=== PATIENT | female | born 1935 | race Two or more races ===

== ENCOUNTER 2020-05-11 07:51 | Inpatient (IN) | payer MEDICARE ==
[2020-05-11 08:15] LABS: Appearance,Urine Clear (Clear); Bilirubin,Urine Negative (Negative); Blood,Urine Negative (Negative); Color,Urine Light Yellow; Glucose,Urine (UA) Negative (Negative); Ketones,Urine Negative (Negative); Leukocyte Esterase,Urine Negative (Negative); Nitrite,Urine Negative (Negative); Protein,Urine Negative (Negative); Specific Gravity,Urine 1.007 (1.001-1.035); Urobilinogen,Urine <2.0 mg/dL (<2.0)
--- NOTE | 2020-05-11 08:29 | ED ---
General Adult HPI - General Chief complaint: Weakness Stated complaint: anxiety Time Seen by Provider: 05/11/20 07:54 Source: patient Mode of arrival: EMS Limitations: no limitations - History of Present Illness Initial comments: Dictation was produced using [employer] dictation software. please excuse any grammatical, word or spelling errors. This patient was cared for during a federal and state declared state of emergency secondary to Covid 19 Chief Complaint: 85-year-old female presents with slurred speech and generalized weakness. History of Present Illness: Is an 85-year-old feel she presents today with slurred speech and generalized weakness. Patient states that she called EMS today because she had difficulty getting out of bed. Patient states she had a similar episode yesterday morning. Patient also complains of mild slurred speech that has been ongoing for the past week. States that it significantly got worse. She feels as though her speech is garbled. EMS reports that patient lives alone. Patient also admits to living alone. She does have family member that helps take care of her at home. Patient denies any fever. Denies any chills or night sweats. Denies any dysuria. Denies any numbness feeling to the arms or legs. She has no pain complaints. The ROS documented in this emergency department record has been reviewed and confirmed by me. Those systems with pertinent positive or negative responses have been documented in the HPI. All other systems are other negative and/or noncontributory. PHYSICAL EXAM: General Impression: Alert and oriented x3, not in acute distress HEENT: Normocephalic atraumatic, extra-ocular movements intact, pupils equal and reactive to light bilaterally, mucous membranes moist, poor dentition Cardiovascular: Heart regular rate and rhythm Chest: Able to complete full sentences, no retractions, no tachypnea Abdomen: abdomen soft, non-tender, non-distended, no organomegaly Musculoskeletal: Pulses present and equal in all extremities, no peripheral edema Motor: no focal deficits noted Neurological: CN II-XII grossly intact, no focal motor or sensory deficits noted, mildly dysarthric, non-ataxic, mildly aphasic Skin: Intact with no visualized rashes Psych: Normal affect and mood ED course: 85-year-old female presents with generalized weakness and slurred speech. Vital signs upon arrival are within acceptable limits. Patient slurred speech is very mild however slightly appreciated. Patient has no clear definition of when her symptoms started. She does not have any facial drooping. There is concern of CVA. Nurse who assisted patient to the restroom reports that there is abnormal smell to urine concerning for UTI.More history was obtained from daughter. Daughter reports that patient had a fall episode yesterday. Laboratory evaluation obtained. CBC unremarkable. Metabolic panel shows mild anion gap acidosis. Lactic acidosis 2.8, glucose 61, calcium 5.7 and magnesium 1.2. Urinalysis is not showing any signs of infection. Patient's magnesium was replaced, patient is given fluids and dextrose. Daughter at bedside reports that patient takes an oral anti-hypoglycemics, glipizide 4 times a day. Daughter is concerned that because patient does not eat as much as she used to she does not eat to take as much glipizide.Computed tomography scan of the brain obtained showing no acute processes. Patient reevaluated after administration of fluids and magnesium. She states she still feels like her speech is garbled and that she has no control over her body. She is however resting comfortably. Discussed patient case with patient's primary care physician Dr. Gee who is currently the hospitalist on-call. At this point is unclear what is causing patient's lack acidosis. Patient also has features to suggest stroke with slurred speech. Patient be admitted for CVA workup. She is given aspirin. Dr. Gee requested echocardiogram and carotid ultrasound be ordered for stroke workup. Neurology is consulted. Patient reevaluated at bedside she does appear to be in stable medical condition. She does not show any signs of respiratory distress. Patient is to be afebrile. She is not showing any localizing sym ptoms to suggest any sort of bodily infection. EKG interpretation: Ventricular rate 86, normal sinus rhythm,. 140, QRS 74, QTC 406. No AR prolongation, no QTC prolongation, no ST or T-wave changes noted. Overall, this EKG is unremarkable - Related Data Home Medications Medication Instructions Recorded Confirmed Ferrous Sulfate [Feosol] 325 mg PO DAILY 05/11/20 05/11/20 Levothyroxine Sodium [Synthroid] 50 mcg PO DAILY 05/11/20 05/11/20 Omeprazole 20 mg PO DAILY 05/11/20 05/11/20 glipiZIDE/METFORMIN HCL 2 tab PO BID 05/11/20 05/11/20 [glipiZIDE/METFORMIN HCL 5-500 mg] Allergies Allergy/AdvReac Type Severity Reaction Status Date / Time No Known Allergies Allergy Verified 05/11/20 10:32 Review of Systems ROS Statement: Those systems with pertinent positive or pertinent negative responses have been documented in the HPI. ROS Other: All systems not noted in ROS Statement are negative. Past Medical History Past Medical History: Diabetes Mellitus, Thyroid Disorder History of Any Multi-Drug Resistant Organisms: None Reported Past Surgical History: Section Past Psychological History: No Psychological Hx Reported Smoking Status: Never smoker Past Alcohol Use History: None Reported Past Drug Use History: None Reported General Exam Limitations: no limitations Course Vital Signs 05/11/20 05/11/20 05/11/20 07:56 09:44 10:41 Temperature 98.1 F Pulse Rate 85 76 79 Respiratory 18 16 16 Rate Blood Pressure 173/88 160/90 141/87 O2 Sat by Pulse 100 99 95 Oximetry Medical Decision Making - Lab Data Result diagrams: 05/11/20 08:31 05/11/20 08:31 Lab Results 05/11/20 05/11/20 05/11/20 Range/Units 08:08 08:31 08:31 WBC 5.5 (3.8-10.6) k/uL RBC 4.04 (3.80-5.40) m/uL Hgb 11.5 (11.4-16.0) gm/dL Hct 36.5 (34.0-46.0) % MCV 90.4 (80.0-100.0) fL MCH 28.4 (25.0-35.0) pg MCHC 31.4 (31.0-37.0) g/dL RDW 13.2 (11.5-15.5) % Plt Count 270 (150-450) k/uL Neutrophils % 68 % Lymphocytes % 21 % Monocytes % 7 % Eosinophils % 2 % Basophils % 0 % Neutrophils # 3.8 (1.3-7.7) k/uL Lymphocytes # 1.2 (1.0-4.8) k/uL Monocytes # 0.4 (0-1.0) k/uL Eosinophils # 0.1 (0-0.7) k/uL Basophils # 0.0 (0-0.2) k/uL Sodium 143 (137-145) mmol/L Potassium 4.9 (3.5-5.1) mmol/L Chloride 110 H (98-107) mmol/L Carbon Dioxide 20 L (22-30) mmol/L Anion Gap 13 mmol/L BUN 13 (7-17) mg/dL Creatinine 0.68 (0.52-1.04) mg/dL Est GFR (CKD-EPI)AfAm >90 (>60 ml/min/1.73 sqM) Est GFR (CKD-EPI)NonAf 81 (>60 ml/min/1.73 sqM) Glucose 61 L (74-99) mg/dL POC Glucose (mg/dL) (75-99) mg/dL POC Glu Anthropologist ID Lactic Ac Sepsis Rflx Plasma Lactic Acid Tye (0.7-2.0) mmol/L Calcium 10.1 (8.4-10.2) mg/dL Ionized Calcium Pernell 5.7 H (4.5-5.3) mg/dL Magnesium 1.2 L (1.6-2.3) mg/dL Total Bilirubin 0.6 (0.2-1.3) mg/dL AST 30 (14-36) U/L ALT 13 (4-34) U/L Alkaline Phosphatase 81 (38-126) U/L Total Protein 7.4 (6.3-8.2) g/dL Albumin 4.3 (3.5-5.0) g/dL Urine Color Light Yellow Urine Appearance Clear (Clear) Urine pH 5.0 (5.0-8.0) Ur Specific [place] 1.007 (1.001-1.035) Urine Protein Negative (Negative) Urine Glucose (UA) Negative (Negative) Urine Ketones Negative (Negative) Urine Blood Negative (Negative) Urine Nitrite Negative (Negative) Urine Bilirubin Negative (Negative) Urine Urobilinogen <2.0 (<2.0) mg/dL Ur Leukocyte Esterase Negative (Negative) 05/11/20 05/11/20 05/11/20 Range/Units 08:31 09:02 11:35 WBC (3.8-10.6) k/uL RBC (3.80-5.40) m/uL Hgb (11.4-16.0) gm/dL Hct (34.0-46.0) % MCV (80.0-100.0) fL MCH (25.0-35.0) pg MCHC (31.0-37.0) g/dL RDW (11.5-15.5) % Plt Count (150-450) k/uL Neutrophils % % Lymphocytes % % Monocytes % % Eosinophils % % Basophils % % Neutrophils # (1.3-7.7) k/uL Lymphocytes # (1.0-4.8) k/uL Monocytes # (0-1.0) k/uL Eosinophils # (0-0.7) k/uL Basophils # (0-0.2) k/uL Sodium (137-145) mmol/L Potassium (3.5-5.1) mmol/L Chloride (98-107) mmol/L Carbon Dioxide (22-30) mmol/L Anion Gap mmol/L BUN (7-17) mg/dL Creatinine (0.52-1.04) mg/dL Est GFR (CKD-EPI)AfAm (>60 ml/min/1.73 sqM) Est GFR (CKD-EPI)NonAf (>60 ml/min/1.73 sqM) Glucose (74-99) mg/dL POC Glucose (mg/dL) (75-99) mg/dL POC Glu Anthropologist ID Lactic Ac Sepsis Rflx Y Plasma Lactic Acid Tye 2.8 H* 3.6 H* (0.7-2.0) mmol/L Calcium (8.4-10.2) mg/dL Ionized Calcium Pernell (4.5-5.3) mg/dL Magnesium (1.6-2.3) mg/dL Total Bilirubin (0.2-1.3) mg/dL AST (14-36) U/L ALT (4-34) U/L Alkaline Phosphatase (38-126) U/L Total Protein (6.3-8.2) g/dL Albumin (3.5-5.0) g/dL Urine Color Urine Appearance (Clear) Urine pH (5.0-8.0) Ur Specific [place] (1.001-1.035) Urine Protein (Negative) Urine Glucose (UA) (Negative) Urine Ketones (Negative) Urine Blood (Negative) Urine Nitrite (Negative) Urine Bilirubin (Negative) Urine Urobilinogen (<2.0) mg/dL Ur Leukocyte Esterase (Negative) 05/11/20 05/11/20 Range/Units 11:35 12:36 WBC (3.8-10.6) k/uL RBC (3.80-5.40) m/uL Hgb (11.4-16.0) gm/dL Hct (34.0-46.0) % MCV (80.0-100.0) fL MCH (25.0-35.0) pg MCHC (31.0-37.0) g/dL RDW (11.5-15.5) % Plt Count (150-450) k/uL Neutrophils % % Lymphocytes % % Monocytes % % Eosinophils % % Basophils % % Neutrophils # (1.3-7.7) k/uL Lymphocytes # (1.0-4.8) k/uL Monocytes # (0-1.0) k/uL Eosinophils # (0-0.7) k/uL Basophils # (0-0.2) k/uL Sodium (137-145) mmol/L Potassium (3.5-5.1) mmol/L Chloride (98-107) mmol/L Carbon Dioxide (22-30) mmol/L Anion Gap mmol/L BUN (7-17) mg/dL Creatinine (0.52-1.04) mg/dL Est GFR (CKD-EPI)AfAm (>60 ml/min/1.73 sqM) Est GFR (CKD-EPI)NonAf (>60 ml/min/1.73 sqM) Glucose (74-99) mg/dL POC Glucose (mg/dL) 238 H (75-99) mg/dL POC Glu Anthropologist ID Shweta Noland Lactic Ac Sepsis Rflx Plasma Lactic Acid Tye (0.7-2.0) mmol/L Calcium (8.4-10.2) mg/dL Ionized Calcium Pernell (4.5-5.3) mg/dL Magnesium 2.6 H (1.6-2.3) mg/dL Total Bilirubin (0.2-1.3) mg/dL AST (14-36) U/L ALT (4-34) U/L Alkaline Phosphatase (38-126) U/L Total Protein (6.3-8.2) g/dL Albumin (3.5-5.0) g/dL Urine Color Urine Appearance (Clear) Urine pH (5.0-8.0) Ur Specific [place] (1.001-1.035) Urine Protein (Negative) Urine Glucose (UA) (Negative) Urine Ketones (Negative) Urine Blood (Negative) Urine Nitrite (Negative) Urine Bilirubin (Negative) Urine Urobilinogen (<2.0) mg/dL Ur Leukocyte Esterase (Negative) Disposition Clinical Impression: Slurred speech, Lactic acidosis Disposition: ADMITTED IP TO THIS [facility] Condition: Fair Referrals: Richmond Mendiola MD [Primary Care Provider] - 1-2 days Decision Time: 13:00
--- NOTE | 2020-05-11 08:53 | CT ---
EXAMINATION TYPE: CT brain wo con DATE OF EXAM: 05/11/2020 COMPARISON: None HISTORY: 85-year-old female Slurred speech TECHNIQUE: Examination was done in axial plane without intravenous contrast. Coronal and sagittal r econstructions performed. CT DLP: 1035.4 mGycm Automated exposure control for dose reduction was used. FINDINGS: There is no evidence of acute intracranial hemorrhage, acute ischemic changes, mass, mass-effect, or extra-axial fluid collection. There is no effacement of cerebral sulci or basal subarachnoid cister ns. There is no midline shift. Joshi-white matter distinction is preserved. Moderate generalized supratentorial volume loss. Secondary mild ventricular prominence. Moderate patchy white matter hypodensities in both cerebral hemispheres. Atherosclerotic calcificatio ns particularly in the right carotid siphon. Suspect small old infarcts posterior cerebellar hemisphe res. Paranasal sinuses and mastoid air cells are well pneumatized. Orbits and globes are intact. IMPRESSION: Moderate generalized atrophy and changes of chronic small vessel ischemic disease. 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 No acute intracranial abnormality seen. If symptoms persist, consider follow-up CT or MRI.
[2020-05-11 08:54] LABS: Basophils % (A) 0 %; Eosinophils # (A) 0.1 k/uL (0-0.7); Eosinophils % (A) 2 %; HCT 36.5 % (34.0-46.0); HGB 11.5 gm/dL (11.4-16.0); Lymphocytes # (A) 1.2 k/uL (1.0-4.8); Lymphocytes % (A) 21 %; MCH 28.4 pg (25.0-35.0); MCHC 31.4 g/dL (31.0-37.0); MCV 90.4 fL (80.0-100.0); Mean Platelet Volume 6.9; Monocytes # (A) 0.4 k/uL (0-1.0); Monocytes % (A) 7 %; Neutrophils # (A) 3.8 k/uL (1.3-7.7); Neutrophils % (A) 68 %; Platelet Count 270 k/uL (150-450); RBC 4.04 m/uL (3.80-5.40); RDW 13.2 % (11.5-15.5); WBC 5.5 k/uL (3.8-10.6)
[2020-05-11 08:55] LABS: Ionized Calcium 5.7 mg/dL (4.5-5.3)
--- NOTE | 2020-05-11 09:01 | XR ---
EXAMINATION TYPE: XR chest 1V portable DATE OF EXAM: 05/11/2020 COMPARISON: NONE HISTORY: Weakness TECHNIQUE: Single frontal view of the chest is obtained. FINDINGS: There is no focal air space opacity, pleural effusion, or pneumothorax seen. The cardiac silhouette size is within normal limits. There are overlying cardiac leads. Aorta is dense. The osse ous structures are intact, suspect old healed rib fractures along the right chest, correlate for hist ory of trauma. IMPRESSION: No acute process. Additional findings above.
[2020-05-11 09:19] LABS: ALT 13 U/L (4-34); AST 30 U/L (14-36); African American GFR (CKD) >90 (>60 ml/min/1.73 sqM); Albumin 4.3 g/dL (3.5-5.0); Alkaline Phosphatase 81 U/L (38-126); Anion Gap 13 mmol/L; Blood Urea Nitrogen 13 mg/dL (7-17); Calcium 10.1 mg/dL (8.4-10.2); Carbon Dioxide 20 mmol/L (22-30); Chloride 110 mmol/L (98-107); Glucose 61 mg/dL (74-99); Magnesium 1.2 mg/dL (1.6-2.3); Non-African American GFR(CKD) 81 (>60 ml/min/1.73 sqM); Potassium 4.9 mmol/L (3.5-5.1); Sodium 143 mmol/L (137-145); Total Bilirubin 0.6 mg/dL (0.2-1.3); Total Protein 7.4 g/dL (6.3-8.2)
[2020-05-11] MEDS ORDERED: DEXTROSE 50% SYRINGE 50 ML IVP STA (09:46)
[2020-05-11] MEDS: MAGNESIUM SULFATE-D5W PMX 1 GM in DEXTROSE/WATER 1 100ML.BAG IVPB SCH ×2 (09:57→10:51)
[2020-05-11] MEDS ORDERED: SODIUM CHLORIDE 0.9% 500 ML 500 ML IV STA (10:42)
[2020-05-11] MEDS ORDERED: ASPIRIN 81 MG PO STA (12:33)
[2020-05-11 12:37] LABS: Glucose,Whole Blood 238 mg/dL (75-99)
[2020-05-11] MEDS ORDERED: ONDANSETRON 4 MG/2 ML VIAL IVP PRN (12:56)
[2020-05-11] MEDS ORDERED: NALOXONE 0.4 MG/ML 1 ML VIAL IV PRN (12:56)
--- NOTE | 2020-05-11 14:01 | US ---
EXAMINATION TYPE: US carotid duplex BILAT DATE OF EXAM: 05/11/2020 COMPARISON: NONE CLINICAL HISTORY: slurred speech. EXAM MEASUREMENTS: RIGHT: Peak Systolic Velocity (PSV) cm/sec ----- Right CCA: 40.6 ----- Right ICA: 73.5 ----- Right ECA: 39.5 ICA/CCA ratio: 1.8 RIGHT: End Diastole cm/sec ----- Right CCA: 14.2 ----- Right ICA: 28.5 ----- Right ECA: 5.4 LEFT: Peak Systolic Velocity (PSV) cm/sec ----- Left CCA: 44.8 ----- Left ICA: 58.1 ----- Left ECA: 53.7 ICA/CCA ratio: 1.3 LEFT: End Diastole cm/sec ----- Left CCA: 10.4 ----- Left ICA: 23.0 ----- Left ECA: 8.7 VERTEBRALS (direction of flow): Right Vertebral: Antegrade Left Vertebral: Antegrade Rhythm: Normal Moderate amount of plaque visualized. No elevated velocities visualized IMPRESSION: 1. Moderate atherosclerotic plaque with no significant hemodynamic stenosis bilaterally. Criteria for Assigning % of Stenosis / Diameter reduction (Estimation based on the indirect measurements of the internal carotid artery velocities (ICA PSV). 1. Normal (no stenosis)=ICA PSV < 125 cm/s: ratio < 2.0: ICA EDV<40 cm/s. 2. Less than 50% stenosis=ICA PSV < 125 cm/s: ratio < 2.0: ICA EDV<40 cm/s. 3. 50 to 69% stenosis=ICA PSV of 125 to 230 cm/s: ration 2.0 ? 4.0: ICA EDV 40-100 cm/s. 4. Greater than 70% stenosis to near occlusion= ICA PSV > 230 cm/s: ratio > 4.0: ICA EDV > 100 cm/s. 5. Near occlusion= ICA PSV velocities may be low or undetectable: variable ratio and ICA EDV. 6. Total occlusion=unable to detect flow.
[2020-05-11] MEDS: SODIUM CHLORIDE 0.9% 1,000 ML IV SCH (14:09)
[2020-05-11] MEDS ORDERED: SODIUM CHLORIDE 0.9% 500 ML 500 ML IV ONE (16:12)
[2020-05-11 17:48] LABS: Glucose,Whole Blood 183 mg/dL (75-99)
[2020-05-11 20:21] LABS: Glucose,Whole Blood 207 mg/dL (75-99)
--- NOTE | 2020-05-11 20:55 | P.CNNES ---
History of Present Illness Consult date: 05/11/20 Requesting physician: Yoav Smith Reason for Consult: Slurred speech History of Present Illness: Patient is a 85-year-old female, who came to the hospital today at 8 AM by ambulance due to slurred speech and generalized weakness. Patient was having difficulty getting out of bed. Patient states that yesterday she had no control of herself. When she tried to get off the bed, she was shaky. Finally she got her feet on the floor and crawled to the bathroom. She felt dizzy, vision felt blurred fuzzy, like a drunk. She was staggering. She was like this all day yesterday and today. Therefore she came to the hospital. She had a similar episode yesterday morning. Patient also complains of mild slurred speech that has been ongoing since just before the soto virus pandemic started. Patient states that her speech impediment has got worse yesterday and today. Patient lives alone. No fever or chills or night sweats. Patient states she does have 3 daughters. Patient's vitals on arrival was blood pressure 173/88, pulse rate 85, temperature 98.1. CT head showed moderate generalized atrophy and changes of chronic small vessel ischemic disease. 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 No acute intracranial abnormality seen. If symptoms persist, consider follow-up CT or MRI. Chest x-ray negative. EKG shows normal sinus rhythm. Carotid Doppler showed moderate atherosclerotic plaque with no significant hemodynamic stenosis. Antegrade flow in both vertebral arteries. Patient has history of type 2 diabetes for over 20 years. She is on pills. Patient has hypertension. Never smoked. Denies any alcohol use. She used to be on aspirin, but has stopped taking aspirin and for number of years. Review of Systems patient denies headache, hoarseness, sore throat dysphagia. patient does have blurred vision yesterday. Today it is better. Denies any chest pain shortness of breath wheezing or cough. Denies abdominal pain nausea vomiting diarrhea. Denies any neck or back pain. She does feel tremulous. All other review of systems negative. Past Medical History Past Medical History: Diabetes Mellitus, Thyroid Disorder History of Any Multi-Drug Resistant Organisms: None Reported Past Surgical History: Section Past Psychological History: No Psychological Hx Reported Smoking Status: Never smoker Past Alcohol Use History: None Reported Past Drug Use History: None Reported Medications and Allergies Home Medications Medication Instructions Recorded Confirmed Type Ferrous Sulfate [Feosol] 325 mg PO DAILY 05/11/20 05/11/20 History Levothyroxine Sodium [Synthroid] 50 mcg PO DAILY 05/11/20 05/11/20 History Omeprazole 20 mg PO DAILY 05/11/20 05/11/20 History glipiZIDE/METFORMIN HCL 2 tab PO BID 05/11/20 05/11/20 History [glipiZIDE/METFORMIN HCL 5-500 mg] Allergies Allergy/AdvReac Type Severity Reaction Status Date / Time No Known Allergies Allergy Verified 05/11/20 10:32 Physical Examination - Vital Signs Vital Signs: Vital Signs Temp Pulse Resp BP Pulse Ox 05/11/20 14:14 91 16 133/80 99 05/11/20 13:24 98.1 F 98 16 129/82 100 05/11/20 10:41 79 16 141/87 95 05/11/20 09:44 76 16 160/90 99 05/11/20 07:56 98.1 F 85 18 173/88 100 Intake and Output 05/11/20 05/11/20 05/11/20 06:59 14:59 22:59 Other: Weight 58.513 kg on examination patient is an elderly female, very pleasant in no acute distress. Patient is alert and awake fully oriented. Patient states that it is last part of April and the year is 2019. She knows she is in [facility] [employer] [facility] in [facility] and name of the current president. Speech has mild dysarthria but no aphasia. On cranial examination pupils are round and reactive to light, visual grewal are full on confrontation. Extraocular muscles are intact with no nystagmus. Face is symmetric, tongue protrudes the midline. Palatal elevation and sensation normal. Hearing and shoulder shrug normal. On muscle strength testing there is no pronator drift and the strength is normal in arms and legs distally and proximally except deltoids, which is weaker in the left as compared to right from probable arthritic issues. Reflexes are symmetric, absent in the upper limbs, trace at the knees, 1 at ankles and plantars downgoing. Sensory touch is equal. No ataxia for [id number] or [id number] testing. Tone and bulk of muscles normal. Gait deferred. There is no bruit, S1-S2 audible. Chest is clear. Abdomen soft nontender. Peripheral pulses present. No edema. Results - Laboratory Findings CBC and BMP: 05/11/20 08:31 05/11/20 08:31 Abnormal Lab Findings: Abnormal Labs 05/11/20 05/11/20 05/11/20 08:31 08:31 11:35 Chloride 110 H Carbon Dioxide 20 L Glucose 61 L POC Glucose (mg/dL) Plasma Lactic Acid Tye 2.8 H* 3.6 H* Ionized Calcium Pernell 5.7 H Magnesium 1.2 L 05/11/20 05/11/20 05/11/20 11:35 12:36 15:40 Chloride Carbon Dioxide Glucose POC Glucose (mg/dL) 238 H Plasma Lactic Acid Tye 2.2 H* Ionized Calcium Pernell Magnesium 2.6 H 05/11/20 17:45 Chloride Carbon Dioxide Glucose POC Glucose (mg/dL) 183 H Plasma Lactic Acid Tye Ionized Calcium Pernell Magnesium Assessment and Plan Assessment: * 85-year-old female with history of hypertension, diabetes admitted with 1-2 day history of some gait disturbance and questionable slurred speech. Her examination at this time is nonfocal. Rule out stroke/TIA. * Diabetes * Hypertension Plan: * Patient was given aspirin 324 mg in the ER. We will continue aspirin 81 mg daily for stroke prevention. Patient was not taking aspirin regimen at home. * Await 2-D echo. * We will check hemoglobin A1c, fasting a.m. lipid panel. We will also check B12, folate. * Carotid Doppler showed moderate atherosclerotic plaque with no significant stenosis. * PT OT evaluate gait.
[2020-05-11] MEDS ORDERED: glipiZIDE 5 MG TAB PO SCH (21:15)
--- NOTE | 2020-05-11 22:20 | P.HPIM ---
History of Present Illness H&P Date: 05/11/20 Chief Complaint: CVA/TIA, severe lactic acidosis, mild altered mental status, slurred speech 85-year-old female one of my office patient with known for long time with past medical history of type 2 diabetes, history of hypothyroidism, history of mild depression and anxiety attacks who was also have history of leukopenia and chronic history of anemia who was seen in the office last in November for follow- up and has not been seen since the Covid 19 panic started. 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 Surprisingly her lactic acid came back quite but elevated with no explanation no pneumonia or sign of infection no cough cellulitis UTI or any other abnormality consistent with infection basis. Patient was started on hydration consult neurology and if needed MRI of the brain will be done we'll start patient on PTOT awaiting for symptom to improve. Reviewing all patient finding she keep having mild symptom of hypoglycemia despite having her A1c mildly elevated she still on glipizide and metformin not been able to afford any of the new agent or insulin in the past. Her lactic acidosis can be sign and symptom of metformin cause lactic acidosis which could explain some of her symptom and persistent of lactic acid not improve fast enough. Review of Systems CONSTITUTIONAL: Well-developed no acute respiratory distress. Moderately malnourished. EYES: No icterus sclerae, no conjunctivitis. EARS, NOSE, MOUTH, THROAT, and FACE: No sore throat, lymphadenopathy, carotid bruits or deformity. RESPIRATORY: Mild shortness of breath no cough wheezes. CARDIOVASCULAR: No CP, Palpitation, PND, Orthopnea, or angina. GASTROINTESTINAL: Abdominal discomfort with nausea no vomiting no diarrhea no GI bleed or distention. GENITOURINARY: Mild frequency and urgency with no infection no sign of stone. INTEGUMENT/BREAST: Negative for any muscular injury with mild osteoarthritis.. HEMATOLOGIC/LYMPHATIC: Chronic history of anemia and leukopenia with no sign of leukemia. MUSCULOSKELTAL: Generalized muscle and joint pain all over body. NEURLOGICAL: Slurred speech, generalized weakness, severe abnormal balance and gait, severe generalized fatigue and mild altered mental status. BEHAVIORAL/PSYCH: Negative. ENDOCRINE: Negative. Past Medical History Past Medical History: Diabetes Mellitus, Thyroid Disorder History of Any Multi-Drug Resistant Organisms: None Reported Past Surgical History: Section Past Psychological History: No Psychological Hx Reported Smoking Status: Never smoker Past Alcohol Use History: None Reported Past Drug Use History: None Reported Medications and Allergies Home Medications Medication Instructions Recorded Confirmed Type Ferrous Sulfate [Feosol] 325 mg PO DAILY 05/11/20 05/11/20 History Levothyroxine Sodium [Synthroid] 50 mcg PO DAILY 05/11/20 05/11/20 History Omeprazole 20 mg PO DAILY 05/11/20 05/11/20 History glipiZIDE/METFORMIN HCL 2 tab PO BID 05/11/20 05/11/20 History [glipiZIDE/METFORMIN HCL 5-500 mg] Allergies Allergy/AdvReac Type Severity Reaction Status Date / Time No Known Allergies Allergy Verified 05/11/20 10:32 Physical Exam Vitals: Vital Signs Temp Pulse Pulse Resp BP BP Pulse Ox 05/11/20 19:26 98.1 F 84 17 157/88 100 05/11/20 14:14 91 16 133/80 99 05/11/20 13:24 98.1 F 98 16 129/82 100 05/11/20 10:41 79 16 141/87 95 05/11/20 09:44 76 16 160/90 99 05/11/20 07:56 98.1 F 85 18 173/88 100 Intake and Output 05/11/20 05/11/20 05/11/20 06:59 14:59 22:59 Other: Weight 58.513 kg General Appearance: Alert, cooperative, no distress, appears stated age. Neck HEENT: Supple, no lymphadenopathy, no thyroid enlargement, no carotid bruits. Lungs: Clear to auscultation without crackles or wheezes no rhonchi, no deform ity. Chest Wall: Chest wall normal expansion with deep inspiration no tenderness and no deformity was found on exam, no costochondral pain or discomfort. Heart: Regular rate and rhythm, S1, S2 normal, no murmur, rub or gallop. Back: Symmetric, no curvature, ROM normal, no CVA tenderness. Abdomen: Soft, non-tender, bowel sounds active all four quadrants, no masses, no organomegaly. Extremities: Extremities normal, atraumatic, no cyanosis or edema. Pulses: 2+ and symmetric. Skin: Skin color, texture, tugor normal, no rashes or lesions. Neurologic: Alert oriented with generalized weakness creatinine nerve II-12 are intact, patient has more weakness of the lower extremity than upper extremity wi th quite bit neuropathy from the knee down both side. Generalized weakness one attempt to ambulate and walk with severe abnormal balance and gait was spastic. Results CBC & Chem 7: 05/11/20 08:31 05/11/20 08:31 Labs: Abnormal Lab Results - Last 24 Hours (Table) 05/11/20 05/11/20 05/11/20 Range/Units 08:31 08:31 11:35 Chloride 110 H (98-107) mmol/L Carbon Dioxide 20 L (22-30) mmol/L Glucose 61 L (74-99) mg/dL POC Glucose (mg/dL) (75-99) mg/dL Plasma Lactic Acid Tye 2.8 H* 3.6 H* (0.7-2.0) mmol/L Ionized Calcium Pernell 5.7 H (4.5-5.3) mg/dL Magnesium 1.2 L (1.6-2.3) mg/dL 05/11/20 05/11/20 05/11/20 Range/Units 11:35 12:36 15:40 Chloride (98-107) mmol/L Carbon Dioxide (22-30) mmol/L Glucose (74-99) mg/dL POC Glucose (mg/dL) 238 H (75-99) mg/dL Plasma Lactic Acid Tye 2.2 H* (0.7-2.0) mmol/L Ionized Calcium Pernell (4.5-5.3) mg/dL Magnesium 2.6 H (1.6-2.3) mg/dL 05/11/20 05/11/20 05/11/20 Range/Units 17:45 19:21 20:19 Chloride (98-107) mmol/L Carbon Dioxide (22-30) mmol/L Glucose (74-99) mg/dL POC Glucose (mg/dL) 183 H 207 H (75-99) mg/dL Plasma Lactic Acid Tye 2.6 H* (0.7-2.0) mmol/L Ionized Calcium Pernell (4.5-5.3) mg/dL Magnesium (1.6-2.3) mg/dL Thrombosis Risk Factor Assmnt - DVT/VTE Prophylaxis DVT/VTE Prophylaxis: Mechanical Prophylaxis ordered Assessment and Plan Assessment: 1 TIA/CVA: With significant finding with her exam at the time was seen urology continue workup for CVA and TIA if need to repeat CT of the brain or MRI of the brain can be order the next 24 hours, in the meanwhile Holter monitor, echo and carotid ultrasound be done continue to watch patient symptoms and hemodynamic status at this point. 2 severe generalized weakness: Combination of possible lactic acidosis and CVA or TIA continue hydration and supportive care was start PTOT and advanced gradually. 3 severe lactic acidosis: Persistent despite no finding of DKA or severe nonketotic hyperglycemia, no sign and symptom of any infection or sepsis no sign of shock at this point. This is could be one of the very rare occasion for met formin causes lactic acidosis which can be persistent for a few days and can cause generalized toxic symptoms. Repeat lactic acid in the next 48 hours continue hydration and supportive care with hold metformin at this point. 4 type 2 diabetes: Patient was on the glipizide and metformin, previously could not afford DPP 4 product or SGLT2 and patient was afraid of insulin product not been able to manage it. We'll continue patient on product like Januvia at this point and add Prandin and if the blood sugar remain above 120 cannot smaller dose of Lantus for better control on the long run with try to teach the patient how to do it gradually. 5 severe leukopenia and chronic anemia: Has been on iron supplement has been seen hematology regular basis her white blood cell is above 1 run normally at 5.5 which to some degree this is still can be sign of infection and sepsis and patient notes why culture both urine and blood was order continue to watch symptoms closely. 6 hypothyroidism: Continue patient on levothyroxine 50 g daily. 7 history of peptic ulcer disease: Continue patient on pantoprazole 40 mg IV twice a day for now. 8 daily try to imbalance with mild abnormality consistent with elevated calcium and magnesium, recheck in 48 hours. 9 GI prophylaxis: Patient will be on pantoprazole. 10 DVT prophylaxis: Knee-high GLADYS hose no subcu heparin at this point specially with patient history of thrombocytopenia and leukopenia. CODE STATUS: Full code. Admit patient to inpatient status for more than 2 nights.
[2020-05-11 23:41] LABS: T4, Free (Free Thyroxine) 1.57 ng/dL (0.78-2.19)
[2020-05-12 03:53] LABS: Appearance,Urine Clear (Clear); Bilirubin,Urine Negative (Negative); Blood,Urine Negative (Negative); Color,Urine Light Yellow; Glucose,Urine (UA) Trace (Negative); Ketones,Urine Negative (Negative); Leukocyte Esterase,Urine Negative (Negative); Nitrite,Urine Negative (Negative); Protein,Urine Negative (Negative); Specific Gravity,Urine 1.013 (1.001-1.035); Urobilinogen,Urine <2.0 mg/dL (<2.0)
[2020-05-12 04:17] LABS: Hemoglobin A1C 5.6 % (4.0-6.0)
[2020-05-12] MEDS: LEVOTHYROXINE 50 MCG TAB PO SCH (05:14)
[2020-05-12] MEDS ORDERED: LEVOTHYROXINE 50 MCG TAB PO SCH (06:30)
[2020-05-12] MEDS ORDERED: metFORMIN 500 MG TAB PO SCH (07:30)
[2020-05-12] MEDS: LINAGLIPTIN 5 MG TABLET PO SCH (07:51)
[2020-05-12] MEDS: SODIUM CHLORIDE 0.9% 1,000 ML IV SCH (07:51)
[2020-05-12] MEDS: PANTOPRAZOLE 40 MG TABLET PO SCH (07:51)
[2020-05-12] MEDS: FERROUS SULFATE 325 MG TAB PO SCH (07:51)
[2020-05-12] MEDS: ASPIRIN 81 MG PO SCH (07:51)
[2020-05-12 08:22] LABS: Glucose,Whole Blood 89 mg/dL (75-99)
[2020-05-12] MEDS ORDERED: NON FORMULARY DRUG (Omeprazole [Omeprazole] 20 MG) PO SCH (09:00)
[2020-05-12] MEDS ORDERED: FERROUS SULFATE 325 MG TAB PO SCH (09:00)
--- NOTE | 2020-05-12 09:00 | ECHOF ---
Referral Reason:slurred speech MEASUREMENTS -------- HEIGHT: 152.4 cm WEIGHT: 58.5 kg BP: 141/87 RVIDd: 2.5 cm (< 3.3) IVSd: 1.3 cm (0.6 - 1.1) LVIDd: 2.7 cm (3.9 - 5.3) LVPWd: 1.4 cm (0.6 - 1.1) IVSs: 1.6 cm LVIDs: 2.0 cm LVPWs: 1.5 cm LAESV Index (A-L): 25.36 ml/m Ao Diam: 3.1 cm (2.0 - 3.7) AV Cusp: 1.6 cm (1.5 - 2.6) MV EXCURSION: 14.883 mm (> 18.000) MV EF SLOPE: 184 mm/s (70 - 150) EPSS: 0.3 cm FINDINGS -------- This was a technically adequate study. The left ventricular size is normal. There is mild concentric left ventricular hypertrophy. Overa ll left ventricular systolic function is normal with, an EF between 55 - 60 %. The diastolic fillin g pattern is normal for the age of the patient {E/E'}. The right ventricle is normal in size. Normal LA size by volume 22+/-6 ml/m2. The right atrium was not well visualized. Interatrial and interventricular septum intact. The aortic valve is trileaflet and appears structurally normal. Trace amount of aortic regurgitatio n. There is no evidence of aortic stenosis. There is trace to mild mitral regurgitation. Mild tricuspid regurgitation present. There is no evidence of pulmonary hypertension. The right v entricular systolic pressure, as measured by Doppler, is {RVSP}. There is no pulmonic regurgitation present. The aortic root size is normal. Normal inferior vena cava with normal inspiratory collapse consistent with estimated right atrial pre ssure of 5 mmHg. There is no pericardial effusion. CONCLUSIONS -------- 1. This was a technically adequate study. 2. The left ventricular size is normal. 3. There is mild concentric left ventricular hypertrophy. 4. Overall left ventricular systolic function is normal with, an EF between 55 - 60 %. 5. The diastolic filling pattern is normal for the age of the patient {E/E'} 6. The right ventricle is normal in size. 7. Normal LA size by volume 22+/-6 ml/m2. 8. The right atrium was not well visualized. 9. Interatrial and interventricular septum intact. 10. The aortic valve is trileaflet and appears structurally normal. 11. Trace amount of aortic regurgitation. 12. There is no evidence of aortic stenosis. 13. There is trace to mild mitral regurgitation. 14. Mild tricuspid regurgitation present. 15. There is no evidence of pulmonary hypertension. 16. The right ventricular systolic pressure, as measured by Doppler, is {RVSP}. 17. There is no pulmonic regurgitation present. 18. The aortic root size is normal. 19. Normal inferior vena cava with normal inspiratory collapse consistent with estimated right atrial pressure of 5 mmHg. 20. There is no pericardial effusion. DETECTIVE [employer]: Briana Faith RDCS
[2020-05-12 10:36] LABS: Cholesterol 106 mg/dL (<200); HDL Cholesterol 63 mg/dL (40-60); LDL Cholesterol,Calculated 32 mg/dL (0-99); Triglycerides 57 mg/dL (<150)
[2020-05-12 11:49] LABS: Glucose,Whole Blood 131 mg/dL (75-99)
[2020-05-12] MEDS ORDERED: CYANOCOBALAMIN 1,000 MCG/ML 1 ML VIAL IM ONE (13:04)
--- NOTE | 2020-05-12 13:09 | P.PN ---
Subjective 85-year-old female one of my office patient with known for long time with past medical history of type 2 diabetes, history of hypothyroidism, history of mild depression and anxiety attacks who was also have history of leukopenia and chronic history of anemia who was seen in the office last in November for follow- up and has not been seen since the Covid 19 panic started. 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 Surprisingly her lactic acid came back quite but elevated with no explanation no pneumonia or sign of infection no cough cellulitis UTI or any other abnormality consistent with infection basis. Patient was started on hydration c onsult neurology and if needed MRI of the brain will be done we'll start patient on PTOT awaiting for symptom to improve. Reviewing all patient finding she keep having mild symptom of hypoglycemia garland pite having her A1c mildly elevated she still on glipizide and metformin not been able to afford any of the new agent or insulin in the past. Her lactic acidosis can be sign and symptom of metformin cause lactic acidosis which could explain some of her symptom and persistent of lactic acid not improve fast enough. 05/12: Patient was evaluated today, noted to be sitting in bedside chair. Patient still noted to have slurred speech with generalized weakness and issues with her balance. Concern for cerebellar stroke, will obtain a MRI of the brain. Carotid doppler showed moderate atherosclerotic plaque with no significant hydrodynamic stnosis bilaterally. PT/OT orders placed along with order for social work for possible subacute rehab upon discharge. Repeat lactic acid 2.3. Lactic acidosis likely due to metformin, currently still on hold, will continue Tradjenta 5 mg daily, may need Prandin along with possible insulin upon discharge. Vital signs are stable blood pressure 112/69, heart rate 63, afebrile at 97.7, 100% on room air. Objective - Vital Signs Vital signs: Vital Signs Temp 97.9 F 05/12/20 07:00 Pulse 63 05/12/20 07:00 Resp 20 05/12/20 07:00 BP 112/69 05/12/20 07:00 Pulse Ox 100 05/12/20 07:00 Intake & Output 05/11/20 05/12/20 05/12/20 18:59 06:59 18:59 Intake Total 240 Balance 240 Weight 58.513 kg Intake: Oral 240 Other: # Voids 2 - Constitutional General appearance: Present: average body habitus, cooperative, no acute distress - EENT Eyes: Present: EOMI, PERRLA, normal appearance ENT: Present: hearing grossly normal, normal oropharynx. Absent: thrush - Neck Neck: Present: normal ROM. Absent: lymphadenopathy, thyromegaly - Respiratory Respiratory: bilateral: CTA, negative: diminished, dullness, rales, rhonchi, wheezing - Cardiovascular Rhythm: regular Heart sounds: normal: S1, S2 - Gastrointestinal General gastrointestinal: Present: normal bowel sounds, soft. Absent: distended, organomegaly, tenderness - Neurologic Neurologic Comment(s): generalized weakness, more weakness noted to the lower extremities when compared to the upper, abnormal balance and spastic gait Neurologic: Present: CNII-XII intact - Musculoskeletal Musculoskeletal: Present: generalized weakness - Psychiatric Psychiatric: Present: A&O x's 3 - Labs CBC & Chem 7: 05/14/20 11:15 05/14/20 11:15 Labs: Abnormal Lab Results - Last 24 Hours (Table) 05/11/20 05/11/20 05/11/20 Range/Units 15:40 17:45 19:21 POC Glucose (mg/dL) 183 H (75-99) mg/dL Plasma Lactic Acid Tye 2.2 H* 2.6 H* (0.7-2.0) mmol/L HDL Cholesterol (40-60) mg/dL TSH (0.465-4.680) mIU/L Urine Glucose (UA) (Negative) 05/11/20 05/11/20 05/11/20 Range/Units 20:19 21:34 21:34 POC Glucose (mg/dL) 207 H (75-99) mg/dL Plasma Lactic Acid Tye 2.5 H* (0.7-2.0) mmol/L HDL Cholesterol (40-60) mg/dL TSH <0.015 L (0.465-4.680) mIU/L Urine Glucose (UA) (Negative) 05/12/20 05/12/20 05/12/20 Range/Units 02:08 09:59 09:59 POC Glucose (mg/dL) (75-99) mg/dL Plasma Lactic Acid Tye 2.6 H* (0.7-2.0) mmol/L HDL Cholesterol 63 H (40-60) mg/dL TSH (0.465-4.680) mIU/L Urine Glucose (UA) Trace H (Negative) 05/12/20 05/12/20 Range/Units 11:15 11:48 POC Glucose (mg/dL) 131 H (75-99) mg/dL Plasma Lactic Acid Tye 2.3 H* (0.7-2.0) mmol/L HDL Cholesterol (40-60) mg/dL TSH (0.465-4.680) mIU/L Urine Glucose (UA) (Negative) Assessment and Plan Plan: 1 TIA/CVA: With significant finding with her exam at the time was seen by neurology, continue workup for CVA and TIA, will obtain MRI of the brain, in the meanwhile holter monitor, echo and carotid doppler completed, continue to watch patient symptoms and hemodynamic status at this point. 2 severe generalized weakness: Combination of possible lactic acidosis and CVA or TIA continue hydration and supportive care was start PTOT and advanced gradually. 3 severe lactic acidosis: Persistent despite no finding of DKA or severe nonketotic hyperglycemia, no sign and symptom of any infection or sepsis no sign of shock at this point. This is could be one of the very rare occasion for metformin causes lactic acidosis which can be persistent for a few days and can cause generalized toxic symptoms. Repeat lactic acid in the next 48 hours continue hydration and supportive care with hold metformin at this point. 4 type 2 diabetes: Patient was on the glipizide and metformin, previously could not afford DPP 4 product or SGLT2 and patient was afraid of insulin product not been able to manage it. We'll continue patient on product like Januvia at this point and add Prandin and if the blood sugar remain above 120 cannot smaller dose of Lantus for better control on the long run with try to teach the patient how to do it gradually. 5 severe leukopenia and chronic anemia: Has been on iron supplement has been seen by hematology on a regular basis, her white blood cell is above 1 run normally at 5.5 which to some degree this is still can be sign of infection and sepsis and patient notes why culture both urine and blood was order continue to watch symptoms closely. 6 hypothyroidism: Continue patient on levothyroxine 50 g daily. 7 history of peptic ulcer disease: Continue patient on pantoprazole 40 mg IV twice a day for now. 8 electrolyte imbalance with mild abnormality consistent with elevated calcium and magnesium, recheck in 48 hours. 9 GI prophylaxis: Patient will be on pantoprazole. 10 DVT prophylaxis: Knee-high GLADYS hose no subcu heparin at this point specially with patient history of thrombocytopenia and leukopenia. CODE STATUS: Full code. Admit patient to inpatient status for more than 2 nights. The above impression and plan of care have been discussed and directed by signing physician. Shayy Vazquez nurse practitioner acting as scribe for signing physician.
--- NOTE | 2020-05-12 13:54 | P.PN ---
Subjective Progress Note Date: 05/12/20 Patient states her speech has not improved. She is stuttering. She is speaking not as plainly as she used to do before. Patient is also concerned about her balance. Apparently started within the last few days to a week or so. Patient not a very good historian. Objective - Vital Signs Vital signs: Vital Signs Temp 97.9 F 05/12/20 07:00 Pulse 63 05/12/20 07:00 Resp 20 05/12/20 07:00 BP 112/69 05/12/20 07:00 Pulse Ox 100 05/12/20 07:00 Intake & Output 05/11/20 05/12/20 05/12/20 18:59 06:59 18:59 Intake Total 240 Balance 240 Weight 58.513 kg Intake: Oral 240 Other: # Voids 2 - Exam Patient is alert and awake in no distress. Patient has some stuttering. Some cerebellar dysarthria. Patient has vertical nystagmus on end gaze bilaterally. No nystagmus in the primary gaze. Visual grewal are full. Face is symmetric. Muscle strength is normal. Patient has minimal dystaxia for [id number] on the left. Patient has moderate ataxia for [id number] testing bilaterally left more than right. - Labs CBC & Chem 7: 05/11/20 08:31 05/11/20 08:31 Labs: Abnormal Lab Results - Last 24 Hours (Table) 05/11/20 05/11/20 05/11/20 Range/Units 15:40 17:45 19:21 POC Glucose (mg/dL) 183 H (75-99) mg/dL Plasma Lactic Acid Tye 2.2 H* 2.6 H* (0.7-2.0) mmol/L HDL Cholesterol (40-60) mg/dL TSH (0.465-4.680) mIU/L Urine Glucose (UA) (Negative) 05/11/20 05/11/20 05/11/20 Range/Units 20:19 21:34 21:34 POC Glucose (mg/dL) 207 H (75-99) mg/dL Plasma Lactic Acid Tye 2.5 H* (0.7-2.0) mmol/L HDL Cholesterol (40-60) mg/dL TSH <0.015 L (0.465-4.680) mIU/L Urine Glucose (UA) (Negative) 05/12/20 05/12/20 05/12/20 Range/Units 02:08 09:59 09:59 POC Glucose (mg/dL) (75-99) mg/dL Plasma Lactic Acid Tye 2.6 H* (0.7-2.0) mmol/L HDL Cholesterol 63 H (40-60) mg/dL TSH (0.465-4.680) mIU/L Urine Glucose (UA) Trace H (Negative) 05/12/20 05/12/20 Range/Units 11:15 11:48 POC Glucose (mg/dL) 131 H (75-99) mg/dL Plasma Lactic Acid Tye 2.3 H* (0.7-2.0) mmol/L HDL Cholesterol (40-60) mg/dL TSH (0.465-4.680) mIU/L Urine Glucose (UA) (Negative) Assessment and Plan Assessment: * New onset dysarthria, ataxia, 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 Exam revealed vertical nystagmus on end gaze, and ataxia on left > right. * Diabetes * Hypertension Plan: * Continue aspirin 81 mg daily for stroke prevention. Patient was not taking aspirin regimen at home. * Agree with checking MRI of the brain to evaluate for possible subacute cerebellar stroke. * 2-D echo showed mild concentric LVH, EF is 55-60%. Normal left atrial size. * Hemoglobin A1c 5.6, fasting a.m. lipid panel with cholesterol 106, LDL 32, HDL 63 and triglycerides 57. * B12 is mildly low 263. We will start replacement. Folic acid 10.0. TSH <0.015. Free T4 normal. May need further evaluation of thyroid dysfunction. * Carotid Doppler showed moderate atherosclerotic plaque with no significant stenosis. * PT OT evaluate gait.
--- NOTE | 2020-05-12 15:41 | MR ---
EXAMINATION TYPE: MR brain wo/w con DATE OF EXAM: 05/12/2020 3:18 PM COMPARISON: NONE HISTORY: Slurred speech CONTRAST: Patient received 6 mL intravenous Gadavist gadolinium contrast. Multiplanar and multispin-echo imaging of the brain was performed . Pre and post contrast enhanced i mages are obtained. The ventricles, basal cisterns and sulci overlying the cerebral convexities are moderately enlarged. Remote cerebellar insults. There is evidence of mild to moderate periventricular white matter ischemic demyelination. Remote deep white matter insults are also noted. No acute edema is seen on diffusion weighted imaging. There is no evidence for midline shift or mass effect. Acute intracranial hemorrhage or extra-axial collection is not evident. No enhancing lesions are seen. The paranasal sinuses and mastoid air cells are well-aerated. IMPRESSION: Age-related atrophic and chronic small vessel ischemic change. No acute intracranial process at this time. No enhancing lesions are seen.
[2020-05-12 16:01] VITALS: BMI 25.2
[2020-05-12 17:08] LABS: Glucose,Whole Blood 215 mg/dL (75-99)
[2020-05-12 20:18] LABS: Glucose,Whole Blood 180 mg/dL (75-99)
[2020-05-13] MEDS: LEVOTHYROXINE 50 MCG TAB PO SCH (06:04)
[2020-05-13 07:12] LABS: Glucose,Whole Blood 102 mg/dL (75-99)
[2020-05-13] MEDS: INSULIN ASPART (NovoLOG) 100 UNIT/ML VIAL SQ SCH ×4 (07:17→21:24)
[2020-05-13 07:50] LABS: Basophils % (A) 0 %; Eosinophils # (A) 0.2 k/uL (0-0.7); Eosinophils % (A) 4 %; HCT 32.1 % (34.0-46.0); HGB 10.6 gm/dL (11.4-16.0); Lymphocytes # (A) 1.6 k/uL (1.0-4.8); Lymphocytes % (A) 28 %; MCHC 32.9 g/dL (31.0-37.0); MCV 91.1 fL (80.0-100.0); Mean Platelet Volume 7.3; Monocytes # (A) 0.4 k/uL (0-1.0); Monocytes % (A) 7 %; Neutrophils # (A) 3.5 k/uL (1.3-7.7); Neutrophils % (A) 59 %; Platelet Count 239 k/uL (150-450); RBC 3.52 m/uL (3.80-5.40); RDW 13.3 % (11.5-15.5); WBC 5.9 k/uL (3.8-10.6)
[2020-05-13 08:07] LABS: Albumin 3.2 g/dL (3.5-5.0); Calcium 9.3 mg/dL (8.4-10.2); Potassium 4.4 mmol/L (3.5-5.1); Total Bilirubin 0.3 mg/dL (0.2-1.3); Total Protein 5.9 g/dL (6.3-8.2)
[2020-05-13] MEDS: ASPIRIN 81 MG PO SCH (08:12)
[2020-05-13] MEDS: LINAGLIPTIN 5 MG TABLET PO SCH (08:12)
[2020-05-13] MEDS: PANTOPRAZOLE 40 MG TABLET PO SCH (08:12)
[2020-05-13] MEDS: FERROUS SULFATE 325 MG TAB PO SCH (08:12)
[2020-05-13 11:30] LABS: Glucose,Whole Blood 245 mg/dL (75-99)
[2020-05-13] MEDS ORDERED: CYANOCOBALAMIN 1,000 MCG/ML 1 ML VIAL IM ONE (11:45)
--- NOTE | 2020-05-13 12:09 | P.PN ---
Subjective 85-year-old female one of my office patient with known for long time with past medical history of type 2 diabetes, history of hypothyroidism, history of mild depression and anxiety attacks who was also have history of leukopenia and chronic history of anemia who was seen in the office last in November for follow- up and has not been seen since the Covid 19 panic started. [facility] when she call the ambulance early childhood assistant for slurred speech and generalized weakness had diffi culty getting out of bed for the second day and the road patient was having trouble moving ambulating putting pressure on her feet she has been crawling out of her bathroom because of the generalized weakness with significant slurred speech. 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 Surprisingly her lactic acid came back quite but elevated with no explanation no pneumonia or sign of infection no cough cellulitis UTI or any other abnormality consistent with infection basis. Patient was started on hydration c onsult neurology and if needed MRI of the brain will be done we'll start patient on PTOT awaiting for symptom to improve. Reviewing all patient finding she keep having mild symptom of hypoglycemia garland pite having her A1c mildly elevated she still on glipizide and metformin not been able to afford any of the new agent or insulin in the past. Her lactic acidosis can be sign and symptom of metformin cause lactic acidosis which could explain some of her symptom and persistent of lactic acid not improve fast enough. 05/12: Patient was evaluated today, noted to be sitting in bedside chair. Patient still noted to have slurred speech with generalized weakness and issues with her balance. Concern for cerebellar stroke, will obtain a MRI of the brain. Carotid doppler showed moderate atherosclerotic plaque with no significant hydrodynamic stnosis bilaterally. PT/OT orders placed along with order for social work for possible subacute rehab upon discharge. Repeat lactic acid 2.3. Lactic acidosis likely due to metformin, currently still on hold, will continue Tradjenta 5 mg daily, may need Prandin along with possible insulin upon discharge. Vital signs are stable blood pressure 112/69, heart rate 63, afebrile at 97.7, 100% on room air. 05/13: Patient evaluated this morning. Still has complaints of slurred speech and states it has not improved. She is still also having issues with balance and requires assistance with ambulation. Physical therapy to assess, will likely need subacute rehab at discharge. Lactic acid has improved now 1.0, will remain off metformin. Glucose has been running between 80s and 240s. Will likely need adjustment on her medications at discharge possibly insulin, was unable to afford the Tradjenta in the past. MRI of the brain showed age-related atrophic and chronic vessel ischemic changes, no acute intracranial process or enhancing lesions. Vital signs are stable she is afebrile 98.7, heart rate 73, blood pressure 143/88, 98% on room air. Objective - Vital Signs Vital signs: Vital Signs Temp 98.7 F 05/13/20 06:49 Pulse 73 05/13/20 06:49 Resp 16 05/13/20 06:49 BP 143/88 05/13/20 06:49 Pulse Ox 98 05/13/20 06:49 Intake & Output 05/12/20 05/13/20 05/13/20 18:59 06:59 18:59 Intake Total 400 Balance 400 Weight 58.513 kg Intake: IV 160 Sodium Chloride 0.9% 1, 160 000 ml @ 20 mls/hr IV . Q24H ROMÁN Rx#:[id number] Oral 240 Other: # Voids 1 - Exam - Constitutional General appearance: Present: average body habitus, cooperative, no acute distr ess - EENT Eyes: Present: EOMI, PERRLA, normal appearance ENT: Present: hearing grossly normal, normal oropharynx. Absent: thrush - Neck Neck: Present: normal ROM. Absent: lymphadenopathy, thyromegaly - Respiratory Respiratory: bilateral: CTA, negative: diminished, dullness, rales, rhonchi, wheezing - Cardiovascular Rhythm: regular Heart sounds: normal: S1, S2 - Gastrointestinal General gastrointestinal: Present: normal bowel sounds, soft. Absent: distended, organomegaly, tenderness - Neurologic Neurologic Comment(s): generalized weakness, more weakness noted to the lower extremities when compared to the upper, abnormal balance and spastic gait, slurred speech Neurologic: Present: CNII-XII intact - Musculoskeletal Musculoskeletal: Present: generalized weakness - Psychiatric Psychiatric: Present: A&O x's 3 - Labs CBC & Chem 7: 05/14/20 11:15 05/14/20 11:15 Labs: Abnormal Lab Results - Last 24 Hours (Table) 05/12/20 05/12/20 05/12/20 Range/Units 11:15 15:24 17:07 RBC (3.80-5.40) m/uL Hgb (11.4-16.0) gm/dL Hct (34.0-46.0) % Chloride (98-107) mmol/L Carbon Dioxide (22-30) mmol/L Glucose (74-99) mg/dL POC Glucose (mg/dL) 215 H (75-99) mg/dL Plasma Lactic Acid Tye 2.3 H* 2.5 H* (0.7-2.0) mmol/L Total Protein (6.3-8.2) g/dL Albumin (3.5-5.0) g/dL 05/12/20 05/13/20 05/13/20 Range/Units 20:17 06:52 07:34 RBC 3.52 L (3.80-5.40) m/uL Hgb 10.6 L (11.4-16.0) gm/dL Hct 32.1 L (34.0-46.0) % Chloride (98-107) mmol/L Carbon Dioxide (22-30) mmol/L Glucose (74-99) mg/dL POC Glucose (mg/dL) 180 H 102 H (75-99) mg/dL Plasma Lactic Acid Tye (0.7-2.0) mmol/L Total Protein (6.3-8.2) g/dL Albumin (3.5-5.0) g/dL 05/13/20 05/13/20 Range/Units 07:34 11:22 RBC (3.80-5.40) m/uL Hgb (11.4-16.0) gm/dL Hct (34.0-46.0) % Chloride 114 H (98-107) mmol/L Carbon Dioxide 20 L (22-30) mmol/L Glucose 111 H (74-99) mg/dL POC Glucose (mg/dL) 245 H (75-99) mg/dL Plasma Lactic Acid Tye (0.7-2.0) mmol/L Total Protein 5.9 L (6.3-8.2) g/dL Albumin 3.2 L (3.5-5.0) g/dL Microbiology - Last 24 Hours (Table) 05/11/20 21:34 Blood Culture - Preliminary Blood No Growth after 24 hours Assessment and Plan Plan: 1 TIA/CVA: With significant finding with her exam at the time was seen by neurology, continue workup for CVA and TIA, MRI of the brain completed, echo and carotid doppler completed, continue to watch patient symptoms and hemodynamic status at this point. 2 severe generalized weakness: Combination of possible lactic acidosis and CVA or TIA continue hydration and supportive care was start PT/OT and advanced gradually. 3 severe lactic acidosis secondary to metformin: Persistent despite no finding of DKA or severe nonketotic hyperglycemia, no sign and symptom of any infection or sepsis no sign of shock at this point. This is could be one of the very rare occasion for metformin causes lactic acidosis which can be persistent for a few days and can cause generalized toxic symptoms. Lactic acid is down, will continue to monitor 4 type 2 diabetes: Patient was on the glipizide and metformin, previously could not afford DPP 4 product or SGLT2 and patient was afraid of insulin product not been able to manage it. We'll continue patient on product like Januvia at this point and add Prandin and if the blood sugar remain above 120 cannot smaller dose of Lantus for better control on the long run with try to teach the patient how to do it gradually. 5 severe leukopenia and chronic anemia: Has been on iron supplement has been seen by hematology on a regular basis, her white blood cell is above 1 run normally at 5.5 which to some degree this is still can be sign of infection and sepsis and patient notes why culture both urine and blood was order continue to watch symptoms closely. 6 hypothyroidism: Continue patient on levothyroxine 50 g daily. 7 history of peptic ulcer disease: Continue patient on pantoprazole 40 mg IV twice a day for now. 8 electrolyte imbalance with mild abnormality consistent with elevated calcium and magnesium, recheck in 48 hours. 9 GI prophylaxis: Patient will be on pantoprazole. 10 DVT prophylaxis: Knee-high GLADYS hose no subcu heparin at this point specially with patient history of thrombocytopenia and leukopenia. CODE STATUS: Full code. Admit patient to inpatient status for more than 2 nights.
--- NOTE | 2020-05-13 12:20 | P.PN ---
Subjective Progress Note Date: 05/13/20 Patient states her speech has not improved. She is still stuttering. Patient is also concerned about her balance. Objective - Vital Signs Vital signs: Vital Signs Temp 98.7 F 05/13/20 06:49 Pulse 73 05/13/20 06:49 Resp 16 05/13/20 06:49 BP 143/88 05/13/20 06:49 Pulse Ox 98 05/13/20 06:49 Intake & Output 05/12/20 05/13/20 05/13/20 18:59 06:59 18:59 Intake Total 400 Balance 400 Weight 58.513 kg Intake: IV 160 Sodium Chloride 0.9% 1, 160 000 ml @ 20 mls/hr IV . Q24H ROMÁN Rx#:[id number] Oral 240 Other: # Voids 1 - Exam Patient is alert and awake in no distress. Patient has some stuttering. Some cerebellar dysarthria. Detail examination deferred. - Labs CBC & Chem 7: 05/13/20 07:34 05/13/20 07:34 Labs: Abnormal Lab Results - Last 24 Hours (Table) 05/12/20 05/12/20 05/12/20 Range/Units 15:24 17:07 20:17 RBC (3.80-5.40) m/uL Hgb (11.4-16.0) gm/dL Hct (34.0-46.0) % Chloride (98-107) mmol/L Carbon Dioxide (22-30) mmol/L Glucose (74-99) mg/dL POC Glucose (mg/dL) 215 H 180 H (75-99) mg/dL Plasma Lactic Acid Tye 2.5 H* (0.7-2.0) mmol/L Total Protein (6.3-8.2) g/dL Albumin (3.5-5.0) g/dL 05/13/20 05/13/20 05/13/20 Range/Units 06:52 07:34 07:34 RBC 3.52 L (3.80-5.40) m/uL Hgb 10.6 L (11.4-16.0) gm/dL Hct 32.1 L (34.0-46.0) % Chloride 114 H (98-107) mmol/L Carbon Dioxide 20 L (22-30) mmol/L Glucose 111 H (74-99) mg/dL POC Glucose (mg/dL) 102 H (75-99) mg/dL Plasma Lactic Acid Tye (0.7-2.0) mmol/L Total Protein 5.9 L (6.3-8.2) g/dL Albumin 3.2 L (3.5-5.0) g/dL 05/13/20 Range/Units 11:22 RBC (3.80-5.40) m/uL Hgb (11.4-16.0) gm/dL Hct (34.0-46.0) % Chloride (98-107) mmol/L Carbon Dioxide (22-30) mmol/L Glucose (74-99) mg/dL POC Glucose (mg/dL) 245 H (75-99) mg/dL Plasma Lactic Acid Tye (0.7-2.0) mmol/L Total Protein (6.3-8.2) g/dL Albumin (3.5-5.0) g/dL Microbiology - Last 24 Hours (Table) 05/11/20 21:34 Blood Culture - Preliminary Blood No Growth after 24 hours Assessment and Plan Assessment: * New onset dysarthria, ataxia, 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 No evidence of acute ischemic infarcts on MRI. * Mild vitamin B12 deficiency. * Diabetes * Hypertension Plan: * Continue aspirin 81 mg daily for stroke prevention. Patient was not taking aspirin regimen at home. * MRI of the brain revealed chronic bilateral cerebellar infarcts with no acute ischemic process. * 2-D echo showed mild concentric LVH, EF is 55-60%. Normal left atrial size. * Hemoglobin A1c 5.6, fasting a.m. lipid panel with cholesterol 106, LDL 32, HDL 63 and triglycerides 57. * B12 is mildly low 263. Continue replacement. Folic acid 10.0. TSH <0.015. Free T4 normal. May need further evaluation of thyroid dysfunction. * Carotid Doppler showed moderate atherosclerotic plaque with no significant stenosis. * PT OT evaluate gait. * Neurologically clear. Patient probably will need rehabilitation.
[2020-05-13 17:07] LABS: Glucose,Whole Blood 200 mg/dL (75-99)
[2020-05-13] MEDS: SODIUM CHLORIDE 0.9% 1,000 ML IV SCH (17:52)
[2020-05-13 20:56] LABS: Glucose,Whole Blood 210 mg/dL (75-99)
[2020-05-14] MEDS: LEVOTHYROXINE 50 MCG TAB PO SCH (05:33)
[2020-05-14 06:53] LABS: Glucose,Whole Blood 100 mg/dL (75-99)
[2020-05-14] MEDS: INSULIN ASPART (NovoLOG) 100 UNIT/ML VIAL SQ SCH ×3 (07:01→16:54)
[2020-05-14] MEDS: LINAGLIPTIN 5 MG TABLET PO SCH (08:29)
[2020-05-14] MEDS: ASPIRIN 81 MG PO SCH (08:29)
[2020-05-14] MEDS: FERROUS SULFATE 325 MG TAB PO SCH (08:29)
[2020-05-14] MEDS: PANTOPRAZOLE 40 MG TABLET PO SCH (08:29)
[2020-05-14] MEDS ORDERED: LIDOCAINE 1% INJ 10MG/ML (20 ML MDV) SQ ONE (09:15)
[2020-05-14] MEDS ORDERED: methylPREDNISolone ACETATE 40 MG/ML 1 ML VIAL INTRAARTIC ONE (09:21)
--- NOTE | 2020-05-14 09:43 | P.CNOR ---
History of Present Illness - [facility] Consult date: 05/14/20 Consult reason: joint pain (right knee pain) History of present illness: This is an 85-year-old female who presented to the emergency department via EMS after a syncopal episode. She states that she thinks her blood sugar dropped and she collapsed. She had some slurred speech on arrival and was worked up for CVA. During her stay she began noting some right knee pain and swelling. She states that the pain is new. She has no known history of gout or arthritis in the knee. X-rays have not yet been taken. We are consulted for orthopedic evaluation. Past Medical History Past Medical History: Diabetes Mellitus, Thyroid Disorder History of Any Multi-Drug Resistant Organisms: None Reported Past Surgical History: Section Past Psychological History: No Psychological Hx Reported Smoking Status: Never smoker Past Alcohol Use History: None Reported Past Drug Use History: None Reported Medications and Allergies Home Medications Medication Instructions Recorded Confirmed Type Ferrous Sulfate [Feosol] 325 mg PO DAILY 05/11/20 05/11/20 History Levothyroxine Sodium [Synthroid] 50 mcg PO DAILY 05/11/20 05/11/20 History Omeprazole 20 mg PO DAILY 05/11/20 05/11/20 History glipiZIDE/METFORMIN HCL 1 tab PO BID 05/11/20 05/12/20 History [glipiZIDE/METFORMIN HCL 5-500 mg] Allergies Allergy/AdvReac Type Severity Reaction Status Date / Time No Known Allergies Allergy Verified 05/11/20 10:32 Physical Examination This is a pleasant 85-year-old female in no acute distress. She is alert and oriented at this time. Exam of the right knee reveals limited motion secondary to pain and swelling. There is a 2+ effusion noted. No erythema or increased warmth to the knee. There is no evidence of trauma. She has full foot and ankle motion without difficulty or pain. Neurovascular status to the lower extremity is intact. The remainder of her musculoskeletal exam is unremarkable. Results - Labs Labs: Abnormal Lab Results - Last 24 Hours (Table) 05/13/20 05/13/20 05/13/20 Range/Units 11:22 17:03 20:53 POC Glucose (mg/dL) 245 H 200 H 210 H (75-99) mg/dL 05/14/20 Range/Units 06:51 POC Glucose (mg/dL) 100 H (75-99) mg/dL Microbiology - Last 24 Hours (Table) 05/11/20 21:34 Blood Culture - Preliminary Blood No Growth after 48 hours H & H 05/11/20 05/13/20 Range/Units 08:31 07:34 Hgb 11.5 10.6 L (11.4-16.0) gm/dL Hct 36.5 32.1 L (34.0-46.0) % Result Diagrams: 05/13/20 07:34 05/13/20 07:34 Assessment and Plan (1) Right knee pain Current Visit: Yes Status: Acute Code(s): M25.561 - PAIN IN RIGHT KNEE SNOMED Code(s): 25191017 (2) Knee effusion, right Current Visit: Yes Status: Acute Code(s): M25.461 - EFFUSION, RIGHT KNEE SNOMED Code(s): 175279727551593 (3) Status post fall Current Visit: Yes Status: Acute Code(s): Z91.81 - HISTORY OF FALLING SNOMED Code(s): 926228290 Plan: the clinical findings are discussed with the patient. I have ordered x-ray of the right knee for further evaluation. It is recommended that the knee be aspirated. Procedure: Using sterile technique, the right knee is aspirated, obtaining approximately 25 mL of slightly cloudy yellow fluid. The fluid is sent to lab for cell count and crystal identification and culture. It is discussed with the patient that if the fluid looks okay she may have a cortisone injection if cleared with Dr. Mendiola. She is to follow-up in 2-[address] Pimentel.
--- NOTE | 2020-05-14 10:20 | XR ---
Right knee HISTORY: Trauma and pain 3 views of the right knee Bone mineralization is reduced. 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 Alignment is mainta ined. Joint space is mildly reduced in the medial and patellofemoral compartments, there is marginal spurring. There is soft tissue swelling. Vascular calcifications are noted incidentally. There may be a small suprapatellar joint effusion. IMPRESSION: No fracture or dislocation is evident. Low bone mineralization could limit sensitivity. C onsider crystal deposition arthropathy.
--- NOTE | 2020-05-14 10:58 | P.DS ---
Providers Date of admission: 05/11/20 12:56 Expected date of discharge: 05/14/20 Attending physician: Richmond Mendiola Consults: 05/11/20 12:57 Consult Physician Routine Consulting Provider: Liliya Tang Consult Reason/Comments: slurred speech Do you want consulting provider notified?: Yes 05/14/20 08:03 Consult Physician Routine Consulting Provider: Gómez Eldridge Consult Reason/Comments: right knee effusion/drainage Do you want consulting provider notified?: Yes Primary care physician: Richmond Mendiola [facility] Course: 85-year-old female one of my office patient with known for long time with past medical history of type 2 diabetes, history of hypothyroidism, history of mild depression and anxiety attacks who was also have history of leukopenia and chronic history of anemia who was seen in the office last in November for follow- up and has not been seen since the Covid 19 panic started. Patient presented to the emergency department [facility] today via EMS when she call the ambulance nematologist for slurred speech and generalized weakness had difficulty getting out of bed for the second day and the road patient was having trouble moving ambulating putting pressure on her feet she has been crawling out of her bathroom because of the generalized weakness with significant slurred speech. She had similar episode yesterday at the time was seen in [facility] CAT scan of the brain showed small vessel disease with an old infarct in the posterior cerebellar hemisphere with no acute bleed or major abnormality. Surprisingly her lactic acid came back quite but elevated with no explanation no pneumonia or sign of infection no cough cellulitis UTI or any other abnormality consistent with infection basis. Patient was started on hydration consult neur ology and if needed MRI of the brain will be done we'll start patient on PTOT awaiting for symptom to improve. Reviewing all patient finding she keep having mild symptom of hypoglycemia despite having her A1c mildly elevated she still on glipizide and metformin not been able to afford any of the new agent or insulin in the past. Her lactic acidosis can be sign and symptom of metformin cause lactic acidosis which could explain some of her symptom and persistent of lactic acid not improve fast enough. 05/12: Patient was evaluated today, noted to be sitting in bedside chair. Patient still noted to have slurred speech with generalized weakness and issues with her balance. Concern for cerebellar stroke, will obtain a MRI of the brain. Carotid doppler showed moderate atherosclerotic plaque with no significant hydrodynamic stnosis bilaterally. PT/OT orders placed along with order for social work for possible subacute rehab upon discharge. Repeat lactic acid 2.3. Lactic acidosis likely due to metformin, currently still on hold, will continue Tradjenta 5 mg daily, may need Prandin along with possible insulin upon discharge. Vital signs are stable blood pressure 112/69, heart rate 63, afebrile at 97.7, 100% on room air. 05/13: Patient evaluated this morning. Still has complaints of slurred speech and states it has not improved. She is still also having issues with balance and requires assistance with ambulation. Physical therapy to assess, will likely need subacute rehab at discharge. Lactic acid has improved now 1.0, will remain off metformin. Glucose has been running between 80s and 240s. Will likely need adjustment on her medications at discharge possibly insulin, was unable to afford the Tradjenta in the past. MRI of the brain showed age-related atrophic and chronic vessel ischemic changes, no acute intracranial process or enhancing lesions. Vital signs are stable she is afebrile 98.7, heart rate 73, blood pressure 143/88, 98% on room air. 05/14: Patient had complaints of right knee pain, large effusion noted. Orthopedics consulted, the x-ray showed crystal arthritis, knee was aspirated approximately 25 ml's of slightly cloudy yellow fluid obtained and sent to lab for culture. If cultures are negative she can follow-up with Dr. Pimentel to have a cortisone injection. Patient continues have dysarthria and ataxia, doesn't want to go to subacute rehab. Family wishes to take patient home and complete therapies at home. She'll be discharged with her daughter with homecare. Will discontinue metformin/glipizide and continue on Tradjenta and monitor glucose at home closely. Discharge diagnoses 1 TIA/CVA 2 severe generalized weakness 3 severe lactic acidosis secondary to metformin 4 type 2 diabetes 5 severe leukopenia and chronic anemia 6 hypothyroidism 7 history of peptic ulcer disease 8 electrolyte imbalance with mild abnormality consistent with elevated calcium and magnesium 9 right knee pain with effusion, crystal arthritis The above impression and plan of care have been discussed and directed by signing physician. Shayy Vazquez nurse practitioner acting as scribe for signing physician. Patient Condition at Discharge: Fair Plan - Discharge Summary Discharge Rx Participant: Yes New Discharge Prescriptions: New Aspirin 81 mg PO DAILY chew Linagliptin [Tradjenta] 5 mg PO DAILY #30 tablet Continue Omeprazole 20 mg PO DAILY Levothyroxine Sodium [Synthroid] 50 mcg PO DAILY Ferrous Sulfate [Iron (65 MG Elemental)] 325 mg PO DAILY Discontinued glipiZIDE/METFORMIN HCL [glipiZIDE/METFORMIN HCL 5-500 mg] 1 tab PO BID Discharge Medication List Ferrous Sulfate [Iron (65 MG Elemental)] 325 mg PO DAILY 05/11/20 [History] Levothyroxine Sodium [Synthroid] 50 mcg PO DAILY 05/11/20 [History] Omeprazole 20 mg PO DAILY 05/11/20 [History] Aspirin 81 mg PO DAILY chew 05/14/20 [Rx] Linagliptin [Tradjenta] 5 mg PO DAILY #30 tablet 05/14/20 [Rx] Follow up Appointment(s)/Referral(s): Richmond Mendiola MD [Primary Care Provider] - 1-2 days [facility], [NON-STAFF] - As Needed Silvestre Pimentel MD [STAFF PHYSICIAN] - 1 Week Patient Instructions/Handouts: Fall Prevention (DC) Discharge Disposition: HOME WITH HOME HEALTH SERVICES
[2020-05-14 11:11] LABS: Glucose,Whole Blood 162 mg/dL (75-99)
[2020-05-14 11:37] LABS: Basophils % (A) 0 %; Eosinophils # (A) 0.1 k/uL (0-0.7); Eosinophils % (A) 2 %; HCT 34.2 % (34.0-46.0); HGB 10.7 gm/dL (11.4-16.0); Lymphocytes # (A) 1.8 k/uL (1.0-4.8); Lymphocytes % (A) 24 %; MCHC 31.3 g/dL (31.0-37.0); MCV 92.6 fL (80.0-100.0); Monocytes # (A) 0.6 k/uL (0-1.0); Monocytes % (A) 8 %; Neutrophils # (A) 4.8 k/uL (1.3-7.7); Neutrophils % (A) 64 %; Platelet Count 233 k/uL (150-450); RDW 13.3 % (11.5-15.5); WBC 7.4 k/uL (3.8-10.6)
[2020-05-14 11:40] LABS: Appearance,BF Cloudy; Color,BF Yellow; Nucleated Cells, Body Fluid 10400 /uL; RBC, Body Fluid 3200 /uL
[2020-05-14 11:44] LABS: Mononuclear WBC,Body Fluid 18 %; Polynuclear WBC,Body Fluid 82 %; Total Cells Counted,Body Fluid 100
[2020-05-14 11:47] LABS: Albumin 3.7 g/dL (3.5-5.0); Calcium 9.7 mg/dL (8.4-10.2); Potassium 4.8 mmol/L (3.5-5.1); Total Bilirubin 0.4 mg/dL (0.2-1.3); Total Protein 6.6 g/dL (6.3-8.2)
[2020-05-14 15:14] VITALS: BP 142/72; PULSE 85; RESP 17; TEMP 98.4
[2020-05-14] MEDS: SODIUM CHLORIDE 0.9% 1,000 ML IV SCH (15:31)
--- NOTE | 2020-05-14 15:41 | P.PN ---
Progress Note - Text Progress Note Date: 05/14/20 Procedure Note: Bedside right knee joint injection The patient agreed to the joint injection and confirmed right knee. The patient's skin was cleansed with alcohol wipes X2. 1mL of depomedrol and 2mL of 1% lidocaine was injected into the right knee joint without difficulty. The patient tolerated well. A bandaid was applied to injection site. Ice may be applied to the knee if she experiences pain later this evening or tomorrow.
[2020-05-14 16:34] LABS: Glucose,Whole Blood 219 mg/dL (75-99)
--- NOTE | 2020-05-14 19:00 | P.PN ---
Subjective Progress Note Date: 05/14/20 Patient states her speech has not improved. She is still stuttering. Patient is complaining of right knee pain. She had a x-ray done, which revealed no bone mineralization. Consider crystals be positioned arthropathy. Patient was seen by orthopedic, underwent joint aspiration and injection of steroids. She feels slightly better. It revealed intracellular calcium pyrophosphate crystals. Objective - Vital Signs Vital signs: Vital Signs Temp 98.4 F 05/14/20 14:57 Pulse 85 05/14/20 14:57 Resp 17 05/14/20 14:57 BP 142/72 05/14/20 14:57 Pulse Ox 100 05/14/20 14:57 Intake & Output 05/13/20 05/14/20 05/14/20 18:59 06:59 18:59 Intake Total 540 540 Balance 540 540 Intake: Oral 540 540 Other: Voiding Method Toilet # Voids 4 1 2 - Exam Patient is alert and awake in no distress. Patient has some stuttering. Some cerebellar dysarthria. Detail examination deferred. - Labs CBC & Chem 7: 05/14/20 11:15 05/14/20 11:15 Labs: Abnormal Lab Results - Last 24 Hours (Table) 05/13/20 05/14/20 05/14/20 Range/Units 20:53 06:51 09:33 RBC (3.80-5.40) m/uL Hgb (11.4-16.0) gm/dL Glucose (74-99) mg/dL POC Glucose (mg/dL) 210 H 100 H (75-99) mg/dL Synovial Crystals Seen H (None Seen) 05/14/20 05/14/20 05/14/20 Range/Units 11:10 11:15 11:15 RBC 3.70 L (3.80-5.40) m/uL Hgb 10.7 L (11.4-16.0) gm/dL Glucose 161 H (74-99) mg/dL POC Glucose (mg/dL) 162 H (75-99) mg/dL Synovial Crystals (None Seen) 05/14/20 Range/Units 16:33 RBC (3.80-5.40) m/uL Hgb (11.4-16.0) gm/dL Glucose (74-99) mg/dL POC Glucose (mg/dL) 219 H (75-99) mg/dL Synovial Crystals (None Seen) Microbiology - Last 24 Hours (Table) 05/14/20 09:33 Body Fluid Culture - Preliminary Knee - Right 05/11/20 21:34 Blood Culture - Preliminary Blood No Growth after 48 hours Assessment and Plan Assessment: * New onset dysarthria, ataxia, 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 No evidence of acute ischemic infarcts on MRI. * Mild vitamin B12 deficiency. * Diabetes * Hypertension Plan: * Continue aspirin 81 mg daily for stroke prevention. Patient was not taking aspirin regimen at home. * MRI of the brain revealed chronic bilateral cerebellar infarcts with no acute ischemic process. * 2-D echo showed mild concentric LVH, EF is 55-60%. Normal left atrial size. * Hemoglobin A1c 5.6, fasting a.m. lipid panel with cholesterol 106, LDL 32, HDL 63 and triglycerides 57. * B12 is mildly low 263. Continue replacement. Folic acid 10.0. TSH <0.015. Free T4 normal. May need further evaluation of thyroid dysfunction. * Carotid Doppler showed moderate atherosclerotic plaque with no significant stenosis. * PT OT evaluate gait. * Neurologically clear. Patient probably will need rehabilitation. * Neurology will sign off.
--- NOTE | 2020-05-26 12:21 | CDI ---
Documentation Clarification Form Date: 05/26/2020 11:04:28 AM From: Vanda Soto RN CCDS Admit Date: 05/11/2020 12:56:00 PM Patient Name: Carrie Rodarte Visit Number: [id number] Discharge Date: 05/14/2020 07:44:00 PM ATTENTION: The Clinical Documentation Specialists (CDI) and [facility] Coding Staff appreciate your assistance in clarifying documentation. Please respond to the clarification below the line at the bottom and electronically sign. The CDI & [facility] Coding staff will review the response and follow-up if needed. Please note: Queries are made part of the Legal Health Record. If you have any questions, please contact the author of this message via ITS. Dr. Richmond Mendiola The patients principal diagnosis has not been clearly identified and requires clarification. 85-year-old female presents with slurred speech and generalized weakness. The patient had similar episode the day before. History/Risk factors: Severe abnormal balance and gait, severe generalized fatigue and mild altered mental status. Medical history Diabetes Mellitus, Thyroid Disorder, severe leukopenia and chronic anemia. Clinical Indicators: Radiology findings: 05/11 2-D Echo- mild concentric LVH, EF is 55-60%. Normal left atrial size. 05/12 MRI Brain chronic bilateral cerebellar infarcts with no acute ischemic process. LABS - 05/11: A1c 5.6, fasting a.m. lipid panel with Cholesterol 106, LDL 32, HDL 63, Triglycerides 57; B12 263; Folic acid 10.0; TSH <0.015; T4 1.57; Lactic Acid 3.6, 2.2, 2.6, 2.5; 05/11 Vital Signs: B/P:173/88; HR: 85; T: 98.1; RR: 18; SpO2: 100% ra Other Clinical Indicators: 05/12 Internal Medicine Progress Note - Reviewing all patient finding she keep having mild symptom of hypoglycemia despite having her A1c mildly elevated she still on glipizide and Metformin not been able to afford any of the new agent or insulin in the past. Her lactic acidosis can be sign and symptom of metformin cause lactic acidosis which could explain some of her symptom and persistent of lactic acid not improve fast enough. 05/13 Internal Medicine Progress Note Still has complaints of slurred speech and states it has not improved. 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 Treatment: 05/11 - Aspirin x1, 05/11 Glipizide d/cd; 0.9ns 1L bolus followed by 20cc/hr 05/12 Metformin Hcl d/cd; Aspirin daily; Vitamin B-12 IM x1; Tradjenta po daily; 05/13 Vitamin B12 IM x1; In your professional opinion, can you please clarify which diagnosis, after study, accounted for the patients presenting symptoms and was the reason chiefly responsible for the admission? Severe generalized weakness secondary to Lactic acidosis from Metformin XX TIA ruled in CVA ruled in Other Diagnosis (please Specify) (Last Revision: February 2018) MTDD
== END 2020-05-14 19:44 | disposition home health service (06) | DRG 69 ==
LOC: EC 07:51 → 5NMEDONC 12:56 → 4SSUR 18:17
PROVIDERS: ADMIT Internal Medicine Geriatric Medicine; ATTEND Internal Medicine Geriatric Medicine
PROC: 3E0333Z Introduction of Anti-inflammatory into Peripheral Vein, Percutaneous Approach (ICD-10-PCS; principal; 2020-05-14)
PROC: 0S9C3ZX Drainage of Right Knee Joint, Percutaneous Approach, Diagnostic (ICD-10-PCS; 2020-05-14)
DX: G45.9 Transient cerebral ischemic attack, unspecified (principal); E87.2 Acidosis; R47.01 Aphasia; E11.51 Type 2 diabetes mellitus with diabetic peripheral angiopathy without gangrene; E03.9 Hypothyroidism, unspecified; F41.1 Generalized anxiety disorder; D64.9 Anemia, unspecified; I10 Essential (primary) hypertension; F98.5 Adult onset fluency disorder; E53.8 Deficiency of other specified B group vitamins; M11.9 Crystal arthropathy, unspecified; T38.3X5A Adverse effect of insulin and oral hypoglycemic [antidiabetic] drugs, initial encounter; Z11.59 Encounter for screening for other viral diseases; Z79.890 Hormone replacement therapy; Z98.891 History of uterine scar from previous surgery; Z87.11 Personal history of peptic ulcer disease; Z91.81 History of falling; Z79.84 Long term (current) use of oral hypoglycemic drugs
CPT/HCPCS: 36415; 70450; 70553; 71045; 80053; 80061; 80320; 81003; 82330; 82607; 82746; 83036; 83605; 83735; 84439; 84443; 85025; 87040; 87070; 87205; 89050; 89060; 93005; 93306; 93880; 96365; 96366; 96375; 99285

== ENCOUNTER 2021-05-18 18:57 | Inpatient (IN) | payer MEDICARE ==
[2021-05-18] MEDS ORDERED: SODIUM CHLORIDE 0.9% 1,000 ML IV STA (20:23)
[2021-05-18] MEDS ORDERED: SODIUM CHLORIDE 0.9% 500 ML 500 ML IV STA (20:23)
[2021-05-18] MEDS ORDERED: ACETAMINOPHEN TAB 500 MG TAB PO STA (20:23)
--- NOTE | 2021-05-18 21:01 | XR ---
EXAMINATION TYPE: XR chest 2V DATE OF EXAM: 05/18/2021 COMPARISON: 05/11/2020 HISTORY: Fever TECHNIQUE: FINDINGS: There is no heart failure nor confluent pneumonic infiltrate. Costophrenic angles are clear . Thoracic aorta is atheromatous. There are no hilar masses. 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 IMPRESSION: No active cardiopulmonary disease. Aortic arch. Slightly increased compared to last exam.
[2021-05-18 21:02] LABS: Basophils % (A) 0 %; Eosinophils % (A) 0 %; HCT 34.6 % (34.0-46.0); HGB 11.8 gm/dL (11.4-16.0); Lymphocytes % (A) 10 %; MCH 29.5 pg (25.0-35.0); MCHC 33.9 g/dL (31.0-37.0); MCV 87.1 fL (80.0-100.0); Mean Platelet Volume 7.2; Monocytes # (A) 0.7 k/uL (0-1.0); Monocytes % (A) 7 %; Neutrophils # (A) 8.4 k/uL (1.3-7.7); Neutrophils % (A) 82 %; Platelet Count 224 k/uL (150-450); RBC 3.98 m/uL (3.80-5.40); RDW 12.7 % (11.5-15.5); WBC 10.3 k/uL (3.8-10.6)
[2021-05-18 21:18] LABS: Partial Thromboplastin Time 28.9 sec (22.0-30.0)
[2021-05-18 21:29] LABS: Albumin 4.3 g/dL (3.5-5.0); Calcium 9.9 mg/dL (8.4-10.2); Magnesium 1.8 mg/dL (1.6-2.3); Potassium 4.3 mmol/L (3.5-5.1); Total Bilirubin 0.5 mg/dL (0.2-1.3); Total Protein 7.4 g/dL (6.3-8.2)
--- NOTE | 2021-05-18 21:29 | ED ---
General Adult HPI - General Chief complaint: Fever Stated complaint: back spasms Time Seen by Provider: 05/18/21 20:17 Source: patient, RN notes reviewed, old records reviewed Mode of arrival: ambulatory Limitations: no limitations - History of Present Illness Initial comments: 86-year-old female presenting with chief complaint of bilateral low back pain and spasm. Patient denies injury. She states this began over the past 12 hours. She was in her usual state of health yesterday with no complaints. No vomiting. No URI symptoms. No cough. No chest pain. No abdominal pain. No dysuria or hematuria. Patient is noted to be febrile upon arrival to the emergency department. - Related Data Home Medications Medication Instructions Recorded Confirmed Ferrous Sulfate [Iron (65 MG 325 mg PO DAILY 05/11/20 05/11/20 Elemental)] Levothyroxine Sodium [Synthroid] 50 mcg PO DAILY 05/11/20 05/11/20 Omeprazole 20 mg PO DAILY 05/11/20 05/11/20 Previous Rx's Medication Instructions Recorded Aspirin 81 mg PO DAILY chew 05/14/20 Linagliptin [Tradjenta] 5 mg PO DAILY #30 tablet 05/14/20 Allergies Allergy/AdvReac Type Severity Reaction Status Date / Time No Known Allergies Allergy Verified 05/18/21 19:06 Review of Systems ROS Statement: Those systems with pertinent positive or pertinent negative responses have been documented in the HPI. ROS Other: All systems not noted in ROS Statement are negative. Past Medical History Past Medical History: Diabetes Mellitus, Thyroid Disorder History of Any Multi-Drug Resistant Organisms: None Reported Past Surgical History: Section Past Psychological History: No Psychological Hx Reported Smoking Status: Never smoker Past Alcohol Use History: None Reported Past Drug Use History: None Reported General Exam Limitations: no limitations General appearance: alert, in no apparent distress Head exam: Present: atraumatic, normocephalic Eye exam: Present: normal appearance ENT exam: Present: mucous membranes dry Neck exam: Present: normal inspection, full ROM. Absent: tenderness, meningismus Cardiovascular Exam: Present: regular rate, normal rhythm GI/Abdominal exam: Present: soft. Absent: distended, tenderness, guarding, rebound Extremities exam: Present: pedal edema Back exam: Present: normal inspection. Absent: tenderness, CVA tenderness (R), CVA tenderness (L) Neurological exam: Present: alert, oriented X3, CN II-XII intact. Absent: motor sensory deficit Psychiatric exam: Present: normal affect, normal mood Skin exam: Present: warm, dry, intact. Absent: cyanosis, diaphoretic Course Vital Signs 05/18/21 05/18/21 05/18/21 19:03 21:19 21:58 Temperature 102.7 F H 101.1 F H 100.8 F H Pulse Rate 98 89 89 Respiratory 18 18 18 Rate Blood Pressure 147/75 158/74 147/68 O2 Sat by Pulse 99 100 99 Oximetry EKG Findings - EKG Comments: EKG Findings:: EKG: Sinus rhythm with first-degree AV block low voltage rate of 91, GA interval 248, QRS duration 70, QTC [address] segment elevation, artifact in V3. Medical Decision Making - Medical Decision Making 86-year-old female with fever and low back pain. Patient's is having bilateral lower back pain. There is no tenderness on exam. No CVA tenderness. Range of motion of bilateral hips is within normal limits. There is no rash. There is no anterior abdominal tenderness. Workup reveals a normal CBC with no leukocytosis. Normal CMP with the exception of elevated blood glucose. She has a minimally elevated lactic acid at 2.2. Urinalysis negative for infection, coronavirus testing is negative. Chest x-ray negative for focal pneumonia. Cultures pending. Did reevaluate the patient was still having low back pain. His been no trauma. CT of both the lumbar spine and CT abdomen pelvis has been ordered, these results are pending. Dr. Belle follow-up on CT results. Given the patient's pain and difficulty ambulating as well as fever of uncertain origin at this time she will be admitted. Case discussed with Dr. Mckinley. I did give a dose of empiric antibiotics. - Lab Data Result diagrams: 05/18/21 20:46 05/18/21 20:46 Lab Results 05/18/21 05/18/21 05/18/21 Range/Units 20:46 20:46 20:46 WBC 10.3 (3.8-10.6) k/uL RBC 3.98 (3.80-5.40) m/uL Hgb 11.8 (11.4-16.0) gm/dL Hct 34.6 (34.0-46.0) % MCV 87.1 (80.0-100.0) fL MCH 29.5 (25.0-35.0) pg MCHC 33.9 (31.0-37.0) g/dL RDW 12.7 (11.5-15.5) % Plt Count 224 (150-450) k/uL MPV 7.2 Neutrophils % 82 % Lymphocytes % 10 % Monocytes % 7 % Eosinophils % 0 % Basophils % 0 % Neutrophils # 8.4 H (1.3-7.7) k/uL Lymphocytes # 1.0 (1.0-4.8) k/uL Monocytes # 0.7 (0-1.0) k/uL Eosinophils # 0.0 (0-0.7) k/uL Basophils # 0.0 (0-0.2) k/uL PT (9.0-12.0) sec INR (<1.2) APTT (22.0-30.0) sec Sodium 140 (137-145) mmol/L Potassium 4.3 (3.5-5.1) mmol/L Chloride 106 (98-107) mmol/L Carbon Dioxide 22 (22-30) mmol/L Anion Gap 12 mmol/L BUN 17 (7-17) mg/dL Creatinine 0.89 (0.52-1.04) mg/dL Est GFR (CKD-EPI)AfAm 68 (>60 ml/min/1.73 sqM) Est GFR (CKD-EPI)NonAf 59 (>60 ml/min/1.73 sqM) Glucose 274 H (74-99) mg/dL Plasma Lactic Acid Tye (0.7-2.0) mmol/L Calcium 9.9 (8.4-10.2) mg/dL Magnesium 1.8 (1.6-2.3) mg/dL Total Bilirubin 0.5 (0.2-1.3) mg/dL AST 25 (14-36) U/L ALT 14 (4-34) U/L Alkaline Phosphatase 114 (38-126) U/L Troponin I (0.000-0.034) ng/mL Total Protein 7.4 (6.3-8.2) g/dL Albumin 4.3 (3.5-5.0) g/dL Urine Color Yellow Urine Appearance Clear (Clear) Urine pH 5.5 (5.0-8.0) Ur Specific [place] 1.029 (1.001-1.035) Urine Protein Trace H (Negative) Urine Glucose (UA) 4+ H (Negative) Urine Ketones Trace H (Negative) Urine Blood Negative (Negative) Urine Nitrite Negative (Negative) Urine Bilirubin Negative (Negative) Urine Urobilinogen <2.0 (<2.0) mg/dL Ur Leukocyte Esterase Negative (Negative) Coronavirus (PCR) (Not Detectd) 05/18/21 05/18/21 05/18/21 Range/Units 20:46 20:46 20:46 WBC (3.8-10.6) k/uL RBC (3.80-5.40) m/uL Hgb (11.4-16.0) gm/dL Hct (34.0-46.0) % MCV (80.0-100.0) fL MCH (25.0-35.0) pg MCHC (31.0-37.0) g/dL RDW (11.5-15.5) % Plt Count (150-450) k/uL MPV Neutrophils % % Lymphocytes % % Monocytes % % Eosinophils % % Basophils % % Neutrophils # (1.3-7.7) k/uL Lymphocytes # (1.0-4.8) k/uL Monocytes # (0-1.0) k/uL Eosinophils # (0-0.7) k/uL Basophils # (0-0.2) k/uL PT 11.0 (9.0-12.0) sec INR 1.0 (<1.2) APTT 28.9 (22.0-30.0) sec Sodium (137-145) mmol/L Potassium (3.5-5.1) mmol/L Chloride (98-107) mmol/L Carbon Dioxide (22-30) mmol/L Anion Gap mmol/L BUN (7-17) mg/dL Creatinine (0.52-1.04) mg/dL Est GFR (CKD-EPI)AfAm (>60 ml/min/1.73 sqM) Est GFR (CKD-EPI)NonAf (>60 ml/min/1.73 sqM) Glucose (74-99) mg/dL Plasma Lactic Acid Tye 2.2 H* (0.7-2.0) mmol/L Calcium (8.4-10.2) mg/dL Magnesium (1.6-2.3) mg/dL Total Bilirubin (0.2-1.3) mg/dL AST (14-36) U/L ALT (4-34) U/L Alkaline Phosphatase (38-126) U/L Troponin I (0.000-0.034) ng/mL Total Protein (6.3-8.2) g/dL Albumin (3.5-5.0) g/dL Urine Color Urine Appearance (Clear) Urine pH (5.0-8.0) Ur Specific [place] (1.001-1.035) Urine Protein (Negative) Urine Glucose (UA) (Negative) Urine Ketones (Negative) Urine Blood (Negative) Urine Nitrite (Negative) Urine Bilirubin (Negative) Urine Urobilinogen (<2.0) mg/dL Ur Leukocyte Esterase (Negative) Coronavirus (PCR) Not Detected (Not Detectd) 05/18/21 Range/Units 20:46 WBC (3.8-10.6) k/uL RBC (3.80-5.40) m/uL Hgb (11.4-16.0) gm/dL Hct (34.0-46.0) % MCV (80.0-100.0) fL MCH (25.0-35.0) pg MCHC (31.0-37.0) g/dL RDW (11.5-15.5) % Plt Count (150-450) k/uL MPV Neutrophils % % Lymphocytes % % Monocytes % % Eosinophils % % Basophils % % Neutrophils # (1.3-7.7) k/uL Lymphocytes # (1.0-4.8) k/uL Monocytes # (0-1.0) k/uL Eosinophils # (0-0.7) k/uL Basophils # (0-0.2) k/uL PT (9.0-12.0) sec INR (<1.2) APTT (22.0-30.0) sec Sodium (137-145) mmol/L Potassium (3.5-5.1) mmol/L Chloride (98-107) mmol/L Carbon Dioxide (22-30) mmol/L Anion Gap mmol/L BUN (7-17) mg/dL Creatinine (0.52-1.04) mg/dL Est GFR (CKD-EPI)AfAm (>60 ml/min/1.73 sqM) Est GFR (CKD-EPI)NonAf (>60 ml/min/1.73 sqM) Glucose (74-99) mg/dL Plasma Lactic Acid Tye (0.7-2.0) mmol/L Calcium (8.4-10.2) mg/dL Magnesium (1.6-2.3) mg/dL Total Bilirubin (0.2-1.3) mg/dL AST (14-36) U/L ALT (4-34) U/L Alkaline Phosphatase (38-126) U/L Troponin I <0.012 (0.000-0.034) ng/mL Total Protein (6.3-8.2) g/dL Albumin (3.5-5.0) g/dL Urine Color Urine Appearance (Clear) Urine pH (5.0-8.0) Ur Specific [place] (1.001-1.035) Urine Protein (Negative) Urine Glucose (UA) (Negative) Urine Ketones (Negative) Urine Blood (Negative) Urine Nitrite (Negative) Urine Bilirubin (Negative) Urine Urobilinogen (<2.0) mg/dL Ur Leukocyte Esterase (Negative) Coronavirus (PCR) (Not Detectd) Disposition Clinical Impression: Fever, Low back pain Disposition: ADMITTED IP TO THIS [facility] Condition: Stable Is patient prescribed a controlled substance at d/c from ED?: No Referrals: Richmond Mendiola MD [Primary Care Provider] - 1-2 days Decision to Admit Reason: Admit from EC Decision Date: 05/18/21 Decision Time: 22:37
[2021-05-18 21:56] LABS: Appearance,Urine Clear (Clear); Bilirubin,Urine Negative (Negative); Blood,Urine Negative (Negative); Color,Urine Yellow; Glucose,Urine (UA) 4+ (Negative); Ketones,Urine Trace (Negative); Leukocyte Esterase,Urine Negative (Negative); Nitrite,Urine Negative (Negative); PH, Urine 5.5 (5.0-8.0); Protein,Urine Trace (Negative); Specific Gravity,Urine 1.029 (1.001-1.035); Urobilinogen,Urine <2.0 mg/dL (<2.0)
[2021-05-18] MEDS ORDERED: NALOXONE 0.4 MG/ML 1 ML VIAL IV PRN (22:25)
[2021-05-18] MEDS ORDERED: IBUPROFEN 400 MG TAB PO PRN (22:25)
[2021-05-18] MEDS ORDERED: cefTRIAXone IN SWFI 1,000 MG/10 ML SYRINGE IVP ONE (22:30)
--- NOTE | 2021-05-18 23:26 | CT ---
EXAMINATION TYPE: CT abdomen pelvis w con DATE OF EXAM: 05/18/2021 COMPARISON: None HISTORY: back pain CT DLP: 1218.3 mGycm Automated exposure control for dose reduction was used. CONTRAST: Performed with IV Contrast, patient injected with 80 mL of Isovue 300. There is mild subsegmental atelectasis at the lung bases. Heart appears enlarged. There is no pericar dial effusion. There is no pleural effusion. Gallbladder is intact. There is large common bile duct t hat measures 12 mm. There is no significant dilation of the intrahepatic bile ducts. Spleen is intact . There is no pancreatic mass. Stomach is intact. There is no adrenal mass. Kidneys show satisfactory contrast opacification. There is no hydronephrosi s. There is 1.5 cm cortical cyst lateral left kidney. There is no retroperitoneal adenopathy. Delayed images show normal renal excretion. Ureters are not dilated. The bladder distends smoothly. There is no inguinal hernia. There is no free fluid in the pelvis. Uterus is anteverted. There is large calci fied mass in the pelvis measuring 4.3 x 7 cm and consistent with uterine fundal fibroid. Uterus is an teverted. Bladder is intact. There are surgical clips in the bowel involving the ascending colon. The re are multiple sigmoid diverticula. I see no sign of diverticulitis. There is no mesenteric edema. T here is no ascites or free air. There is no bowel obstruction. There is T12 compression fracture with 30% anterior wedging. There is spurring in the lower thoracic spine. The proximal femurs and hip roxanna nts are intact. There is no hip dysplasia. The bony pelvis is intact. There is a small puddle of low-density fluid in the right paracolic gutter of uncertain significance. IMPRESSION: There is T12 anterior wedging that is of uncertain age. I have no old exam to compare. The anterior m argins are slightly rounded and this is probably not an acute fracture. There is a minimal degenerative first-degree L4-5 spondylolisthesis without spondylolysis. Large calcified uterine fibroid. Appendix not seen. There is previous bowel surgery and cecum not ricki ntified. There is a small fluid collection in the right paracolic gutter with low attenuation and measuring 1. 5 x 2.5 cm of uncertain significance. No adjacent evidence of any inflammatory process. There is sigm oid diverticulosis without diverticulitis.
--- NOTE | 2021-05-18 23:37 | CT ---
EXAMINATION TYPE: CT lumbar spine w con DATE OF EXAM: 05/18/2021 COMPARISON: HISTORY: back pain CT DLP: 1218.3 mGycm Automated exposure control for dose reduction was used. CONTRAST: Performed with IV Contrast, patient injected with 80 mL of Isovue 300. Images obtained from the level of T10-S3 vertebra with IV contrast. Normal alignment overall. There is a very minimal anterior subluxation of L4 in relation L5 of 3 mm. The posterior elements are intact. There is 30% anterior wedging of T12 vertebral body. The edges are slightly rounded and this is probably not acute fracture. There is no lumbar paraspinal mass. I see no focal bone destruction. The sacroiliac joints are intact. Sacrum is intact. IMPRESSION: T12 compression fracture is probably old. There is a minor degenerative first-degree L4-5 spondylolisthesis without spondylolysis. No definite acute fracture seen. There is a mild relative spinal stenosis at L4-5 and L3-4 due to facet arthropathy.
[2021-05-19 05:49] LABS: Glucose,Whole Blood 102 mg/dL (75-99)
[2021-05-19 06:26] LABS: Basophils % (A) 0 %; Eosinophils # (A) 0.2 k/uL (0-0.7); Eosinophils % (A) 2 %; HCT 32.6 % (34.0-46.0); HGB 11.2 gm/dL (11.4-16.0); Lymphocytes # (A) 1.7 k/uL (1.0-4.8); Lymphocytes % (A) 20 %; MCH 30.3 pg (25.0-35.0); MCHC 34.5 g/dL (31.0-37.0); MCV 87.8 fL (80.0-100.0); Mean Platelet Volume 7.3; Monocytes # (A) 0.9 k/uL (0-1.0); Monocytes % (A) 10 %; Neutrophils # (A) 5.8 k/uL (1.3-7.7); Neutrophils % (A) 66 %; Platelet Count 203 k/uL (150-450); RBC 3.71 m/uL (3.80-5.40); RDW 12.6 % (11.5-15.5); WBC 8.7 k/uL (3.8-10.6)
[2021-05-19 06:36] LABS: Albumin 3.4 g/dL (3.5-5.0); Calcium 9.1 mg/dL (8.4-10.2); Potassium 3.7 mmol/L (3.5-5.1); Total Bilirubin 0.6 mg/dL (0.2-1.3); Total Protein 6.2 g/dL (6.3-8.2)
[2021-05-19] MEDS: SODIUM CHLORIDE 0.9% 1,000 ML IV SCH ×2 (07:52→23:50)
--- NOTE | 2021-05-19 13:39 | P.HPIM ---
History of Present Illness H&P Date: 05/19/21 HISTORY OF PRESENT ILLNESS This is an 86-year-old female patient of Dr. Mendiola with past medical history of type 2 diabetes, history of hypothyroidism, history of mild depression and anxiety attacks who was also have history of leukopenia and chronic history of anemia. She presented to [facility] emergency center due to low back pain without injury, a little chest pain, decreased appetite and cough. Patient was found to have a fever of 102.7, heart rate 98, blood pressure 147/75, pulse ox 99% on room air. EKG was a first-degree AV block. WBC 10.3, h emoglobin 11.8, platelet count 224. Electrolytes and renal function were within normal level. Blood sugar 274. Magnesium 1.8. Liver function tests normal. Albumin 4.3. Urinalysis was negative for infection. INR 1.0. Lactic acid 2.2. Coronavirus PCR not detected. Troponin negative. CAT scan of the lumbar spine revealed T12 compression fractures probably old. Minor degenerative first-deg ree L4-5 spondylolisthesis without spondylolysis. No acute fracture. Mild relative spinal stenosis at L4-5 and L3-4 due to facet arthropathy. CAT scan of the abdomen and pelvis revealed T12 anterior wedging probably not an acute fracture. Large calcified uterine fibroid. Appendix not seen. There is previous bowel surgery and cecum not identified. There is a small fluid collection in the right paracolic gutter with low attenuation and measuring 1.5 x 2.5 cm of uncertain significance. No adjacent evidence of inflammatory process. There is sigmoid diverticulosis without diverticulitis. REVIEW OF SYSTEMS Constitutional: No fever, no chills, no night sweats. No weight change. Reports weakness, fatigue no lethargy. No daytime sleepiness. EENT: No headache. No blurred vision or double vision, no loss of vision. No loss of Hearing, no ringing in the ears, no dizziness. No nasal drainage or congestion. No epistaxis. No sore throat. Lungs: No shortness of breath, cough, no sputum production. No wheezing. Cardiovascular: No chest pain, no lower extremity edema. No palpitations. No paroxysmal nocturnal dyspnea. No orthopnea. No lightheadedness or dizziness. No syncopal episodes. Abdominal: No abdominal pain. No nausea, vomiting. No diarrhea. No constipation. No bloody or tarry stools.. No loss of appetite. Genitourinary: No dysuria, increased frequency, urgency. No urinary retention. Musculoskeletal: No myalgias. Reports muscle weakness, reports gait dysfunction, no frequent falls. Reports lumbar back pain. No neck pain. Integumentary: No wounds, no lesions. No rash or pruritus. No unusual bruising. No change in hair or nails. Neurologic: No aphasia. No facial droop. No change in mentation. No head injury. No headache. No paralysis. No paresthesia. Psychiatric: No depression. No anxiety. No mood swings. Endocrine: No abnormal blood sugars. No weight change. No excessive sweating or thirst. No cold intolerance. SOCIAL HISTORY She is a lifelong nonsmoker, no illicit drug use, marijuana use or alcohol use. She states she lives alone. She uses a cane when she hemorrhoids outside of the home. Within the home Alvina on 2 items to walk. She denies any recent falls. FAMILY HISTORY Mother at 98 from old age with no major medical problems. Father in his 80s. Patient has a total of 11 siblings and all lived into their 80s and 90s. She does not know their medical history. Patient has one daughter with diabetes, one daughter that at age 20 from a motor vehicle accident. PHYSICAL EXAMINATION Gen: This is an 86-year-old black female, resting on the ER stretcher and appears to be comfortable and in no acute distress. HEENT: Head is atraumatic, normocephalic. Pupils equal, round. Sclerae is anicteric. NECK: Supple. No JVD. No lymphadenopathy. No thyromegaly. LUNGS: Clear to auscultation. No wheezes or rhonchi. No intercostal retractions. HEART: Regular rate and rhythm. No murmur. ABDOMEN: Soft. Bowel sounds are present. No masses. Suprapubic tenderness. EXTREMITIES: No pedal edema. No calf tenderness. NEUROLOGICAL: Patient is awake, alert and oriented x3. Cranial nerves 2 through 12 are grossly intact. ASSESSMENT AND PLAN 1. Fever with fluid collection in the right paracolic gutter. Consult with Dr. Huang, start patient on Zosyn. Blood culture is in progress. Sed rate, pro- calcitonin and CRP ordered 2. Hypothyroidism. Continue levothyroxine 50 g daily. 3. Diabetes mellitus type 2. Continue glimepiride 1 mg twice daily, NovoLog scale before meals and at bedtime. 4. Gastroesophageal reflux disease. Continue omeprazole 20 mg daily. 5. DVT prophylaxis. Heparin subcu. Patient will be admitted to the hospital for a minimum of 2 night stay. DISCHARGE PLAN Home. Impression and plan of care have been directed as dictated by the signing physician. Martha Bal nurse practitioner acting as scribe for signing physician. Past Medical History Past Medical History: Diabetes Mellitus, Thyroid Disorder History of Any Multi-Drug Resistant Organisms: None Reported Past Surgical History: Section Past Psychological History: No Psychological Hx Reported Smoking Status: Never smoker Past Alcohol Use History: None Reported Past Drug Use History: None Reported Medications and Allergies Home Medications Medication Instructions Recorded Confirmed Type Ferrous Sulfate [Iron (65 MG 325 mg PO DAILY 05/11/20 05/18/21 History Elemental)] Levothyroxine Sodium [Synthroid] 50 mcg PO DAILY 05/11/20 05/18/21 History Omeprazole 20 mg PO DAILY 05/11/20 05/18/21 History Aspirin 81 mg PO DAILY chew 05/14/20 05/18/21 Rx Dorzolamide-Timol 2.23%/0.68% 1 drop BOTH EYES BID 05/18/21 05/18/21 History [Cosopt] Glimepiride [Amaryl] 1 mg PO BID 05/18/21 05/18/21 History Allergies Allergy/AdvReac Type Severity Reaction Status Date / Time No Known Allergies Allergy Verified 05/18/21 23:00 Physical Exam Vitals: Vital Signs Temp Pulse Resp BP Pulse Ox 05/19/21 07:50 97.9 F 595 H 16 165/75 98 05/19/21 06:00 59 L 17 127/60 98 05/19/21 03:36 81 18 129/61 99 05/19/21 01:26 53 L 18 142/84 97 05/18/21 23:00 98.7 F 62 16 133/50 98 05/18/21 21:58 100.8 F H 89 18 147/68 99 05/18/21 21:19 101.1 F H 89 18 158/74 100 05/18/21 19:03 102.7 F H 98 18 147/75 99 Intake and Output 05/18/21 05/19/21 05/19/21 22:59 06:59 14:59 Other: Voiding Method Bedpan Weight 49.895 kg Results CBC & Chem 7: 05/19/21 06:08 05/19/21 06:08 Labs: Abnormal Lab Results - Last 24 Hours (Table) 05/18/21 05/18/21 05/18/21 Range/Units 20:46 20:46 20:46 RBC (3.80-5.40) m/uL Hgb (11.4-16.0) gm/dL Hct (34.0-46.0) % Neutrophils # 8.4 H (1.3-7.7) k/uL Chloride (98-107) mmol/L Glucose 274 H (74-99) mg/dL POC Glucose (mg/dL) (75-99) mg/dL Plasma Lactic Acid Tye (0.7-2.0) mmol/L Total Protein (6.3-8.2) g/dL Albumin (3.5-5.0) g/dL Urine Protein Trace H (Negative) Urine Glucose (UA) 4+ H (Negative) Urine Ketones Trace H (Negative) 05/18/21 05/19/21 05/19/21 Range/Units 20:46 05:45 06:08 RBC 3.71 L (3.80-5.40) m/uL Hgb 11.2 L (11.4-16.0) gm/dL Hct 32.6 L (34.0-46.0) % Neutrophils # (1.3-7.7) k/uL Chloride (98-107) mmol/L Glucose (74-99) mg/dL POC Glucose (mg/dL) 102 H (75-99) mg/dL Plasma Lactic Acid Tye 2.2 H* (0.7-2.0) mmol/L Total Protein (6.3-8.2) g/dL Albumin (3.5-5.0) g/dL Urine Protein (Negative) Urine Glucose (UA) (Negative) Urine Ketones (Negative) 05/19/21 Range/Units 06:08 RBC (3.80-5.40) m/uL Hgb (11.4-16.0) gm/dL Hct (34.0-46.0) % Neutrophils # (1.3-7.7) k/uL Chloride 111 H (98-107) mmol/L Glucose 129 H (74-99) mg/dL POC Glucose (mg/dL) (75-99) mg/dL Plasma Lactic Acid Tye (0.7-2.0) mmol/L Total Protein 6.2 L (6.3-8.2) g/dL Albumin 3.4 L (3.5-5.0) g/dL Urine Protein (Negative) Urine Glucose (UA) (Negative) Urine Ketones (Negative)
[2021-05-19] MEDS: PIPERACILLIN-TAZOBACTAM 3.375 GM in SODIUM CHLORIDE 0.9% 100 ML IVPB SCH ×2 (15:07→21:33)
[2021-05-19 17:33] LABS: Glucose,Whole Blood 213 mg/dL (75-99)
[2021-05-19 20:25] LABS: Glucose,Whole Blood 180 mg/dL (75-99)
[2021-05-19] MEDS ORDERED: GLIMEPIRIDE 1 MG TAB PO SCH (21:00)
[2021-05-19] MEDS: INSULIN ASPART (NovoLOG) 100 UNIT/ML VIAL SQ SCH ×2 (21:33→21:35)
[2021-05-20] MEDS: DORZOLAMIDE-TIMOLOL 2.23%/0.68 10ML BTL BOTH EYES SCH ×3 (00:25→21:41)
[2021-05-20] MEDS: ACETAMINOPHEN TAB 325 MG TAB PO PRN (03:23)
[2021-05-20] MEDS: LEVOTHYROXINE 50 MCG TAB PO SCH (05:23)
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
[2021-05-20 07:30] LABS: Glucose,Whole Blood 126 mg/dL (75-99)
[2021-05-20] MEDS ORDERED: GLIMEPIRIDE 1 MG TAB PO SCH (07:30)
[2021-05-20] MEDS: PANTOPRAZOLE 40 MG TABLET PO SCH (09:02)
[2021-05-20] MEDS: FERROUS SULFATE 325 MG TAB PO SCH (09:02)
[2021-05-20] MEDS: ASPIRIN 81 MG PO SCH (09:02)
[2021-05-20] MEDS: INSULIN ASPART (NovoLOG) 100 UNIT/ML VIAL SQ SCH ×4 (09:03→21:41)
[2021-05-20] MEDS: PIPERACILLIN-TAZOBACTAM 3.375 GM in SODIUM CHLORIDE 0.9% 100 ML IVPB SCH ×2 (09:03→15:51)
[2021-05-20 11:47] LABS: Glucose,Whole Blood 171 mg/dL (75-99)
--- NOTE | 2021-05-20 11:48 | CT ---
EXAMINATION TYPE: CT sinus wo con DATE OF EXAM: 05/20/2021 COMPARISON: None HISTORY: 86-year-old female with pain, sinus infection CT DLP: 383.7 mGycm Automated exposure control for dose reduction was used. TECHNIQUE: Noncontrast axial views of the paranasal sinuses were obtained. Coronal reconstructions pe rformed. FINDINGS: PARANASAL SINUSES: Only trace mucosal thickening within the ethmoid air cells. Frontal, maxillary, and sphenoid sinuses are well pneumatized. There is no air-fluid level. Reactive danielle- osteogenesis is not seen. There is no destruction of the osseous logan of the paranasal sinuses. THE NASAL CAVITY: The osteomeatal complexes are patent. No significant nasal septal deviation. There is moderate generalized supratentorial volume loss. Orbits are normal in appearance. Mastoid air cells and middle ear cavities are well pneumatized. Patient is partially edentulous. Scattered dental caries. Large periapical lucency involving a left m andibular molar. Reformatted images confirm above findings. IMPRESSION: 1. Only trace mucosal thickening in the ethmoid air cells. Otherwise, no significant paranasal sinus disease seen. 2. The patient is partially edentulous. There are scattered dental caries and a large periapical luce ncy/abscess involving a left mandibular molar.
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
[2021-05-20] MEDS: SODIUM CHLORIDE 0.9% 1,000 ML IV SCH (14:30)
[2021-05-20 15:05] LABS: Hemoglobin A1C 6.4 % (4.0-6.0)
[2021-05-20 16:57] LABS: Glucose,Whole Blood 112 mg/dL (75-99)
[2021-05-20] MEDS: GLIMEPIRIDE 1 MG TAB PO SCH (17:38)
[2021-05-20 21:38] LABS: Glucose,Whole Blood 244 mg/dL (75-99)
[2021-05-21] MEDS: PIPERACILLIN-TAZOBACTAM 3.375 GM in SODIUM CHLORIDE 0.9% 100 ML IVPB SCH ×3 (03:59→16:48)
[2021-05-21] MEDS: ACETAMINOPHEN TAB 325 MG TAB PO PRN (04:00)
[2021-05-21] MEDS: LEVOTHYROXINE 50 MCG TAB PO SCH (05:27)
--- NOTE | 2021-05-21 05:43 | PN ---
PROGRESS NOTE DATE OF SERVICE: 05/20/2021 REASON FOR FOLLOWUP: Fever, abnormal fluid on the CT. INTERVAL HISTORY: The patient did have a low-grade fever this morning of 100.8 degrees Fahrenheit. The patient is afebrile since then. The patient is breathing comfortably. Still complaining of pain to the lower back area with some weakness to the legs. No chest pain, shortness of breath or cough. No abdominal pain. No diarrhea. PHYSICAL EXAMINATION: Blood pressure 169/64, pulse of 55, temperature 97.6. She is 97% on room air. General description is an elderly female lying in no distress. Respiratory system: Unlabored breathing, clear to auscultation anteriorly. Heart S1, S2. Regular rate and rhythm. Abdomen is soft, no tenderness. LABS: Hemoglobin 6.4. No other labs were done today. Cultures remains to be negative so far. DIAGNOSTIC IMPRESSION AND PLAN: Patient admitted to the hospital with fever in this patient who did have a predominant low back pain. CT did not show any abnormality except some degenerative changes and was not elevated at only 26. CT of the sinuses did show some periapical abscess. May benefit from an oral surgery evaluation and possible infected tooth. On Zosyn to continue and monitor clinical course closely. MMODL / IJN: [id number] /
[2021-05-21 07:10] LABS: Glucose,Whole Blood 78 mg/dL (75-99)
[2021-05-21] MEDS: INSULIN ASPART (NovoLOG) 100 UNIT/ML VIAL SQ SCH ×4 (07:19→21:53)
[2021-05-21] MEDS: GLIMEPIRIDE 1 MG TAB PO SCH ×2 (08:10→17:25)
[2021-05-21] MEDS: FERROUS SULFATE 325 MG TAB PO SCH (08:11)
[2021-05-21] MEDS: DORZOLAMIDE-TIMOLOL 2.23%/0.68 10ML BTL BOTH EYES SCH ×2 (08:11→21:53)
[2021-05-21] MEDS: PANTOPRAZOLE 40 MG TABLET PO SCH (08:11)
[2021-05-21] MEDS: ASPIRIN 81 MG PO SCH (08:11)
[2021-05-21 09:28] LABS: HCT 29.7 % (34.0-46.0); HGB 10.1 gm/dL (11.4-16.0); MCH 29.7 pg (25.0-35.0); MCHC 34.1 g/dL (31.0-37.0); MCV 87.3 fL (80.0-100.0); Mean Platelet Volume 7.4; Platelet Count 211 k/uL (150-450); RBC 3.41 m/uL (3.80-5.40); RDW 12.8 % (11.5-15.5); WBC 6.7 k/uL (3.8-10.6)
[2021-05-21 10:33] LABS: African American GFR (CKD) 73 (>60 ml/min/1.73 sqM); Anion Gap 7 mmol/L; Blood Urea Nitrogen 14 mg/dL (7-17); Calcium 9.2 mg/dL (8.4-10.2); Carbon Dioxide 22 mmol/L (22-30); Chloride 112 mmol/L (98-107); Glucose 78 mg/dL (74-99); Non-African American GFR(CKD) 64 (>60 ml/min/1.73 sqM); Potassium 4.1 mmol/L (3.5-5.1); Sodium 141 mmol/L (137-145)
[2021-05-21 11:58] LABS: Glucose,Whole Blood 149 mg/dL (75-99)
[2021-05-21] MEDS: SODIUM CHLORIDE 0.9% 1,000 ML IV SCH (12:09)
--- NOTE | 2021-05-21 15:13 | P.PN ---
Subjective Progress Note Date: 05/21/21 HISTORY OF PRESENT ILLNESS This is an 86-year-old female patient of Dr. Mendiola with past medical history of type 2 diabetes, history of hypothyroidism, history of mild depression and anxiety attacks who was also have history of leukopenia and chronic history of anemia. She presented to [facility] emergency center due to low back pain without injury, a little chest pain, decreased appetite and cough. Patient was found to have a fever of 102.7, heart rate 98, blood pressure 147/75, pulse ox 99% on room air. EKG was a first-degree AV block. WBC 10.3, hemoglobin 11.8, platelet count 224. Electrolytes and renal function were within normal level. Blood sugar 274. Magnesium 1.8. Liver function tests normal. Albumin 4.3. Urinalysis was negative for infection. INR 1.0. Lactic acid 2.2. Coronavirus PCR not detected. Troponin negative. CAT scan of the lumbar spine revealed T12 compression fractures probably old. Minor degenerative first-degree L4-5 spondylolisthesis without spondylolysis. No acute fracture. Mild relative spinal stenosis at L4-5 and L3-4 due to facet arthropathy. CAT scan of the abdomen and pelvis revealed T12 anterior wedging probably not an acute fracture. Large calcified uterine fibroid. Appendix not seen. There is previous bowel surgery and cecum not identified. There is a small fluid collection in the right paracolic gutter with low attenuation and measuring 1.5 x 2.5 cm of uncertain significance. No adjacent evidence of inflammatory process. There is sigmoid diverticulosis without diverticulitis. 05/19: Patient continues to have poor appetite. Sed rate came back at 26, C- reactive protein 7.5 and pro-calcitonin 0.2. Patient has been seen by Dr. Huang with recommendations for interventional radiology to drain abdominal fluid collection and continue Zosyn. Sinus CAT scan revealed trace mucosal thickening in the ethmoid air cells. Otherwise no significant paranasal sinus disease. Patient is partially edentulous. There is scattered dental caries and a large periapical lucency/abscess involving the left mandibular molar. Temperature max 100.8, heart rate 55, blood pressure 128/62, pulse ox 99% on room air. 05/20: Consult with Dr. Saenz has been ordered. Patient states that she is eating okay. She denies having any diarrhea. Temperature max 100.6 at 2 AM. Heart rate 54, blood pressure 150/73, pulse ox 100% on room air. WBC 6.7, hemoglobin 10.1, platelet count 211. Sodium 141, potassium 4.1, chloride 112, CO2 22, BUN 14 and creatinine 0.84. Blood sugars running between 78 and 244. Blood culture is no growth after 48 hours. REVIEW OF SYSTEMS Constitutional: No fever, no chills, no night sweats. No weight change. Reports weakness, fatigue no lethargy. No daytime sleepiness. EENT: No headache. No blurred vision or double vision, no loss of vision. Reports dentation. No nasal drainage or congestion. No epistaxis. No sore throat. Lungs: No shortness of breath, cough, no sputum production. No wheezing. Cardiovascular: No chest pain, no lower extremity edema. No palpitations. No paroxysmal nocturnal dyspnea. No orthopnea. No lightheadedness or dizziness. No syncopal episodes. Abdominal: Reports abdominal pain. No nausea, vomiting. No diarrhea. No constipation. No bloody or tarry stools reports loss of appetite. Genitourinary: No dysuria, increased frequency, urgency. No urinary retention. Musculoskeletal: No myalgias. Reports muscle weakness, reports gait dysfunction, no frequent falls. Reports lumbar back pain. No neck pain. Integumentary: No wounds, no lesions. No rash or pruritus. No unusual bruising. No change in hair or nails. Neurologic: No aphasia. No facial droop. No change in mentation. No head injury. No headache. No paralysis. No paresthesia. Psychiatric: No depression. No anxiety. No mood swings. Endocrine: No abnormal blood sugars. No weight change. No excessive sweating or thirst. No cold intolerance. PHYSICAL EXAMINATION Gen: This is an 86-year-old black female, resting on the ER stretcher and appears to be comfortable and in no acute distress. HEENT: Head is atraumatic, normocephalic. Pupils equal, round. Sclerae is anicteric. NECK: Supple. No JVD. No lymphadenopathy. No thyromegaly. LUNGS: Clear to auscultation. No wheezes or rhonchi. No intercostal retractions. HEART: Regular rate and rhythm. No murmur. ABDOMEN: Soft. Bowel sounds are present. No masses. Suprapubic tenderness. EXTREMITIES: No pedal edema. No calf tenderness. NEUROLOGICAL: Patient is awake, alert and oriented x3. Cranial nerves 2 through 12 are grossly intact. ASSESSMENT AND PLAN 1. Fever with fluid collection in the right paracolic gutter. Consult with Dr. Huang, start patient on Zosyn. Blood culture is in progress. 2. Periapical abscess. Consult added for Dr. Saenz. Continue Zosyn. 3. Hypothyroidism. Continue levothyroxine 50 g daily. 4. Diabetes mellitus type 2. Continue glimepiride 1 mg twice daily, NovoLog scale before meals and at bedtime. 5. Gastroesophageal reflux disease. Continue omeprazole 20 mg daily. 6. DVT prophylaxis. Heparin subcu. DISCHARGE PLAN Home. Impression and plan of care have been directed as dictated by the signing physician. Martha Bal nurse practitioner acting as scribe for signing physician. Objective - Vital Signs Vital signs: Vital Signs Temp 98.9 F 05/21/21 07:48 Pulse 62 05/21/21 07:48 Resp 16 05/21/21 07:48 BP 120/72 05/21/21 07:48 Pulse Ox 100 05/21/21 07:48 Intake & Output 05/20/21 05/21/21 05/21/21 18:59 06:59 18:59 Intake Total 236 Balance 236 Intake: Oral 236 Other: Voiding Method Toilet Bedside Commode # Voids 4 1 # Bowel Movements 2 1 - Labs CBC & Chem 7: 05/21/21 07:18 05/21/21 07:18 Labs: Abnormal Lab Results - Last 24 Hours (Table) 05/20/21 05/20/21 05/20/21 Range/Units 07:51 11:45 16:56 RBC (3.80-5.40) m/uL Hgb (11.4-16.0) gm/dL Hct (34.0-46.0) % Chloride (98-107) mmol/L POC Glucose (mg/dL) 171 H 112 H (75-99) mg/dL Hemoglobin A1c 6.4 H (4.0-6.0) % 05/20/21 05/21/21 05/21/21 Range/Units 21:36 07:18 07:18 RBC 3.41 L (3.80-5.40) m/uL Hgb 10.1 L (11.4-16.0) gm/dL Hct 29.7 L (34.0-46.0) % Chloride 112 H (98-107) mmol/L POC Glucose (mg/dL) 244 H (75-99) mg/dL Hemoglobin A1c (4.0-6.0) % Microbiology - Last 24 Hours (Table) 05/18/21 20:46 Blood Culture - Preliminary Blood No Growth after 48 hours 05/18/21 20:46 Blood Culture - Preliminary Blood No Growth after 48 hours
[2021-05-21 17:00] LABS: Glucose,Whole Blood 195 mg/dL (75-99)
[2021-05-21 20:03] LABS: Glucose,Whole Blood 205 mg/dL (75-99)
--- NOTE | 2021-05-21 21:55 | MR ---
EXAMINATION TYPE: MR lumbar spine wo/w con DATE OF EXAM: 05/21/2021 COMPARISON: None HISTORY: Fever, back pain r/o discitis/ abscess. CONTRAST: Standard multiplanar, multisequence MRI departmental protocol utilizing 5 mL intravenous Gadavist nick olinium contrast. The lumbar vertebra show some mild L3-4 L4-5 subluxation deformity. This measures 4 mm at L4-5 and 3 mm at L3-4. There is posterior mild disc herniation at L3-4 L4-5. There is also a small posterior dis c herniation at T12-L1. There is developmentally adequate spinal canal and no significant spinal sten osis. There is anterior wedging of T12 vertebra with 40% loss of height anteriorly. Fracture appears old. The lumbar neural foramina are fairly well-maintained. I see no pathologic enhancement. The sacroilia c joints appear intact. There is no increased fluid in the disks to suggest discitis. IMPRESSION: Old T12 compression fracture appears stable compared to CT scan of 05/18/2021. No evidence of discitis. There is degenerative first-degree L3-4 and L4-5 spondylolisthesis without c hange. There are small posterior disc herniations at L3-4 and L4-5. No spinal stenosis.
[2021-05-22] MEDS: PIPERACILLIN-TAZOBACTAM 3.375 GM in SODIUM CHLORIDE 0.9% 100 ML IVPB SCH ×2 (00:11→07:35)
[2021-05-22] MEDS: LEVOTHYROXINE 50 MCG TAB PO SCH (06:17)
[2021-05-22] MEDS: SODIUM CHLORIDE 0.9% 1,000 ML IV SCH ×2 (06:18→21:01)
[2021-05-22 07:17] LABS: Glucose,Whole Blood 88 mg/dL (75-99)
[2021-05-22] MEDS: INSULIN ASPART (NovoLOG) 100 UNIT/ML VIAL SQ SCH ×4 (07:31→20:58)
[2021-05-22] MEDS: PANTOPRAZOLE 40 MG TABLET PO SCH (07:35)
[2021-05-22] MEDS: FERROUS SULFATE 325 MG TAB PO SCH (07:35)
[2021-05-22] MEDS: DORZOLAMIDE-TIMOLOL 2.23%/0.68 10ML BTL BOTH EYES SCH ×2 (07:35→20:59)
[2021-05-22] MEDS: GLIMEPIRIDE 1 MG TAB PO SCH ×2 (07:35→16:58)
[2021-05-22] MEDS: ASPIRIN 81 MG PO SCH (07:35)
[2021-05-22 11:32] LABS: Glucose,Whole Blood 235 mg/dL (75-99)
--- NOTE | 2021-05-22 11:47 | PN ---
PROGRESS NOTE DATE OF SERVICE: 05/21/2021 REASON FOR FOLLOWUP: Fever, back pain and abnormal CT. INTERVAL HISTORY: The patient did have, this morning, temperature 100.7, the patient is afebrile since then. The patient is feeling better though, breathing comfortably. Denies having any jaw or oral pain. No chest pain, shortness of breath, abdominal pain, though lower back with radiation to the right leg. Also, some weakness in the right leg as well. PHYSICAL EXAMINATION: Blood pressure 150/79 with a pulse of 54, temperature 98, she is 100% on room air. GENERAL DESCRIPTION: The patient is an elderly female lying in bed, in no distress. RESPIRATORY SYSTEM: Unlabored breathing, clear to auscultation anteriorly. HEART: S1, S2. Regular. ABDOMEN: Soft, no tenderness. EXTREMITIES: No edema of the feet. LABS: Hemoglobin is 10.1, white count 6.7, BUN of 14, creatinine 0.84. CT was reviewed with radiologist, Dr. Forde and the fluid is considered to be possible ( ) and not behaving as an abscess. DIAGNOSTIC IMPRESSION AND PLAN: Patient to hospital with a fever, did have a low back pain ( ) right leg. CT of the lumbosacral spine did not show any abnormality. However, the patient did not have any other obvious focus of infection. We will go ahead and obtain an MRI of the lumbosacral spine with contrast and continue supportive care. Continue Zosyn for now. MMODL / IJN: [id number] /
--- NOTE | 2021-05-22 12:50 | P.PN ---
Subjective Progress Note Date: 05/22/21 HISTORY OF PRESENT ILLNESS This is an 86-year-old female patient of Dr. Mendiola with past medical history of type 2 diabetes, history of hypothyroidism, history of mild depression and anxiety attacks who was also have history of leukopenia and chronic history of anemia. She presented to [facility] emergency center due to low back pain without injury, a little chest pain, decreased appetite and cough. Patient was found to have a fever of 102.7, heart rate 98, blood pressure 147/75, pulse ox 99% on room air. EKG was a first-degree AV block. WBC 10.3, hemoglobin 11.8, platelet count 224. Electrolytes and renal function were within normal level. Blood sugar 274. Magnesium 1.8. Liver function tests normal. Albumin 4.3. Urinalysis was negative for infection. INR 1.0. Lactic acid 2.2. Coronavirus PCR not detected. Troponin negative. CAT scan of the lumbar spine revealed T12 compression fractures probably old. Minor degenerative first-degree L4-5 spondylolisthesis without spondylolysis. No acute fracture. Mild relative spinal stenosis at L4-5 and L3-4 due to facet arthropathy. CAT scan of the abdomen and pelvis revealed T12 anterior wedging probably not an acute fracture. Large calcified uterine fibroid. Appendix not seen. There is previous bowel surgery and cecum not identified. There is a small fluid collection in the right paracolic gutter with low attenuation and measuring 1.5 x 2.5 cm of uncertain significance. No adjacent evidence of inflammatory process. There is sigmoid diverticulosis without diverticulitis. 05/19: Patient continues to have poor appetite. Sed rate came back at 26, C- reactive protein 7.5 and pro-calcitonin 0.2. Patient has been seen by Dr. Huang with recommendations for interventional radiology to drain abdominal fluid collection and continue Zosyn. Sinus CAT scan revealed trace mucosal thickening in the ethmoid air cells. Otherwise no significant paranasal sinus disease. Patient is partially edentulous. There is scattered dental caries and a large periapical lucency/abscess involving the left mandibular molar. Temperature max 100.8, heart rate 55, blood pressure 128/62, pulse ox 99% on room air. 05/20: Consult with Dr. Saenz has been ordered. Patient states that she is eating okay. She denies having any diarrhea. Temperature max 100.6 at 2 AM. Heart r ate 54, blood pressure 150/73, pulse ox 100% on room air. WBC 6.7, hemoglobin 10.1, platelet count 211. Sodium 141, potassium 4.1, chloride 112, CO2 22, BUN 14 and creatinine 0.84. Blood sugars running between 78 and 244. Blood culture is no growth after 48 hours. 05/22: Oral surgeon will see the patient in outpatient basis to manage oral abscess. Patient was found sitting up in bed. She has expressive aphasia this is not baseline for the patient. Speech is worsen from baseline. We will order MRI of the brain, patient also noticed to have increased weakness and is not participating in PT and OT which she is encouraged to do. Spoke with the daughter over the phone related to plan of care and questions were answered. Patient remains afebrile, heart rate 52, respirations 18, blood pressure 161/68, pulse ox 96% on room air. REVIEW OF SYSTEMS Constitutional: No fever, no chills, no night sweats. No weight change. Reports weakness, fatigue no lethargy. No daytime sleepiness. EENT: No headache. No blurred vision or double vision, no loss of vision. R eports dentation. No nasal drainage or congestion. No epistaxis. No sore throat. Lungs: No shortness of breath, cough, no sputum production. No wheezing. Cardiovascular: No chest pain, no lower extremity edema. No palpitations. No paroxysmal nocturnal dyspnea. No orthopnea. No lightheadedness or dizziness. No syncopal episodes. Abdominal: Reports abdominal pain. No nausea, vomiting. No diarrhea. No constipation. No bloody or tarry stools reports loss of appetite. Genitourinary: No dysuria, increased frequency, urgency. No urinary retention. Musculoskeletal: No myalgias. Reports muscle weakness, reports gait dysfunction, no frequent falls. Reports lumbar back pain. No neck pain. Integumentary: No wounds, no lesions. No rash or pruritus. No unusual bruising. No change in hair or nails. Neurologic: No aphasia. No facial droop. No change in mentation. No head injury. No headache. No paralysis. No paresthesia. Psychiatric: No depression. No anxiety. No mood swings. Endocrine: No abnormal blood sugars. No weight change. No excessive sweating or thirst. No cold intolerance. PHYSICAL EXAMINATION Gen: This is an 86-year-old black female, resting in bed and appears to be comfortable and in no acute distress. Expressive aphasia noted HEENT: Head is atraumatic, normocephalic. Pupils equal, round. Sclerae is anicteric. NECK: Supple. No JVD. No lymphadenopathy. No thyromegaly. LUNGS: Clear to auscultation. No wheezes or rhonchi. No intercostal retractions. HEART: Regular rate and rhythm. No murmur. ABDOMEN: Soft. Bowel sounds are present. No masses. Suprapubic tenderness. EXTREMITIES: No pedal edema. No calf tenderness. NEUROLOGICAL: Patient is awake, alert and oriented x3. Cranial nerves 2 through 12 are grossly intact. ASSESSMENT AND PLAN 1. Fever with fluid collection in the right paracolic gutter. Consult with Dr. Huang, start patient on Zosyn. Blood culture is in progress. 2. Periapical abscess. Consult added for Dr. Wilkerson. Oral surgeon will see patient in outpatient setting. Continue Zosyn. 3. Hypothyroidism. Continue levothyroxine 50 g daily. 4. Diabetes mellitus type 2. Continue glimepiride 1 mg twice daily, NovoLog scale before meals and at bedtime. 5. Gastroesophageal reflux disease. Continue omeprazole 20 mg daily. 6. Expressive aphasia. Brain MRI with and without contrast. 7. DVT prophylaxis. Heparin subcu. 8. GI prophylaxis. Protonix 40 mg DISCHARGE PLAN Possible subacute rehab or Home. Impression and plan of care have been directed as dictated by the signing physician. Rocío Soliz nurse practitioner acting as scribe for signing physician. Objective - Vital Signs Vital signs: Vital Signs Temp 98.9 F 05/22/21 07:58 Pulse 52 L 05/22/21 07:58 Resp 18 05/22/21 07:58 BP 161/68 05/22/21 07:58 Pulse Ox 96 05/22/21 07:58 Intake & Output 05/21/21 05/22/21 05/22/21 18:59 06:59 18:59 Intake Total 708 Balance 708 Intake: Oral 708 Other: # Voids 1 2 # Bowel Movements 1 1 - Labs CBC & Chem 7: 05/21/21 07:18 05/21/21 07:18 Labs: Abnormal Lab Results - Last 24 Hours (Table) 05/21/21 05/21/21 05/22/21 Range/Units 16:58 20:01 11:30 POC Glucose (mg/dL) 195 H 205 H 235 H (75-99) mg/dL Microbiology - Last 24 Hours (Table) 05/18/21 20:46 Blood Culture - Preliminary Blood No Growth after 72 hours 05/18/21 20:46 Blood Culture - Preliminary Blood No Growth after 72 hours
--- NOTE | 2021-05-22 13:45 | CT ---
EXAMINATION TYPE: CT brain wo con DATE OF EXAM: 05/22/2021 COMPARISON: 05/11/2020 HISTORY: altered mental status TECHNIQUE: CT scan of the head performed without contrast CT DLP: 1074.4 mGycm Automated exposure control for dose reduction was used. FINDINGS: No evidence of acute intracranial hemorrhage midline shift or mass effect. The sanchez-white matter differentiation is preserved. Posterior fossa is unremarkable. Brain volume atrophy and chronic microangiopathic changes are demonstrated. CSF spaces and ventricles are prominent in keeping with brain volume loss. 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 No acute intraorbital, osseous or soft tissue abnormality. Mild mucosal thickening in the paranasal sinuses. Paranasal sinuses and mastoid air cells are well ev aluated. Atherosclerotic calcification seen in the intracranial internal carotid arteries bilaterally. IMPRESSION: 1 NO ACUTE INTRACRANIAL HEMORRHAGE MIDLINE SHIFT OR MASS EFFECT. 2. STABLE CHRONIC CHANGES DESCRIBED IN BODY OF REPORT.
[2021-05-22 16:36] LABS: Glucose,Whole Blood 150 mg/dL (75-99)
--- NOTE | 2021-05-22 16:36 | PN ---
PROGRESS NOTE DATE OF SERVICE: 05/22/2021 REASON FOR FOLLOWUP: Fever and back pain. INTERVAL HISTORY: The patient is afebrile. The patient is breathing comfortably. The patient's back pain has decreased in intensity. Denies any chest pain, shortness of breath or cough. No abdominal pain or diarrhea. PHYSICAL EXAMINATION: Blood pressure 151/60 with a pulse of 52, temperature 98.9. General description the patient is an elderly female, lying in bed, in no distress. Respiratory system: Unlabored breathing, clear to auscultation anteriorly. Heart S1, S2. Regular rate and rhythm. Abdomen: Soft, no tenderness. LABS: No new labs have been obtained today. Blood culture has been negative. MRI of the lumbar spine did not show evidence of diskitis. DIAGNOSTIC IMPRESSION AND PLAN: Patient admitted to hospital with fever, did have significant lower back pain is. The patient did have abnormal CT with a question of fluid right lower quadrant, which was reviewed with radiologist and mention no evidence of inflammation and recommended against any CT-guided drainage. The patient MRI of the lumbosacral spine is negative as well. Previous ( ) to Unasyn and the patient continued to finish therapy with oral Augmentin and continue supportive care. MMODL / IJN: [id number] /
[2021-05-22] MEDS: AMPICILLIN-SULBACTAM 3 GM in SODIUM CHLORIDE 0.9% 100 ML IVPB SCH (16:59)
[2021-05-22 20:31] LABS: Glucose,Whole Blood 208 mg/dL (75-99)
[2021-05-23] MEDS: AMPICILLIN-SULBACTAM 3 GM in SODIUM CHLORIDE 0.9% 100 ML IVPB SCH ×5 (00:04→23:39)
[2021-05-23] MEDS: LEVOTHYROXINE 50 MCG TAB PO SCH (06:05)
[2021-05-23 07:01] LABS: Glucose,Whole Blood 73 mg/dL (75-99)
[2021-05-23] MEDS: GLIMEPIRIDE 1 MG TAB PO SCH ×2 (07:54→17:20)
[2021-05-23] MEDS: INSULIN ASPART (NovoLOG) 100 UNIT/ML VIAL SQ SCH ×4 (07:54→20:42)
[2021-05-23] MEDS: PANTOPRAZOLE 40 MG TABLET PO SCH (08:04)
[2021-05-23] MEDS: ASPIRIN 81 MG PO SCH (08:04)
[2021-05-23] MEDS: FERROUS SULFATE 325 MG TAB PO SCH (08:04)
[2021-05-23] MEDS: DORZOLAMIDE-TIMOLOL 2.23%/0.68 10ML BTL BOTH EYES SCH ×2 (08:04→20:43)
[2021-05-23 11:36] LABS: Glucose,Whole Blood 144 mg/dL (75-99)
--- NOTE | 2021-05-23 12:20 | P.PN ---
Subjective Progress Note Date: 05/23/21 HISTORY OF PRESENT ILLNESS This is an 86-year-old female patient of Dr. Mendiola with past medical history of type 2 diabetes, history of hypothyroidism, history of mild depression and anxiety attacks who was also have history of leukopenia and chronic history of anemia. She presented to [facility] emergency center due to low back pain without injury, a little chest pain, decreased appetite and cough. Patient was found to have a fever of 102.7, heart rate 98, blood pressure 147/75, pulse ox 99% on room air. EKG was a first-degree AV block. WBC 10.3, hemoglobin 11.8, platelet count 224. Electrolytes and renal function were within normal level. Blood sugar 274. Magnesium 1.8. Liver function tests normal. Albumin 4.3. Urinalysis was negative for infection. INR 1.0. Lactic acid 2.2. Coronavirus PCR not detected. Troponin negative. CAT scan of the lumbar spine revealed T12 compression fractures probably old. Minor degenerative first-degree L4-5 spondylolisthesis without spondylolysis. No acute fracture. Mild relative spinal stenosis at L4-5 and L3-4 due to facet arthropathy. CAT scan of the abdomen and pelvis revealed T12 anterior wedging probably not an acute fracture. Large calcified uterine fibroid. Appendix not seen. There is previous bowel surgery and cecum not identified. There is a small fluid collection in the right paracolic gutter with low attenuation and measuring 1.5 x 2.5 cm of uncertain significance. No adjacent evidence of inflammatory process. There is sigmoid diverticulosis without diverticulitis. 05/19: Patient continues to have poor appetite. Sed rate came back at 26, C- reactive protein 7.5 and pro-calcitonin 0.2. Patient has been seen by Dr. Huang with recommendations for interventional radiology to drain abdominal fluid collection and continue Zosyn. Sinus CAT scan revealed trace mucosal thickening in the ethmoid air cells. Otherwise no significant paranasal sinus disease. Patient is partially edentulous. There is scattered dental caries and a large periapical lucency/abscess involving the left mandibular molar. Temperature max 100.8, heart rate 55, blood pressure 128/62, pulse ox 99% on room air. 05/20: Consult with Dr. Saenz has been ordered. Patient states that she is eating okay. She denies having any diarrhea. Temperature max 100.6 at 2 AM. Heart r ate 54, blood pressure 150/73, pulse ox 100% on room air. WBC 6.7, hemoglobin 10.1, platelet count 211. Sodium 141, potassium 4.1, chloride 112, CO2 22, BUN 14 and creatinine 0.84. Blood sugars running between 78 and 244. Blood culture is no growth after 48 hours. 05/22: Oral surgeon will see the patient in outpatient basis to manage oral abscess. Patient was found sitting up in bed. She has expressive aphasia this is not baseline for the patient. Speech is worsen from baseline. We will order MRI of the brain, patient also noticed to have increased weakness and is not participating in PT and OT which she is encouraged to do. Spoke with the daughter over the phone related to plan of care and questions were answered. Patient remains afebrile, heart rate 52, respirations 18, blood pressure 161/68, pulse ox 96% on room air. 05/23: He was unable to have MRI yesterday due to the amount of dye that was done for the lumbar MRI. Patient will be scheduled for an MRI on Monday. She did have a head CT which showed no acute cranial hemorrhage or midline shift or mass effect, stable chronic changes. Patient will be seen by speech for expressive aphasia. She states that she is feeling better today compared to yesterday. She is much more talkative and able to answer questions appropriately. Patient denies any pain or discomfort at this time. He remains afebrile, heart rate 70, respirations 16, blood pressure 146/80, pulse ox a 97% on room air. REVIEW OF SYSTEMS Constitutional: No fever, no chills, no night sweats. No weight change. Reports weakness, fatigue no lethargy. No daytime sleepiness. EENT: No headache. No blurred vision or double vision, no loss of vision. Reports dentation. No nasal drainage or congestion. No epistaxis. No sore throat. Lungs: No shortness of breath, cough, no sputum production. No wheezing. Cardiovascular: No chest pain, no lower extremity edema. No palpitations. No paroxysmal nocturnal dyspnea. No orthopnea. No lightheadedness or dizziness. No syncopal episodes. Abdominal: Reports abdominal pain. No nausea, vomiting. No diarrhea. No constipation. No bloody or tarry stools reports loss of appetite. Genitourinary: No dysuria, increased frequency, urgency. No urinary retention. Musculoskeletal: No myalgias. Reports muscle weakness, reports gait dysfunction, no frequent falls. Reports lumbar back pain. No neck pain. Integumentary: No wounds, no lesions. No rash or pruritus. No unusual bruising. No change in hair or nails. Neurologic: No aphasia. No facial droop. No change in mentation. No head injury. No headache. No paralysis. No paresthesia. Psychiatric: No depression. No anxiety. No mood swings. Endocrine: No abnormal blood sugars. No weight change. No excessive sweating or thirst. No cold intolerance. PHYSICAL EXAMINATION Gen: This is an 86-year-old black female, resting in bed and appears to be comfortable and in no acute distress. Expressive aphasia noted HEENT: Head is atraumatic, normocephalic. Pupils equal, round. Sclerae is an icteric. NECK: Supple. No JVD. No lymphadenopathy. No thyromegaly. LUNGS: Clear to auscultation. No wheezes or rhonchi. No intercostal retractions. HEART: Regular rate and rhythm. No murmur. ABDOMEN: Soft. Bowel sounds are present. No masses. Suprapubic tenderness. EXTREMITIES: No pedal edema. No calf tenderness. NEUROLOGICAL: Patient is awake, alert and oriented x3. Cranial nerves 2 through 12 are grossly intact. ASSESSMENT AND PLAN 1. Fever with fluid collection in the right paracolic gutter. Consult with Dr. Huang, start patient on Zosyn. Blood culture is in progress. 2. Periapical abscess. Consult added for Dr. Wilkerson. Oral surgeon will see patient in outpatient setting. Continue Zosyn. 3. Hypothyroidism. Continue levothyroxine 50 g daily. 4. Diabetes mellitus type 2. Continue glimepiride 1 mg twice daily, NovoLog scale before meals and at bedtime. 5. Gastroesophageal reflux disease. Continue omeprazole 20 mg daily. 6. Expressive aphasia. Brain MRI with and without contrast performed on Monday, CT of the brain impression noted above. 7. DVT prophylaxis. Heparin subcu. 8. GI prophylaxis. Protonix 40 mg DISCHARGE PLAN Possible subacute rehab or Home. Impression and plan of care have been directed as dictated by the signing physician. Rocío Soliz nurse practitioner acting as scribe for signing physician. Objective - Vital Signs Vital signs: Vital Signs Temp 98.7 F 05/23/21 07:41 Pulse 70 05/23/21 07:41 Resp 16 05/23/21 07:41 BP 146/80 05/23/21 07:41 Pulse Ox 97 05/23/21 07:41 Intake & Output 05/22/21 05/23/21 05/23/21 18:59 06:59 18:59 Other: # Voids 1 # Bowel Movements 1 - Labs CBC & Chem 7: 05/21/21 07:18 05/21/21 07:18 Labs: Abnormal Lab Results - Last 24 Hours (Table) 05/22/21 05/22/21 05/23/21 Range/Units 16:34 20:29 06:59 POC Glucose (mg/dL) 150 H 208 H 73 L (75-99) mg/dL 05/23/21 Range/Units 11:27 POC Glucose (mg/dL) 144 H (75-99) mg/dL Microbiology - Last 24 Hours (Table) 05/18/21 20:46 Blood Culture - Preliminary Blood No Growth after 96 hours 05/18/21 20:46 Blood Culture - Preliminary Blood No Growth after 96 hours
[2021-05-23 17:01] LABS: Glucose,Whole Blood 391 mg/dL (75-99)
[2021-05-23 20:24] LABS: Glucose,Whole Blood 135 mg/dL (75-99)
[2021-05-23] MEDS: SODIUM CHLORIDE 0.9% 1,000 ML IV SCH (23:43)
[2021-05-24] MEDS: LEVOTHYROXINE 50 MCG TAB PO SCH (05:41)
[2021-05-24] MEDS: AMPICILLIN-SULBACTAM 3 GM in SODIUM CHLORIDE 0.9% 100 ML IVPB SCH ×4 (05:42→22:46)
--- NOTE | 2021-05-24 06:57 | PN ---
PROGRESS NOTE DATE OF SERVICE: 05/23/2021 REASON FOR FOLLOWUP: Fever, question dental abscess versus abdominal source. INTERVAL HISTORY: The patient is afebrile. The patient is feeling better. The patient is breathing comfortably. The patient denies having any chest pain, shortness of breath or cough. No nausea, no vomiting. No abdominal pain. No diarrhea. Low back pain has slightly decreased intensity. PHYSICAL EXAMINATION: Blood pressure 177/66, pulse of 64, temperature 98.3. She is 96% on room air. General description is an elderly female lying in bed in no distress. Respiratory system: Unlabored breathing clear to auscultation anteriorly. Heart S1, S2. Regular rate and rhythm. Abdomen soft, no tenderness. LABS: No new labs have been obtained. Blood culture has been negative. DIAGNOSTIC IMPRESSION AND PLAN: Patient admitted to the hospital with fever, significant low back pain with concern for diskitis. MRI with contrast has been negative. The patient currently only focus of infection will be the abscess. CT abdomen and pelvis did show abnormality which was reviewed with radiologist considered to be physiological with no inflammatory changes. Patient seemed to show overall improvement. Unasyn to finish therapy with a short course of oral Augmentin. Continue supportive care. MMODL / IJN: [id number] /
[2021-05-24 07:01] LABS: Glucose,Whole Blood 110 mg/dL (75-99)
[2021-05-24] MEDS: INSULIN ASPART (NovoLOG) 100 UNIT/ML VIAL SQ SCH ×4 (07:05→22:45)
[2021-05-24] MEDS: ASPIRIN 81 MG PO SCH (07:26)
[2021-05-24] MEDS: GLIMEPIRIDE 1 MG TAB PO SCH ×2 (07:26→17:10)
[2021-05-24] MEDS: PANTOPRAZOLE 40 MG TABLET PO SCH (07:26)
[2021-05-24] MEDS: FERROUS SULFATE 325 MG TAB PO SCH (07:26)
[2021-05-24] MEDS: DORZOLAMIDE-TIMOLOL 2.23%/0.68 10ML BTL BOTH EYES SCH ×2 (07:27→20:47)
[2021-05-24 07:45] LABS: Basophils % (A) 0 %; Eosinophils # (A) 0.4 k/uL (0-0.7); Eosinophils % (A) 8 %; HCT 26.7 % (34.0-46.0); HGB 9.3 gm/dL (11.4-16.0); Lymphocytes # (A) 1.5 k/uL (1.0-4.8); Lymphocytes % (A) 28 %; MCH 30.3 pg (25.0-35.0); MCHC 34.8 g/dL (31.0-37.0); MCV 87.2 fL (80.0-100.0); Mean Platelet Volume 7.3; Monocytes # (A) 0.4 k/uL (0-1.0); Monocytes % (A) 8 %; Neutrophils # (A) 2.7 k/uL (1.3-7.7); Neutrophils % (A) 53 %; Platelet Count 225 k/uL (150-450); RBC 3.06 m/uL (3.80-5.40); RDW 12.4 % (11.5-15.5); WBC 5.1 k/uL (3.8-10.6)
[2021-05-24 08:11] LABS: African American GFR (CKD) 70 (>60 ml/min/1.73 sqM); Anion Gap 5 mmol/L; Blood Urea Nitrogen 15 mg/dL (7-17); Calcium 9.2 mg/dL (8.4-10.2); Carbon Dioxide 25 mmol/L (22-30); Chloride 113 mmol/L (98-107); Glucose 107 mg/dL (74-99); Non-African American GFR(CKD) 61 (>60 ml/min/1.73 sqM); Sodium 143 mmol/L (137-145)
[2021-05-24 11:44] LABS: Glucose,Whole Blood 220 mg/dL (75-99)
--- NOTE | 2021-05-24 12:11 | MR ---
EXAMINATION TYPE: MR brain wo/w con DATE OF EXAM: 05/24/2021 COMPARISON: MR brain dated 05/12/2020, head CT 05/22/2021 HISTORY: CVA, expressive aphasia TECHNIQUE: Multiplanar, multisequence images of the brain and brainstem is performed without and with IV contras t, utilizing 5 mL intravenous Gadavist . FINDINGS: Diffusion weighted images demonstrate no evidence of a recent infarct or other diffusion ab normality. There is no extra-axial fluid collection or significant interval change in white matter s ignal abnormality. The ventricular system and cisternal spaces are normal in size and appearance. T he brain volume is age appropriate, there is cortical atrophy as noted on prior exam, bilateral encep halomalacia the inferior aspect of the cerebellar hemispheres again seen. Midline structures demonstrate normal morphology. The craniocervical junction appears within normal limits. Post contrast images demonstrate no abnormal enhancement. The dural venous sinuses appear pa tent. The visualized sinuses are clear and the globes are intact. IMPRESSION: Stable age-related changes of atrophy and chronic small vessel ischemia, no evident subac parvin ischemia
[2021-05-24 16:46] LABS: Glucose,Whole Blood 176 mg/dL (75-99)
[2021-05-24] MEDS: SODIUM CHLORIDE 0.9% 1,000 ML IV SCH (18:10)
[2021-05-24 21:01] LABS: Glucose,Whole Blood 223 mg/dL (75-99)
--- NOTE | 2021-05-24 23:24 | PN ---
PROGRESS NOTE DATE OF SERVICE: 05/24/2021 REASON FOR FOLLOWUP: Fever, possible dental pain and abscess. INTERVAL HISTORY: The patient is currently afebrile. Patient is breathing comfortably on room air. Denies having any chest pain, shortness of breath or cough. No abdominal pain. Back pain has improved. No diarrhea. PHYSICAL EXAMINATION: Blood pressure 152/70 with a pulse of 73, temperature 99. She is 99% on room air. General description is an elderly female lying in no distress. Respiratory system: Unlabored breathing, clear to auscultation anteriorly. Heart S1, S2. Regular rate and rhythm. Abdomen is soft, no tenderness. LABS: Hemoglobin 9.1, white count of 5.1, BUN of 15, creatinine 0.88. DIAGNOSTIC IMPRESSION AND PLAN: Patient admitted to the hospital with fever. This patient who did have predominantly low back pain, did have extensive workup and there was no evidence of any diskitis or abscess on the MRI. The patient is currently responding to the Unasyn. To continue and finish therapy. Short course of oral Augmentin on discharge. Continue supportive care. MMODL / IJN: [id number] /
[2021-05-25] MEDS: AMPICILLIN-SULBACTAM 3 GM in SODIUM CHLORIDE 0.9% 100 ML IVPB SCH ×2 (05:22→11:26)
[2021-05-25] MEDS: LEVOTHYROXINE 50 MCG TAB PO SCH (05:44)
[2021-05-25 07:14] LABS: Glucose,Whole Blood 104 mg/dL (75-99)
[2021-05-25] MEDS: INSULIN ASPART (NovoLOG) 100 UNIT/ML VIAL SQ SCH (07:17)
[2021-05-25 07:36] VITALS: BP 137/47; PULSE 51; RESP 16; TEMP 99.1
[2021-05-25] MEDS: GLIMEPIRIDE 1 MG TAB PO SCH (07:43)
[2021-05-25] MEDS: FERROUS SULFATE 325 MG TAB PO SCH (07:43)
[2021-05-25] MEDS: PANTOPRAZOLE 40 MG TABLET PO SCH (07:43)
[2021-05-25] MEDS: DORZOLAMIDE-TIMOLOL 2.23%/0.68 10ML BTL BOTH EYES SCH (07:43)
[2021-05-25] MEDS: ASPIRIN 81 MG PO SCH (07:43)
[2021-05-25 11:35] LABS: Glucose,Whole Blood 248 mg/dL (75-99)
--- NOTE | 2021-05-25 12:08 | P.PN ---
Subjective Progress Note Date: 05/24/21 HISTORY OF PRESENT ILLNESS This is an 86-year-old female patient of Dr. Mendiola with past medical history of type 2 diabetes, history of hypothyroidism, history of mild depression and anxiety attacks who was also have history of leukopenia and chronic history of anemia. She presented to [facility] emergency center due to low back pain without injury, a little chest pain, decreased appetite and cough. Patient was found to have a fever of 102.7, heart rate 98, blood pressure 147/75, pulse ox 99% on room air. EKG was a first-degree AV block. WBC 10.3, hemoglobin 11.8, platelet count 224. Electrolytes and renal function were within normal level. Blood sugar 274. Magnesium 1.8. Liver function tests normal. Albumin 4.3. Urinalysis was negative for infection. INR 1.0. Lactic acid 2.2. Coronavirus PCR not detected. Troponin negative. CAT scan of the lumbar spine revealed T12 compression fractures probably old. Minor degenerative first-degree L4-5 spondylolisthesis without spondylolysis. No acute fracture. Mild relative spinal stenosis at L4-5 and L3-4 due to facet arthropathy. CAT scan of the abdomen and pelvis revealed T12 anterior wedging probably not an acute fracture. Large calcified uterine fibroid. Appendix not seen. There is previous bowel surgery and cecum not identified. There is a small fluid collection in the right paracolic gutter with low attenuation and measuring 1.5 x 2.5 cm of uncertain significance. No adjacent evidence of inflammatory process. There is sigmoid diverticulosis without diverticulitis. 05/19: Patient continues to have poor appetite. Sed rate came back at 26, C- reactive protein 7.5 and pro-calcitonin 0.2. Patient has been seen by Dr. Huang with recommendations for interventional radiology to drain abdominal fluid collection and continue Zosyn. Sinus CAT scan revealed trace mucosal thickening in the ethmoid air cells. Otherwise no significant paranasal sinus disease. Patient is partially edentulous. There is scattered dental caries and a large periapical lucency/abscess involving the left mandibular molar. Temperature max 100.8, heart rate 55, blood pressure 128/62, pulse ox 99% on room air. 05/20: Consult with Dr. Saenz has been ordered. Patient states that she is eating okay. She denies having any diarrhea. Temperature max 100.6 at 2 AM. Heart rate 54, blood pressure 150/73, pulse ox 100% on room air. WBC 6.7, hemoglobin 10.1, platelet count 211. Sodium 141, potassium 4.1, chloride 112, CO2 22, BUN 14 and creatinine 0.84. Blood sugars running between 78 and 244. Blood culture is no growth after 48 hours. 05/22: Oral surgeon will see the patient in outpatient basis to manage oral abscess. Patient was found sitting up in bed. She has expressive aphasia this is not baseline for the patient. Speech is worsen from baseline. We will order MRI of the brain, patient also noticed to have increased weakness and is not participating in PT and OT which she is encouraged to do. Spoke with the daughter over the phone related to plan of care and questions were answered. Patient remains afebrile, heart rate 52, respirations 18, blood pressure 161/68, pulse ox 96% on room air. 05/23: He was unable to have MRI yesterday due to the amount of dye that was done for the lumbar MRI. Patient will be scheduled for an MRI on Monday. She did have a head CT which showed no acute cranial hemorrhage or midline shift or mass effect, stable chronic changes. Patient will be seen by speech for expressive aphasia. She states that she is feeling better today compared to yesterday. She is much more talkative and able to answer questions appropriately. Patient denies any pain or discomfort at this time. He remains afebrile, heart rate 70, respirations 16, blood pressure 146/80, pulse ox a 97% on room air. 05/24: Patient underwent MRI of the brain today which revealed stable age-related changes of atrophy and chronic small vessel ischemia. No evident subacute ischemia. Dr. Huang has recommended Unasyn and to complete a short course of oral Augmentin on discharge. Patient has been afebrile, heart rate 70, blood pressure 146/80, pulse ox 97% on room air. Repeat blood work reveals WBC 5.1, hemoglobin 9.3, platelet count 225. Sodium 143, potassium 4.0, chloride 113, CO2 25, BUN 15 and creatinine 0.88. Blood sugars running between 110 and 391. Patient has been seen by therapies and recommend the patient is safe to go home. Patient had a daughter here at the bedside and she was planning to go home and discuss discharge planning with the daughter the patient lives with. Plan for discharge home most likely tomorrow. REVIEW OF SYSTEMS Constitutional: No fever, no chills, no night sweats. No weight change. Reports weakness, fatigue no lethargy. No daytime sleepiness. EENT: No headache. No blurred vision or double vision, no loss of vision. Reports dentation. No nasal drainage or congestion. No epistaxis. No sore throat. Lungs: No shortness of breath, cough, no sputum production. No wheezing. Cardiovascular: No chest pain, no lower extremity edema. No palpitations. No paroxysmal nocturnal dyspnea. No orthopnea. No lightheadedness or dizziness. No syncopal episodes. Abdominal: Denies abdominal pain. No nausea, vomiting. No diarrhea. No constipation. No bloody or tarry stools reports loss of appetite. Genitourinary: No dysuria, increased frequency, urgency. No urinary retention. Musculoskeletal: No myalgias. Reports muscle weakness, reports gait dysfunction, no frequent falls. Reports lumbar back pain. No neck pain. Integumentary: No wounds, no lesions. No rash or pruritus. No unusual bruising. No change in hair or nails. Neurologic: No aphasia. No facial droop. No change in mentation. No head injury. No headache. No paralysis. No paresthesia. Psychiatric: No depression. No anxiety. No mood swings. Endocrine: No abnormal blood sugars. No weight change. No excessive sweating or thirst. No cold intolerance. PHYSICAL EXAMINATION Gen: This is an 86-year-old black female, resting in bed and appears to be comfortable and in no acute distress. HEENT: Head is atraumatic, normocephalic. Pupils equal, round. Sclerae is anicteric. NECK: Supple. No JVD. No lymphadenopathy. No thyromegaly. LUNGS: Clear to auscultation. No wheezes or rhonchi. No intercostal retractions. HEART: Regular rate and rhythm. No murmur. ABDOMEN: Soft. Bowel sounds are present. No masses. No tenderness. EXTREMITIES: No pedal edema. No calf tenderness. NEUROLOGICAL: Patient is awake, alert and oriented x3. Cranial nerves 2 through 12 are grossly intact. ASSESSMENT AND PLAN 1. Fever with fluid collection in the right paracolic gutter. Consult with Dr. Sal, start patient on Zosyn. Blood culture is in progress. 2. Periapical abscess. Consult added for Dr. Wilkerson. Oral surgeon will see patient in outpatient setting. Continue Zosyn with plan for Augmentin at discharge. 3. Hypothyroidism. Continue levothyroxine 50 g daily. 4. Diabetes mellitus type 2. Continue glimepiride 1 mg twice daily, NovoLog scale before meals and at bedtime. 5. Gastroesophageal reflux disease. Continue omeprazole 20 mg daily. 6. Expressive aphasia. Brain MRI with and without contrast performed on Monday, CT of the brain impression noted above. 7. DVT prophylaxis. Heparin subcu. 8. GI prophylaxis. Protonix 40 mg DISCHARGE PLAN Possible subacute rehab or Home. Impression and plan of care have been directed as dictated by the signing physician. Martha Bal nurse practitioner acting as scribe for signing physician. Objective - Vital Signs Vital signs: Vital Signs Temp 97.9 F 05/24/21 07:44 Pulse 53 L 05/24/21 07:44 Resp 16 05/24/21 07:44 BP 164/71 05/24/21 07:44 Pulse Ox 95 05/24/21 07:44 Intake & Output 05/23/21 05/24/21 05/24/21 18:59 06:59 18:59 Intake Total 480 236 Balance 480 236 Intake: Oral 480 236 Other: # Voids 2 2 # Bowel Movements 1 - Labs CBC & Chem 7: 05/24/21 07:12 05/24/21 07:12 Labs: Abnormal Lab Results - Last 24 Hours (Table) 05/23/21 05/23/21 05/23/21 Range/Units 11:27 16:39 20:23 RBC (3.80-5.40) m/uL Hgb (11.4-16.0) gm/dL Hct (34.0-46.0) % Chloride (98-107) mmol/L Glucose (74-99) mg/dL POC Glucose (mg/dL) 144 H 391 H 135 H (75-99) mg/dL 05/24/21 05/24/21 05/24/21 Range/Units 07:00 07:12 07:12 RBC 3.06 L (3.80-5.40) m/uL Hgb 9.3 L (11.4-16.0) gm/dL Hct 26.7 L (34.0-46.0) % Chloride 113 H (98-107) mmol/L Glucose 107 H (74-99) mg/dL POC Glucose (mg/dL) 110 H (75-99) mg/dL Microbiology - Last 24 Hours (Table) 05/18/21 20:46 Blood Culture - Preliminary Blood No Growth after 120 hours 05/18/21 20:46 Blood Culture - Preliminary Blood No Growth after 120 hours
[2021-05-25] MEDS: SODIUM CHLORIDE 0.9% 1,000 ML IV SCH (12:09)
--- NOTE | 2021-05-25 12:17 | P.DS ---
Providers Date of admission: 05/18/21 22:26 Expected date of discharge: 05/25/21 Attending physician: Caro Mckinley Consults: 05/19/21 13:34 Consult Physician Routine Consulting Provider: Soledad Huang Consult Reason/Comments: fever, fluid collection right parcolic gutter Do you want consulting provider notified?: Yes 05/21/21 07:30 Consult Physician Routine Consulting Provider: Jose Ramon Wilkerson Consult Reason/Comments: abscess Do you want consulting provider notified?: Yes Primary care physician: [facility] Course: HISTORY OF PRESENT ILLNESS This is an 86-year-old female patient of Dr. Mendiola with past medical history of type 2 diabetes, history of hypothyroidism, history of mild depression and anxiety attacks who was also have history of leukopenia and chronic history of anemia. She presented to [facility] emergency center due to low back pain without injury, a little chest pain, decreased appetite and cough. Patient was found to have a fever of 102.7, heart rate 98, blood pressure 147/75, pulse ox 99% on room air. EKG was a first-degree AV block. WBC 10.3, hemoglobin 11.8, platelet count 224. Electrolytes and renal function were within normal level. Blood sugar 274. Magnesium 1.8. Liver function tests normal. Albumin 4.3. Urinalysis was negative for infection. INR 1.0. Lactic acid 2.2. Coronavirus PCR not detected. Troponin negative. CAT scan of the lumbar spine revealed T12 compression fractures probably old. Minor degenerative first-degree L4-5 spondylolisthesis without spondylolysis. No acute fracture. Mild relative spinal stenosis at L4-5 and L3-4 due to facet arthropathy. CAT scan of the abdomen and pelvis revealed T12 anterior wedging probably not an acute fracture. Large calcified uterine fibroid. Appendix not seen. There is previous bowel surgery and cecum not identified. There is a small fluid collection in the right paracolic gutter with low attenuation and measuring 1.5 x 2.5 cm of uncertain significance. No adjacent evidence of inflammatory process. There is sigmoid diverticulosis without diverticulitis. 05/19: Patient continues to have poor appetite. Sed rate came back at 26, C- reactive protein 7.5 and pro-calcitonin 0.2. Patient has been seen by Dr. Huang with recommendations for interventional radiology to drain abdominal fluid collection and continue Zosyn. Sinus CAT scan revealed trace mucosal thickening in the ethmoid air cells. Otherwise no significant paranasal sinus disease. Patient is partially edentulous. There is scattered dental caries and a large periapical lucency/abscess involving the left mandibular molar. Temperature max 100.8, heart rate 55, blood pressure 128/62, pulse ox 99% on room air. 05/20: Consult with Dr. Saenz has been ordered. Patient states that she is eating okay. She denies having any diarrhea. Temperature max 100.6 at 2 AM. Heart rate 54, blood pressure 150/73, pulse ox 100% on room air. WBC 6.7, hemoglobin 10.1, platelet count 211. Sodium 141, potassium 4.1, chloride 112, CO2 22, BUN 14 and creatinine 0.84. Blood sugars running between 78 and 244. Blood culture is no growth after 48 hours. 05/22: Oral surgeon will see the patient in outpatient basis to manage oral abscess. Patient was found sitting up in bed. She has expressive aphasia this is not baseline for the patient. Speech is worsen from baseline. We will order MRI of the brain, patient also noticed to have increased weakness and is not participating in PT and OT which she is encouraged to do. Spoke with the daughter over the phone related to plan of care and questions were answered. Patient remains afebrile, heart rate 52, respirations 18, blood pressure 161/68, pulse ox 96% on room air. 05/23: He was unable to have MRI yesterday due to the amount of dye that was done for the lumbar MRI. Patient will be scheduled for an MRI on Monday. She did have a head CT which showed no acute cranial hemorrhage or midline shift or mass effect, stable chronic changes. Patient will be seen by speech for expressive aphasia. She states that she is feeling better today compared to yesterday. She is much more talkative and able to answer questions appropriately. Patient denies any pain or discomfort at this time. He remains afebrile, heart rate 70, respirations 16, blood pressure 146/80, pulse ox a 97% on room air. 05/24: Patient underwent MRI of the brain today which revealed stable age-related changes of atrophy and chronic small vessel ischemia. No evident subacute ischemia. Dr. Huang has recommended Unasyn and to complete a short course of oral Augmentin on discharge. Patient has been afebrile, heart rate 70, blood pressure 146/80, pulse ox 97% on room air. Repeat blood work reveals WBC 5.1, hemoglobin 9.3, platelet count 225. Sodium 143, potassium 4.0, chloride 113, CO2 25, BUN 15 and creatinine 0.88. Blood sugars running between 110 and 391. Patient has been seen by therapies and recommend the patient is safe to go home. Patient had a daughter here at the bedside and she was planning to go home and discuss discharge planning with the daughter the patient lives with. Plan for discharge home most likely tomorrow. 05/25: Patient has no new complaints today. Temperature max 100.1. Heart rate 52, blood pressure 132/65, pulse ox 99% on room air. Blood culture has been finalized with no growth. PT and OT have recommended home with home care. Patient will be discharged home home today in stable condition. Family does not want to have home care. DISCHARGE DIAGNOSES 1. Fever of unknown origin with low back pain, responded to antibiotics. Fluid collection in the right paracolic gutter was ruled out. 2. Periapical abscess may have caused fever. 3. Hypothyroidism. 4. Diabetes mellitus type 2. 5. Gastroesophageal reflux disease. 6. Expressive aphasia. DISCHARGE PLAN Home Impression and plan of care have been directed as dictated by the signing physician. Martha Bal nurse practitioner acting as scribe for signing physician. Patient Condition at Discharge: Good Plan - Discharge Summary Discharge Rx Participant: Yes New Discharge Prescriptions: New Amoxic-Pot Clav 500-125 mg [Augmentin 500-125 mg] 1 tab PO Q12HR #14 tab Continue Omeprazole 20 mg PO DAILY Levothyroxine Sodium [Synthroid] 50 mcg PO DAILY Ferrous Sulfate [Iron (65 MG Elemental)] 325 mg PO DAILY Aspirin 81 mg PO DAILY chew Glimepiride [Amaryl] 1 mg PO BID Dorzolamide-Timol 2.23%/0.68% [Cosopt] 1 drop BOTH EYES BID Discharge Medication List Ferrous Sulfate [Iron (65 MG Elemental)] 325 mg PO DAILY 05/11/20 [History] Levothyroxine Sodium [Synthroid] 50 mcg PO DAILY 05/11/20 [History] Omeprazole 20 mg PO DAILY 05/11/20 [History] Aspirin 81 mg PO DAILY chew 05/14/20 [Rx] Dorzolamide-Timol 2.23%/0.68% [Cosopt] 1 drop BOTH EYES BID 05/18/21 [History] Glimepiride [Amaryl] 1 mg PO BID 05/18/21 [History] Amoxic-Pot Clav 500-125 mg [Augmentin 500-125 mg] 1 tab PO Q12HR #14 tab 05/25/21 [Rx] Follow up Appointment(s)/Referral(s): Richmond Mendiola MD [Primary Care Provider] - 05/26/21 3:15 pm Adonay Acosta DDS [STAFF PHYSICIAN] - 06/01/21 2:15 pm Discharge Disposition: HOME SELF-CARE
--- NOTE | 2021-05-25 13:42 | PN ---
PROGRESS NOTE DATE OF SERVICE: 05/25/2021 REASON FOR FOLLOW UP: Fever, possible atypical dental abscess. INTERVAL HISTORY: The patient had temperature this morning of 100.1. The patient is afebrile since then. The patient overall feeling better though. Denies having any chest pain, shortness of breath or cough. Back pain has improved. No abdominal pain or diarrhea. PHYSICAL EXAMINATION: Blood pressure 137/73, pulse of 81, temperature 99.1. She is 100% on room air. General description is an elderly female up in the chair in no distress. Respiratory system: Unlabored breathing, decreased breath sounds in the base, with no wheeze. Heart S1, S2. Regular rate and rhythm. LABS: No new labs have been obtained today. Culture has been negative. DIAGNOSTIC IMPRESSION AND PLAN: Patient in the hospital with fever, possible source she been referred to the dentist in the outpatient setting. She will be given a week of oral Augmentin and close outpatient followup. MMODL / IJN: [id number] /
== END 2021-05-25 12:53 | disposition home or self-care (01) | DRG 158 ==
LOC: EC 18:57 → 4SSUR 22:26
PROVIDERS: ADMIT Family Medicine; ATTEND Family Medicine
DX: K04.7 Periapical abscess without sinus (principal); R47.01 Aphasia; R18.8 Other ascites; D63.8 Anemia in other chronic diseases classified elsewhere; E11.65 Type 2 diabetes mellitus with hyperglycemia; Z20.822 Contact with and (suspected) exposure to COVID-19; K02.9 Dental caries, unspecified; E03.9 Hypothyroidism, unspecified; F32.9 Major depressive disorder, single episode, unspecified; F41.9 Anxiety disorder, unspecified; M48.061 Spinal stenosis, lumbar region without neurogenic claudication; M43.16 Spondylolisthesis, lumbar region; M62.830 Muscle spasm of back; R26.2 Difficulty in walking, not elsewhere classified; G89.29 Other chronic pain; K21.9 Gastro-esophageal reflux disease without esophagitis; K57.30 Diverticulosis of large intestine without perforation or abscess without bleeding; I44.0 Atrioventricular block, first degree; D25.9 Leiomyoma of uterus, unspecified; Z79.82 Long term (current) use of aspirin; Z79.84 Long term (current) use of oral hypoglycemic drugs; Z79.890 Hormone replacement therapy; Z79.899 Other long term (current) drug therapy; Z87.311 Personal history of (healed) other pathological fracture; Z98.891 History of uterine scar from previous surgery; Z83.3 Family history of diabetes mellitus
CPT/HCPCS: 36415; 70450; 70486; 70553; 71046; 72132; 72158; 74177; 80048; 80053; 81003; 83036; 83605; 83735; 84145; 84484; 85025; 85027; 85610; 85652; 85730; 86140; 87040; 87635; 93005; 96360; 96361; 99285

== ENCOUNTER 2022-11-04 11:23 | Emergency (ER) | payer MEDICARE ==
[2022-11-04 11:30] VITALS: RESP 18; TEMP 98.6
[2022-11-04] MEDS ORDERED: PANTOPRAZOLE 40 MG/10 ML VIAL IVP STA (11:38)
--- NOTE | 2022-11-04 11:40 | ED ---
General Adult HPI - General Chief complaint: Abdominal Pain Stated complaint: rectal bleed Time Seen by Provider: 11/04/22 11:31 Source: patient, EMS, RN notes reviewed Mode of arrival: EMS Limitations: no limitations - History of Present Illness Initial comments: Patient is a pleasant 87-year-old female presenting to the emergency department with concern for possible rectal bleeding or abdominal pain. Patient states she feels fine and has no complaints. Patient denies abdominal pain. Patient denies any bleeding. When further questioned on this, patient states there may have been somewhat night. Unclear any history of similar symptoms previously. Patient is a poor historian. - Related Data Home Medications Medication Instructions Recorded Confirmed Ferrous Sulfate [Iron (65 MG 325 mg PO DAILY 05/11/20 05/18/21 Elemental)] Levothyroxine Sodium [Synthroid] 50 mcg PO DAILY 05/11/20 05/18/21 Omeprazole 20 mg PO DAILY 05/11/20 05/18/21 Dorzolamide-Timol 2.23%/0.68% 1 drop BOTH EYES BID 05/18/21 05/18/21 [Cosopt] Glimepiride [Amaryl] 1 mg PO BID 05/18/21 05/18/21 Previous Rx's Medication Instructions Recorded Aspirin 81 mg PO DAILY chew 05/14/20 Amoxic-Pot Clav 500-125 mg 1 tab PO Q12HR #14 tab 05/25/21 [Augmentin 500-125 mg] Allergies Allergy/AdvReac Type Severity Reaction Status Date / Time No Known Allergies Allergy Verified 11/04/22 11:30 Review of Systems ROS Statement: Those systems with pertinent positive or pertinent negative responses have been documented in the HPI. ROS Other: All systems not noted in ROS Statement are negative. Constitutional: Denies: fever Eyes: Denies: eye pain ENT: Denies: ear pain Respiratory: Denies: cough Cardiovascular: Denies: chest pain Endocrine: Denies: as per HPI Gastrointestinal: Reports: as per HPI Genitourinary: Denies: dysuria Musculoskeletal: Denies: back pain Skin: Denies: rash Neurological: Denies: weakness Past Medical History Past Medical History: Diabetes Mellitus, Thyroid Disorder History of Any Multi-Drug Resistant Organisms: None Reported Past Surgical History: Section Past Anesthesia/Blood Transfusion Reactions: No Reported Reaction Additional Past Anesthesia/Blood Transfusion Reaction / Comment(s): not sure if she has had a blood transfusion Past Psychological History: No Psychological Hx Reported Smoking Status: Never smoker Past Alcohol Use History: Rare Past Drug Use History: None Reported - Past Family History Mother Family Medical History: No Reported History Father Family Medical History: No Reported History General Exam Limitations: no limitations General appearance: alert, in no apparent distress Head exam: Present: normocephalic Eye exam: Present: normal appearance Neck exam: Present: normal inspection Respiratory exam: Present: normal lung sounds bilaterally Cardiovascular Exam: Present: regular rate, normal rhythm GI/Abdominal exam: Present: soft, tenderness (Mild tenderness lower abdomen). Absent: distended, guarding, rebound, rigid Rectal exam: Present: normal inspection, normal rectal tone. Absent: black stool, bloody stool Extremities exam: Present: normal inspection Neurological exam: Present: alert Psychiatric exam: Present: normal affect, normal mood Skin exam: Present: normal color Course Vital Signs 11/04/22 11:24 Temperature 98.6 F Pulse Rate 89 Respiratory 18 Rate Blood Pressure 172/78 O2 Sat by Pulse 99 Oximetry EKG Findings - EKG Results: EKG: interpreted by ERMD, sinus rhythm, normal axis, normal QRS, normal ST/T Medical Decision Making - Medical Decision Making Patient reevaluated and resting comfortably in bed. Patient updated on results and need for follow-up - Lab Data Result diagrams: 11/04/22 11:43 11/04/22 11:43 Lab Results 11/04/22 11/04/22 11/04/22 Range/Units 11:43 11:43 11:43 WBC 4.4 (3.8-10.6) k/uL RBC 3.71 L (3.80-5.40) m/uL Hgb 11.3 L (11.4-16.0) gm/dL Hct 32.9 L (34.0-46.0) % MCV 88.8 (80.0-100.0) fL MCH 30.4 (25.0-35.0) pg MCHC 34.2 (31.0-37.0) g/dL RDW 12.8 (11.5-15.5) % Plt Count 201 (150-450) k/uL MPV 8.3 Neutrophils % 62 % Lymphocytes % 23 % Monocytes % 9 % Eosinophils % 3 % Basophils % 1 % Neutrophils # 2.7 (1.3-7.7) k/uL Lymphocytes # 1.0 (1.0-4.8) k/uL Monocytes # 0.4 (0-1.0) k/uL Eosinophils # 0.1 (0-0.7) k/uL Basophils # 0.0 (0-0.2) k/uL PT 10.4 (9.0-12.0) sec INR 1.0 (<1.2) APTT 22.6 (22.0-30.0) sec Sodium (137-145) mmol/L Potassium (3.5-5.1) mmol/L Chloride (98-107) mmol/L Carbon Dioxide (22-30) mmol/L Anion Gap mmol/L BUN (7-17) mg/dL Creatinine (0.52-1.04) mg/dL Est GFR (CKD-EPI)AfAm (>60 ml/min/1.73 sqM) Est GFR (CKD-EPI)NonAf (>60 ml/min/1.73 sqM) Glucose (74-99) mg/dL Calcium (8.4-10.2) mg/dL Total Bilirubin (0.2-1.3) mg/dL AST (14-36) U/L ALT (4-34) U/L Alkaline Phosphatase (38-126) U/L Total Protein (6.3-8.2) g/dL Albumin (3.5-5.0) g/dL Amylase (30-110) U/L Lipase (23-300) U/L Urine Color Yellow Urine Appearance Clear (Clear) Urine pH 6.0 (5.0-8.0) Ur Specific [place] 1.009 (1.001-1.035) Urine Protein Negative (Negative) Urine Glucose (UA) 4+ H (Negative) Urine Ketones Negative (Negative) Urine Blood Negative (Negative) Urine Nitrite Negative (Negative) Urine Bilirubin Negative (Negative) Urine Urobilinogen <2.0 (<2.0) mg/dL Ur Leukocyte Esterase Negative (Negative) Stool Occult Blood (Negative) 11/04/22 11/04/22 Range/Units 11:43 11:43 WBC (3.8-10.6) k/uL RBC (3.80-5.40) m/uL Hgb (11.4-16.0) gm/dL Hct (34.0-46.0) % MCV (80.0-100.0) fL MCH (25.0-35.0) pg MCHC (31.0-37.0) g/dL RDW (11.5-15.5) % Plt Count (150-450) k/uL MPV Neutrophils % % Lymphocytes % % Monocytes % % Eosinophils % % Basophils % % Neutrophils # (1.3-7.7) k/uL Lymphocytes # (1.0-4.8) k/uL Monocytes # (0-1.0) k/uL Eosinophils # (0-0.7) k/uL Basophils # (0-0.2) k/uL PT (9.0-12.0) sec INR (<1.2) APTT (22.0-30.0) sec Sodium 137 (137-145) mmol/L Potassium 4.0 (3.5-5.1) mmol/L Chloride 107 (98-107) mmol/L Carbon Dioxide 21 L (22-30) mmol/L Anion Gap 9 mmol/L BUN 11 (7-17) mg/dL Creatinine 0.81 (0.52-1.04) mg/dL Est GFR (CKD-EPI)AfAm 77 (>60 ml/min/1.73 sqM) Est GFR (CKD-EPI)NonAf 66 (>60 ml/min/1.73 sqM) Glucose 280 H (74-99) mg/dL Calcium 8.6 (8.4-10.2) mg/dL Total Bilirubin 0.6 (0.2-1.3) mg/dL AST 25 (14-36) U/L ALT 18 (4-34) U/L Alkaline Phosphatase 113 (38-126) U/L Total Protein 6.3 (6.3-8.2) g/dL Albumin 3.4 L (3.5-5.0) g/dL Amylase 49 (30-110) U/L Lipase 43 (23-300) U/L Urine Color Urine Appearance (Clear) Urine pH (5.0-8.0) Ur Specific [place] (1.001-1.035) Urine Protein (Negative) Urine Glucose (UA) (Negative) Urine Ketones (Negative) Urine Blood (Negative) Urine Nitrite (Negative) Urine Bilirubin (Negative) Urine Urobilinogen (<2.0) mg/dL Ur Leukocyte Esterase (Negative) Stool Occult Blood Negative (Negative) - Radiology Data Radiology results: report reviewed (Computed tomography scan abdomen and pelvis does not reveal acute process) Disposition Clinical Impression: Abdominal pain Disposition: HOME SELF-CARE Condition: Stable Instructions (If sedation given, give patient instructions): Abdominal Pain (ED) Additional Instructions: Please do follow-up with primary care physician in the next day or 2 for recheck. Return for increased pain, vomiting, bleeding, worsening or change in symptoms or other concerns. Is patient prescribed a controlled substance at d/c from ED?: No Referrals: Richmond Mendiola MD [Primary Care Provider] - 1-2 days Time of Disposition: 13:24
[2022-11-04 11:55] LABS: Appearance,Urine Clear (Clear); Bilirubin,Urine Negative (Negative); Blood,Urine Negative (Negative); Color,Urine Yellow; Glucose,Urine (UA) 4+ (Negative); Ketones,Urine Negative (Negative); Leukocyte Esterase,Urine Negative (Negative); Nitrite,Urine Negative (Negative); Protein,Urine Negative (Negative); Specific Gravity,Urine 1.009 (1.001-1.035); Urobilinogen,Urine <2.0 mg/dL (<2.0)
[2022-11-04 12:03] LABS: Basophils % (A) 1 %; Eosinophils # (A) 0.1 k/uL (0-0.7); Eosinophils % (A) 3 %; HCT 32.9 % (34.0-46.0); HGB 11.3 gm/dL (11.4-16.0); Lymphocytes % (A) 23 %; MCH 30.4 pg (25.0-35.0); MCHC 34.2 g/dL (31.0-37.0); MCV 88.8 fL (80.0-100.0); Mean Platelet Volume 8.3; Monocytes # (A) 0.4 k/uL (0-1.0); Monocytes % (A) 9 %; Neutrophils # (A) 2.7 k/uL (1.3-7.7); Neutrophils % (A) 62 %; Platelet Count 201 k/uL (150-450); RBC 3.71 m/uL (3.80-5.40); RDW 12.8 % (11.5-15.5); WBC 4.4 k/uL (3.8-10.6)
[2022-11-04 12:12] LABS: Albumin 3.4 g/dL (3.5-5.0); Calcium 8.6 mg/dL (8.4-10.2); Total Bilirubin 0.6 mg/dL (0.2-1.3); Total Protein 6.3 g/dL (6.3-8.2)
[2022-11-04 12:22] LABS: Partial Thromboplastin Time 22.6 sec (22.0-30.0); Prothrombin Time 10.4 sec (9.0-12.0)
--- NOTE | 2022-11-04 12:51 | CT ---
EXAMINATION TYPE: CT abdomen pelvis w con DATE OF EXAM: 11/04/2022 HISTORY: Abdominal pain CT DLP: 541.2mGycm Automated Exposure Control for Dose Reduction was Utilized. CONTRAST: CT scan of the abdomen and pelvis is performed without oral but with IV Contrast, patient injected wi th 100 mL of Isovue 300. COMPARISON: CT abdomen and pelvis May 18, 2021 FINDINGS: LUNG BASES: Cardiomegaly is redemonstrated. LIVER/GB: [id number] extrahepatic and mild central intrahepatic biliary dilatation is redemonst rated up to 14 mm current study coronal image 61, this is perhaps slightly less prominent from prior study. There is some tapering towards the ampulla redemonstrated. PANCREAS: Pancreatic duct is seen in the head similar to prior without definitive abnormal dilatation . SPLEEN: Subcentimeter hypodense focus in the spleen axial image 19 is stable and presumed benign. ADRENALS: No significant abnormality is seen. KIDNEYS: Partially exophytic 1.3 cm thin-walled cyst in the left kidney mid to lower pole level delay ed axial image 31 is redemonstrated. BOWEL: Slightly suboptimal evaluation without enteric contrast. Mild/moderate prominence of stomach w ith air-fluid level. No suspicious small or large bowel dilatation. Some sigmoid colonic diverticula. No CT evidence for acute diverticulitis. UTERUS/ADNEXA: Heterogeneous enlarged lobulated uterus with multiple calcified and a few noncalcified fibroids is redemonstrated. Some scattered small pelvic phlebolith again seen. LYMPH NODES: No greater than 1cm abdominal or pelvic lymph nodes are appreciated. OSSEOUS STRUCTURES: Osseous structures are demineralized. Mild to moderate chronic compression fractu re at the 12 level again seen. There is mild to minimal height loss involving the superior L3 endplat e without lucency to suggest acute fracture. Multilevel facet arthropathy lower lumbar spine redemons trated. Moderate axial joint space loss both hips is present. OTHER: No significant additional abnormality is seen. IMPRESSION: No bowel obstruction. No significant new or acute findings present to account for patient 's symptoms of pain.
[2022-11-04] MEDS ORDERED: MORPHINE SULFATE 4 MG/ML SYRINGE IM STA (13:42)
[2022-11-04 14:08] VITALS: BP 139/74; PULSE 78
== END 2022-11-04 14:08 | disposition home or self-care (01) ==
LOC: EC 11:23
DX: R10.30 Lower abdominal pain, unspecified (principal); E11.9 Type 2 diabetes mellitus without complications; E07.9 Disorder of thyroid, unspecified; Z79.84 Long term (current) use of oral hypoglycemic drugs; Z79.890 Hormone replacement therapy
CPT/HCPCS: 99285; 96374; 36415; 93005; 80053; 82150; 83690; 85025; 85610; 85730; 82272; 81003; 74177; C9113; Q9967

== ENCOUNTER 2023-01-13 14:44 | Observation (INO) | payer MEDICARE ==
[2023-01-13] MEDS ORDERED: MORPHINE SULFATE 2 MG/ML SYRINGE IVP STA (15:18)
[2023-01-13] MEDS ORDERED: SODIUM CHLORIDE 0.9% 1,000 ML IV STA (15:18)
[2023-01-13 16:02] LABS: Basophils % (A) 1 %; Eosinophils # (A) 0.1 k/uL (0-0.7); Eosinophils % (A) 2 %; HCT 36.7 % (34.0-46.0); HGB 12.4 gm/dL (11.4-16.0); Lymphocytes # (A) 1.3 k/uL (1.0-4.8); Lymphocytes % (A) 34 %; MCH 29.8 pg (25.0-35.0); MCHC 33.8 g/dL (31.0-37.0); MCV 88.3 fL (80.0-100.0); Mean Platelet Volume 7.5; Monocytes # (A) 0.3 k/uL (0-1.0); Monocytes % (A) 9 %; Neutrophils % (A) 52 %; Platelet Count 242 k/uL (150-450); RBC 4.16 m/uL (3.80-5.40); RDW 12.4 % (11.5-15.5); WBC 3.8 k/uL (3.8-10.6)
[2023-01-13 16:11] LABS: Partial Thromboplastin Time 26.9 sec (22.0-30.0); Prothrombin Time 10.5 sec (9.0-12.0)
[2023-01-13 16:18] LABS: Calcium 9.4 mg/dL (8.4-10.2); Total Bilirubin 0.7 mg/dL (0.2-1.3)
--- NOTE | 2023-01-13 16:27 | CT ---
EXAMINATION TYPE: CT brain andrew wo con DATE OF EXAM: 01/13/2023 COMPARISON: 05/22/2021 HISTORY: 87-year-old female with pain after Fall. CT DLP: 1382.8 mGycm Automated exposure control for dose reduction was used. Technique: Examination of the head was done in axial plane without intravenous contrast. Coronal and sagittal reconstructions performed. CT of the cervical spine was obtained in axial plane without intravenous injection of contrast mater ial. Coronal and sagittal reformatted images were obtained from the axial views for evaluation of f ractures, spinal alignment and canal. FINDINGS: Head: There is no evidence of acute intracranial hemorrhage, acute ischemic changes, mass, mass-effect, or extra-axial fluid collection. There is no effacement of cerebral sulci or basal subarachnoid cister ns. There is no midline shift. Joshi-white matter distinction is preserved. There is moderate generalized supratentorial volume loss. Secondary mild ventricular prominence. Moderate white matter hypodensities. In the area of cortical encephalomalacia posterior right parieta l lobe, axial image 38 has developed since 05/22/2021. Bilateral wedge-shaped peripheral infarcts in t he cerebellar hemispheres. Atherosclerotic calcifications right carotid siphon. Paranasal sinuses and mastoid air cells well pneumatized. Orbits and globes are intact. Cervical spine: No craniocervical junction abnormality, predental space widening, or prevertebral soft tissue swellin g. Nodular enlargement of the thyroid gland. Possible underlying 2.8 cm nodule in the right lobe and 2.0 cm nodule in the left lobe. Mild to moderate degenerative disease is present throughout with scattered posterior disc bulges. There is osteopenia. No acute fracture seen of the cervical spine. Scattered facet and uncovertebral joint degenerative change. Trace grade 1 anterolisthesis C4-C5. Remaining alignment is maintained. Moderate to advanced degenera tive disc disease within some levels of the upper thoracic spine. Moderate right-sided neural foraminal stenosis C5-C6. Sagittal and coronal reformatted images confirm above findings. COMBINED IMPRESSION: 1. Moderate generalized atrophy and changes of chronic small vessel ischemic disease. 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 A small area of chronic cortical infarct has developed in the posterior right parietal lobe, new since 05/22/2021. No acute intracranial abnormality seen. 2. Mild to moderate multilevel spondylotic change of the cervical spine. Degenerative trace grade 1 a nterolisthesis C4-C5. No acute fracture of the cervical spine. 3. Nodular enlargement of the thyroid gland. Possible underlying nodules measuring up to 2.8 and 2.0 cm. Dedicated thyroid ultrasound recommended to determine the need for FNA.
[2023-01-13 16:33] LABS: Albumin 3.9 g/dL (3.5-5.0); Potassium 5.2 mmol/L (3.5-5.1); Total Protein 7.2 g/dL (6.3-8.2)
[2023-01-13 16:34] LABS: Magnesium 1.9 mg/dL (1.6-2.3)
--- NOTE | 2023-01-13 16:56 | XR ---
EXAMINATION TYPE: XR chest 2V DATE OF EXAM: 01/13/2023 COMPARISON: 05/18/2021 HISTORY: Weakness TECHNIQUE: 2 views FINDINGS: Heart is normal. Lungs are clear. Diaphragm is normal. Bony thorax appears normal. There ar e chest leads. No pleural effusion. There are no hilar masses. Thoracic aorta is atheromatous. IMPRESSION: No active cardiopulmonary disease. Normal heart. No change.
--- NOTE | 2023-01-13 16:57 | XR ---
EXAMINATION TYPE: XR elbow complete RT DATE OF EXAM: 01/13/2023 COMPARISON: NONE HISTORY: Pain TECHNIQUE: 3 views FINDINGS: There is plate with screws fixing the proximal ulna. No acute fracture nor dislocation. Rad ial head is intact. No sign of elbow joint effusion. IMPRESSION: Previous surgery. No acute fracture seen. 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
--- NOTE | 2023-01-13 17:07 | ED ---
General Adult HPI - General Chief complaint: Fall Stated complaint: Fall/bruised chin/dizzy Time Seen by Provider: 01/13/23 15:06 Source: patient, RN notes reviewed, old records reviewed Mode of arrival: ambulatory Limitations: no limitations - History of Present Illness Initial comments: Patient is an 87-year-old female with past medical history remarkable for diabetes, thyroid disorder presents with complaint of multiple falls over the last few days. Also feels lightheaded. Has some bruising on her chin. Has some midline neck pain. C-collar was given at triage. Last fall yesterday. Unknown if she lost consciousness. Is concerned for possible injury at this time. Patient states she no longer lives by herself and lives with her daughter but feels like she is not receiving good care. Patient is also looking for admission for placement it sounds like tissue does not believe she can take care of herself anymore. No other acute complaints at this time other than right elbow pain. Normal range of motion. No deformities. She does not believe she is on blood thinners.Patient does endorse having some dizziness which she describes as a head heavy feeling occasionally as well. Believes this may be contributing to some of her falls when it occurs. - Related Data Home Medications Medication Instructions Recorded Confirmed Ferrous Sulfate [Iron (65 MG 325 mg PO DAILY 05/11/20 01/13/23 Elemental)] Levothyroxine Sodium [Synthroid] 50 mcg PO DAILY 05/11/20 01/13/23 Omeprazole 20 mg PO DAILY 05/11/20 01/13/23 Latanoprost/Pf [Latanoprost 0.005% 1 drop BOTH EYES HS 01/13/23 01/13/23 Eye Drop] Mirtazapine [Remeron] 15 mg PO HS 01/13/23 01/13/23 lisinopriL [Zestril] 10 mg PO DAILY 01/13/23 01/13/23 sitaGLIPtin [Januvia] 50 mg PO DAILY 01/13/23 01/13/23 Allergies Allergy/AdvReac Type Severity Reaction Status Date / Time No Known Allergies Allergy Verified 01/13/23 17:28 Review of Systems ROS Statement: Those systems with pertinent positive or pertinent negative responses have been documented in the HPI. Review of Systems: CONST: Denies fever EYES: Denies blurry vision ENT: Denies nasal congestion C/V: Denies Chest pain RESP: Denies shortness of breath GI: Denies abdominal pain : Denies dysuria SKIN: Denies rash. MSK: Endorses right arm pain NEURO: Denies headache ROS Other: All systems not noted in ROS Statement are negative. Past Medical History Past Medical History: Diabetes Mellitus, Thyroid Disorder History of Any Multi-Drug Resistant Organisms: None Reported Past Surgical History: Section Past Anesthesia/Blood Transfusion Reactions: No Reported Reaction Additional Past Anesthesia/Blood Transfusion Reaction / Comment(s): not sure if she has had a blood transfusion Past Psychological History: No Psychological Hx Reported Smoking Status: Never smoker Past Alcohol Use History: Rare Past Drug Use History: None Reported - Past Family History Mother Family Medical History: No Reported History Father Family Medical History: No Reported History General Exam - General Exam Comments Initial Comments: General: Appears in no acute distress. HEAD: Normal with no signs of head trauma. Negative Barrios sign, negative raccoon eyes. EYES: PERRLA, EOMI, conjunctiva normal, no discharge. ENT: Hearing grossly intact, normal oropharynx. Cervical collar in place. Bruise located over the inferior chin. RESPIRATORY: Clear breath sounds bilaterally. No wheezes, rales, or rhonchi. C/V: Regular rate and rhythm. S1 and S2 auscultated, no edema, peripheral pulses 2+ and intact throughout ABD: Abd is soft, nontender, nondistended EXT: Normal range of motion, no obvious deformity SKIN: No rashes or lesions observed on exposed skin. NEURO: Alert and oriented x 4. Cranial nerves II-XII intact. No focal sensory or strength deficits. GCS of 15. NIH of 0. Cerebellar function intact as evident by normal finger nose testing. Limitations: no limitations Course Vital Signs 01/13/23 01/13/23 01/13/23 14:48 17:00 18:02 Temperature 98.1 F Pulse Rate 88 73 80 Respiratory 20 16 18 Rate Blood Pressure 140/78 166/86 164/77 O2 Sat by Pulse 100 98 98 Oximetry Medical Decision Making - Medical Decision Making Was pt. sent in by a medical professional or institution (, PA, ACCOUNTING MANAGER CONTROLLER, urgent care, hospital, or [facility]...) When possible be specific @ -No Did you speak to anyone other than the patient for history (EMS, parent, family, police, friend...)? What history was obtained from this source @ -No Did you review nursing and triage notes (agree or disagree)? Why? @ -I reviewed and agree with nursing and triage notes Were old charts reviewed (outside hosp., previous admission, EMS record, old EK G, old radiological studies, urgent care reports/EKG's, [facility] records)? Report findings @ -yes, old charts reviewed from October 2022 including EKG. Differential Diagnosis (chest pain, altered mental status, abdominal pain women, abdominal pain men, vaginal bleeding, weakness, fever, dyspnea, syncope, headache, dizziness, GI bleed, back pain, seizure, CVA, palpatations, mental health, musculoskeletal)? @ -Falls, weakness, debility, right elbow injury, intracranial injury, dehydration, chronic debility. This list is not all-inclusive. EKG interpreted by me (3pts min.). @ -As above X-rays interpreted by me (1pt min.). @ -Pelvic x-ray, elbow x-ray, chest x-ray shows no acute traumatic injury. CT interpreted by me (1pt min.). @ - CT head and cervical spine shows no obvious acute intracranial injury or cervical spine injury. There are chronic findings including chronic evidence of strokes. These are acute per radiology. Degenerative changes in the spine. U/S interpreted by me (1pt. min.). @ -None done What testing was considered but not performed or refused? (CT, X-rays, U/S, labs)? Why? @ -None What meds were considered but not given or refused? Why? @ -None Did you discuss the management of the patient with other professionals (professionals i.e. , PA, ACCOUNTING MANAGER CONTROLLER, lab, RT, psych nurse, social work administrator, patent lawyer, teacher, budget officer, returned case inspector)? Give summary @ -No Was smoking cessation discussed for >3mins.? @ -No Was critical care preformed (if so, how long)? @ -No Were there social determinants of health that impacted care today? How? (Homelessness, low income, unemployed, alcoholism, drug addiction, transportation, low edu. Level, literacy, decrease access to med. care, [place] [facility], rehab)? @ -No Was there de-escalation of care discussed even if they declined (Discuss DNR or withdrawal of care, Hospice)? DNR status @ -No What co-morbidities impacted this encounter? (DM, HTN, Smoking, COPD, CAD, Cancer, CVA, ARF, Chemo, Hep., AIDS, mental health diagnosis, sleep apnea, morbid obesity)? @ -None Was patient admitted / discharged? Hospital course, mention meds given and route, prescriptions, significant lab abnormalities, going to OR and other pertinent info. @ -Based on the patient's presentation and physical exam, I'm concerned for history weakness and multiple falls. The patient. We will obtain CT brain, C- spine as well as chest, pelvis, right elbow x-ray and basic labs. I did discuss with the patient and she is having multiple falls, feels unsafe living at home with family at this time, the option for admission for placement and evaluation by PT and OT. She would like this. She was safest for her health. She was given a small dose of IV morphine for analgesia, IV fluid bolus. Vital signs otherwise within acceptable limits. EKG shows no signs of ischemia. Imaging was negative for any acute injury. Laboratory studies were within acceptable limits. She does have a hemolyzed potassium but no EKG changes. Still waiting on a urine at this time. I discussed results with the patient as well as her granddaughter was at bedside. We'll admit the patient for evaluation by physical therapy and occupational therapy as well as possible placement at this time. They were in agreement this plan. I spoke with Dr. Fournier who accepted the admission. Undiagnosed new problem with uncertain prognosis? @ -No Drug Therapy requiring intensive monitoring for toxicity (Heparin, Nitro, Insulin, Cardizem)? @ -No Were any procedures done? @ -No Diagnosis/symptom? @ -Weakness Acute, or Chronic, or Acute on Chronic? @ -Acute on chronic Uncomplicated (without systemic symptoms) or Complicated (systemic symptoms)? @ -Uncomplicated Side effects of treatment? @ -No Exacerbation, Progression, or Severe Exacerbation? @ -No Poses a threat to life or bodily function? How? (Chest pain, USA, MT, pneumonia, PE, COPD, DKA, ARF, appy, cholecystitis, CVA, Diverticulitis, Homicidal, Suicidal, threat to staff... and all critical care pts) @ -No Diagnosis/symptom? @ -Fall Acute, or Chronic, or Acute on Chronic? @ - acute Uncomplicated (without systemic symptoms) or Complicated (systemic symptoms)? @ uncomplicated Side effects of treatment? @ -none Exacerbation, Progression, or Severe Exacerbation] @ -no Poses a threat to life or bodily function? @ -no Diagnosis/symptom? @ -Debility Acute, or Chronic, or Acute on Chronic? @ -Acute on chronic Uncomplicated (without systemic symptoms) or Complicated (systemic symptoms)? @ -Uncomplicated Side effects of treatment? @ -none Exacerbation, Progression, or Severe Exacerbation] @ -no Poses a threat to life or bodily function? @ -no - Lab Data Result diagrams: 01/13/23 15:27 01/13/23 15:27 Lab Results 01/13/23 01/13/23 01/13/23 Range/Units 15:27 15: 15: WBC 3.8 (3.8-10.6) k/uL RBC 4.16 (3.80-5.40) m/uL Hgb 12.4 (11.4-16.0) gm/dL Hct 36.7 (34.0-46.0) % MCV 88.3 (80.0-100.0) fL MCH 29.8 (25.0-35.0) pg MCHC 33.8 (31.0-37.0) g/dL RDW 12.4 (11.5-15.5) % Plt Count 242 (150-450) k/uL MPV 7.5 Neutrophils % 52 % Lymphocytes % 34 % Monocytes % 9 % Eosinophils % 2 % Basophils % 1 % Neutrophils # 2.0 (1.3-7.7) k/uL Lymphocytes # 1.3 (1.0-4.8) k/uL Monocytes # 0.3 (0-1.0) k/uL Eosinophils # 0.1 (0-0.7) k/uL Basophils # 0.0 (0-0.2) k/uL PT 10.5 (9.0-12.0) sec INR 1.0 (<1.2) APTT 26.9 (22.0-30.0) sec Sodium 139 (137-145) mmol/L Potassium 5.2 H (3.5-5.1) mmol/L Chloride 108 H (98-107) mmol/L Carbon Dioxide 24 (22-30) mmol/L Anion Gap 7 mmol/L BUN 20 H (7-17) mg/dL Creatinine 0.76 (0.52-1.04) mg/dL Est GFR (CKD-EPI)AfAm 83 (>60 ml/min/1.73 sqM) Est GFR (CKD-EPI)NonAf 72 (>60 ml/min/1.73 sqM) Glucose 185 H (74-99) mg/dL Plasma Lactic Acid Tye (0.7-2.0) mmol/L Calcium 9.4 (8.4-10.2) mg/dL Magnesium 1.9 (1.6-2.3) mg/dL Total Bilirubin 0.7 (0.2-1.3) mg/dL AST 34 (14-36) U/L ALT 21 (4-34) U/L Alkaline Phosphatase 134 H (38-126) U/L Total Protein 7.2 (6.3-8.2) g/dL Albumin 3.9 (3.5-5.0) g/dL 01/13/23 Range/Units 15:27 WBC (3.8-10.6) k/uL RBC (3.80-5.40) m/uL Hgb (11.4-16.0) gm/dL Hct (34.0-46.0) % MCV (80.0-100.0) fL MCH (25.0-35.0) pg MCHC (31.0-37.0) g/dL RDW (11.5-15.5) % Plt Count (150-450) k/uL MPV Neutrophils % % Lymphocytes % % Monocytes % % Eosinophils % % Basophils % % Neutrophils # (1.3-7.7) k/uL Lymphocytes # (1.0-4.8) k/uL Monocytes # (0-1.0) k/uL Eosinophils # (0-0.7) k/uL Basophils # (0-0.2) k/uL PT (9.0-12.0) sec INR (<1.2) APTT (22.0-30.0) sec Sodium (137-145) mmol/L Potassium (3.5-5.1) mmol/L Chloride (98-107) mmol/L Carbon Dioxide (22-30) mmol/L Anion Gap mmol/L BUN (7-17) mg/dL Creatinine (0.52-1.04) mg/dL Est GFR (CKD-EPI)AfAm (>60 ml/min/1.73 sqM) Est GFR (CKD-EPI)NonAf (>60 ml/min/1.73 sqM) Glucose (74-99) mg/dL Plasma Lactic Acid Tye 1.6 (0.7-2.0) mmol/L Calcium (8.4-10.2) mg/dL Magnesium (1.6-2.3) mg/dL Total Bilirubin (0.2-1.3) mg/dL AST (14-36) U/L ALT (4-34) U/L Alkaline Phosphatase (38-126) U/L Total Protein (6.3-8.2) g/dL Albumin (3.5-5.0) g/dL - EKG Data -: EKG Interpreted by Me EKG Comments: 12-lead Electrocardiogram Interpretation Note EKG was reviewed and interpreted by myself. 12-lead ECG performed at 1530 is interpreted by me as revealing normal sinus rhythm at a rate of 90 beats per minute. [place] is normal. MT interval is 168 ms, QRS duration is 84 ms, QTc is 387 ms.. There were no ST or T wave abnormalities to suggest myocardial ischemia or injury. R wave progression across the precordium was satisfactory. By my interpretation this EKG is non-diagnostic for acute ischemia. Disposition Clinical Impression: Fall, Weakness, Debility Disposition: ADMITTED IP TO THIS [facility] Condition: Stable Time of Disposition: 17:20
--- NOTE | 2023-01-13 17:19 | XR ---
EXAMINATION TYPE: XR pelvis AP view DATE OF EXAM: 01/13/2023 COMPARISON: NONE HISTORY: Pain TECHNIQUE: Single view FINDINGS: Pelvic ring is intact. There is acetabular spurring. There is calcified mass in the pelvis consistent with a 6 cm uterine fibroid. Sacroiliac joints are intact. No pelvic fracture. IMPRESSION: No acute abnormality of the pelvis.
[2023-01-13] MEDS ORDERED: NALOXONE 0.4 MG/ML 1 ML VIAL IV PRN (17:26)
[2023-01-13] MEDS ORDERED: MECLIZINE 12.5 MG TAB PO STA (17:40)
[2023-01-13 20:35] LABS: Glucose,Whole Blood 137 mg/dL (70-110)
[2023-01-13] MEDS: HEPARIN SODIUM,PORCINE/PF 5,000 UNIT/0.5 ML SYRINGE SQ SCH (21:14)
[2023-01-13] MEDS: MIRTAZAPINE 15 MG TAB PO SCH (21:14)
[2023-01-13] MEDS: LATANOPROST 0.005% OPHTH DROPS 2.5 ML BTL BOTH EYES SCH (23:15)
[2023-01-14 05:49] LABS: Glucose,Whole Blood 131 mg/dL (70-110)
[2023-01-14] MEDS: PANTOPRAZOLE 40 MG TABLET PO SCH (05:58)
[2023-01-14] MEDS: LEVOTHYROXINE 50 MCG TAB PO SCH (05:58)
[2023-01-14] MEDS: FERROUS SULFATE 325 MG TAB PO SCH (07:41)
[2023-01-14] MEDS: lisinopriL 10 MG TAB PO SCH (07:41)
[2023-01-14] MEDS: LINAGLIPTIN 5 MG TABLET PO SCH (07:41)
[2023-01-14] MEDS: HEPARIN SODIUM,PORCINE/PF 5,000 UNIT/0.5 ML SYRINGE SQ SCH ×2 (07:41→20:28)
[2023-01-14 09:16] LABS: Basophils # (A) 0.01 X 10*3/uL (0.00-0.10); Basophils % (A) 0.2 %; Eosinophils # (A) 0.02 X 10*3/uL (0.04-0.35); Eosinophils % (A) 0.4 %; HCT 32.7 % (37.2-46.3); HGB 10.9 g/dL (12.0-15.0); Immature Grans, Automated 0.2 %; Lymphocytes # (A) 0.95 X 10*3/uL (0.90-5.00); Lymphocytes % (A) 19.9 %; MCHC 33.3 g/dL (32.0-37.0); Mean Platelet Volume 9.5 fL (9.5-12.2); Monocytes # (A) 0.47 X 10*3/uL (0.20-1.00); Monocytes % (A) 9.8 %; NRBC Per 100 WBC 0 /100 WBCS (0.0-0.0); Neutrophils # (A) 3.32 X 10*3/uL (1.80-7.70); Neutrophils % (A) 69.5 %; Platelet Count 233 X 10*3/uL (140-440); RBC 3.76 X 10*6/uL (4.10-5.20); RDW 12.1 % (11.5-14.5); WBC 4.78 X 10*3/uL (4.50-10.00)
[2023-01-14 09:26] LABS: African American GFR (CKD) 90.9 (60.0-200.0); Anion Gap 12.5 mmol/L (10.00-18.00); BUN/Creat Ratio 18.57 Ratio (12.00-20.00); Calcium 9.4 mg/dL (8.7-10.3); Carbon Dioxide 19.5 mmol/L (20.0-27.5); Non-African American GFR(CKD) 78.5 (60.0-200.0); Potassium 4.6 mmol/L (3.5-5.5)
[2023-01-14 19:08] LABS: HCT 32.9 % (34.0-46.0); HGB 11.1 gm/dL (11.4-16.0); MCH 29.5 pg (25.0-35.0); MCHC 33.8 g/dL (31.0-37.0); MCV 87.3 fL (80.0-100.0); Mean Platelet Volume 7.8; Platelet Count 216 k/uL (150-450); RBC 3.77 m/uL (3.80-5.40); WBC 6.1 k/uL (3.8-10.6)
[2023-01-14] MEDS: MIRTAZAPINE 15 MG TAB PO SCH (20:28)
--- NOTE | 2023-01-14 20:29 | P.HPIM ---
History of Present Illness H&P Date: 01/13/23 Chief Complaint: Fall/dizziness 87-year-old female with past medical history remarkable for diabetes, thyroid disorder presents with complaint of multiple falls over the last few days. Also feels lightheaded. Has some bruising on her chin. Has some midline neck pain. C-collar was given at triage. Last fall yesterday. Unknown if she lost consciousness. Is concerned for possible injury at this time. Patient states she no longer lives by herself and lives with her daughter but feels like she is not receiving good care. Patient is also looking for admission for placement it sounds like tissue does not believe she can take care of herself anymore. No other acute complaints at this time other than right elbow pain. Normal range of motion. No deformities. She does not believe she is on blood thinners. Patient does endorse having some dizziness which she describes as a head heavy feeling occasionally as well. Believes this may be contributing to some of her falls when it occurs. Workup completed in ED included CT of the brain, C-spine, chest x-ray, right elbow x-ray which are UNREMARKABLE Blood work completed reveal sodium 139, potassium 5.2, BUN/creatinine of 20/0.76 and blood glucose of 185 EKG was reviewed and interpreted by myself. 12-lead ECG performed at 1530 is interpreted by me as revealing normal sinus rhythm at a rate of 90 beats per minute. [place] is normal. [place] interval is 168 ms, QRS duration is 84 ms, QTc is 387 ms.. There were no ST or T wave abnormalities to suggest myocardial ischemia or injury. Review of Systems REVIEW OF SYSTEMS: CONSTITUTIONAL: No fever, no malaise, no fatigue. HEENT: No recent visual problems or hearing problems. Denied any sore throat. CARDIOVASCULAR: No chest pain, orthopnea, PND, no palpitations, no syncope. PULMONARY: No shortness of breath, no cough, no hemoptysis. GASTROINTESTINAL: No diarrhea, no nausea, no vomiting, no abdominal pain. NEUROLOGICAL: No headaches, no weakness, no numbness. HEMATOLOGICAL: Denies any bleeding or petechiae. GENITOURINARY: Denies any burning micturition, frequency, or urgency. MUSCULOSKELETAL/RHEUMATOLOGICAL: Denies any joint pain, swelling, or any muscle pain. ENDOCRINE: Denies any polyuria or polydipsia. The rest of the 14-point review of systems is negative. Past Medical History Past Medical History: Diabetes Mellitus, Thyroid Disorder History of Any Multi-Drug Resistant Organisms: None Reported Past Surgical History: Section Past Anesthesia/Blood Transfusion Reactions: No Reported Reaction Additional Past Anesthesia/Blood Transfusion Reaction / Comment(s): not sure if she has had a blood transfusion Past Psychological History: No Psychological Hx Reported Smoking Status: Never smoker Past Alcohol Use History: Rare Past Drug Use History: None Reported - Past Family History Mother Family Medical History: No Reported History Father Family Medical History: No Reported History Medications and Allergies Home Medications Medication Instructions Recorded Confirmed Type Ferrous Sulfate [Iron (65 MG 325 mg PO DAILY 05/11/20 01/13/23 History Elemental)] Levothyroxine Sodium [Synthroid] 50 mcg PO DAILY 05/11/20 01/13/23 History Omeprazole 20 mg PO DAILY 05/11/20 01/13/23 History Latanoprost/Pf [Latanoprost 0.005% 1 drop BOTH EYES HS 01/13/23 01/13/23 History Eye Drop] Mirtazapine [Remeron] 15 mg PO HS 01/13/23 01/13/23 History lisinopriL [Zestril] 10 mg PO DAILY 01/13/23 01/13/23 History sitaGLIPtin [Januvia] 50 mg PO DAILY 01/13/23 01/13/23 History Allergies Allergy/AdvReac Type Severity Reaction Status Date / Time No Known Allergies Allergy Verified 01/13/23 17:28 Physical Exam Vitals: Vital Signs Temp Pulse Resp BP Pulse Ox 01/13/23 18:02 80 18 164/77 98 01/13/23 17:00 73 16 166/86 98 01/13/23 14:48 98.1 F 88 20 140/78 100 Intake and Output 01/13/23 01/13/23 01/13/23 06:59 14:59 22:59 Other: Weight 47.627 kg - Constitutional General appearance: Present: average body habitus, cooperative, no acute distress - EENT Eyes: Present: anicteric sclerae, EOMI, PERRLA, normal appearance ENT: Present: hearing grossly normal, normal oropharynx Ears: bilateral: normal - Neck Neck: Present: normal ROM. Absent: lymphadenopathy, rigidity, thyromegaly Carotids: negative: bruit present Thyroid: bilateral: normal size, negative: enlarged, nodule - Respiratory Respiratory: bilateral: CTA, negative: rales, rhonchi, wheezing - Cardiovascular Rhythm: regular Heart sounds: normal: S1, S2 Abnormal Heart Sounds: Absent: systolic murmur, diastolic murmur - Gastrointestinal General gastrointestinal: Present: normal bowel sounds, soft. Absent: distended, organomegaly, tenderness - Genitourinary Genitourinary Comment(s): deferred - Integumentary Integumentary: Present: normal turgor. Absent: jaundiced, rash, ulcer - Neurologic Neurologic: Present: CNII-XII intact. Absent: focal deficits - Musculoskeletal Musculoskeletal: Present: gait normal, strength equal bilaterally - Psychiatric Psychiatric: Present: A&O x's 3, appropriate affect, intact judgment & insight Results CBC & Chem 7: 01/14/23 18:36 01/14/23 06:30 Labs: Abnormal Lab Results - Last 24 Hours (Table) 01/13/23 Range/Units 15:27 Potassium 5.2 H (3.5-5.1) mmol/L Chloride 108 H (98-107) mmol/L BUN 20 H (7-17) mg/dL Glucose 185 H (74-99) mg/dL Alkaline Phosphatase 134 H (38-126) U/L Assessment and Plan Assessment: 1. Fall/weakness/debility - Patient is going to be admitted for close monitoring; neurochecks per protocol; patient will be placed on fall precautions - Consult PT/OT for further recommendations 2. Mild renal injury; he is slightly elevated at 20 with normal creatinine; likely related to poor oral intake - Patient remains on IV fluid hydration; we'll monitor renal function and electrolytes closely 3. Hyperkalemia; likely related to renal injury; we will monitor lactic lites closely and make recommendations accordingly 5. Hyperglycemia; diabetes mellitus type 2; continue with Tradgent[place] of 5 mg daily; monitor Accu-Cheks before meals and at bedtime with insulin sliding scale 6. Hypothyroidism; levothyroxine 50 MCG daily 7. Hypertension; Zestril 10 mg daily 8. Poor oral intake/malnutrition; patient is placed on dysphagia 3 diet; continue with home dose of mirtazapine 15 mg by mouth daily at bedtime DVT prophylaxis; SCDs CODE STATUS; full code
[2023-01-14] MEDS: LATANOPROST 0.005% OPHTH DROPS 2.5 ML BTL BOTH EYES SCH (21:45)
[2023-01-14 22:23] LABS: % Iron Saturation 13.77 (12.00-45.00)
[2023-01-15] MEDS: PANTOPRAZOLE 40 MG TABLET PO SCH (05:30)
[2023-01-15] MEDS: LEVOTHYROXINE 50 MCG TAB PO SCH (05:30)
--- NOTE | 2023-01-15 08:29 | P.PN ---
Subjective Progress Note Date: 01/14/23 87-year-old female with past medical history remarkable for diabetes, thyroid disorder presents with complaint of multiple falls over the last few days. Also feels lightheaded. Has some bruising on her chin. Has some midline neck pain. C-collar was given at triage. Last fall yesterday. Unknown if she lost consciousness. Is concerned for possible injury at this time. Patient states she no longer lives by herself and lives with her daughter but feels like she is not receiving good care. Patient is also looking for admission for placement it sounds like tissue does not believe she can take care of herself anymore. No other acute complaints at this time other than right elbow pain. Normal range of motion. No deformities. She does not believe she is on blood thinners. Patient does endorse having some dizziness which she describes as a head heavy feeling occasionally as well. Believes this may be contributing to some of her falls when it occurs. Workup completed in ED included CT of the brain, C-spine, chest x-ray, right elbow x-ray which are UNREMARKABLE Blood work completed reveal sodium 139, potassium 5.2, BUN/creatinine of 20/0.76 and blood glucose of 185 EKG was reviewed and interpreted by myself. 12-lead ECG performed at 1530 is interpreted by me as revealing normal sinus rhythm at a rate of 90 beats per minute. Robbins is normal. VA interval is 168 ms, QRS duration is 84 ms, QTc is 387 ms.. There were no ST or T wave abnormalities to suggest myocardial ischemia or injury. 01/14/2023 Patient is seen and evaluated sitting up in bed; bruising chin area is more prominent; denies any chest pain or shortness of breath Vital signs are reviewed and remained stable Lab review shows WBC 4.7, hemoglobin of 10.9 which is a drop of 2 g from 12.4 upon admission sodium 143, potassium 4.6 improved from 5.2 yesterday Patient has had a drop of most 2 g of hemoglobin in 24 hours; no signs of bleeding; denies any dark stools or bloody stools; no hematuria Part of drop in hemoglobin could be related to hemodilution with IV fluids; patient was clinically dehydrated upon admission; we will monitor H&H closely and order iron studies; monitor stool occult blood Objective - Vital Signs Vital signs: Vital Signs Temp 98.7 F 01/15/23 07:09 Pulse 63 01/15/23 07:09 Resp 17 01/15/23 07:09 BP 158/77 01/15/23 07:09 Pulse Ox 99 01/15/23 07:09 FiO2 Intake & Output 01/14/23 01/15/23 01/15/23 18:59 06:59 18:59 Intake Total 320 Balance 320 Intake: Oral 320 Other: # Voids 1 2 # Bowel Movements 1 - Exam GENERAL: The patient is alert and oriented x3, not in any acute distress. Well developed, well nourished. HEENT: Pupils are round and equally reacting to light. EOMI. No scleral icterus. No conjunctival pallor. Normocephalic, atraumatic. No pharyngeal erythema. No thyromegaly. CARDIOVASCULAR: S1 and S2 present. No murmurs, rubs, or gallops. PULMONARY: Chest is clear to auscultation, no wheezing or crackles. ABDOMEN: Soft, nontender, nondistended, normoactive bowel sounds. No palpable organomegaly. MUSCULOSKELETAL: No joint swelling or deformity. EXTREMITIES: No cyanosis, clubbing, or pedal edema. NEUROLOGICAL: Gross neurological examination did not reveal any focal deficits. SKIN: No rashes. - Labs CBC & Chem 7: 01/14/23 18:36 01/14/23 06:30 Labs: Abnormal Lab Results - Last 24 Hours (Table) 01/14/23 01/14/23 01/14/23 Range/Units 06:30 06:30 18:36 RBC 3.76 L 3.77 L (4.10-5.20) X 10*6/uL Hgb 10.9 L 11.1 L (12.0-15.0) g/dL Hct 32.7 L 32.9 L (37.2-46.3) % Eosinophils # 0.02 L (0.04-0.35) X 10*3/uL Chloride 111 H (96-109) mmol/L Carbon Dioxide 19.5 L (20.0-27.5) mmol/L Glucose 122 H (70-110) mg/dL Iron (50-170) ug/dL Transferrin (204.0-354.0) mg/dL 01/14/23 Range/Units 18:36 RBC (4.10-5.20) X 10*6/uL Hgb (12.0-15.0) g/dL Hct (37.2-46.3) % Eosinophils # (0.04-0.35) X 10*3/uL Chloride (96-109) mmol/L Carbon Dioxide (20.0-27.5) mmol/L Glucose (70-110) mg/dL Iron 32 L (50-170) ug/dL Transferrin 166.0 L (204.0-354.0) mg/dL Assessment and Plan Assessment: 1. Fall/weakness/debility - Patient is going to be admitted for close monitoring; neurochecks per protocol; patient will be placed on fall precautions - Consult PT/OT for further recommendations 2. Mild renal injury; he is slightly elevated at 20 with normal creatinine; likely related to poor oral intake - Patient remains on IV fluid hydration; we'll monitor renal function and electrolytes closely 3. Hyperkalemia; likely related to renal injury; we will monitor lactic lites closely and make recommendations accordingly 5. Hyperglycemia; diabetes mellitus type 2; continue with Tradgenta of 5 mg daily; monitor Accu-Cheks before meals and at bedtime with insulin sliding scale 6. Hypothyroidism; levothyroxine 50 MCG daily 7. Hypertension; Zestril 10 mg daily 8. Poor oral intake/malnutrition; patient is placed on dysphagia 3 diet; continue with home dose of mirtazapine 15 mg by mouth daily at bedtime DVT prophylaxis; SCDs CODE STATUS; full code
[2023-01-15 08:54] LABS: Glucose,Whole Blood 94 mg/dL (70-110)
[2023-01-15] MEDS: HEPARIN SODIUM,PORCINE/PF 5,000 UNIT/0.5 ML SYRINGE SQ SCH ×2 (08:55→20:27)
[2023-01-15] MEDS: lisinopriL 10 MG TAB PO SCH (08:55)
[2023-01-15] MEDS: ACETAMINOPHEN TAB 325 MG TAB PO PRN (08:55)
[2023-01-15] MEDS: LINAGLIPTIN 5 MG TABLET PO SCH (08:55)
[2023-01-15] MEDS: FERROUS SULFATE 325 MG TAB PO SCH (08:55)
[2023-01-15 09:01] LABS: African American GFR (CKD) 70.2 (60.0-200.0); Anion Gap 6.8 mmol/L (10.00-18.00); BUN/Creat Ratio 13.96 Ratio (12.00-20.00); Blood Urea Nitrogen 12.1 mg/dL (9.0-27.0); Calcium 9.4 mg/dL (8.7-10.3); Carbon Dioxide 26.2 mmol/L (20.0-27.5); Non-African American GFR(CKD) 60.6 (60.0-200.0); Potassium 4.8 mmol/L (3.5-5.5)
[2023-01-15] MEDS: MIRTAZAPINE 15 MG TAB PO SCH (20:27)
[2023-01-15] MEDS: LATANOPROST 0.005% OPHTH DROPS 2.5 ML BTL BOTH EYES SCH (20:28)
[2023-01-16] MEDS: LEVOTHYROXINE 50 MCG TAB PO SCH (05:55)
[2023-01-16] MEDS: PANTOPRAZOLE 40 MG TABLET PO SCH (05:55)
[2023-01-16 06:13] LABS: Glucose,Whole Blood 139 mg/dL (70-110)
[2023-01-16 08:51] LABS: Appearance,Urine Clear (Clear); Bilirubin,Urine Negative (Negative); Blood,Urine Negative (Negative); Color,Urine Yellow; Glucose,Urine (UA) Negative (Negative); Ketones,Urine Negative (Negative); Leukocyte Esterase,Urine Negative (Negative); Nitrite,Urine Negative (Negative); PH, Urine 5.5 (5.0-8.0); Protein,Urine Negative (Negative); Specific Gravity,Urine 1.011 (1.001-1.035); Urobilinogen,Urine <2.0 mg/dL (<2.0)
[2023-01-16] MEDS: lisinopriL 10 MG TAB PO SCH (09:05)
[2023-01-16] MEDS: HEPARIN SODIUM,PORCINE/PF 5,000 UNIT/0.5 ML SYRINGE SQ SCH ×2 (09:05→20:03)
[2023-01-16] MEDS: LINAGLIPTIN 5 MG TABLET PO SCH (09:05)
[2023-01-16] MEDS: FERROUS SULFATE 325 MG TAB PO SCH (09:05)
[2023-01-16] MEDS: ACETAMINOPHEN TAB 325 MG TAB PO PRN ×2 (09:14→17:55)
[2023-01-16 11:28] LABS: Glucose,Whole Blood 143 mg/dL (70-110)
--- NOTE | 2023-01-16 15:17 | CDI ---
Documentation Clarification Form Date: 01/16/2023 2:51:01 PM From: Rose Sharpe RN, CCDS Email: [email or web address] Admit Date: 01/13/2023 5:26:00 PM Patient Name: Carrie Rodarte Visit Number: [id number] Discharge Date: ATTENTION: The Clinical Documentation Specialists (CDI) and [facility] Coding Staff appreciate your assistance in clarifying documentation. Please respond to the clarification below the line at the bottom and electronically sign. The CDI & [facility] Coding staff will review the response and follow-up if needed. Please note: Queries are made part of the Legal Health Record. If you have any questions, please contact the author of this message via ITS. Dr. Dima Fournier The patients principal diagnosis - the diagnosis that was chiefly responsible for the admission - has not been clearly identified and clarification is requested. The patient presented with fall, weakness, dizziness and debility. History/Risk factors: 87-year-old female with complaints of multiple falls over the last few days. History of DM and HTN Clinical Indicators: H&P: "Fall/weakness/debility. Patient is going to be admitted for close monitoring; neurochecks per protocol; patient will be placed on fall precautions. Mild renal injury. Hyperkalemia likely related to renal injury. Hyperglycemia. 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 0.9 NS 1L bolus on 01/13. Tylenol 650 mg po Q6H prn for pain. Iron 325mg po daily In your professional opinion, can you please clarify which diagnosis, after study, was the reason chiefly responsible for the admission? [ ] Hyperkalemia [ ] New chronic cortical infarct [ ] GEOVANI [ ] Other, please specify [ ] Unable to determine Falls/ Debility MTDD
[2023-01-16 17:05] LABS: Glucose,Whole Blood 115 mg/dL (70-110)
[2023-01-16] MEDS: MIRTAZAPINE 15 MG TAB PO SCH (20:03)
[2023-01-16] MEDS: LATANOPROST 0.005% OPHTH DROPS 2.5 ML BTL BOTH EYES SCH (20:10)
--- NOTE | 2023-01-16 21:27 | P.PN ---
Subjective This is a pleasant 87 years old female with multiple medical problems, presents because with fall angina bruise and neck pain with possible loss of consciousness however when I talked to the patient today she stated that she did not actually passed out and she did not lose consciousness, when she fell she was trying to hold using her right side. Also she remembers the family, to help her while she is on the floor. She denies any headache or weakness or numbness however on exam she has difficulty moving her right leg compared to the left mindy e. She also has no teeth and some evidence of slurred speech, patient states this is a chronic She is hemodynamically stable. Labs are reviewed. 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 Patient's hemoglobin A1c is 6.2, she's only neck lifting 5 mg however the risk of significant hypoglycemia with this medication is low therefore going to keep it. Patient also on Remeron. Urine analysis is negative. Bladder scan is 75-100. We will ask for the neurologist evaluation Patient may be considered for discharge in 24-48 hours if she keeps improving Objective - Vital Signs Vital signs: Vital Signs Temp 98.0 F 01/16/23 14:00 Pulse 90 01/16/23 14:00 Resp 18 01/16/23 14:00 BP 122/79 01/16/23 14:00 Pulse Ox 100 01/16/23 14:00 FiO2 21 01/16/23 09:06 Intake & Output 01/15/23 01/16/23 01/16/23 18:59 06:59 18:59 Intake Total 236 120 400 Output Total 300 1288 350 Balance -64 -1168 50 Intake: Oral 236 120 400 Output: Urine 300 1200 350 Post Void Residual 88 Other: Voiding Method Incontinent - Exam -GENERAL: The patient is alert and oriented x3, not in any acute distress. Well developed, well nourished. Generally weak HEENT: Pupils are round and equally reacting to light. EOMI. No scleral icterus. No conjunctival pallor. Normocephalic, atraumatic. No pharyngeal erythema. No thyromegaly. CARDIOVASCULAR: S1 and S2 present. No murmurs, rubs, or gallops. PULMONARY: Chest is clear to auscultation, no wheezing or crackles. ABDOMEN: Soft, nontender, nondistended, normoactive bowel sounds. No palpable organomegaly. MUSCULOSKELETAL: No joint swelling or deformity. EXTREMITIES: No cyanosis, clubbing, or pedal edema. NEUROLOGICAL: Gross neurological examination did not reveal any focal deficits. SKIN: No rashes. no petechiae. - Labs CBC & Chem 7: 01/14/23 18:36 01/15/23 06:21 Labs: Abnormal Lab Results - Last 24 Hours (Table) 01/14/23 01/16/23 01/16/23 Range/Units 18:20 06:11 11:27 POC Glucose (mg/dL) 139 H 143 H (70-110) mg/dL Hemoglobin A1c 6.2 H (0.0-6.0) % 01/16/23 Range/Units 17:04 POC Glucose (mg/dL) 115 H (70-110) mg/dL Hemoglobin A1c (0.0-6.0) % Assessment and Plan Assessment: 1. Fall/weakness/debility - No specific cause found for falling. No strong evidence of syncope. - We will ask for the neurologist consult given her somewhat weak right leg compared to the left leg when she needs help to flex the thigh with her both hands. And the abnormal CT showing old new for a total infarct but To the old CAT scan - Consult PT/OT for further recommendations 2. Mild renal injury; he is slightly elevated at 20 with normal creatinine; likely related to poor oral intake - Patient remains on IV fluid hydration; we'll monitor renal function and electrolytes closely 3. Hyperkalemia; likely related to renal injury; we will monitor lactic lites closely and make recommendations accordingly 5. Hyperglycemia; diabetes mellitus type 2; continue with Tradgenta of 5 mg daily; monitor Accu-Cheks before meals and at bedtime with insulin sliding scale 6. Hypothyroidism; levothyroxine 50 MCG daily 7. Hypertension; Zestril 10 mg daily 8. Poor oral intake/malnutrition; patient is placed on dysphagia 3 diet; continue with home dose of mirtazapine 15 mg by mouth daily at bedtime DVT prophylaxis; SCDs CODE STATUS; full code Possible discharge in 24-48 hours
[2023-01-16 21:57] LABS: Glucose,Whole Blood 165 mg/dL (70-110)
[2023-01-17] MEDS: LEVOTHYROXINE 50 MCG TAB PO SCH (06:42)
[2023-01-17] MEDS: PANTOPRAZOLE 40 MG TABLET PO SCH (06:42)
[2023-01-17 06:53] LABS: Glucose,Whole Blood 115 mg/dL (70-110)
[2023-01-17] MEDS: HEPARIN SODIUM,PORCINE/PF 5,000 UNIT/0.5 ML SYRINGE SQ SCH ×2 (08:03→22:10)
[2023-01-17] MEDS: FERROUS SULFATE 325 MG TAB PO SCH (08:03)
[2023-01-17] MEDS: LINAGLIPTIN 5 MG TABLET PO SCH (08:04)
[2023-01-17] MEDS: lisinopriL 10 MG TAB PO SCH (08:04)
--- NOTE | 2023-01-17 08:52 | P.CNNES ---
History of Present Illness Consult date: 01/16/23 Requesting physician: [place] E Sheet Reason for Consult: Right leg looks weak History of Present Illness: Patient is a 87-year-old female, with history of diabetes, hypertension, previous strokes, came to the hospital on Monday01/13/2023 because of dizziness after a fall at her daughter's house. Patient's granddaughter was present, who also provided with a history. Patient has very poor balance, and has to use a rolling walker with seat when she walks. She always uses it when she has to walk. About 2 days prior to arrival, on 01/11/2023, she was trying to get up from chair and did not have her walker in front of her. She thought she would hang onto the furniture, but and slipped, and she fell face forward, hitting chin on the floor. There was no slurred speech facial droop or any stroke symptoms noted. She states her right eye closes sometimes when talking no otherwise droop. Patient's daughter mentions that sometimes it is harder to understand, sometimes more than usual. Patient did not seek medical attention, however she started complaining about dizziness, lightheadedness and weakness. She could not walk/move around as usually she does. Patient was taken to her primary physician, who recommended her to go to the ER. Patient is complaining of pain in the right side the neck to the right arm, before taking Tylenol was 7/10 but now it is 2/10. Patient does have diabetic neuropathy with numbness of the feet up to the ankles bilaterally. Patient's granddaughter stated that she has felt a few times in the last few months. Sometimes she tries to loosen things that she should not do. Patient states her hands are not numb, but has no strength. CT head revealed moderate generalized atrophy and changes of chronic small vessel ischemic disease. 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 A small area of chronic cortical infarct has developed in the posterior right parietal lobe, new since 05/22/2021. No acute intracranial abnormality seen. CT of the cervical spine revealed mild to moderate multilevel spondylotic change of the cervical spine. Degenerative trace grade 1 anterolisthesis C4-C5. No acute fracture of the cervical spine. Thyroid nodules measuring up to 2.8 centimeter. IM to address thyroid. Chest x-ray revealed no active cardiac or renal disease. Normal heart. Pelvic x-ray normal. EKG with sinus rhythm with occasional supraventricular premature complexes. Patient had an MRI of lumbar spine with and without contrast on 05/21/2021, whic h revealed old T12 compression fracture appears stable compared to computed tomography scan from 05/18/2021. No evidence of discitis. There is degenerative first-degree L3 4 and L4 5 spondylolisthesis without change. No spinal stenosis. I personally reviewed that MRI, agree with the findings. Patient has history of diabetes type 2 for over 22 years, also has hypertension. She never smoked. Denies any alcohol use. Patient takes omeprazole, levothyroxine, ferrous sulfate, Remeron, Januvia and lisinopril. Patient currently on aspirin 81 mg daily, although not mentioned in the home medication list. She is compliant with her aspirin. Patient has been seen by myself on 05/11/2024 slurred speech and gait disturbance, possible TIA. MRI of the brain at that time revealed chronic bilateral cerebellar infarcts with no acute ischemic process. 2-D echo was normal. B12 was borderline 263 and folic acid 10.0. Thyroid functions were abnormal. Carotid Doppler revealed moderate atherosclerotic plaque with no significant stenosis. Patient was recommended aspirin 81 mg at that time. Review of Systems All systems: negative Constitutional: Denies chills, Denies fever Eyes: bilateral blurred vision, denies pain, denies loss of peripheral vision, denies loss of vision Ears: deny: ear discharge, earache Ears, nose, mouth and throat: Reports headache, Denies sore throat Cardiovascular: Denies chest pain, Denies shortness of breath Respiratory: Denies cough Gastrointestinal: Denies abdominal pain, Denies diarrhea, Denies nausea, Denies vomiting Musculoskeletal: Reports frequent falls, Reports gait dysfunction, Reports muscle weakness Integumentary: Denies pruritus, Denies rash Neurological: Reports as per HPI Psychiatric: Denies anxiety, Denies depression Past Medical History Past Medical History: Diabetes Mellitus, Thyroid Disorder History of Any Multi-Drug Resistant Organisms: None Reported Past Surgical History: Section Past Anesthesia/Blood Transfusion Reactions: No Reported Reaction Additional Past Anesthesia/Blood Transfusion Reaction / Comment(s): not sure if she has had a blood transfusion Past Psychological History: No Psychological Hx Reported Smoking Status: Never smoker Past Alcohol Use History: Rare Past Drug Use History: None Reported - Past Family History Mother Family Medical History: No Reported History Father Family Medical History: No Reported History Medications and Allergies Home Medications Medication Instructions Recorded Confirmed Type Ferrous Sulfate [Iron (65 MG 325 mg PO DAILY 05/11/20 01/13/23 History Elemental)] Levothyroxine Sodium [Synthroid] 50 mcg PO DAILY 05/11/20 01/13/23 History Omeprazole 20 mg PO DAILY 05/11/20 01/13/23 History Latanoprost/Pf [Latanoprost 0.005% 1 drop BOTH EYES HS 01/13/23 01/13/23 History Eye Drop] Mirtazapine [Remeron] 15 mg PO HS 01/13/23 01/13/23 History lisinopriL [Zestril] 10 mg PO DAILY 01/13/23 01/13/23 History sitaGLIPtin [Januvia] 50 mg PO DAILY 01/13/23 01/13/23 History Allergies Allergy/AdvReac Type Severity Reaction Status Date / Time No Known Allergies Allergy Verified 01/13/23 17:28 Physical Examination - Vital Signs Vital Signs: Vital Signs Temp Pulse Resp BP Pulse Ox FiO2 01/16/23 11:59 18 01/16/23 09:06 99 21 01/16/23 07:32 99.2 F 94 18 112/76 98 01/16/23 00:50 97.5 F L 63 20 160/79 95 01/15/23 19:43 98.3 F 58 L 17 132/82 100 01/15/23 14:48 98.5 F 69 18 125/60 100 Intake and Output 01/15/23 01/16/23 01/16/23 22:59 06:59 14:59 Intake Total 120 Output Total 1288 Balance -1168 Intake: Oral 120 Output: Urine 1200 Post Void Residual 88 Other: Voiding Method Incontinent On examination patient is an elderly Afro-B[place]hi female, very pleasant in no acute distress. Patient is alert and awake. Speech has mild dysarthria which is probably baseline but no aphasia. Patient is edentulous therefore difficult to talk. Attention, concentration is intact, fund of knowledge is slightly limited. On cranial examination pupils are round and reactive to light, visual grewal are full on confrontation with no neglect on double simultaneous stimulation. Extraocular muscles are intact with no nystagmus. Face is symmetric, tongue protrudes the midline. Palatal elevation and sensation normal. Hearing and shoulder shrug normal. Facial sensation is normal. On muscle strength testing there is no pronator drift, and the strength is (right/left) deltoid 5/5-, biceps 5/5, triceps 5/5, study abroad advisor 5/5, hip flexion 5-/5, ankle dorsiflexion 5/5. Reflexes are symmetric, 1+ at the biceps, trace at the brachioradialis, 1+ at the knees 0 ankles and plantars are flat bilaterally. Sensory to touch is equal. No ataxia for [id number] or [id number] testing. Tone and bulk of muscles normal. Gait deferred. There is no bruit, S1-S2 audible. Chest is clear. Abdomen soft nontender. Peripheral pulses present. No edema. Results - Laboratory Findings CBC and BMP: 01/14/23 18:36 01/15/23 06:21 Abnormal Lab Findings: Abnormal Labs 01/13/23 01/13/23 01/14/23 15:27 20:34 05:47 RBC Hgb Hct Eosinophils # Potassium 5.2 H Chloride 108 H Carbon Dioxide Anion Gap BUN 20 H Glucose 185 H POC Glucose (mg/dL) 137 H 131 H Hemoglobin A1c Iron Transferrin Alkaline Phosphatase 134 H 01/14/23 01/14/23 01/14/23 06:30 06:30 18:20 RBC 3.76 L Hgb 10.9 L Hct 32.7 L Eosinophils # 0.02 L Potassium Chloride 111 H Carbon Dioxide 19.5 L Anion Gap BUN Glucose 122 H POC Glucose (mg/dL) Hemoglobin A1c 6.2 H Iron Transferrin Alkaline Phosphatase 01/14/23 01/14/23 01/15/23 18:36 18:36 06:21 RBC 3.77 L Hgb 11.1 L Hct 32.9 L Eosinophils # Potassium Chloride 110 H Carbon Dioxide Anion Gap 6.80 L BUN Glucose POC Glucose (mg/dL) Hemoglobin A1c Iron 32 L Transferrin 166.0 L Alkaline Phosphatase 01/16/23 01/16/23 06:11 11:27 RBC Hgb Hct Eosinophils # Potassium Chloride Carbon Dioxide Anion Gap BUN Glucose POC Glucose (mg/dL) 139 H 143 H Hemoglobin A1c Iron Transferrin Alkaline Phosphatase Assessment and Plan Assessment: * Status post fall, due to losing balance. Patient does have poor balance at baseline. * Headache, blurred vision, dysarthria(more than baseline per granddaughter), rule out CVA * History of CVAs in the past * History of vitamin B12 deficiency * Diabetes, well controlled * Hypertension Plan: * Check B12, folate, MMA level * PT OT evaluate gait. Patient strongly recommended to use a walker all the time when walking. * MRI brain rule out CVA, MRI cervical spine. * Hemoglobin A1c 6.2, well controlled * Lipid panel with cholesterol * Continue aspirin 81 mg daily * Neurology will follow. Thank you for the consult. Time with Patient: Greater than 30
[2023-01-17] MEDS ORDERED: CYANOCOBALAMIN 1,000 MCG/ML 1 ML VIAL IM ONE (09:00)
[2023-01-17] MEDS ORDERED: LINAGLIPTIN 5 MG TABLET PO SCH (09:00)
[2023-01-17] MEDS: ASPIRIN 81 MG PO SCH (11:25)
[2023-01-17] MEDS: FOLIC ACID 1 MG TAB PO SCH (11:25)
[2023-01-17 11:29] LABS: Glucose,Whole Blood 135 mg/dL (70-110)
[2023-01-17] MEDS: ACETAMINOPHEN TAB 325 MG TAB PO PRN (12:26)
--- NOTE | 2023-01-17 15:47 | P.PN ---
Subjective This is a pleasant 87 years old female with multiple medical problems, presents because with fall angina bruise and neck pain with possible loss of consciousness however when I talked to the patient today she stated that she did not actually passed out and she did not lose consciousness, when she fell she was trying to hold using her right side. Also she remembers the family, to help her while she is on the floor. She denies any headache or weakness or numbness however on exam she has difficulty moving her right leg compared to the left mindy e. She also has no teeth and some evidence of slurred speech, patient states this is a chronic She is hemodynamically stable. Labs are reviewed. 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 Patient's hemoglobin A1c is 6.2, she's only neck lifting 5 mg however the risk of significant hypoglycemia with this medication is low therefore going to keep it. Patient also on Remeron. Urine analysis is negative. Bladder scan is 75-100. We will ask for the neurologist evaluation Patient may be considered for discharge in 24-48 hours if she keeps improving 01/17/2023 Patient clinically doing well, she is up in bed, fully awake and oriented, she is eating her breakfast with no difficulty this morning, she looks pleasant and she denies any specific complaint. Her right leg weakness looks better compared to yesterday. Neurology input is appreciated, MRI of the brain is pending Also I talked to the daughter Miss Robles toward the phone and she is aware about the patient has a thyroid nodule that she needs to be addressed as an outpatient, I recommended for her to follow up with slitting machine operator Dr. estevez , the daughter told me she is already seen him herself for her thyroid problem as an outpatient and that she is going to make sure her mother will follow up with him as well. Risks including but not limited to cancer are explained for her. We'll check TSH tomorrow Objective - Vital Signs Vital signs: Vital Signs Temp 98.0 F 01/17/23 07:35 Pulse 66 01/17/23 07:35 Resp 16 01/17/23 07:35 BP 145/75 01/17/23 07:35 Pulse Ox 100 01/17/23 09:24 FiO2 21 01/17/23 09:24 Intake & Output 01/16/23 01/17/23 01/17/23 18:59 06:59 18:59 Intake Total 400 Output Total 350 Balance 50 Intake: Oral 400 Output: Urine 350 Other: Voiding Method Incontinent Bedside Commode Incontinent # Voids 2 - Exam -GENERAL: The patient is alert and oriented x3, not in any acute distress. Well developed, well nourished. Generally weak HEENT: Pupils are round and equally reacting to light. EOMI. No scleral icterus. No conjunctival pallor. Normocephalic, atraumatic. No pharyngeal erythema. No thyromegaly. CARDIOVASCULAR: S1 and S2 present. No murmurs, rubs, or gallops. PULMONARY: Chest is clear to auscultation, no wheezing or crackles. ABDOMEN: Soft, nontender, nondistended, normoactive bowel sounds. No palpable organomegaly. MUSCULOSKELETAL: No joint swelling or deformity. EXTREMITIES: No cyanosis, clubbing, or pedal edema. NEUROLOGICAL: Gross neurological examination did not reveal any focal deficits. SKIN: No rashes. no petechiae. - Labs CBC & Chem 7: 01/14/23 18:36 01/15/23 06:21 Labs: Abnormal Lab Results - Last 24 Hours (Table) 01/16/23 01/16/23 01/16/23 Range/Units 17:04 17:58 21:56 POC Glucose (mg/dL) 115 H 165 H (70-110) mg/dL Folate 4.10 L (4.40-31.00) ng/mL 01/17/23 01/17/23 Range/Units 06:52 11:27 POC Glucose (mg/dL) 115 H 135 H (70-110) mg/dL Folate (4.40-31.00) ng/mL Assessment and Plan Assessment: 1. Fall/weakness/debility - No specific cause found for falling. No strong evidence of syncope. - We will ask for the neurologist consult given her somewhat weak right leg compared to the left leg when she needs help to flex the thigh with her both hands. And the abnormal CT showing old new for a total infarct but To the old CAT scan - Consult PT/OT for further recommendations 2. Mild renal injury; he is slightly elevated at 20 with normal creatinine; likely related to poor oral intake - Patient remains on IV fluid hydration; we'll monitor renal function and electrolytes closely 3. Hyperkalemia; likely related to renal injury; we will monitor lactic lites closely and make recommendations accordingly 5. Hyperglycemia; diabetes mellitus type 2; continue with Tradgenta of 5 mg daily; monitor Accu-Cheks before meals and at bedtime with insulin sliding scale 6. Hypothyroidism; levothyroxine 50 MCG daily 7. Hypertension; Zestril 10 mg daily 8. Poor oral intake/malnutrition; patient is placed on dysphagia 3 diet; continue with home dose of mirtazapine 15 mg by mouth daily at bedtime DVT prophylaxis; SCDs CODE STATUS; full code Possible discharge in 24-48 hours
[2023-01-17 16:49] LABS: Glucose,Whole Blood 167 mg/dL (70-110)
[2023-01-17 18:51] LABS: Chol/HDL Ratio 2.06 Ratio; LDL Cholesterol,Calculated 40.6 mg/dL (0.0-131.0); VLDL Calculation 18.04 mg/dL (5.00-40.00)
[2023-01-17 21:51] LABS: Glucose,Whole Blood 83 mg/dL (70-110)
[2023-01-17] MEDS: LATANOPROST 0.005% OPHTH DROPS 2.5 ML BTL BOTH EYES SCH (22:09)
[2023-01-17] MEDS: MIRTAZAPINE 15 MG TAB PO SCH (22:09)
[2023-01-18 06:23] LABS: Glucose,Whole Blood 129 mg/dL (70-110)
[2023-01-18] MEDS: PANTOPRAZOLE 40 MG TABLET PO SCH (06:38)
[2023-01-18] MEDS: LEVOTHYROXINE 50 MCG TAB PO SCH (06:38)
[2023-01-18] MEDS: ASPIRIN 81 MG PO SCH (08:48)
[2023-01-18] MEDS: HEPARIN SODIUM,PORCINE/PF 5,000 UNIT/0.5 ML SYRINGE SQ SCH (08:49)
[2023-01-18] MEDS: lisinopriL 10 MG TAB PO SCH (08:49)
[2023-01-18] MEDS: FERROUS SULFATE 325 MG TAB PO SCH (08:49)
[2023-01-18] MEDS: FOLIC ACID 1 MG TAB PO SCH (08:49)
[2023-01-18] MEDS: LINAGLIPTIN 5 MG TABLET PO SCH (08:49)
[2023-01-18 10:12] VITALS: BMI 20.5
--- NOTE | 2023-01-18 10:39 | MR ---
EXAMINATION TYPE: MR brain/cspine wo DATE OF EXAM: 01/18/2023 10:09 AM COMPARISON: CT 01/13/2023 MR 05/12/2020. CLINICAL INDICATION:Female, 87 years old with history of Frequent falls, blurred vision, speech diffi culty,; Frequent falls, blurred vision, speech difficulty TECHNIQUE: Multi planar, multi sequence imaging was performed through the brain including: T1, T2, In version recovery, Diffusion weighted imaging, and gradient echo imaging. No gadolinium was given. TECHNIQUE: Multi planar, multi sequence imaging was performed utilizing: T1-weighted, T2-weighted, an d turbo inversion recovery imaging of the cervical spine. IV Contrast: None FINDINGS: Cerebral and cerebellar atrophy with proportional dilation of the ventricular systems. Remote bilater al cerebellar injuries with encephalomalacia. The sanchez-white junctions, ventricular system, and cisterns appear unremarkable. Scattered foci and c onfluent of high T2 signal intensity are seen within the periventricular white matter. Changes are no t significantly changed from 2020. Midline structures show no abnormality. Diffusion-weighted imaging shows no evidence of restricted diffusion. The susceptibility weighted images do not reveal any evid ence for micro-hemorrhage. The bone marrow signal is within normal limits. Paranasal sinuses and mastoid air cells: No significant paranasal sinus disease. Visualized orbits: Orbital contents are intact. Alignment: The cervical vertebral bodies have preserved heights. Alignment is within normal limits gi ash patient positioning. Bones: Bone signal is within normal limits. Cord: The spinal cord is unremarkable with regards to their signal intensity and morphology. Discs: Multilevel disc desiccation is present. C2-C3: No significant disc pathology. The spinal canal is patent. No neural foraminal stenosis. C3-C4: A disc osteophyte complex is present which minimally narrows the ventral subarachnoid space. Bilateral facet and uncovertebral joint arthropathy are present with moderate left neural foraminal stenosis. The right neural foramen is patent. C4-C5: A disc osteophyte complex is present which minimally narrows the ventral subarachnoid space. Bilateral facet and uncovertebral joint arthropathy are present with moderate bilateral neural kael inal stenosis. C5-C6: A disc osteophyte complex is present with mild spinal canal stenosis. Bilateral facet and unc overtebral joint arthropathy are present with moderate bilateral neural foraminal stenosis. C6-C7: No significant disc pathology. The spinal canal is patent. Bilateral facet and uncovertebral joint arthropathy are present with mild bilateral neural foraminal stenosis. C7-T1: No significant disc pathology. The spinal canal is patent. No neural foraminal stenosis. Other: Nodular thyroid gland bilaterally. On the right measuring up to 2.7 cm. IMPRESSION: Brain: 1. No evidence of intracranial mass or acute/subacute infarct. 2. Nonspecific white matter changes, likely secondary to small vessel ischemic disease. 3. Remote injury to the bilateral cerebellar hemisphere with encephalomalacia. Cervical spine: 1. No evidence for disc herniation or significant spinal canal stenosis. 2. Multilevel disc degeneration with associated osteoarthritic changes. 3. Thyroid nodules correlate with dedicated thyroid ultrasound as clinically warranted.
[2023-01-18 11:01] LABS: Glucose,Whole Blood 143 mg/dL (70-110)
--- NOTE | 2023-01-18 11:18 | P.PN ---
Subjective Progress Note Date: 01/17/23 Patient was seen for a follow-up. Patient is sitting comfortably in the recliner. Offers no new complaints. Objective - Vital Signs Vital signs: Vital Signs Temp 98.4 F 01/17/23 14:11 Pulse 65 01/17/23 14:11 Resp 16 01/17/23 14:11 BP 136/74 01/17/23 14:11 Pulse Ox 96 01/17/23 14:11 FiO2 21 01/17/23 09:24 Intake & Output 01/16/23 01/17/23 01/17/23 18:59 06:59 18:59 Intake Total 400 Output Total 350 Balance 50 Intake: Oral 400 Output: Urine 350 Other: Voiding Method Incontinent Bedside Commode Incontinent # Voids 2 - Exam Examination unchanged. - Labs CBC & Chem 7: 01/14/23 18:36 01/15/23 06:21 Labs: Abnormal Lab Results - Last 24 Hours (Table) 01/16/23 01/16/23 01/17/23 Range/Units 17:58 21:56 06:52 POC Glucose (mg/dL) 165 H 115 H (70-110) mg/dL Folate 4.10 L (4.40-31.00) ng/mL 01/17/23 01/17/23 Range/Units 11:27 16:47 POC Glucose (mg/dL) 135 H 167 H (70-110) mg/dL Folate (4.40-31.00) ng/mL Assessment and Plan Assessment: * Status post fall, due to losing balance. Patient does have poor balance at baseline. * Headache, blurred vision, dysarthria(more than baseline per granddaughter), rule out CVA * History of CVAs in the past * History of vitamin B12 deficiency * Diabetes, well controlled * Hypertension Plan: * B12 326, folate 4.10, MMA level pending. Patient was given vitamin B12 1000 g IM one dose. We will start B12 1000 g orally daily. Start folic acid 1 mg daily. * TSH < 0.005. IM to address abnormal thyroid functions. * PT OT evaluate gait. Patient strongly recommended to use a walker all the t aashish when walking. * MRI brain rule out CVA, MRI cervical spine still pending. * Hemoglobin A1c 6.2, well controlled * Lipid panel with cholesterol 114, LDL 40.6, HDL 55 and triglycerides 90.2. * Continue aspirin 81 mg daily
--- NOTE | 2023-01-18 13:16 | P.DS ---
Providers Date of admission: 01/13/23 17:26 Attending physician: Adenike Mishra Consults: 01/16/23 11:01 Consult Physician Routine Consulting Provider: Liliya Tang Consult Reason/Comments: right leg looks week Do you want consulting provider notified?: Yes Primary care physician: [facility] Course: Diagnoses: 1. Fall/weakness/debility, evaluated by neurologist and cleared for discharge 2. Multiple thyroid nodules, the largest is 2.8 cm. Will need outpatient thyroid ultrasound and possible fine needle aspiration 3. Hyperkalemia; likely related to renal injury; we will monitor lactic lites closely and make recommendations accordingly 5. Hyperglycemia; diabetes mellitus type 2; continue with Tradgenta of 5 mg daily; monitor Accu-Cheks before meals and at bedtime with insulin sliding scale 6. Hypothyroidism; on replacement therapy, we lowered her levothyroxine 50 g down to 37.5 g 7. Hypertension; 8. Poor oral intake/malnutrition; patient is placed on dysphagia 3 diet; c ontinue with home dose of mirtazapine 15 mg by mouth daily at bedtime Hospital course: This is a pleasant 87 years old female with multiple medical problems, presents because with fall angina bruise and neck pain with possible loss of consciousness however when I talked to the patient today she stated that she did not actually passed out and she did not lose consciousness, when she fell she was trying to hold using her right side. Also she remembers the family, to help her while she is on the floor. She denies any headache or weakness or numbness however on exam she has difficulty moving. She also has no teeth and some evidence of slurred speech, patient states this is a chronic Patient workup was unremarkable including x-ray showed no fractures. CT of the head and neck showing bilateral cortical infarct new since 05/2021 with mild to moderate spondylitic changes and anterior listhesis of C4-C5. Also showed thyroid nodule 2.8 cm the largest of multiple nodules. There is recommended for further workup. Patient has been evaluated by neurology service, MRI of the brain was unremarkable. Patient back to baseline, awake and alert, no weakness or numbness. And patient denies any other GI or urinary symptoms, no chest pain or dyspnea. No fever. Patient was cleared for discharge by neurologist Because of patient has multiple nodules in thyroid, we checked her thyroid function tests, TSH is less than 0.005 while free T4 is normal at 1.7. Because of that we lowered her levothyroxine dose 50 g down to 37.5 g with recommendation of checking her thyroid function test as an outpatient. Also recommend patient follow up as an outpatient regarding her thyroid nodules. I talked to the daughter with recommendation to follow up with PCP Dr. Mendiola and follow-up with field contact technician Dr. Trejo in 1 week after discharge and the daughter agreed with that as she herself follow-up with Dr. Trejo so she is familiar with him. Patient will need thyroid ultrasound and possible fine- needle aspiration. Also I spoke with Dr. Mendiola and updated him about her thyroid problem and he currently took note of this and states he will follow-up with her at [facility] where she is going MRI of the brain and cervical spine showing no infarct, no evidence of disc herniation or significant spinal stenosis. Patient is back at baseline and on the day of discharge she denies chest pain or dyspnea, no GI or urinary complaints, no other new complaints, no fever. She tolerates diet well. Patient was cleared for discharge by neurologist Problems and management plan were discussed with the patient and he verbalized understanding and acceptance Patient was found stable and can be discharged to [facility] for rehab in guarded prognosis however he needs follow-up as an outpatient. Patient was instructed to follow up with PCP Dr. Mendiola within one week and patient agrees Patient was instructed to follow up with field contact technician Dr. Trejo in 1-2 weeks for her thyroid nodules. We recommend patient to follow-up with the neurologist like Dr. Donald or Dr. Fuchs in 1-2 weeks Physical exam Gen: patient is a AAOx3, no distress CVS: S1-S2, RRR, no murmur Lungs: B/L CTA, no wheezing Abdomen: soft, no distention, no tenderness, positive bowel sounds Extremity: no leg edema or induration neuro: Cranial nerves are grossly intact. Motor 5/5. Sensation is intact Time spent more than 35 minutes Patient Condition at Discharge: Stable Plan - Discharge Summary Discharge Rx Participant: No New Discharge Prescriptions: No Action Omeprazole 20 mg PO DAILY Levothyroxine Sodium [Synthroid] 50 mcg PO DAILY Ferrous Sulfate [Iron (65 MG Elemental)] 325 mg PO DAILY Mirtazapine [Remeron] 15 mg PO HS Latanoprost/Pf [Latanoprost 0.005% Eye Drop] 1 drop BOTH EYES HS sitaGLIPtin [Januvia] 50 mg PO DAILY lisinopriL [Zestril] 10 mg PO DAILY Discharge Medication List Ferrous Sulfate [Iron (65 MG Elemental)] 325 mg PO DAILY 05/11/20 [History] Levothyroxine Sodium [Synthroid] 50 mcg PO DAILY 05/11/20 [History] Omeprazole 20 mg PO DAILY 05/11/20 [History] Latanoprost/Pf [Latanoprost 0.005% Eye Drop] 1 drop BOTH EYES HS 01/13/23 [History] Mirtazapine [Remeron] 15 mg PO HS 01/13/23 [History] lisinopriL [Zestril] 10 mg PO DAILY 01/13/23 [History] sitaGLIPtin [Januvia] 50 mg PO DAILY 01/13/23 [History] Follow up Appointment(s)/Referral(s): Waylon Fuchs MD [REFERRING] - 1 Week (Office stated they will call for appointment.) Glenn Trejo MD [REFERRING] - 1 Week (endocrinlogist for your thyroid nodules. Please have primary care doctor refer to Dr. Trejo) Richmond Mendiola MD [Primary Care Provider] - 1-2 days Irvin Donald MD [Medical Doctor] - 1 Week Discharge Disposition: TRANSFER TO SNF/ECF
[2023-01-18 14:36] VITALS: BP 111/67; PULSE 57; RESP 16; TEMP 97.6
[2023-01-19] MEDS ORDERED: LEVOTHYROXINE 25 MCG TAB PO SCH (06:30)
--- NOTE | 2023-01-20 12:25 | CDI ---
Documentation Clarification Form Date: 01/20/2023 12:00:35 PM From: Heike Real Admit Date: 01/13/2023 5:26:00 PM Patient Name: Carrie Rodarte Visit Number: [id number] Discharge Date: 01/18/2023 3:35:00 PM ATTENTION: The Clinical Documentation Specialists (CDI) and [facility] Coding Staff appreciate your assistance in clarifying documentation. Please respond to the clarification below the line at the bottom and electronically sign. The CDI & [facility] Coding staff will review the response and follow-up if needed. Please note: Queries are made part of the Legal Health Record. If you have any questions, please contact the author of this message via ITS. Dr. Montana Herrmann Malnutrition is documented throughout the chart 01/13-01/18. Additional clarification regarding the severity of malnutrition is requested. History/Risk Factors: 87 year old female, Diabetes, Thyroid disorder, presented with multiple falls. Feels lightheaded. Has weakness, debility, mild renal injury, hyperkalemia, HTN Clinical Indicators: weakness, debility, mild renal injury, hyperkalemia, DM with hyperglycemia, hx of previous strokes, mild dysarthria, hypothyroidism Current BMI: 20 RD Consult Assessment: underweight, healthy heart, chopped diet Potassium: 5.2 chloride 108 BUN 20 creat: 0.76 glucose 185 Iron 32 Per notes poor oral intake/malnutrition; patient is placed on dysphagia 3 diet; continue with home dose of mirtazapine 15mg g by mouth daily at bedtime Please clarify the type of malnutrition, if known: [ ] Mild Protein-Calorie Malnutrition [ ] Moderate Protein-Calorie Malnutrition [ ] Severe Protein-Calorie Malnutrition [ ] Malnutrition, unspecified [ ] Other condition, please specify [ ] Unable to Determine Mild Protein-Calorie Malnutrition MTDD
== END 2023-01-18 15:35 ==
LOC: EC 14:44 → 4SSUR 17:26 → INTOOBSV 17:26 → 4SSUR 18:15 → UNDODISIN 01-18 15:35
PROVIDERS: ADMIT Internal Medicine; ATTEND Internal Medicine
DX: R54 Age-related physical debility (principal); E44.1 Mild protein-calorie malnutrition; N17.9 Acute kidney failure, unspecified; Z91.81 History of falling; E04.1 Nontoxic single thyroid nodule; E87.5 Hyperkalemia; E11.65 Type 2 diabetes mellitus with hyperglycemia; E03.9 Hypothyroidism, unspecified; I10 Essential (primary) hypertension; G93.89 Other specified disorders of brain; R51.9 Headache, unspecified; R47.1 Dysarthria and anarthria; M54.2 Cervicalgia; R42 Dizziness and giddiness; H53.8 Other visual disturbances; E53.8 Deficiency of other specified B group vitamins; E11.40 Type 2 diabetes mellitus with diabetic neuropathy, unspecified; Z20.822 Contact with and (suspected) exposure to COVID-19; Z68.20 Body mass index [BMI] 20.0-20.9, adult; Z86.73 Personal history of transient ischemic attack (TIA), and cerebral infarction without residual deficits; Z79.84 Long term (current) use of oral hypoglycemic drugs; Z79.890 Hormone replacement therapy; Z79.899 Other long term (current) drug therapy
CPT/HCPCS: 96372 ×6; 96361; 96374; 99285; 36415; 94760 ×4; 93005; 97116; 97530 ×3; 97162; 97166; 83921; 84439; 80061; 80053; 80048 ×2; 84443; 82607; 82728; 82746; 83540; 83550; 83605; 83735; 85025 ×2; 85027; 85610; 85730; 81003; 83036; 87635; 72170; 73080; 71046; 72125; 70450; 70551; 72141; G0378 ×6; J3420; J2270; J1644 ×6

== ENCOUNTER 2023-05-04 11:14 | Emergency (ER) | payer MEDICARE ==
[2023-05-04 11:26] VITALS: PULSE 87; RESP 16
[2023-05-04 12:22] LABS: Basophils % (A) 0 %; Eosinophils # (A) 0.1 k/uL (0-0.7); Eosinophils % (A) 1 %; HCT 34.9 % (34.0-46.0); HGB 11.6 gm/dL (11.4-16.0); Lymphocytes # (A) 1.7 k/uL (1.0-4.8); Lymphocytes % (A) 28 %; MCH 29.4 pg (25.0-35.0); MCHC 33.2 g/dL (31.0-37.0); MCV 88.5 fL (80.0-100.0); Mean Platelet Volume 7.4; Monocytes # (A) 0.6 k/uL (0-1.0); Monocytes % (A) 10 %; Neutrophils # (A) 3.7 k/uL (1.3-7.7); Neutrophils % (A) 59 %; Platelet Count 202 k/uL (150-450); RBC 3.94 m/uL (3.80-5.40); RDW 12.9 % (11.5-15.5); WBC 6.2 k/uL (3.8-10.6)
[2023-05-04 12:37] LABS: ALT 16 U/L (4-34); AST 25 U/L (14-36); African American GFR (CKD) 79 (>60 ml/min/1.73 sqM); Albumin 3.7 g/dL (3.5-5.0); Alkaline Phosphatase 108 U/L (38-126); Anion Gap 8 mmol/L; Blood Urea Nitrogen 18 mg/dL (7-17); Calcium 9.4 mg/dL (8.4-10.2); Carbon Dioxide 25 mmol/L (22-30); Chloride 108 mmol/L (98-107); Glucose 101 mg/dL (74-99); Magnesium 1.9 mg/dL (1.6-2.3); Non-African American GFR(CKD) 69 (>60 ml/min/1.73 sqM); Potassium 4.5 mmol/L (3.5-5.1); Sodium 141 mmol/L (137-145); Total Bilirubin 0.9 mg/dL (0.2-1.3); Total Protein 6.8 g/dL (6.3-8.2)
[2023-05-04 13:25] LABS: Appearance,Urine Cloudy (Clear); Bacteria,Urine Rare /hpf; Bilirubin,Urine Negative (Negative); Blood,Urine Negative (Negative); Color,Urine Yellow; Glucose,Urine (UA) Negative (Negative); Ketones,Urine Negative (Negative); Leukocyte Esterase,Urine Negative (Negative); Mucus,Urine Rare /hpf; Nitrite,Urine Negative (Negative); PH, Urine 5.5 (5.0-8.0); Protein,Urine Negative (Negative); RBC,Urine 1 /hpf (0-5); Specific Gravity,Urine 1.014 (1.001-1.035); Squamous Epithelial Cell,Urine 7 /hpf (0-4); Urobilinogen,Urine <2.0 mg/dL (<2.0); WBC,Urine 2 /hpf (0-5)
--- NOTE | 2023-05-04 13:44 | ED ---
General Adult HPI - General Chief complaint: Fall Stated complaint: fall Time Seen by Provider: 05/04/23 11:42 Source: patient, family, EMS, RN notes reviewed Mode of arrival: EMS Limitations: no limitations - History of Present Illness Initial comments: 88-year-old female presents emergency Department chief complaint weakness. Patient states that she is having more difficulty ambulate in completely daily activities at home. Patient did have a fall reported but no complaints of injury from this fall. She does use a walker at home but states that she feels like she needs more than this. states that her family is having difficulty taking care of her she was at her rehab earlier in the year. Patient denies any head or neck pain no localized nausea vomiting diarrhea constipation. - Related Data Home Medications Medication Instructions Recorded Confirmed Ferrous Sulfate [Iron (65 MG 325 mg PO DAILY 05/11/20 01/13/23 Elemental)] Omeprazole 20 mg PO DAILY 05/11/20 01/13/23 Latanoprost/Pf [Latanoprost 0.005% 1 drop BOTH EYES HS 01/13/23 01/13/23 Eye Drop] Mirtazapine [Remeron] 15 mg PO HS 01/13/23 01/13/23 lisinopriL [Zestril] 10 mg PO DAILY 01/13/23 01/13/23 sitaGLIPtin [Januvia] 50 mg PO DAILY 01/13/23 01/13/23 Previous Rx's Medication Instructions Recorded Aspirin 81 mg PO DAILY tab 01/18/23 Cyanocobalamin [Vitamin B-12] 500 mcg PO DAILY #30 tablet 01/18/23 Folic Acid 1 mg PO DAILY tab 01/18/23 Levothyroxine Sodium [Synthroid] 37.5 mcg PO DAILY@0630 tab 01/18/23 Allergies Allergy/AdvReac Type Severity Reaction Status Date / Time No Known Allergies Allergy Verified 05/04/23 11:25 Review of Systems ROS Statement: Those systems with pertinent positive or pertinent negative responses have been documented in the HPI. ROS Other: All systems not noted in ROS Statement are negative. Past Medical History Past Medical History: Diabetes Mellitus, Thyroid Disorder History of Any Multi-Drug Resistant Organisms: None Reported Past Surgical History: Section Past Anesthesia/Blood Transfusion Reactions: No Reported Reaction Additional Past Anesthesia/Blood Transfusion Reaction / Comment(s): not sure if she has had a blood transfusion Past Psychological History: No Psychological Hx Reported Smoking Status: Never smoker Past Alcohol Use History: Rare Past Drug Use History: None Reported - Past Family History Mother Family Medical History: No Reported History Father Family Medical History: No Reported History General Exam Limitations: no limitations General appearance: alert, in no apparent distress Head exam: Present: atraumatic, normocephalic, normal inspection Eye exam: Present: normal appearance, PERRL, EOMI. Absent: scleral icterus, conjunctival injection, periorbital swelling ENT exam: Present: normal exam, normal oropharynx, mucous membranes moist Neck exam: Present: normal inspection, full ROM. Absent: tenderness, meningismus, lymphadenopathy Respiratory exam: Present: normal lung sounds bilaterally. Absent: respiratory distress, wheezes, rales, rhonchi, stridor Cardiovascular Exam: Present: regular rate, normal rhythm, normal heart sounds. Absent: systolic murmur, diastolic murmur, rubs, gallop, clicks GI/Abdominal exam: Present: soft, normal bowel sounds. Absent: distended, tenderness, guarding, rebound, rigid Extremities exam: Present: normal inspection, full ROM, normal capillary refill. Absent: tenderness, pedal edema, joint swelling, calf tenderness Neurological exam: Present: alert, oriented X3, CN II-XII intact, reflexes normal. Absent: motor sensory deficit Course Vital Signs 05/04/23 11:16 Temperature 98.4 F Pulse Rate 87 Respiratory 16 Rate Blood Pressure 172/97 O2 Sat by Pulse 98 Oximetry Medical Decision Making - Medical Decision Making Was pt. sent in by a medical professional or institution (, PA, STARS COORDINATOR, urgent care, hospital, or alf...) When possible be specific @ -No Did you speak to anyone other than the patient for history (EMS, parent, family, police, friend...)? What history was obtained from this source @ -EMS and family provided prehospital care and treatment. Did you review nursing and triage notes (agree or disagree)? Why? @ -I reviewed and agree with nursing and triage notes Were old charts reviewed (outside hosp., previous admission, EMS record, old EKG, old radiological studies, urgent care reports/EKG's, alf records)? Report findings @ -No old charts were reviewed Differential Diagnosis (chest pain, altered mental status, abdominal pain women, abdominal pain men, vaginal bleeding, weakness, fever, dyspnea, syncope, headache, dizziness, GI bleed, back pain, seizure, CVA, palpatations, mental health, musculoskeletal)? @ -Weakness, failure to thrive, ambulatory issues, EKG interpreted by me (3pts min.). @ -None X-rays interpreted by me (1pt min.). @ -None done CT interpreted by me (1pt min.). @ -None done U/S interpreted by me (1pt. min.). @ -None done What testing was considered but not performed or refused? (CT, X-rays, U/S, labs)? Why? @ -None What meds were considered but not given or refused? Why? @ -None Did you discuss the management of the patient with other professionals (professionals i.e. , PA, STARS COORDINATOR, lab, RT, psych nurse, social worker school, route sales specialist, teacher, radiological defense officer, housing case manager)? Give summary @ -I did discuss case with case management regarding this patient's needs at home. She is requiring large amount of help including knees for physical therapy, occupational therapy she will require further help with her medications, ADLs at home that are unable to be completed by herself and family Was smoking cessation discussed for >3mins.? @ -No Was critical care preformed (if so, how long)? @ -No Were there social determinants of health that impacted care today? How? (Homelessness, low income, unemployed, alcoholism, drug addiction, transportation, low edu. Level, literacy, decrease access to med. care, skilled nursing, rehab)? @ -No Was there de-escalation of care discussed even if they declined (Discuss DNR or withdrawal of care, Hospice)? DNR status @ -No What co-morbidities impacted this encounter? (DM, HTN, Smoking, COPD, CAD, Cancer, CVA, ARF, Chemo, Hep., AIDS, mental health diagnosis, sleep apnea, morbid obesity)? @ -Diabetes, thyroid disease Was patient admitted / discharged? Hospital course, mention meds given and route, prescriptions, significant lab abnormalities, going to OR and other pertinent info. @ -Discharge patient is discharged with home care physical therapy occupational therapy and social work for further treatment and rehab at home. Undiagnosed new problem with uncertain prognosis? @ -No Drug Therapy requiring intensive monitoring for toxicity (Heparin, Nitro, Insulin, Cardizem)? @ -No Were any procedures done? @ -No Diagnosis/symptom? @ -Weakness, difficulty ambulating difficult to completing ADLs Acute, or Chronic, or Acute on Chronic? @ -Acute Uncomplicated (without systemic symptoms) or Complicated (systemic symptoms)? @ -Complicated Side effects of treatment? @ -No Exacerbation, Progression, or Severe Exacerbation? @ -No Poses a threat to life or bodily function? How? (Chest pain, [place], [place], pneumonia, PE, COPD, DKA, ARF, appy, cholecystitis, CVA, Diverticulitis, Homicidal, Suicidal, threat to staff... and all critical care pts) @ -No - Lab Data Result diagrams: 05/04/23 12:14 05/04/23 12:14 Lab Results 05/04/23 05/04/23 05/04/23 Range/Units 12:14 12:14 12:14 WBC 6.2 (3.8-10.6) k/uL RBC 3.94 (3.80-5.40) m/uL Hgb 11.6 (11.4-16.0) gm/dL Hct 34.9 (34.0-46.0) % MCV 88.5 (80.0-100.0) fL MCH 29.4 (25.0-35.0) pg MCHC 33.2 (31.0-37.0) g/dL RDW 12.9 (11.5-15.5) % Plt Count 202 (150-450) k/uL MPV 7.4 Neutrophils % 59 % Lymphocytes % 28 % Monocytes % 10 % Eosinophils % 1 % Basophils % 0 % Neutrophils # 3.7 (1.3-7.7) k/uL Lymphocytes # 1.7 (1.0-4.8) k/uL Monocytes # 0.6 (0-1.0) k/uL Eosinophils # 0.1 (0-0.7) k/uL Basophils # 0.0 (0-0.2) k/uL Sodium 141 (137-145) mmol/L Potassium 4.5 (3.5-5.1) mmol/L Chloride 108 H (98-107) mmol/L Carbon Dioxide 25 (22-30) mmol/L Anion Gap 8 mmol/L BUN 18 H (7-17) mg/dL Creatinine 0.78 (0.52-1.04) mg/dL Est GFR (CKD-EPI)AfAm 79 (>60 ml/min/1.73 sqM) Est GFR (CKD-EPI)NonAf 69 (>60 ml/min/1.73 sqM) Glucose 101 H (74-99) mg/dL Calcium 9.4 (8.4-10.2) mg/dL Magnesium 1.9 (1.6-2.3) mg/dL Total Bilirubin 0.9 (0.2-1.3) mg/dL AST 25 (14-36) U/L ALT 16 (4-34) U/L Alkaline Phosphatase 108 (38-126) U/L Total Protein 6.8 (6.3-8.2) g/dL Albumin 3.7 (3.5-5.0) g/dL Urine Color Yellow Urine Appearance Cloudy H (Clear) Urine pH 5.5 (5.0-8.0) Ur Specific [place] 1.014 (1.001-1.035) Urine Protein Negative (Negative) Urine Glucose (UA) Negative (Negative) Urine Ketones Negative (Negative) Urine Blood Negative (Negative) Urine Nitrite Negative (Negative) Urine Bilirubin Negative (Negative) Urine Urobilinogen <2.0 (<2.0) mg/dL Ur Leukocyte Esterase Negative (Negative) Urine RBC 1 (0-5) /hpf Urine WBC 2 (0-5) /hpf Ur Squamous Epith Cells 7 H (0-4) /hpf Urine Bacteria Rare H (None) /hpf Urine Mucus Rare H (None) /hpf Disposition Clinical Impression: Fall, Weakness, Debility, Impaired mobility and ADLs Disposition: HOME SELF-CARE Condition: Stable Instructions (If sedation given, give patient instructions): Weakness (ED) Additional Instructions: Please return to the Emergency Department if symptoms worsen or any other concerns. Is patient prescribed a controlled substance at d/c from ED?: No Referrals: [facility], [NON-STAFF] - 1-2 days Aging,[place] [NON-STAFF] - [facility] [REFERRING] - (Contact for possible Medicaid help.) Richmond Mendiola MD [Primary Care Provider] - 06/05/23 11:45 am [employer] [NON-STAFF] - (Has resources like medical equipment for [facility] residents. ) Forms: Adult Foster Long-Term List, Assisted Living Facilities, Outpatient Counseling, Personal Travel Counselor Time of Disposition: 13:45
[2023-05-04 14:31] VITALS: BP 150/92; TEMP 98.7
== END 2023-05-04 15:00 | disposition home or self-care (01) ==
LOC: EC 11:14
DX: R53.1 Weakness (principal); R53.81 Other malaise; Z74.09 Other reduced mobility; E11.9 Type 2 diabetes mellitus without complications; Z79.899 Other long term (current) drug therapy; W18.30XA Fall on same level, unspecified, initial encounter
CPT/HCPCS: 36415; 80053; 81001; 83735; 85025; 99284

== ENCOUNTER 2023-05-07 13:50 | Inpatient (IN) | payer MEDICARE ==
[2023-05-07] MEDS ORDERED: SODIUM CHLORIDE 0.9% 1,000 ML IV STA (14:28)
[2023-05-07 15:19] LABS: Basophils % (A) 0 %; Eosinophils # (A) 0.1 k/uL (0-0.7); Eosinophils % (A) 2 %; HCT 32.7 % (34.0-46.0); HGB 10.9 gm/dL (11.4-16.0); Lymphocytes # (A) 1.7 k/uL (1.0-4.8); Lymphocytes % (A) 34 %; MCH 29.3 pg (25.0-35.0); MCHC 33.5 g/dL (31.0-37.0); MCV 87.4 fL (80.0-100.0); Mean Platelet Volume 7.6; Monocytes # (A) 0.5 k/uL (0-1.0); Monocytes % (A) 10 %; Neutrophils # (A) 2.5 k/uL (1.3-7.7); Neutrophils % (A) 51 %; Platelet Count 244 k/uL (150-450); RBC 3.74 m/uL (3.80-5.40); RDW 12.7 % (11.5-15.5); WBC 4.9 k/uL (3.8-10.6)
--- NOTE | 2023-05-07 15:21 | XR ---
EXAMINATION TYPE: XR chest 2V DATE OF EXAM: 05/07/2023 COMPARISON: 01/13/2023 HISTORY: Shortness of breath TECHNIQUE: Frontal and lateral views of the chest are obtained. FINDINGS: Scattered senescent parenchymal changes noted. Hyperinflation compatible with COPD. No evidence for infiltrate. No evidence for atelectasis. Heart size is stable. Mediastinal structures are stable and grossly unremarkable. No evidence for hilar prominence. Degenerative changes dorsal spine. IMPRESSION: 1. No evidence for acute pulmonary disease.
--- NOTE | 2023-05-07 15:23 | XR ---
EXAMINATION TYPE: XR femur RT DATE OF EXAM: 05/07/2023 CLINICAL HISTORY: pain TECHNIQUE: Two views of the right femur are obtained. COMPARISON: None. FINDINGS: There is no acute fracture or dislocation seen of the femur. The hip and knee joints appear within normal limits. The overlying soft tissue appears unremarkable. IMPRESSION: There is no acute fracture or dislocation seen of the femur. ICD 10 NO FRACTURE, INITIAL EVALUATION
--- NOTE | 2023-05-07 15:23 | XR ---
EXAMINATION TYPE: XR knee complete RT DATE OF EXAM: 05/07/2023 CLINICAL HISTORY: pain TECHNIQUE: Three views of the right knee are obtained. COMPARISON: None. FINDINGS: There is no acute fracture/dislocation. Moderate to severe degenerative narrowing medial t ibiofemoral joint space and patellofemoral joint space. Remodeling of the distal femur anteriorly. Th e overlying soft tissue appears unremarkable. IMPRESSION: There is no acute fracture or dislocation.ICD 10 NO FRACTURE, INITIAL EVALUATION
[2023-05-07 15:31] LABS: ALT 14 U/L (4-34); AST 21 U/L (14-36); African American GFR (CKD) 89 (>60 ml/min/1.73 sqM); Albumin 3.2 g/dL (3.5-5.0); Alkaline Phosphatase 86 U/L (38-126); Anion Gap 7 mmol/L; Blood Urea Nitrogen 19 mg/dL (7-17); Carbon Dioxide 23 mmol/L (22-30); Chloride 111 mmol/L (98-107); Glucose 65 mg/dL (74-99); Non-African American GFR(CKD) 77 (>60 ml/min/1.73 sqM); Potassium 3.9 mmol/L (3.5-5.1); Sodium 141 mmol/L (137-145); Total Bilirubin 0.6 mg/dL (0.2-1.3); Total Protein 6.4 g/dL (6.3-8.2)
[2023-05-07 15:33] LABS: Partial Thromboplastin Time 24.7 sec (22.0-30.0); Prothrombin Time 10.4 sec (9.0-12.0)
--- NOTE | 2023-05-07 16:49 | CT ---
EXAMINATION TYPE: CT brain wo con CT DLP: 1153.4 mGycm, Automated exposure control for dose reduction was used. DATE OF EXAM: 05/07/2023 4:41 PM COMPARISON: 01/13/2023. CLINICAL INDICATION:Female, 88 years old with history of weakness, Weakness. TECHNIQUE: Brain: Axial CT images of the brain were obtained with coronal and sagittal reformats created and rev iewed. Contrast used: None. Oral contrast used: None. FINDINGS: Brain: Extra-axial spaces: No abnormal extra-axial fluid collections. Ventricular system: Dilatation in proportion to cerebral atrophy. Cerebral parenchyma: Cerebral atrophy. No acute intraparenchymal hemorrhage or mass effect. The sanchez -white junction is well differentiated. Scattered hypoattenuating areas are seen within the white mat ter. Cerebellum: Unremarkable. Mass effect: No evidence of midline shift. Intracranial vasculature: Atherosclerotic calcifications of the intracranial vessels. Soft tissues: Normal. Calvarium/osseous structures: No depressed skull fracture. Paranasal sinuses and mastoid air cells: Mild scattered paranasal sinus disease. Visualized orbits: Orbital contents are intact. IMPRESSION: 1. No acute intracranial process. 2. Nonspecific white matter changes, likely secondary to chronic small vessel ischemic disease.
[2023-05-07] MEDS ORDERED: DEXTROSE 50% SYRINGE 50 ML IVP STA (16:53)
--- NOTE | 2023-05-07 16:56 | CT ---
EXAMINATION TYPE: CT lumbar spine wo con CT DLP: 680 mGycm, Automated exposure control for dose reduction was used. DATE OF EXAM: 05/07/2023 4:41 PM COMPARISON: 11/04/2022. CLINICAL INDICATION:Female, 88 years old with history of fall, pain; Weakness, recent falls. TECHNIQUE: Multiple axial images were obtained from the midportion of T11 through the sacroiliac roxanna nts. Soft tissue and bone windows in coronal and sagittal planes were obtained and reviewed. 3-D ref ormats of the bones were created on a separate workstation and submitted for review. Contrast used: mL of , none. Oral contrast used: none. FINDINGS: Alignment: There are 5 lumbar type vertebral bodies with grade 1 anterolisthesis of L4 and L5 without spondylolysis.. Bone: New from prior compression fractures of L4 superior endplate and new Schmorl's node of the L3 s uperior endplate. There is approximately 10-20% height loss of L4 endplate. Multilevel disc degenerat ion changes throughout the spine with worsening compression deformity of the superior endplate of L4, L3. Additional scattered osteophyte formation disc space narrowing and vacuum disks and amount prese nt throughout the spine. Discs: T12-L1: No spinal canal or neural foraminal stenosis is identified. L1-L2: No spinal canal or neural foraminal stenosis is identified. L2-L3: Disc bulge with mild spinal canal and mild bilateral neural foraminal stenosis. L3-L4: Disc bulge and facet joint arthropathy with moderate to severe spinal canal stenosis and mild to moderate neural foraminal stenosis. L4-L5: Disc uncovering with at least moderate spinal canal stenosis. The neural foramen are patent. L5-S1: No spinal canal or neural foraminal stenosis is identified. Other: Multiple degenerating fibroids with with cavitation. Few scattered colonic diverticula. IMPRESSION: 1. New vertebral body compression fractures L4 superior endplate and Schmorl's node of L3. Further e valuation MRI for chronicity may be of benefit. 2. L3-L4 moderate to severe spinal canal stenosis and moderate L4-L5 secondary disc bulge and facet joint arthropathy. 3. Grade 1 anterolisthesis of L4 on L5. No evidence for spondylolysis. 4. Moderate multilevel disc degeneration changes throughout the spine. 5. Fibroid uterus.
--- NOTE | 2023-05-07 17:04 | CT ---
EXAMINATION TYPE: CT pelvis wo con CT DLP: 179 mGycm, Automated exposure control for dose reduction was used. DATE OF EXAM: 05/07/2023 4:41 PM COMPARISON: 11/04/2023 CLINICAL INDICATION:Female, 88 years old with history of fall, pain; Weakness, recent falls. TECHNIQUE: Axial CT of the pelvis. Sagittal and coronal reformats were created on a separate worksta tion. Contrast used: mL of , (none if empty) Oral contrast used: without Oral Contrast (none if empty) FINDINGS: BLADDER: Moore catheter in place. REPRODUCTIVE: Degenerating calcified fibroids present. STOMACH AND BOWEL: No evidence of bowel obstruction. Scattered colonic diverticula. PERITONEUM/RETROPERITONEUM: No evidence of pneumoperitoneum or free fluid. VASCULATURE: No evidence of aortic aneurysm. MUSCULOSKELETAL: Partially visualized compression fracture of the L4 superior endplate. There is 10-2 0% height loss present. The bony structures of the pelvis appear intact. There is mild degeneration and diffuse osseous demineralization. The femurs are intact. LYMPH NODES: No gross evidence for lymphadenopathy. SOFT TISSUE/ABDOMINAL WALL: Unremarkable IMPRESSION: L4 superior endplate fracture which is new from prior CT. For the description on CT lumbar spine same day. No bony pelvis fracture visualized. The femurs are intact.
[2023-05-07 18:20] LABS: Glucose,Whole Blood 196 mg/dL (70-110)
[2023-05-07] MEDS ORDERED: NALOXONE 0.4 MG/ML 1 ML VIAL IV PRN (19:13)
[2023-05-07] MEDS ORDERED: ACETAMINOPHEN TAB 325 MG TAB PO PRN (19:13)
[2023-05-07] MEDS ORDERED: MORPHINE SULFATE 4 MG/ML SYRINGE IV PRN (19:13)
[2023-05-07 19:37] LABS: Appearance,Urine Clear (Clear); Bilirubin,Urine Negative (Negative); Blood,Urine Negative (Negative); Color,Urine Light Yellow; Glucose,Urine (UA) 3+ (Negative); Leukocyte Esterase,Urine Negative (Negative); Nitrite,Urine Negative (Negative); PH, Urine 6.5 (5.0-8.0); Protein,Urine Negative (Negative); Specific Gravity,Urine 1.012 (1.001-1.035); Urobilinogen,Urine <2.0 mg/dL (<2.0)
[2023-05-07 19:51] LABS: Ketones,Urine 2+ (Negative)
--- NOTE | 2023-05-07 20:55 | ED ---
General Adult HPI - General Chief complaint: Weakness Stated complaint: Weakness Time Seen by Provider: 05/07/23 14:00 Source: patient, family, RN notes reviewed, old records reviewed Mode of arrival: EMS Limitations: physical limitation - History of Present Illness Initial comments: Patient is an 88-year-old female who presents to the reevaluation over concern for increased weakness, as well as for placement. Patient's primary caregivers are her family. They state she has been more weak lately, as well as having multiple falls at home. Notable fall last week per family. She is unable to stand well. Is complaining of some mild lower back pain but mostly chronic right hip pain. His no other acute complaints at this time. Alcides plan was fo r discharge home the other day with home health, however family believes that she requires placement for inpatient. Present to have the patient admitted. Walks with a walker at baseline. Needs help with all ADLs. - Related Data Home Medications Medication Instructions Recorded Confirmed Ferrous Sulfate [Iron (65 MG 325 mg PO DAILY 05/11/20 05/07/23 Elemental)] Omeprazole 20 mg PO DAILY 05/11/20 05/07/23 Mirtazapine [Remeron] 15 mg PO HS 01/13/23 05/07/23 lisinopriL [Zestril] 10 mg PO DAILY 01/13/23 05/07/23 sitaGLIPtin [Januvia] 50 mg PO DAILY 01/13/23 05/07/23 Glimepiride [Amaryl] 2 mg PO BID 05/07/23 05/07/23 Levothyroxine Sodium [Synthroid] 50 mcg PO DAILY 05/07/23 05/07/23 Previous Rx's Medication Instructions Recorded Aspirin 81 mg PO DAILY tab 01/18/23 Allergies Allergy/AdvReac Type Severity Reaction Status Date / Time No Known Allergies Allergy Verified 05/07/23 15:49 Review of Systems ROS Statement: Those systems with pertinent positive or pertinent negative responses have been documented in the HPI. Review of Systems: CONST: Denies fever EYES: Denies blurry vision ENT: Denies nasal congestion C/V: Denies Chest pain RESP: Denies shortness of breath GI: Denies abdominal pain : Denies dysuria SKIN: Denies rash. MSK: Endorses right hip pain, low back pain NEURO: Endorses weakness ROS Other: All systems not noted in ROS Statement are negative. Past Medical History Past Medical History: Diabetes Mellitus, Thyroid Disorder History of Any Multi-Drug Resistant Organisms: None Reported Past Surgical History: Section Past Anesthesia/Blood Transfusion Reactions: No Reported Reaction Additional Past Anesthesia/Blood Transfusion Reaction / Comment(s): not sure if she has had a blood transfusion Past Psychological History: No Psychological Hx Reported Smoking Status: Never smoker Past Alcohol Use History: Rare Past Drug Use History: None Reported - Past Family History Mother Family Medical History: No Reported History Father Family Medical History: No Reported History General Exam - General Exam Comments Initial Comments: General: Appears in no acute distress. HEAD: Normal with no signs of head trauma. EYES: PERRLA, EOMI, conjunctiva normal, no discharge. Pupils are 3 mm and equal bilaterally. ENT: Hearing grossly intact, normal oropharynx. RESPIRATORY: Clear breath sounds bilaterally. No wheezes, rales, or rhonchi. C/V: Regular rate and rhythm. S1 and S2 auscultated, peripheral pulses 2+ and intact throughout ABD: Abd is soft, nontender, nondistended EXT: Normal range of motion, no obvious deformity. Mild tenderness palpation over the right hip with no obvious deformity. Patient also has midline lumbar spine tenderness to palpation. No obvious step-offs or deformities. No other spinal tenderness to palpation. Pelvis is stable. SKIN: No rashes or lesions observed on exposed skin. NEURO: Alert and oriented 3. No obvious sensory or strength deficits. Some weakness in the right lower extremity secondary to pain in the right hip and right lower back. Unknown when this started but family states is chronic. Ambulates with a walker at baseline. Limitations: physical limitation Course Vital Signs 05/07/23 05/07/23 05/07/23 13:54 15:00 16:00 Temperature 97.8 F Pulse Rate 80 80 82 Respiratory 20 18 Rate Blood Pressure 141/92 141/92 147/92 O2 Sat by Pulse 99 98 99 Oximetry 05/07/23 05/07/23 17:00 18:00 Temperature Pulse Rate 75 75 Respiratory Rate Blood Pressure 163/75 157/77 O2 Sat by Pulse 97 90 L Oximetry Medical Decision Making - Medical Decision Making Was pt. sent in by a medical professional or institution (, PA, CONDENSER SETTER, urgent care, hospital, or fpc...) When possible be specific @ -No Did you speak to anyone other than the patient for history (EMS, parent, family, police, friend...)? What history was obtained from this source @ -Spoke with patient's daughters who corroborated the story. Also included the patient has been falling over the last few weeks as well as having urinary retention which is chronic for the patient. Did you review nursing and triage notes (agree or disagree)? Why? @ -I reviewed and agree with nursing and triage notes Were old charts reviewed (outside hosp., previous admission, EMS record, old EKG, old radiological studies, urgent care reports/EKG's, fpc records)? Report findings @ -I reviewed charts from recent visit. Differential Diagnosis (chest pain, altered mental status, abdominal pain women, abdominal pain men, vaginal bleeding, weakness, fever, dyspnea, syncope, headache, dizziness, GI bleed, back pain, seizure, CVA, palpatations, mental health, musculoskeletal)? @ -Differential Musculoskeletal Muscular strain, contusion, ligament sprain, fracture, arthritis, septic arthritis, bursitis, cellulitis, muscle spasm, nerve compression, DVT, arterial occlusion, herpes zoster, electrolyte abnormality, tumor.... This is not meant to be in all inclusive list Differential Weakness: Hypoglycemia, shock, sepsis, hyponatremia, anemia, infection, ID, ETOH, adverse medicine reaction, overdose, stroke, this is not meant to be an all-inclusive list. EKG interpreted by me (3pts min.). @ -As above X-rays interpreted by me (1pt min.). @ -Chest x-ray shows no obvious acute cardio pulmonary process. Femur x-ray reveals no obvious acute injury. Right knee x-ray shows no obvious acute injury. CT interpreted by me (1pt min.). @ -Brain CT shows no obvious acute intracranial process. Lumbar spine shows what appears to be a compression fracture at L4. There is a disc bulge as well. Pelvis CT shows no acute fracture. U/S interpreted by me (1pt. min.). @ -None done What testing was considered but not performed or refused? (CT, X-rays, U/S, labs)? Why? @ -None What meds were considered but not given or refused? Why? @ -None Did you discuss the management of the patient with other professionals (professionals i.e. , PA, CONDENSER SETTER, lab, RT, psych nurse, social media strategist, utility manager, teacher, professional security officer, case loader operator)? Give summary @ -Discussed with ODILON Carias of orthopedics who accepted to consult. Spoke with the admitting physician, Dr. Fournier who accepted the patient. Was smoking cessation discussed for >3mins.? @ -No Was critical care preformed (if so, how long)? @ -No Were there social determinants of health that impacted care today? How? (Homelessness, low income, unemployed, alcoholism, drug addiction, transportation, low edu. Level, literacy, decrease access to med. care, intermediate, rehab)? @ -No Was there de-escalation of care discussed even if they declined (Discuss DNR or withdrawal of care, Hospice)? DNR status @ -No What co-morbidities impacted this encounter? (DM, HTN, Smoking, COPD, CAD, Cancer, CVA, ARF, Chemo, Hep., AIDS, mental health diagnosis, sleep apnea, morbid obesity)? @ -None Was patient admitted / discharged? Hospital course, mention meds given and route, prescriptions, significant lab abnormalities, going to OR and other pertinent info. @ -Based on the patient's presentation and physical exam, I'm concerned for weakness for the patient. Cannot rule out bony 20 injury from multiple falls over the last few weeks. Has had noticeable decreased ability to ambulate. Patient states this is due to weakness and pain in the right leg as well as some lower back pain. Presents for placement. We will obtain broad workup. Vital signs within except for limits. Patient family were in agreement this plan. Imaging remarkable for a lumbar spine compression fracture in L4. Labs are remarkable for hypoglycemia which resolves with the D50. Remainder the labs are within acceptable limits. EKG shows no signs of acute ischemia. On reevaluation, I have updated patient as well as family. She will be admitted for placement. I spoke with orthopedics, ODILON Carias who accepted the consult for the lumbar compression fracture. Moore catheter was placed due to urinary retention. This is chronic for the patient and is not acute secondary to fall according to her family. I spoke with the admitting physician, Dr. Fournier who accepted the admission. Undiagnosed new problem with uncertain prognosis? @ -No Drug Therapy requiring intensive monitoring for toxicity (Heparin, Nitro, Insulin, Cardizem)? @ -No Were any procedures done? @ -No Diagnosis/symptom? @ -Fall, L4 compression fracture of unknown age, weakness, urinary retention Acute, or Chronic, or Acute on Chronic? @ -Acute on chronic Uncomplicated (without systemic symptoms) or Complicated (systemic symptoms)? @ -Uncomplicated Side effects of treatment? @ -No Exacerbation, Progression, or Severe Exacerbation? @ -No Poses a threat to life or bodily function? How? (Chest pain, USA, ID, pneumonia, PE, COPD, DKA, ARF, appy, cholecystitis, CVA, Diverticulitis, Homicidal, Suicidal, threat to staff... and all critical care pts) @ -No Diagnosis/symptom? @ -Admit for placement Acute, or Chronic, or Acute on Chronic? @ -Acute Uncomplicated (without systemic symptoms) or Complicated (systemic symptoms)? @ -Uncomplicated Side effects of treatment? @ -none Exacerbation, Progression, or Severe Exacerbation] @ -no Poses a threat to life or bodily function? @ -no - Lab Data Result diagrams: 05/07/23 14:56 05/07/23 14:56 Lab Results 05/07/23 05/07/23 05/07/23 Range/Units 14:56 14:56 14:56 WBC 4.9 (3.8-10.6) k/uL RBC 3.74 L (3.80-5.40) m/uL Hgb 10.9 L (11.4-16.0) gm/dL Hct 32.7 L (34.0-46.0) % MCV 87.4 (80.0-100.0) fL MCH 29.3 (25.0-35.0) pg MCHC 33.5 (31.0-37.0) g/dL RDW 12.7 (11.5-15.5) % Plt Count 244 (150-450) k/uL MPV 7.6 Neutrophils % 51 % Lymphocytes % 34 % Monocytes % 10 % Eosinophils % 2 % Basophils % 0 % Neutrophils # 2.5 (1.3-7.7) k/uL Lymphocytes # 1.7 (1.0-4.8) k/uL Monocytes # 0.5 (0-1.0) k/uL Eosinophils # 0.1 (0-0.7) k/uL Basophils # 0.0 (0-0.2) k/uL PT 10.4 (9.0-12.0) sec INR 1.0 (<1.2) APTT 24.7 (22.0-30.0) sec Sodium 141 (137-145) mmol/L Potassium 3.9 (3.5-5.1) mmol/L Chloride 111 H (98-107) mmol/L Carbon Dioxide 23 (22-30) mmol/L Anion Gap 7 mmol/L BUN 19 H (7-17) mg/dL Creatinine 0.71 (0.52-1.04) mg/dL Est GFR (CKD-EPI)AfAm 89 (>60 ml/min/1.73 sqM) Est GFR (CKD-EPI)NonAf 77 (>60 ml/min/1.73 sqM) Glucose 65 L (74-99) mg/dL POC Glucose (mg/dL) (70-110) mg/dL POC Glu Stationary Engineer Refrigeration ID Calcium 9.0 (8.4-10.2) mg/dL Magnesium 2.0 (1.6-2.3) mg/dL Total Bilirubin 0.6 (0.2-1.3) mg/dL AST 21 (14-36) U/L ALT 14 (4-34) U/L Alkaline Phosphatase 86 (38-126) U/L Total Protein 6.4 (6.3-8.2) g/dL Albumin 3.2 L (3.5-5.0) g/dL Urine Color Urine Appearance (Clear) Urine pH (5.0-8.0) Ur Specific [place] (1.001-1.035) Urine Protein (Negative) Urine Glucose (UA) (Negative) Urine Ketones (Negative) Urine Blood (Negative) Urine Nitrite (Negative) Urine Bilirubin (Negative) Urine Urobilinogen (<2.0) mg/dL Ur Leukocyte Esterase (Negative) 05/07/23 05/07/23 Range/Units 14:56 18:17 WBC (3.8-10.6) k/uL RBC (3.80-5.40) m/uL Hgb (11.4-16.0) gm/dL Hct (34.0-46.0) % MCV (80.0-100.0) fL MCH (25.0-35.0) pg MCHC (31.0-37.0) g/dL RDW (11.5-15.5) % Plt Count (150-450) k/uL MPV Neutrophils % % Lymphocytes % % Monocytes % % Eosinophils % % Basophils % % Neutrophils # (1.3-7.7) k/uL Lymphocytes # (1.0-4.8) k/uL Monocytes # (0-1.0) k/uL Eosinophils # (0-0.7) k/uL Basophils # (0-0.2) k/uL PT (9.0-12.0) sec INR (<1.2) APTT (22.0-30.0) sec Sodium (137-145) mmol/L Potassium (3.5-5.1) mmol/L Chloride (98-107) mmol/L Carbon Dioxide (22-30) mmol/L Anion Gap mmol/L BUN (7-17) mg/dL Creatinine (0.52-1.04) mg/dL Est GFR (CKD-EPI)AfAm (>60 ml/min/1.73 sqM) Est GFR (CKD-EPI)NonAf (>60 ml/min/1.73 sqM) Glucose (74-99) mg/dL POC Glucose (mg/dL) 196 H (70-110) mg/dL POC Glu Stationary Engineer Refrigeration ID Stefanie Howard Calcium (8.4-10.2) mg/dL Magnesium (1.6-2.3) mg/dL Total Bilirubin (0.2-1.3) mg/dL AST (14-36) U/L ALT (4-34) U/L Alkaline Phosphatase (38-126) U/L Total Protein (6.3-8.2) g/dL Albumin (3.5-5.0) g/dL Urine Color Light Yellow Urine Appearance Clear (Clear) Urine pH 6.5 (5.0-8.0) Ur Specific [place] 1.012 (1.001-1.035) Urine Protein Negative (Negative) Urine Glucose (UA) 3+ H (Negative) Urine Ketones 2+ H (Negative) Urine Blood Negative (Negative) Urine Nitrite Negative (Negative) Urine Bilirubin Negative (Negative) Urine Urobilinogen <2.0 (<2.0) mg/dL Ur Leukocyte Esterase Negative (Negative) - EKG Data -: EKG Interpreted by Me EKG Comments: 12-lead Electrocardiogram Interpretation Note EKG was reviewed and interpreted by myself. 12-lead ECG performed at 1445 is interpreted by me as revealing normal sinus rhythm at a rate of 81 beats per m inute. [place] is normal. VT interval is 144 ms, QRS duration 72 ms, QTc is 380 ms.. There were no ST or T wave abnormalities to suggest myocardial ischemia or injury. R wave progression across the precordium was satisfactory. By my interpretation this EKG is non-diagnostic for acute ischemia. Disposition Clinical Impression: Fall, Compression fracture of L4 vertebra, Weakness, Debility, Urinary retention Disposition: ADMITTED IP TO THIS HOSP Condition: Stable Time of Disposition: 18:56
[2023-05-08 00:08] LABS: Glucose,Whole Blood 209 mg/dL (70-110)
[2023-05-08 05:54] LABS: Glucose,Whole Blood 144 mg/dL (70-110)
[2023-05-08 11:08] LABS: Basophils # (A) 0.02 X 10*3/uL (0.00-0.10); Basophils % (A) 0.3 %; Eosinophils # (A) 0.19 X 10*3/uL (0.04-0.35); Eosinophils % (A) 3.2 %; HCT 28.9 % (37.2-46.3); HGB 9.4 d/dL (12.0-15.0); Lymphocytes # (A) 1.48 X 10*3/uL (0.90-5.00); Lymphocytes % (A) 24.6 %; MCH 27.8 pg (27.0-32.0); MCHC 32.5 d/dL (32.0-37.0); MCV 85.5 FL (80.0-97.0); Mean Platelet Volume 10.2 FL (9.5-12.2); Monocytes # (A) 0.84 X 10*3/uL (0.20-1.00); NRBC Per 100 WBC 0 X 10*3/uL (0.00-0.01); Neutrophils # (A) 3.48 X 10*3/uL (1.80-7.70); Neutrophils % (A) 57.7 %; Platelet Count 243 X 10*3/uL (140-440); RBC 3.38 X 10*6/uL (4.10-5.20); WBC 6.02 X 10*3/uL (4.50-10.00)
[2023-05-08 11:31] LABS: BUN/Creat Ratio 22.14 Ratio (12.00-20.00); Blood Urea Nitrogen 15.5 mg/dL (9.0-27.0); Calcium 8.8 mg/dL (8.7-10.3); Carbon Dioxide 21.6 mmol/L (21.6-31.8); Chloride 110 mmol/L (96-109); Glucose 134 mg/dL (70-110); Potassium 4.2 mmol/L (3.5-5.5); Sodium 141 mmol/L (135-145)
[2023-05-08 12:03] LABS: Glucose,Whole Blood 111 mg/dL (70-110)
--- NOTE | 2023-05-08 13:22 | P.CNOR ---
History of Present Illness - HPI Consult date: 05/08/23 Requesting physician: Richard Duran Consult reason: fracture (Acute /subacute L4 compression fracture, falls) History of present illness: History of Presenting Illness Patient is a pleasant 88-year-old female who presented to the ER due to recent falls and complaint of low back and right hip pain. Patient is a poor historian and due to her speech impediment, situation and history are obtained through patient and previous records. According to ER note patient was brought in by her family due to recent fall and inability to ambulate. Patient normally lives at home and is ambulatory with walker. Patient has multiple family members that care for her. Family has reported that patient has had increasing weakness over the past week and had a notable fall. Patient has chronic right hip pain and a chronic T12 compression fracture. No other orthopedic history noted. Patient does have a medical history of diabetes, thyroid disorder, and urinary retention. Family is requesting to have placement for patient at discharge. Patient seen and examined this morning. Patient is resting comfortably in bed. Patient does demonstrate a speech impediment which makes it difficult to understand some of her statements and requests. Patient does report some mild back pain, she does point to her right hip when asked her location of pain. P beth has limited range of motion to the right hip related to pain. She demonstrates all other bed exercises without difficulty. Patient states tenderness to palpation over the midline L4-L5 lumbar region. She is able to reposition herself in bed. Patient denies any numbness tingling to bilateral lower extremities. Moore catheter is present due to urinary retention that is chronic in nature. CT of the lumbar spine taken on 05/07/23 demonstrates a new vertebral body compression fracture of L4 superior endplate and Schmorl's node of L3. L3-L4 moderate to severe spinal canal stenosis and moderate L4-L5 secondary disc bulge and facet joint arthropathy. There is also a Grade 1 anterolisthesis of L4 on L5. No evidence for spondylolysis. Review of Systems Pertinent positives and negatives as discussed in HPI, a complete review of systems was performed and all other systems are negative. Physical Examination General: The patient is awake and alert, in no acute distress Skin: Skin is warm and dry with no obvious rashes or lesions. Eye: Pupils are equal, round and reactive to light, extra-ocular movements are intact; there is normal conjunctiva bilaterally. Neck: The neck is supple, there is no tenderness and ROM intact. Cardiovascular: There is a regular rate and rhythm. No murmur, rub or gallop is appreciated. Respiratory: Lungs are clear to auscultation, respirations are non-labored, breath sounds are equal. Gastrointestinal: Soft, non-distended, non-tender abdomen. Back: There is mild tenderness to palpation in the midline lumbar region over the L4-L5 level. There is no obvious deformity. Musculoskeletal: ROM limited secondary to pain of the right hip. Shoulder abdu ction 5/5, elbow flexors 5/5, wrist dorsiflexors 5/5, pet counselor 5/5, left hip flexor 5/5, right hip flexor 4/5, knee flexor 5/5, ankle dorsiflexor 5/5, ankle plantarflexion 5/5 and extensor hallucis 5/5. Neurological: CN 2-12 intact. There are no obvious motor or sensory deficits. Movement and coordination equal and intact. Sensory exam to light touch intact C5-T1 and intact from L2-S1. Reflexes 2/4 in bilateral upper/lower extremities. Negative Hoffmans, babinski, and clonus signs. Psychiatric: Cooperative, appropriate mood & affect, normal judgment. Special test: Neg log roll Assessment and Plan Frequent falls Lumbar spondylosis Chronic T12 compression fracture Subacute versus chronic L4 compression fracture Grade 1 anterolisthesis L4 onto L5 Left hip pain At this time we do not recommend any emergent/urgent orthopedic surgical intervention. 2. Appreciate medical management 3. Prescription has been placed in chart for TLSO brace. Patient to wear when up and about, not needed in chair or bed. 3. Pain management - continue with NSAIDs and anti-inflammatories, may trial a course of steroids. 4. GI prophylaxis - Protonix 5. DVT prophylaxis - per medicine 6. PT/OT - weightbearing as tolerated with a walker as needed. Patient will benefit from subacute rehab with daily PT/OT. 7. Appreciate consult, we will continue to follow patient throughout this stay. I reviewed and discussed this case with my attending Dr. Rashid, whom has reviewed this chart and films and is in agreement with assessment and plan of care as outlined above. I have personally seen and examined the patient, performed the documentation and the assessment and plan as written. Number of minutes spent on the visit: 20m. Past Medical History Past Medical History: Diabetes Mellitus, Thyroid Disorder History of Any Multi-Drug Resistant Organisms: None Reported Past Surgical History: Section Past Anesthesia/Blood Transfusion Reactions: No Reported Reaction Additional Past Anesthesia/Blood Transfusion Reaction / Comm: not sure if she has had a blood transfusion Past Psychological History: No Psychological Hx Reported Smoking Status: Unknown if ever smoked Past Alcohol Use History: Rare Past Drug Use History: None Reported - Past Family History Mother Family Medical History: No Reported History Father Family Medical History: No Reported History Medications and Allergies Home Medications Medication Instructions Recorded Confirmed Type Ferrous Sulfate [Iron (65 MG 325 mg PO DAILY 05/11/20 05/07/23 History Elemental)] Omeprazole 20 mg PO DAILY 05/11/20 05/07/23 History Mirtazapine [Remeron] 15 mg PO HS 01/13/23 05/07/23 History lisinopriL [Zestril] 10 mg PO DAILY 01/13/23 05/07/23 History sitaGLIPtin [Januvia] 50 mg PO DAILY 01/13/23 05/07/23 History Aspirin 81 mg PO DAILY tab 01/18/23 05/07/23 Rx Glimepiride [Amaryl] 2 mg PO BID 05/07/23 05/07/23 History Levothyroxine Sodium [Synthroid] 50 mcg PO DAILY 05/07/23 05/07/23 History Allergies Allergy/AdvReac Type Severity Reaction Status Date / Time No Known Allergies Allergy Verified 05/07/23 15:49 Results - Labs Labs: Abnormal Lab Results - Last 24 Hours (Table) 05/07/23 05/07/23 05/07/23 Range/Units 14:56 14:56 14:56 RBC 3.74 L (3.80-5.40) m/uL Hgb 10.9 L (11.4-16.0) gm/dL Hct 32.7 L (34.0-46.0) % Chloride 111 H (98-107) mmol/L BUN 19 H (7-17) mg/dL Glucose 65 L (74-99) mg/dL POC Glucose (mg/dL) (70-110) mg/dL Albumin 3.2 L (3.5-5.0) g/dL Urine Glucose (UA) 3+ H (Negative) Urine Ketones 2+ H (Negative) 05/07/23 05/08/23 05/08/23 Range/Units 18:17 00:06 05:52 RBC (3.80-5.40) m/uL Hgb (11.4-16.0) gm/dL Hct (34.0-46.0) % Chloride (98-107) mmol/L BUN (7-17) mg/dL Glucose (74-99) mg/dL POC Glucose (mg/dL) 196 H 209 H 144 H (70-110) mg/dL Albumin (3.5-5.0) g/dL Urine Glucose (UA) (Negative) Urine Ketones (Negative) H & H 05/07/23 Range/Units 14:56 Hgb 10.9 L (11.4-16.0) gm/dL Hct 32.7 L (34.0-46.0) % Coagulation 05/07/23 Range/Units 14:56 INR 1.0 (<1.2) Result Diagrams: 05/08/23 06:28 05/08/23 06:28
--- NOTE | 2023-05-08 15:06 | P.HPIM ---
History of Present Illness H&P Date: 05/08/23 History of present illness; patient is a 88-year-old lady with past medical history significant for recurrent falls, hypothyroidism, diabetes mellitus who presented to the ER because of a fall. Patient was brought by family who noticed that the patient has been getting more and more weak over the last 1 week. Patient had multiple falls at home. Family notices that patient has been complaining of increased lower back pain and off her right hip. There is no complain of any numbness of lower extremities. Patient has been complaining of urinary retention but that has been chronic. Patient was brought to the ER. CT lumbar spine showed new vertebral body compression fracture L4 superior endpl ate, L3-L4 moderate to severe spinal canal stenosis and moderate L4 - L5 secondary disc bulge and facet joint arthropathy CT brain, no acute intracranial process CT pelvis showed no bony pelvis fracture Patient was admitted to medicine service REVIEW OF SYSTEMS: CONSTITUTIONAL: No fever, no malaise, no fatigue. HEENT: No recent visual problems or hearing problems. Denied any sore throat. CARDIOVASCULAR: No chest pain, orthopnea, PND, no palpitations, no syncope. PULMONARY: No shortness of breath, no cough, no hemoptysis. GASTROINTESTINAL: No diarrhea, no nausea, no vomiting, no abdominal pain. NEUROLOGICAL: As mentioned in HPI HEMATOLOGICAL: Denies any bleeding or petechiae. GENITOURINARY: Denies any burning micturition,. Complaining of urinary retention MUSCULOSKELETAL/RHEUMATOLOGICAL: Denies any joint pain, swelling, or any muscle pain. ENDOCRINE: Denies any polyuria or polydipsia. The rest of the 14-point review of systems is negative. PHYSICAL EXAMINATION: GENERAL: The patient is alert and oriented x3, not in any acute distress. Well developed, well nourished. HEENT: Pupils are round and equally reacting to light. EOMI. No scleral icterus. No conjunctival pallor. Normocephalic, atraumatic. No pharyngeal erythema. No thyromegaly. CARDIOVASCULAR: S1 and S2 present. No murmurs, rubs, or gallops. PULMONARY: Chest is clear to auscultation, no wheezing or crackles. ABDOMEN: Soft, nontender, nondistended, normoactive bowel sounds. No palpable organomegaly. MUSCULOSKELETAL: No joint swelling or deformity. EXTREMITIES: No cyanosis, clubbing, or pedal edema. NEUROLOGICAL: Gross neurological examination did not reveal any focal deficits. SKIN: No rashes. Assessment and plan Weakness Falls Lumbar compression fracture L3-L4 moderate to severe spinal canal stenosis Urinary retention hypothyroidism Diabetes mellitus Monitor vital signs Monitor CBC Monitor CMP Continue Moore. Continue pain management Fall precautions Orthopedic consulted Resume home meds PT and OT consulted DVT prophylaxis: Past Medical History Past Medical History: Diabetes Mellitus, Thyroid Disorder History of Any Multi-Drug Resistant Organisms: None Reported Past Surgical History: Section Past Anesthesia/Blood Transfusion Reactions: No Reported Reaction Additional Past Anesthesia/Blood Transfusion Reaction / Comment(s): not sure if she has had a blood transfusion Past Psychological History: No Psychological Hx Reported Smoking Status: Unknown if ever smoked Past Alcohol Use History: Rare Past Drug Use History: None Reported - Past Family History Mother Family Medical History: No Reported History Father Family Medical History: No Reported History Medications and Allergies Home Medications Medication Instructions Recorded Confirmed Type Ferrous Sulfate [Iron (65 MG 325 mg PO DAILY 05/11/20 05/07/23 History Elemental)] Omeprazole 20 mg PO DAILY 05/11/20 05/07/23 History Mirtazapine [Remeron] 15 mg PO HS 01/13/23 05/07/23 History lisinopriL [Zestril] 10 mg PO DAILY 01/13/23 05/07/23 History sitaGLIPtin [Januvia] 50 mg PO DAILY 01/13/23 05/07/23 History Aspirin 81 mg PO DAILY tab 01/18/23 05/07/23 Rx Glimepiride [Amaryl] 2 mg PO BID 05/07/23 05/07/23 History Levothyroxine Sodium [Synthroid] 50 mcg PO DAILY 05/07/23 05/07/23 History Allergies Allergy/AdvReac Type Severity Reaction Status Date / Time No Known Allergies Allergy Verified 05/07/23 15:49 Physical Exam Vitals: Vital Signs Temp Pulse Pulse Resp BP BP Pulse Ox 05/08/23 07:48 98.7 F 67 16 135/70 98 05/08/23 01:31 99.7 F H 69 160/63 98 05/07/23 21:15 98.4 F 78 18 142/61 97 05/07/23 20:45 86 16 133/100 94 L 05/07/23 18:00 75 157/77 90 L 05/07/23 17:00 75 163/75 97 05/07/23 16:00 82 147/92 99 05/07/23 15:00 80 18 141/92 98 05/07/23 13:54 97.8 F 80 20 141/92 99 Intake and Output 05/07/23 05/08/23 05/08/23 22:59 06:59 14:59 Output Total 350 510 Balance -350 -510 Output: Urine 350 510 Other: Voiding Method Indwelling Catheter Indwelling Catheter Weight 54.431 kg Results CBC & Chem 7: 05/08/23 06:28 05/08/23 06:28 Labs: Abnormal Lab Results - Last 24 Hours (Table) 05/07/23 05/07/23 05/07/23 Range/Units 14:56 14:56 14:56 RBC 3.74 L (3.80-5.40) m/uL Hgb 10.9 L (11.4-16.0) gm/dL Hct 32.7 L (34.0-46.0) % Chloride 111 H (98-107) mmol/L BUN 19 H (7-17) mg/dL Glucose 65 L (74-99) mg/dL POC Glucose (mg/dL) (70-110) mg/dL Albumin 3.2 L (3.5-5.0) g/dL Urine Glucose (UA) 3+ H (Negative) Urine Ketones 2+ H (Negative) 05/07/23 05/08/23 05/08/23 Range/Units 18:17 00:06 05:52 RBC (3.80-5.40) m/uL Hgb (11.4-16.0) gm/dL Hct (34.0-46.0) % Chloride (98-107) mmol/L BUN (7-17) mg/dL Glucose (74-99) mg/dL POC Glucose (mg/dL) 196 H 209 H 144 H (70-110) mg/dL Albumin (3.5-5.0) g/dL Urine Glucose (UA) (Negative) Urine Ketones (Negative)
[2023-05-08 17:00] LABS: Glucose,Whole Blood 133 mg/dL (70-110)
[2023-05-08 20:32] LABS: Glucose,Whole Blood 148 mg/dL (70-110)
[2023-05-08] MEDS: MIRTAZAPINE 15 MG TAB PO SCH (22:25)
[2023-05-08] MEDS: GLIMEPIRIDE 2 MG TAB PO SCH (22:25)
[2023-05-09 05:34] LABS: Glucose,Whole Blood 71 mg/dL (70-110)
[2023-05-09] MEDS: PANTOPRAZOLE 40 MG TABLET PO SCH (06:12)
[2023-05-09] MEDS: LEVOTHYROXINE 50 MCG TAB PO SCH (06:12)
--- NOTE | 2023-05-09 09:22 | P.PN ---
Subjective Progress Note Date: 05/09/23 Principal diagnosis: Frequent falls L4 compression fracture Patient seen and examined this morning. Patient is resting in bed comfortably eating breakfast. Patient states that she sat up for approximately 2 hours in the chair yesterday and tolerated activity well. Patient currently denies any low back pain. She denies any numbness or tingling to bilateral lower extremities. She is looking forward to going to subacute rehab to regain strength to get herself back home. Informed patient of order for TLSO brace, patient verbalizes understanding. Currently awaiting delivery of brace to room. No further recommendations from orthopedics. Patient has remained afebrile, denies nausea/vomiting, or chest pain. Objective - Vital Signs Vital signs: Vital Signs Temp 99 F 05/09/23 07:45 Pulse 67 05/09/23 07:45 Resp 20 05/09/23 07:45 BP 167/75 05/09/23 07:45 Pulse Ox 100 05/09/23 06:45 FiO2 Intake & Output 05/08/23 05/09/23 05/09/23 18:59 06:59 18:59 Output Total 300 400 Balance -300 -400 Output: Urine 300 400 Other: Voiding Method Indwelling Catheter Indwelling Catheter - Exam General: The patient is awake and alert, in no acute distress Skin: Skin is warm and dry with no obvious rashes or lesions. Eye: Pupils are equal, round and reactive to light, extra-ocular movements are intact; there is normal conjunctiva bilaterally. Neck: The neck is supple, there is no tenderness and ROM intact. Cardiovascular: There is a regular rate and rhythm. No murmur, rub or gallop is appreciated. Respiratory: Lungs are clear to auscultation, respirations are non-labored, breath sounds are equal. Gastrointestinal: Soft, non-distended, non-tender abdomen. Back: There is mild tenderness to palpation in the midline lumbar region over the L4-L5 level. There is no obvious deformity. Musculoskeletal: ROM limited secondary to pain of the right hip. Shoulder abduction 5/5, elbow flexors 5/5, wrist dorsiflexors 5/5, grief counselor 5/5, left hip flexor 5/5, right hip flexor 4/5, knee flexor 5/5, ankle dorsiflexor 5/5, ankle plantarflexion 5/5 and extensor hallucis 5/5. Neurological: CN 2-12 intact. There are no obvious motor or sensory deficits. Movement and coordination equal and intact. Sensory exam to light touch intact C5-T1 and intact from L2-S1. Reflexes 2/4 in bilateral upper/lower extremities. Negative Hoffmans, babinski, and clonus signs. Psychiatric: Cooperative, appropriate mood & affect, normal judgment. Special test: Neg log roll - Labs CBC & Chem 7: 05/08/23 06:28 05/08/23 06:28 Labs: Abnormal Lab Results - Last 24 Hours (Table) 05/08/23 05/08/23 05/08/23 Range/Units 06:28 06:28 11:53 RBC 3.38 L (4.10-5.20) X 10*6/uL Hgb 9.4 L (12.0-15.0) d/dL Hct 28.9 L (37.2-46.3) % Chloride 110 H (96-109) mmol/L BUN/Creatinine Ratio 22.14 H (12.00-20.00) Ratio Glucose 134 H (70-110) mg/dL POC Glucose (mg/dL) 111 H (70-110) mg/dL 05/08/23 05/08/23 Range/Units 16:59 20:24 RBC (4.10-5.20) X 10*6/uL Hgb (12.0-15.0) d/dL Hct (37.2-46.3) % Chloride (96-109) mmol/L BUN/Creatinine Ratio (12.00-20.00) Ratio Glucose (70-110) mg/dL POC Glucose (mg/dL) 133 H 148 H (70-110) mg/dL Assessment and Plan Assessment: Frequent falls Lumbar spondylosis Chronic T12 compression fracture Subacute versus chronic L4 compression fracture Grade 1 anterolisthesis L4 onto L5 Right hip pain Plan: At this time we do not recommend any emergent/urgent orthopedic surgical intervention. 2. Appreciate medical management 3. Prescription has been placed in chart for TLSO brace. Patient to wear when up and about, not needed in chair or bed. 3. Pain management - continue with NSAIDs and anti-inflammatories, may trial a course of steroids. 4. GI prophylaxis - Protonix 5. DVT prophylaxis - per medicine 6. PT/OT - weightbearing as tolerated with a walker as needed. Patient will benefit from subacute rehab with daily PT/OT. 7. Appreciate consult. Patient is cleared from orthopedic standpoint, no further recommendations. Orthopedic is signing off at this time, please feel free to reach out with any questions or concerns. Patient may follow up in our office as needed. Information wiil be placed in her discharge instructions.
[2023-05-09] MEDS: FERROUS SULFATE 325 MG TAB PO SCH (11:02)
[2023-05-09] MEDS: ASPIRIN 81 MG PO SCH (11:02)
[2023-05-09] MEDS: LINAGLIPTIN 5 MG TABLET PO SCH (11:02)
[2023-05-09] MEDS: lisinopriL 10 MG TAB PO SCH (11:02)
[2023-05-09] MEDS: GLIMEPIRIDE 2 MG TAB PO SCH ×2 (11:02→20:58)
[2023-05-09 11:11] LABS: Glucose,Whole Blood 131 mg/dL (70-110)
--- NOTE | 2023-05-09 15:14 | P.PN ---
Subjective Progress Note Date: 05/09/23 patient is a 88-year-old lady with past medical history significant for recurrent falls, hypothyroidism, diabetes mellitus who presented to the ER because of a fall. Patient was brought by family who noticed that the patient has been getting more and more weak over the last 1 week. Patient had multiple falls at home. Family notices that patient has been complaining of increased lower back pain and off her right hip. There is no complain of any numbness of lower extremities. Patient has been complaining of urinary retention but that has been chronic. Patient was brought to the ER. CT lumbar spine showed new vertebral body compression fracture L4 superior endplate, L3-L4 moderate to severe spinal canal stenosis and moderate L4 - L5 secondary disc bulge and facet joint arthropathy CT brain, no acute intracranial process CT pelvis showed no bony pelvis fracture Patient was admitted to medicine service 05/09. Patient seen and examined. States back pain has improved. Complaining of right knee pain REVIEW OF SYSTEMS: CONSTITUTIONAL: No fever, no malaise,. CARDIOVASCULAR: No chest pain, no palpitations, no syncope. PULMONARY: No shortness of breath, no cough, GASTROINTESTINAL: No diarrhea, no nausea, no vomiting, no abdominal pain. NEUROLOGICAL: No headaches, no weakness, PHYSICAL EXAMINATION: GENERAL: The patient is alert and oriented x3, not in any acute distress. Well developed, well nourished. HEENT: Pupils are round and equally reacting to light. EOMI. No scleral icterus. No conjunctival pallor. Normocephalic, atraumatic. No pharyngeal erythema. No thyromegaly. CARDIOVASCULAR: S1 and S2 present. No murmurs, rubs, or gallops. PULMONARY: Chest is clear to auscultation, no wheezing or crackles. ABDOMEN: Soft, nontender, nondistended, normoactive bowel sounds. No palpable organomegaly. MUSCULOSKELETAL: No joint swelling or deformity. EXTREMITIES: No cyanosis, clubbing, or pedal edema. NEUROLOGICAL: Gross neurological examination did not reveal any focal deficits. SKIN: No rashes. Assessment and plan Weakness Falls Lumbar compression fracture L3-L4 moderate to severe spinal canal stenosis Urinary retention hypothyroidism Diabetes mellitus Monitor vital signs Monitor CBC Monitor CMP Continue Moore. Continue pain management Fall precautions Orthopedic and medical to patient recommended conservative management with TLSO brace Follow-up and PT and OT evaluation Objective - Vital Signs Vital signs: Vital Signs Temp 99.4 F 05/09/23 13:12 Pulse 70 05/09/23 13:12 Resp 16 05/09/23 13:12 BP 145/90 05/09/23 13:12 Pulse Ox 99 05/09/23 13:12 FiO2 Intake & Output 05/08/23 05/09/23 05/09/23 18:59 06:59 18:59 Output Total 300 400 Balance -300 -400 Output: Urine 300 400 Other: Voiding Method Indwelling Catheter Indwelling Catheter Indwelling Catheter - Labs CBC & Chem 7: 05/08/23 06:28 05/08/23 06:28 Labs: Abnormal Lab Results - Last 24 Hours (Table) 05/08/23 05/08/23 05/09/23 Range/Units 16:59 20:24 11:09 POC Glucose (mg/dL) 133 H 148 H 131 H (70-110) mg/dL
[2023-05-09 16:16] LABS: Glucose,Whole Blood 211 mg/dL (70-110)
[2023-05-09 20:08] LABS: Glucose,Whole Blood 230 mg/dL (70-110)
[2023-05-09] MEDS: MIRTAZAPINE 15 MG TAB PO SCH (20:58)
[2023-05-10 05:46] LABS: Glucose,Whole Blood 111 mg/dL (70-110)
[2023-05-10] MEDS: PANTOPRAZOLE 40 MG TABLET PO SCH (05:52)
[2023-05-10] MEDS: LEVOTHYROXINE 50 MCG TAB PO SCH (05:53)
[2023-05-10 08:27] VITALS: BP 123/72; PULSE 63; RESP 15; TEMP 98.4
[2023-05-10] MEDS: FERROUS SULFATE 325 MG TAB PO SCH (09:31)
[2023-05-10] MEDS: ASPIRIN 81 MG PO SCH (09:31)
[2023-05-10] MEDS: lisinopriL 10 MG TAB PO SCH (09:31)
[2023-05-10] MEDS: LINAGLIPTIN 5 MG TABLET PO SCH (09:31)
[2023-05-10] MEDS: GLIMEPIRIDE 2 MG TAB PO SCH (09:32)
[2023-05-10 11:38] LABS: Glucose,Whole Blood 232 mg/dL (70-110)
--- NOTE | 2023-05-10 12:58 | P.DS ---
Providers Date of admission: 05/07/23 19:14 Expected date of discharge: 05/10/23 Attending physician: Dima Fournier MD Consults: 05/07/23 19:13 Consult Physician Routine Consulting Provider: Marck Rashid Consult Reason/Comments: lumbar spine compression fracture Do you want consulting provider notified?: Already Contacted Primary care physician: Richmond Mendiola Hospital Course: Final diagnosis Weakness Falls Moderate protein calorie malnutrition with BMI of 20.6 Lumbar compression fracture L3-L4 moderate to severe spinal canal stenosis Urinary retention hypothyroidism Diabetes mellitus GI prophylaxis DVT prophylaxis Full code Discharge disposition Patient is being discharged in a stable condition with guarded prognosis to [facility] . Patient will follow-up with Dr. Mendiola in the outpatient setting upon discharge. Patient is to continue with outpatient follow-up with orthopedics as scheduled. Total time taken is greater than 35 minutes. Hospital course This is a 88-year-old female who was recently admitted with recurrent falls with increasing weakness and multiple falls at home having some increased lower back pain and right hip pain. Patient was evaluated by orthopedics and noted to have a compression fracture of the L4 superior endplate with moderate to severe spinal canal stenosis of L4-5 with disc bulging. No surgical interventions planned and patient evaluated by orthopedics recommending also brace and physical therapy. Patient was evaluated by physical therapy recommending rehab family would like her to go there for continued strength and mobility. Patient has been cleared by orthopedics. Please refer to orthopedic no for further HPI. Currently no reports of chest pain, shortness of breath, or palpitations. Patient is afebrile. No reports of nausea or vomiting and patient is tolerating diet. Patient will be going to [facility] today. Physical exam: Gen: This is a 88-year-old female who is awake, alert and oriented 3, thin built, elderly appearing HEENT: Head is atraumatic, normocephalic. Pupils equal, round. Sclerae is anicteric. NECK: Supple. No JVD. No lymphadenopathy. No thyromegaly. LUNGS: Clear to auscultation. No wheezes or rhonchi. No intercostal retractions. HEART: Regular rate and rhythm. No murmur. ABDOMEN: Soft. Bowel sounds are present. No masses. No tenderness. EXTREMITIES: No pedal edema. No calf tenderness. NEUROLOGICAL: Patient is awake, alert and oriented x3. Cranial nerves 2 through 12 are grossly intact. Diffusely weak Please refer to medication reconciliation sheet for a list of medications. The impression and plan of care has been dictated by Francine Hill, Nurse Practitioner as directed. Dr. Daisha MD I have performed a history and examination and MDM of this patient, discussed the same with the dictator, and agree with the dictator's assessment and plan as written ,documented as a scribe. Based on total visit time, I have performed more than 50% of the visit. Patient Condition at Discharge: Stable Plan - Discharge Summary Discharge Rx Participant: No New Discharge Prescriptions: New Acetaminophen Tab [Tylenol] 650 mg PO Q6HR PRN tab PRN Reason: Mild Pain Or Fever > 100.5 Continue Omeprazole 20 mg PO DAILY Ferrous Sulfate [Iron (65 MG Elemental)] 325 mg PO DAILY Mirtazapine [Remeron] 15 mg PO HS Glimepiride [Amaryl] 2 mg PO BID Levothyroxine Sodium [Synthroid] 50 mcg PO DAILY sitaGLIPtin [Januvia] 50 mg PO DAILY lisinopriL [Zestril] 10 mg PO DAILY Aspirin 81 mg PO DAILY tab Discharge Medication List Ferrous Sulfate [Iron (65 MG Elemental)] 325 mg PO DAILY 05/11/20 [History] Omeprazole 20 mg PO DAILY 05/11/20 [History] Mirtazapine [Remeron] 15 mg PO HS 01/13/23 [History] lisinopriL [Zestril] 10 mg PO DAILY 01/13/23 [History] sitaGLIPtin [Januvia] 50 mg PO DAILY 01/13/23 [History] Aspirin 81 mg PO DAILY tab 01/18/23 [Rx] Glimepiride [Amaryl] 2 mg PO BID 05/07/23 [History] Levothyroxine Sodium [Synthroid] 50 mcg PO DAILY 05/07/23 [History] Acetaminophen Tab [Tylenol] 650 mg PO Q6HR PRN tab 05/10/23 [Rx] Follow up Appointment(s)/Referral(s): Richmond Mendiola MD [Primary Care Provider] - 1 Week Renetta Carias NPC [Nurse Practitioner] - As Needed Micheline Oconnell [NON-STAFF] - As Needed Leander Vega [NON-STAFF] - As Needed (TLSO back brace) Patient Instructions/Handouts: Vertebral Compression Fracture (DC), Chronic Back Pain (DC) Activity/Diet/Wound Care/Special Instructions: Patient is going to [employer] Activity as tolerated Patient to continue with LSO brace while out of bed Follow-up with orthopedics outpatient recommend continue with heart healthy/diabetic diet Recommend monitoring Accu-Cheks before meals and at bedtime NovoLog sliding scale 0-150 equals 0 units 151-200 equals 2 units 201-250 equals 4 units 251-300 equals 6 units 301-350 equals 8 units 351-400 equals 10 units Please notify provider if blood sugar is 400 or above Discharge Disposition: TRANSFER TO SNF/ECF
== END 2023-05-10 15:00 | DRG 543 ==
LOC: EC 13:50 → 4SSUR 19:14
PROVIDERS: ADMIT Internal Medicine; ATTEND Internal Medicine
DX: M48.56XA Collapsed vertebra, not elsewhere classified, lumbar region, initial encounter for fracture (principal); E44.0 Moderate protein-calorie malnutrition; M48.54XA Collapsed vertebra, not elsewhere classified, thoracic region, initial encounter for fracture; M48.061 Spinal stenosis, lumbar region without neurogenic claudication; M47.816 Spondylosis without myelopathy or radiculopathy, lumbar region; E11.649 Type 2 diabetes mellitus with hypoglycemia without coma; E03.9 Hypothyroidism, unspecified; E11.41 Type 2 diabetes mellitus with diabetic mononeuropathy; Z68.20 Body mass index [BMI] 20.0-20.9, adult; R33.8 Other retention of urine; M51.46 Schmorl's nodes, lumbar region; R53.1 Weakness; R29.6 Repeated falls; Z79.890 Hormone replacement therapy; Z91.81 History of falling; G89.29 Other chronic pain; F10.20 Alcohol dependence, uncomplicated; M43.16 Spondylolisthesis, lumbar region; Z79.82 Long term (current) use of aspirin; Z79.84 Long term (current) use of oral hypoglycemic drugs; Z79.899 Other long term (current) drug therapy
CPT/HCPCS: 36415; 51702; 51798; 70450; 71046; 72131; 72192; 80048; 80053; 81003; 83735; 85025; 85610; 85730; 93005; 94760; 96360; 96361; 99285

== ENCOUNTER 2024-02-20 11:18 | Observation (INO) | payer MEDICARE ==
--- NOTE | 2024-02-20 11:31 | ED ---
General Adult HPI - General Stated complaint: Chest pain Time Seen by Provider: 02/20/24 11:20 - History of Present Illness Initial comments: Dictation was produced using [email or web address] dictation software. please excuse any grammatical, word or spelling errors. Chief Complaint: 88-year-old female presents emergency department for chest pain History of Present Illness: Patient is an 88-year-old female presents emergency department for chest pain. Patient is a resident of the [facility]. She has history of diabetes and CVA. She complained to nursing staff that she was complaining of some chest pain. She was given 162 mg of aspirin and was transferred to emergency department by EMS. Patient [place] any chest pain at the bedside states that her pain is fully resolved. She has no complaints. The ROS documented in this emergency department record has been reviewed and confirmed by me. Those systems with pertinent positive or negative responses h ave been documented in the HPI. All other systems are other negative and/or noncontributory. - Related Data Home Medications Medication Instructions Recorded Confirmed Ferrous Sulfate [Iron (65 MG 325 mg PO DAILY 05/11/20 05/07/23 Elemental)] Omeprazole 20 mg PO DAILY 05/11/20 05/07/23 Mirtazapine [Remeron] 15 mg PO HS 01/13/23 05/07/23 lisinopriL [Zestril] 10 mg PO DAILY 01/13/23 05/07/23 sitaGLIPtin [Januvia] 50 mg PO DAILY 01/13/23 05/07/23 Glimepiride [Amaryl] 2 mg PO BID 05/07/23 05/07/23 Levothyroxine Sodium [Synthroid] 50 mcg PO DAILY 05/07/23 05/07/23 Previous Rx's Medication Instructions Recorded Aspirin 81 mg PO DAILY tab 01/18/23 Acetaminophen Tab [Tylenol] 650 mg PO Q6HR PRN tab 05/10/23 Allergies Allergy/AdvReac Type Severity Reaction Status Date / Time No Known Allergies Allergy Verified 05/07/23 15:49 Review of Systems ROS Statement: Those systems with pertinent positive or pertinent negative responses have been documented in the HPI. ROS Other: All systems not noted in ROS Statement are negative. Past Medical History Past Medical History: Diabetes Mellitus, Thyroid Disorder History of Any Multi-Drug Resistant Organisms: None Reported Past Surgical History: Section Past Anesthesia/Blood Transfusion Reactions: No Reported Reaction Additional Past Anesthesia/Blood Transfusion Reaction / Comment(s): not sure if she has had a blood transfusion Past Psychological History: No Psychological Hx Reported Smoking Status: Unknown if ever smoked Past Alcohol Use History: Rare Past Drug Use History: None Reported - Past Family History Mother Family Medical History: No Reported History Father Family Medical History: No Reported History General Exam - General Exam Comments Initial Comments: PHYSICAL EXAM: General Impression: Alert and oriented, not in acute distress HEENT: Normocephalic atraumatic, extra-ocular movements intact, pupils equal and reactive to light bilaterally, mucous membranes moist. Cardiovascular: Heart regular rate and rhythm Chest: Able to complete full sentences, no retractions, no tachypnea Abdomen: abdomen soft, non-tender, non-distended, no organomegaly Musculoskeletal: Pulses present and equal in all extremities, no peripheral edema Motor: no focal deficits noted Neurological: CN II-XII grossly intact, no focal motor or sensory deficits noted Skin: Intact with no visualized rashes Psych: Normal affect and mood Course Vital Signs 02/20/24 02/20/24 02/20/24 11:22 11:32 11:48 Temperature 98.7 F Pulse Rate 127 H 90 90 Pulse Rate [ Outside Food Server ] Respiratory 16 16 16 Rate Blood Pressure 109/75 O2 Sat by Pulse 98 99 98 Oximetry 02/20/24 02/20/24 02/20/24 11:54 12:03 12:48 Temperature Pulse Rate 93 88 Pulse Rate [ 87 Outside Food Server ] Respiratory 16 16 Rate Blood Pressure 134/81 O2 Sat by Pulse 99 7 L Oximetry EKG Findings - EKG Comments: EKG Findings:: My EKG interpretation: Ventricular rate 127, uncertain rhythm, QRS 170, QTc 343. No obviously discernible P waves however rate is regular and QRS is narrow complex. No MA prolongation, no QTC prolongation, no ST or T-wave changes noted. Overall, this EKG is unremarkable Medical Decision Making - Medical Decision Making Was pt. sent in by a medical professional or institution (, PA, SCREEN ROOM OPERATOR, urgent care, hospital, or [place] [facility]...) When possible be specific @ -No Did you speak to anyone other than the patient for history (EMS, parent, family, police, friend...)? What history was obtained from this source @ -See above Did you review nursing and triage notes (agree or disagree)? Why? @ -I reviewed and agree with nursing and triage notes Were old charts reviewed (outside hosp., previous admission, EMS record, old EKG, old radiological studies, urgent care reports/EKG's, [facility] records)? Report findings @ -No old charts were reviewed Differential Diagnosis (chest pain, altered mental status, abdominal pain women, abdominal pain men, vaginal bleeding, musculoskeletal, weakness, fever, dyspnea, syncope, headache, dizziness, GI bleed, back pain, seizure, CVA, palpatations, mental health)? @ -Differential Chest Pain: Stable Angina, Unstable Angina, STEMI, NSTEMI Aortic Dissection, Pneumothorax, Musculoskeletal, Esophageal Spasm GERD, Cholecystitis, Pancreatitis, Zoster, this is not meant to be an all-inclusive list. EKG interpreted by me (3pts min.). @ -See above X-rays interpreted by me (1pt min.). @ -Chest x-ray shows no acute processes CT interpreted by me (1pt min.). @ -None done U/S interpreted by me (1pt. min.). @ -None done What testing was considered but not performed or refused? (CT, X-rays, U/S, labs)? Why? @ -None What meds were considered but not given or refused? Why? @ -None Did you discuss the management of the patient with other professionals (professionals i.e. , PA, SCREEN ROOM OPERATOR, lab, RT, psych nurse, director of social media marketing, manager of learning, teacher, air intelligence officer, bottle caser)? Give summary @ -Case discussed with hospitalist for admission Was smoking cessation discussed for >3mins.? @ -No Was critical care preformed (if so, how long)? @ -No Were there social determinants of health that impacted care today? How? (Homelessness, low income, unemployed, alcoholism, drug addiction, transportation, low edu. Level, literacy, decrease access to med. care, [facility], rehab)? @ -No Was there de-escalation of care discussed even if they declined (Discuss DNR or withdrawal of care, Hospice)? DNR status @ -No What co-morbidities impacted this encounter? (DM, HTN, Smoking, COPD, CAD, Cancer, CVA, ARF, Chemo, Hep., AIDS, mental health diagnosis, sleep apnea, morbid obesity)? @ -None Was patient admitted / discharged? Hospital course, mention meds given and route, prescriptions, significant lab abnormalities, going to OR and other pertinent info. @ -88-year-old female presents emergency department for atypical chest pain typical features. She is a poor historian. She does have some risk factors. Vital signs upon arrival are within acceptable limits. By the time she arrived in the emergency department she states that she is symptom-free. Cardiac workup is negative. EKG troponin blood work negative. Chest x-ray nonacute. Disposition options were discussed with patient and family who are agreeable with observation admission. Undiagnosed new problem with uncertain prognosis? @ -No Drug Therapy requiring intensive monitoring for toxicity (Heparin, Nitro, Insulin, Cardizem)? @ -No Were any procedures done? @ -No Diagnosis/symptom? Acute, or Chronic, or Acute on Chronic? Uncomplicated (without systemic symptoms) or Complicated (systemic symptoms)? @ -Chest pain Side effects of treatment? @ -No Exacerbation, Progression, or Severe Exacerbation? @ -No Poses a threat to life or bodily function? How? (Chest pain, USA, ND, pneumonia, PE, COPD, DKA, ARF, appy, cholecystitis, CVA, Diverticulitis, Homicidal, Suicidal, threat to staff... and all critical care pts) @ -yes - Lab Data Result diagrams: 02/20/24 11:45 02/20/24 11:45 Lab Results 02/20/24 02/20/24 02/20/24 Range/Units 11:45 11:45 11:45 WBC 6.4 (3.8-10.6) k/uL RBC 3.88 (3.80-5.40) m/uL Hgb 11.6 (11.4-16.0) gm/dL Hct 36.1 (34.0-46.0) % MCV 93.0 (80.0-100.0) fL MCH 29.8 (25.0-35.0) pg MCHC 32.0 (31.0-37.0) g/dL RDW 13.4 (11.5-15.5) % Plt Count 301 (150-450) k/uL MPV 8.0 Neutrophils % 63 % Lymphocytes % 26 % Monocytes % 6 % Eosinophils % 3 % Basophils % 0 % Neutrophils # 4.1 (1.3-7.7) k/uL Lymphocytes # 1.7 (1.0-4.8) k/uL Monocytes # 0.4 (0-1.0) k/uL Eosinophils # 0.2 (0-0.7) k/uL Basophils # 0.0 (0-0.2) k/uL PT 11.3 (10.0-12.5) sec INR 1.0 (<1.2) APTT 32.6 H (22.0-30.0) sec Sodium 139 (137-145) mmol/L Potassium 5.2 H (3.5-5.1) mmol/L Chloride 108 H (98-107) mmol/L Carbon Dioxide 16 L (22-30) mmol/L Anion Gap 15 mmol/L BUN 18 H (7-17) mg/dL Creatinine 0.73 (0.52-1.04) mg/dL Est GFR (CKD-EPI)AfAm 86 (>60 ml/min/1.73 sqM) Est GFR (CKD-EPI)NonAf 75 (>60 ml/min/1.73 sqM) Glucose 185 H (74-99) mg/dL Calcium 9.7 (8.4-10.2) mg/dL Magnesium 2.2 (1.6-2.3) mg/dL Total Bilirubin 0.7 (0.2-1.3) mg/dL AST 46 H (14-36) U/L ALT 28 (4-34) U/L Alkaline Phosphatase 127 H (38-126) U/L Troponin I (0.000-0.034) ng/mL Total Protein 8.4 H (6.3-8.2) g/dL Albumin 4.1 (3.5-5.0) g/dL 02/20/24 Range/Units 11:45 WBC (3.8-10.6) k/uL RBC (3.80-5.40) m/uL Hgb (11.4-16.0) gm/dL Hct (34.0-46.0) % MCV (80.0-100.0) fL MCH (25.0-35.0) pg MCHC (31.0-37.0) g/dL RDW (11.5-15.5) % Plt Count (150-450) k/uL MPV Neutrophils % % Lymphocytes % % Monocytes % % Eosinophils % % Basophils % % Neutrophils # (1.3-7.7) k/uL Lymphocytes # (1.0-4.8) k/uL Monocytes # (0-1.0) k/uL Eosinophils # (0-0.7) k/uL Basophils # (0-0.2) k/uL PT (10.0-12.5) sec INR (<1.2) APTT (22.0-30.0) sec Sodium (137-145) mmol/L Potassium (3.5-5.1) mmol/L Chloride (98-107) mmol/L Carbon Dioxide (22-30) mmol/L Anion Gap mmol/L BUN (7-17) mg/dL Creatinine (0.52-1.04) mg/dL Est GFR (CKD-EPI)AfAm (>60 ml/min/1.73 sqM) Est GFR (CKD-EPI)NonAf (>60 ml/min/1.73 sqM) Glucose (74-99) mg/dL Calcium (8.4-10.2) mg/dL Magnesium (1.6-2.3) mg/dL Total Bilirubin (0.2-1.3) mg/dL AST (14-36) U/L ALT (4-34) U/L Alkaline Phosphatase (38-126) U/L Troponin I <0.012 (0.000-0.034) ng/mL Total Protein (6.3-8.2) g/dL Albumin (3.5-5.0) g/dL Disposition Clinical Impression: Chest pain Disposition: ADMITTED IP TO THIS HOSP Condition: Fair Referrals: Richmond Mendiola MD [Primary Care Provider] - 1-2 days Decision Time: 13:11
[2024-02-20 12:07] LABS: Basophils % (A) 0 %; Eosinophils # (A) 0.2 k/uL (0-0.7); Eosinophils % (A) 3 %; HCT 36.1 % (34.0-46.0); HGB 11.6 gm/dL (11.4-16.0); Lymphocytes # (A) 1.7 k/uL (1.0-4.8); Lymphocytes % (A) 26 %; MCH 29.8 pg (25.0-35.0); Monocytes # (A) 0.4 k/uL (0-1.0); Monocytes % (A) 6 %; Neutrophils # (A) 4.1 k/uL (1.3-7.7); Neutrophils % (A) 63 %; Platelet Count 301 k/uL (150-450); RBC 3.88 m/uL (3.80-5.40); RDW 13.4 % (11.5-15.5); WBC 6.4 k/uL (3.8-10.6)
[2024-02-20 12:09] LABS: ALT 28 U/L (4-34); AST 46 U/L (14-36); African American GFR (CKD) 86 (>60 ml/min/1.73 sqM); Albumin 4.1 g/dL (3.5-5.0); Alkaline Phosphatase 127 U/L (38-126); Anion Gap 15 mmol/L; Blood Urea Nitrogen 18 mg/dL (7-17); Calcium 9.7 mg/dL (8.4-10.2); Carbon Dioxide 16 mmol/L (22-30); Chloride 108 mmol/L (98-107); Glucose 185 mg/dL (74-99); Magnesium 2.2 mg/dL (1.6-2.3); Non-African American GFR(CKD) 75 (>60 ml/min/1.73 sqM); Sodium 139 mmol/L (137-145); Total Bilirubin 0.7 mg/dL (0.2-1.3); Total Protein 8.4 g/dL (6.3-8.2)
[2024-02-20 12:30] LABS: Potassium 5.2 mmol/L (3.5-5.1)
--- NOTE | 2024-02-20 12:43 | XR ---
EXAMINATION TYPE: XR chest 2V DATE OF EXAM: 02/20/2024 COMPARISON: 05/07/2023 TECHNIQUE: PA and lateral views submitted. HISTORY: Chest discomfort FINDINGS: The lungs are clear and there is no pneumothorax, pleural effusion, or focal pneumonia. Heart size normal and no overt failure. Osseous structures demonstrate hypertrophic and degenerative changes of the spine. Elevated right hemidiaphragm. Diffuse osteopenia. Ectasia of the aorta with atheroscleroti c changes. Chronic-appearing wedge deformity thoracolumbar junction. Chronic deformity of the lateral right rib cage likely on the basis of previous trauma. IMPRESSION: 1. No acute process.
[2024-02-20 12:48] LABS: Partial Thromboplastin Time 32.6 sec (22.0-30.0); Prothrombin Time 11.3 sec (10.0-12.5)
[2024-02-20] MEDS ORDERED: NITROGLYCERIN SL TABS 0.4 MG TAB SUBLINGUAL PRN (13:07)
[2024-02-20] MEDS: ASPIRIN 81 MG PO STA (13:20)
[2024-02-20] MEDS: SODIUM CHLORIDE 0.9% 1,000 ML IV STA (13:20)
[2024-02-20] MEDS ORDERED: MAGNESIUM HYDROXIDE 2,400 MG/30 ML CUP PO PRN (19:42)
[2024-02-20] MEDS ORDERED: bisacodyL 10 MG SUPP RECTAL PRN (19:42)
[2024-02-20] MEDS: MIRTAZAPINE 15 MG TAB PO SCH (20:00)
[2024-02-20 20:19] LABS: Glucose,Whole Blood 136 mg/dL (70-110)
[2024-02-20] MEDS: INSULIN ASPART (NovoLOG) 100 UNIT/ML VIAL SQ SCH (20:27)
[2024-02-20] MEDS: LATANOPROST 0.005% OPHTH DROPS 2.5 ML BTL BOTH EYES SCH (20:32)
[2024-02-21] MEDS: HYDROcodone/APAP 5-325MG 1 EACH TAB PO PRN (03:00)
--- NOTE | 2024-02-21 06:08 | P.HPIM ---
History of Present Illness H&P Date: 02/20/24 HISTORY OF PRESENT ILLNESS: 88-year-old one of my office patient for over 25 years with history of type 2 diabetes, hypothyroidism, malnutrition, who had suffered from stroke left her with severe expressive aphasia also patient has known to have severe spinal stenosis with compression vertebrae with severe osteoporosis, history of recurrent urinary tract infection, and worsening dementia. Patient has been residing at [facility] since her last hospitalization over a year ago has been on the terminologist and well adjusted and doing well. During her assessment in the morning in [facility] she complained of midsternal chest pain burning discomfort was associated with shortness of breath mild palpitation patient has not had any cardiac disease in the past with the severity of her symptoms she asked to be transferred to the emergency department to be seen and evaluated. Her CT her troponin was negative, electrolyte showed slightly with hyperkalemia with hemolyzed blood, blood sugar was 185, had slightly abnormal liver function test normal magnesium proBNP was only 306, Her CBC is normal, EKG shows tachycardia with signs of intraventricular conduction delay with slight abnormality in the inferior leads only. Chest x-ray shows no abnormality. Further current symptoms patient be hospitalized troponin x 3 will be done with see cardiology order an echocardiogram and see if patient would benefit from doing any stress test at this point. REVIEW OF SYSTEMS: CONSTITUTIONAL: Elderly with severe expressive aphasia and does not look in any respiratory distress. EYES: No icterus sclerae, no conjunctivitis. EARS, NOSE, MOUTH, THROAT, and FACE: No sore throat, lymphadenopathy, carotid bruits or deformity. RESPIRATORY: Mild shortness of breath no cough or wheeze. CARDIOVASCULAR: Positive chest pain with mild PND and orthopnea.. GASTROINTESTINAL: No Abd pain, Nausea or vomiting, no Diarrhea or constipation, No GI Bleed, no distention or masses. GENITOURINARY: Negative for Hematuria or UTI, no kidney stones. INTEGUMENT/BREAST: Negative for any muscular injury with mild osteoarthritis.. HEMATOLOGIC/LYMPHATIC: Negative for bleed or purpura. MUSCULOSKELTAL: Negative for Myalgia or arthralgia. NEURLOGICAL: History of stroke with expressive aphasia generalized weakness and abnormal balance. BEHAVIORAL/PSYCH: Negative. ENDOCRINE: Negative. PHYSICAL EXAMINATION: General Appearance: Alert, cooperative, no distress, appears stated age. Neck HEENT: Supple, no lymphadenopathy, no thyroid enlargement, no carotid bruits. Lungs: Clear to auscultation without crackles or wheezes no rhonchi, no deformity. Chest Wall: Decreased expansion with deep inspiration no tenderness and no deformity was found on exam, no costochondral pain or discomfort. Heart: Regular rate and rhythm, S1, S2 normal, no murmur, rub or gallop. Back: Symmetric, no curvature, ROM normal, no CVA tenderness. Abdomen: Soft, non-tender, bowel sounds active all four quadrants, no masses, no organomegaly. Extremities: Extremities normal, atraumatic, no cyanosis or edema. Pulses: 2+ and symmetric. Skin: Skin color, texture, tugor normal, no rashes or lesions. Neurologic: Alert oriented with slight confusion cranial nerves II through XII intact, positive generalized weakness with abnormal balance and gait. ASSESSMENT AND PLAN: _Atypical chest pain: Patient has few risk factor will admit patient to the hospital, see neurology, CK troponin x 3 will be done, repeat EKG in the morning , order an echo patient might benefit from going for stress test eventually. _Type 2 diabetes: Has been on Januvia which will be switched to Tradjenta was on glimepiride which will be stopped completely, continue Accu-Chek with sliding scale coverage and might order patient Prandin before breakfast and dinner. _Hypertension: Has been doing well on lisinopril 10 mg a day titrate dose higher try to keep systolic blood pressure below 130. _Hyperlipidemia: She is supposed to be on a smaller dose of statin with atorvastatin 10 or 20 mg daily lipid panel be done blood work in the morning. _Hypothyroidism: Continue levothyroxine between 25 and 50 mcg daily. _Chronic lower back pain with compression disc and multi degenerative disc involvement, has been on hydrocodone and Tylenol as needed basis. _Significant weight loss was on Remeron has been doing well. _Mild memory loss: Mostly stroke related along with mild Alzheimer disease still not on any medication currently. _Severe GERD: Has been on Pepcid 20 mg daily. _Expressive aphasia: Secondary to stroke had done speech therapy for a long time. _GI prophylaxis: Patient be on Pepcid. _DVT prophylaxis: Early mobilization along with knee-high GLADYS hose. CODE STATUS: Full code. Admit patient to observation status for 1-2 night stay. Past Medical History Past Medical History: CVA/TIA, Diabetes Mellitus, GERD/Reflux, Hypertension, Thyroid Disorder Additional Past Medical History / Comment(s): falls, spinal stenosis, dysphagia, wedge compression fracture fourth limbar vertebra History of Any Multi-Drug Resistant Organisms: None Reported Past Surgical History: Section Past Anesthesia/Blood Transfusion Reactions: No Reported Reaction Additional Past Anesthesia/Blood Transfusion Reaction / Comment(s): . Smoking Status: Unknown if ever smoked - Past Family History Mother Family Medical History: No Reported History Father Family Medical History: No Reported History Medications and Allergies Home Medications Medication Instructions Recorded Confirmed Type Ferrous Sulfate [Iron (65 MG 325 mg PO DAILY@0800 05/11/20 02/20/24 History Elemental)] Mirtazapine [Remeron] 15 mg PO HS 01/13/23 02/20/24 History lisinopriL [Zestril] 10 mg PO DAILY@0800 01/13/23 02/20/24 History sitaGLIPtin [Januvia] 50 mg PO DAILY@0800 01/13/23 02/20/24 History Acetaminophen Tab [Tylenol] 650 mg PO Q6HR PRN tab 05/10/23 02/20/24 Rx Aspirin 81 mg PO DAILY@0700 02/20/24 02/20/24 History Brinzolamide/Brimonidine Tart 1 drop BOTH EYES BID@0800,1700 02/20/24 02/20/24 History [Simbrinza 1%-0.2% Eye Drop] Ensure Enlive 120 ml PO BID@0800,1700 02/20/24 02/20/24 History Famotidine [Pepcid] 20 mg PO DAILY@0802/20/24 02/20/24 History Glimepiride [Amaryl] 1 mg PO DAILY@0800 02/20/24 02/20/24 History HYDROcodone/APAP 5-325MG [Letcher 1 tab PO Q6H PRN 02/20/24 02/20/24 History 5-325] Latanoprost [Latanoprost 0.005%] 1 drop BOTH EYES HS 02/20/24 02/20/24 History Levothyroxine Sodium [Synthroid] 25 mcg PO DAILY@0800 02/20/24 02/20/24 History Magnesium Hydroxide [Milk of 7,200 mg PO DAILY PRN 02/20/24 02/20/24 History Magnesia Concentrate] Melatonin 1 mg PO HS PRN 02/20/24 02/20/24 History Na Phos,M-B/Na Phos,Di-Ba [Fleet 133 ml RECTAL DAILY PRN 02/20/24 02/20/24 History Adult] Sennosides/Docusate Sodium 1 tab PO BID@0800,1700 02/20/24 02/20/24 History [Senna-S 8.6-50 mg Tablet] Vit C/E/Zn/Coppr/Lutein/Zeaxan 1 cap PO BID@0800,1700 02/20/24 02/20/24 History [Preservision Areds 2 Softgel] bisacodyL [Dulcolax] 10 mg RECTAL DAILY PRN 02/20/24 02/20/24 History polyethylene glycoL 3350 [Miralax] 17 gm PO DAILY@0800 02/20/24 02/20/24 History Allergies Allergy/AdvReac Type Severity Reaction Status Date / Time No Known Allergies Allergy Verified 02/20/24 14:17 Physical Exam Vitals: Vital Signs Temp Pulse Pulse Pulse Resp BP BP 02/20/24 19:38 98.4 F 70 16 159/76 02/20/24 17:55 87 91 17 02/20/24 16:37 98 F 91 17 147/89 02/20/24 15:00 80 16 142/76 02/20/24 14:00 84 20 132/72 02/20/24 13:18 97 18 122/79 02/20/24 12:48 88 16 02/20/24 12:03 93 16 134/81 02/20/24 11:54 87 02/20/24 11:48 90 16 02/20/24 11:32 90 16 02/20/24 11:22 98.7 F 127 H 16 109/75 Pulse Ox 02/20/24 19:38 99 02/20/24 17:55 02/20/24 16:37 99 02/20/24 15:00 98 02/20/24 14:00 98 02/20/24 13:18 100 02/20/24 12:48 7 L 02/20/24 12:03 99 02/20/24 11:54 02/20/24 11:48 98 02/20/24 11:32 99 02/20/24 11:22 98 Intake and Output 02/20/24 02/20/24 02/20/24 06:59 14:59 22:59 Other: Voiding Method Diaper # Voids 1 # Bowel Movements 1 Weight 54.975 kg 54.975 kg Results CBC & Chem 7: 02/20/24 11:45 02/20/24 11:45 Labs: Abnormal Lab Results - Last 24 Hours (Table) 02/20/24 02/20/24 Range/Units 11:45 11:45 APTT 32.6 H (22.0-30.0) sec Potassium 5.2 H (3.5-5.1) mmol/L Chloride 108 H (98-107) mmol/L Carbon Dioxide 16 L (22-30) mmol/L BUN 18 H (7-17) mg/dL Glucose 185 H (74-99) mg/dL AST 46 H (14-36) U/L Alkaline Phosphatase 127 H (38-126) U/L Total Protein 8.4 H (6.3-8.2) g/dL Thrombosis Risk Factor Assmnt - Choose All That Apply Other Risk Factors: Yes Each Risk Factor Represents 3 Points: Age 75 years or older Thrombosis Risk Factor Assessment Total Risk Factor Score: 3 Thrombosis Risk Factor Assessment Level: Moderate Risk
[2024-02-21 06:12] LABS: Glucose,Whole Blood 92 mg/dL (70-110)
[2024-02-21] MEDS: ASPIRIN 81 MG PO SCH (06:38)
[2024-02-21 07:50] LABS: Appearance,Urine Clear (Clear); Bacteria,Urine Rare /hpf; Bilirubin,Urine Negative (Negative); Blood,Urine Negative (Negative); Color,Urine Light Yellow; Glucose,Urine (UA) Negative (Negative); Hyaline Casts,Urine 1 /lpf (0-2); Ketones,Urine Negative (Negative); Leukocyte Esterase,Urine Moderate (Negative); Mucus,Urine Rare /hpf; Nitrite,Urine Negative (Negative); Protein,Urine Negative (Negative); RBC,Urine 1 /hpf (0-5); Specific Gravity,Urine 1.011 (1.001-1.035); Squamous Epithelial Cell,Urine <1 /hpf (0-4); Urobilinogen,Urine <2.0 mg/dL (<2.0); WBC,Urine 18 /hpf (0-5)
[2024-02-21] MEDS ORDERED: NON FORMULARY DRUG (Ensure Enlive 120 ML) PO SCH (08:00)
[2024-02-21] MEDS: ACETAMINOPHEN TAB 325 MG TAB PO PRN (09:36)
[2024-02-21] MEDS: polyethylene glycoL 3350 17 GM POWD.PACK PO SCH (09:37)
[2024-02-21] MEDS: METOPROLOL SUCCINATE (ER) 25 MG TAB.ER.24H PO SCH (09:38)
[2024-02-21] MEDS: FERROUS SULFATE 325 MG TAB PO SCH (09:39)
[2024-02-21] MEDS: ASPIRIN 325 MG TAB PO SCH (09:39)
[2024-02-21] MEDS: LEVOTHYROXINE 25 MCG TAB PO SCH (09:39)
[2024-02-21] MEDS: ATORVASTATIN 20 MG TAB PO SCH (09:40)
[2024-02-21] MEDS: FAMOTIDINE 20 MG TAB PO SCH (09:40)
[2024-02-21] MEDS: SENNOSIDES-DOCUSATE SODIUM 1 EACH TAB PO SCH (09:40)
[2024-02-21] MEDS: lisinopriL 10 MG TAB PO SCH (09:40)
[2024-02-21] MEDS: ISOSORBIDE MONONITRATE ER 30 MG TAB.ER.24H PO SCH (09:40)
[2024-02-21] MEDS: BRIMONIDINE TARTRATE 0.2% DROPS 5 ML BTL BOTH EYES SCH (09:41)
[2024-02-21] MEDS: VIT A,C & E-LUTEIN-MINERALS 1 EACH TAB PO SCH (09:41)
[2024-02-21] MEDS: LINAGLIPTIN 5 MG TABLET PO SCH (09:41)
[2024-02-21] MEDS: DORZOLAMIDE HCL 2% DROPS 10 ML BTL BOTH EYES SCH (09:42)
[2024-02-21 11:21] LABS: HCT 33.7 % (37.2-46.3); HGB 10.7 g/dL (12.0-15.0); MCH 29.7 pg (27.0-32.0); MCHC 31.8 g/dL (32.0-37.0); MCV 93.6 FL (80.0-97.0); Mean Platelet Volume 9.8 FL (9.5-12.2); NRBC Per 100 WBC 0 X 10*3/uL (0.00-0.01); Platelet Count 268 X 10*3/uL (140-440); RDW 13.2 % (11.5-14.5); WBC 5.26 X 10*3/uL (4.50-10.00)
[2024-02-21 11:51] LABS: ALT 34 U/L (8-44); AST 39 U/L (13-35); Albumin 3.7 g/dL (3.8-4.9); Albumin/Globulin Ratio 1.06 Ratio (1.60-3.17); Alkaline Phosphatase 128 U/L (41-126); BUN/Creat Ratio 20.88 Ratio (12.00-20.00); Blood Urea Nitrogen 16.7 mg/dL (9.0-27.0); Calcium 9.6 mg/dL (8.7-10.3); Chloride 108 mmol/L (96-109); Chol/HDL Ratio 2.06 Ratio; Globulin 3.5 g/dL (1.6-3.3); Glucose 77 mg/dL (70-110); LDL Cholesterol,Calculated 50.6 mg/dL (0.0-131.0); Potassium 4.9 mmol/L (3.5-5.5); Sodium 140 mmol/L (135-145); Total Bilirubin 0.3 mg/dL (0.3-1.2); Total Protein 7.2 g/dL (6.2-8.2); VLDL Calculation 14.22 mg/dL (5.00-40.00)
[2024-02-21 12:49] LABS: Glucose,Whole Blood 162 mg/dL (70-110)
--- NOTE | 2024-02-21 13:00 | P.PN ---
Subjective Progress Note Date: 02/21/24 HISTORY OF PRESENT ILLNESS: 88-year-old one of my office patient for over 25 years with history of type 2 diabetes, hypothyroidism, malnutrition, who had suffered from stroke left her with severe expressive aphasia also patient has known to have severe spinal stenosis with compression vertebrae with severe osteoporosis, history of recurrent urinary tract infection, and worsening dementia. 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 During her assessment in the morning in [facility] she complained of midsternal chest pain burning discomfort was associated with shortness of breath mild palpitation patient has not had any cardiac disease in the past with the severity of her symptoms she asked to be transferred to the emergency department to be seen and evaluated. Her CT her troponin was negative, electrolyte showed slightly with hyperkalemia with hemolyzed blood, blood sugar was 185, had slightly abnormal liver function test normal magnesium proBNP was only 306, Her CBC is normal, EKG shows tachycardia with signs of intraventricular conduction delay with slight abnormality in the inferior leads only. Chest x-ray shows no abnormality. Further current symptoms patient be hospitalized troponin x 3 will be done with see cardiology order an echocardiogram and see if patient would benefit from doing any stress test at this point. 02/21/2024: Patient has done very well through the night no complaint of chest pain or angina anymore, cecal troponin x 3 were negative. Patient seen cardiology and was cleared for discharge from their standpoint further testing can be done as an outpatient if patient continues to have symptoms. Otherwise just adjustment on her blood sugar medication does not need to glimepiride anymore her Tradjenta was replaced Januvia while she is in the hospital will go back on Januvia 50 mg which seems to do well with the blood sugar. Also patient was switched to atorvastatin 20 mg a day which we will continue from here on try to keep her LDL at target below 70. REVIEW OF SYSTEMS: CONSTITUTIONAL: Elderly with severe expressive aphasia and does not look in any respiratory distress. EYES: No icterus sclerae, no conjunctivitis. EARS, NOSE, MOUTH, THROAT, and FACE: No sore throat, lymphadenopathy, carotid bruits or deformity. RESPIRATORY: Mild shortness of breath no cough or wheeze. CARDIOVASCULAR: Positive chest pain with mild PND and orthopnea.. GASTROINTESTINAL: No Abd pain, Nausea or vomiting, no Diarrhea or constipation, No GI Bleed, no distention or masses. GENITOURINARY: Negative for Hematuria or UTI, no kidney stones. INTEGUMENT/BREAST: Negative for any muscular injury with mild osteoarthritis.. HEMATOLOGIC/LYMPHATIC: Negative for bleed or purpura. MUSCULOSKELTAL: Negative for Myalgia or arthralgia. NEURLOGICAL: History of stroke with expressive aphasia generalized weakness and abnormal balance. BEHAVIORAL/PSYCH: Negative. ENDOCRINE: Negative. PHYSICAL EXAMINATION: General Appearance: Alert, cooperative, no distress, appears stated age. Neck HEENT: Supple, no lymphadenopathy, no thyroid enlargement, no carotid bruits. Lungs: Clear to auscultation without crackles or wheezes no rhonchi, no deformity. Chest Wall: Decreased expansion with deep inspiration no tenderness and no deformity was found on exam, no costochondral pain or discomfort. Heart: Regular rate and rhythm, S1, S2 normal, no murmur, rub or gallop. Back: Symmetric, no curvature, ROM normal, no CVA tenderness. Abdomen: Soft, non-tender, bowel sounds active all four quadrants, no masses, no organomegaly. Extremities: Extremities normal, atraumatic, no cyanosis or edema. Pulses: 2+ and symmetric. Skin: Skin color, texture, tugor normal, no rashes or lesions. Neurologic: Alert oriented with slight confusion cranial nerves II through XII intact, positive generalized weakness with abnormal balance and gait. ASSESSMENT AND PLAN: _Atypical chest pain: Patient has few risk factor will admit patient to the hospital, see neurology, CK troponin x 3 will be done, repeat EKG in the morning, order an echo patient might benefit from going for stress test eventually. _Type 2 diabetes: Has been on Januvia which will be switched to Tradjenta was on glimepiride which will be stopped completely, continue Accu-Chek with sliding scale coverage and might order patient Prandin before breakfast and dinner. _Hypertension: Has been doing well on lisinopril 10 mg a day titrate dose higher try to keep systolic blood pressure below 130. _Hyperlipidemia: She is supposed to be on a smaller dose of statin with atorvastatin 10 or 20 mg daily lipid panel be done blood work in the morning. _Hypothyroidism: Continue levothyroxine between 25 and 50 mcg daily. _Chronic lower back pain with compression disc and multi degenerative disc involvement, has been on hydrocodone and Tylenol as needed basis. _Significant weight loss was on Remeron has been doing well. _Mild memory loss: Mostly stroke related along with mild Alzheimer disease still not on any medication currently. _Severe GERD: Has been on Pepcid 20 mg daily. _Expressive aphasia: Secondary to stroke had done speech therapy for a long time. Objective - Vital Signs Vital signs: Vital Signs Temp 98.2 F 02/21/24 02:00 Pulse 54 L 02/21/24 02:00 Resp 16 02/21/24 02:00 BP 164/65 02/21/24 02:00 Pulse Ox 100 02/21/24 02:00 FiO2 Intake & Output 02/20/24 02/20/24 02/21/24 06:59 18:59 06:59 Weight 54.975 kg Other: Voiding Method Diaper Diaper # Voids 1 # Bowel Movements 1 0 - Labs CBC & Chem 7: 02/21/24 06:36 02/21/24 06:36 Labs: Abnormal Lab Results - Last 24 Hours (Table) 02/20/24 02/20/24 02/20/24 Range/Units 11:45 11:45 11:46 APTT 32.6 H (22.0-30.0) sec Potassium 5.2 H (3.5-5.1) mmol/L Chloride 108 H (98-107) mmol/L Carbon Dioxide 16 L (22-30) mmol/L BUN 18 H (7-17) mg/dL Glucose 185 H (74-99) mg/dL POC Glucose (mg/dL) (70-110) mg/dL Hemoglobin A1c 6.2 H (<=6.0) % AST 46 H (14-36) U/L Alkaline Phosphatase 127 H (38-126) U/L Total Protein 8.4 H (6.3-8.2) g/dL 02/20/24 Range/Units 20:17 APTT (22.0-30.0) sec Potassium (3.5-5.1) mmol/L Chloride (98-107) mmol/L Carbon Dioxide (22-30) mmol/L BUN (7-17) mg/dL Glucose (74-99) mg/dL POC Glucose (mg/dL) 136 H (70-110) mg/dL Hemoglobin A1c (<=6.0) % AST (14-36) U/L Alkaline Phosphatase (38-126) U/L Total Protein (6.3-8.2) g/dL
--- NOTE | 2024-02-21 13:00 | P.DS ---
Providers Date of admission: 02/20/24 13:08 Attending physician: Richmond Mendiola Consults: 02/20/24 13:07 Consult Physician Urgent Consulting Provider: Kalin Cortez Consult Reason/Comments: chest pain Do you want consulting provider notified?: Yes Primary care physician: Richmond Mendiola [facility] Course: HISTORY OF PRESENT ILLNESS: 88-year-old one of my office patient for over 25 years with history of type 2 diabetes, hypothyroidism, malnutrition, who had suffered from stroke left her with severe expressive aphasia also patient has known to have severe spinal stenosis with compression vertebrae with severe osteoporosis, history of recurrent urinary tract infection, and worsening dementia. 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 During her assessment in the morning in [facility] she complained of midsternal chest pain burning discomfort was associated with shortness of breath mild palpitation patient has not had any cardiac disease in the past with the severity of her symptoms she asked to be transferred to the emergency department to be seen and evaluated. Her CT her troponin was negative, electrolyte showed slightly with hyperkalemia with hemolyzed blood, blood sugar was 185, had slightly abnormal liver function test normal magnesium proBNP was only 306, Her CBC is normal, EKG shows tachycardia with signs of intraventricular conduction delay with slight abnormality in the inferior leads only. Chest x-ray shows no abnormality. Further current symptoms patient be hospitalized troponin x 3 will be done with see cardiology order an echocardiogram and see if patient would benefit from doing any stress test at this point. 02/21/2024: Patient has done very well through the night no complaint of chest pain or angina anymore, cecal troponin x 3 were negative. Patient seen cardiology and was cleared for discharge from their standpoint further testing can be done as an outpatient if patient continues to have symptoms. Otherwise just adjustment on her blood sugar medication does not need to glimepiride anymore her Tradjenta was replaced Januvia while she is in the hospital will go back on Januvia 50 mg which seems to do well with the blood sugar. Also patient was switched to atorvastatin 20 mg a day which we will continue from here on try to keep her LDL at target below 70. REVIEW OF SYSTEMS: CONSTITUTIONAL: Elderly with severe expressive aphasia and does not look in any respiratory distress. EYES: No icterus sclerae, no conjunctivitis. EARS, NOSE, MOUTH, THROAT, and FACE: No sore throat, lymphadenopathy, carotid bruits or deformity. RESPIRATORY: Mild shortness of breath no cough or wheeze. CARDIOVASCULAR: Positive chest pain with mild PND and orthopnea.. GASTROINTESTINAL: No Abd pain, Nausea or vomiting, no Diarrhea or constipation, No GI Bleed, no distention or masses. GENITOURINARY: Negative for Hematuria or UTI, no kidney stones. INTEGUMENT/BREAST: Negative for any muscular injury with mild osteoarthritis.. HEMATOLOGIC/LYMPHATIC: Negative for bleed or purpura. MUSCULOSKELTAL: Negative for Myalgia or arthralgia. NEURLOGICAL: History of stroke with expressive aphasia generalized weakness and abnormal balance. BEHAVIORAL/PSYCH: Negative. ENDOCRINE: Negative. PHYSICAL EXAMINATION: General Appearance: Alert, cooperative, no distress, appears stated age. Neck HEENT: Supple, no lymphadenopathy, no thyroid enlargement, no carotid bruits. Lungs: Clear to auscultation without crackles or wheezes no rhonchi, no deformity. Chest Wall: Decreased expansion with deep inspiration no tenderness and no deformity was found on exam, no costochondral pain or discomfort. Heart: Regular rate and rhythm, S1, S2 normal, no murmur, rub or gallop. Back: Symmetric, no curvature, ROM normal, no CVA tenderness. Abdomen: Soft, non-tender, bowel sounds active all four quadrants, no masses, no organomegaly. Extremities: Extremities normal, atraumatic, no cyanosis or edema. Pulses: 2+ and symmetric. Skin: Skin color, texture, tugor normal, no rashes or lesions. Neurologic: Alert oriented with slight confusion cranial nerves II through XII intact, positive generalized weakness with abnormal balance and gait. ASSESSMENT AND PLAN: _Atypical chest pain: Patient has few risk factor will admit patient to the hospital, see neurology, CK troponin x 3 will be done, repeat EKG in the morning, order an echo patient might benefit from going for stress test eventually. _Type 2 diabetes: Has been on Januvia which will be switched to Tradjenta was on glimepiride which will be stopped completely, continue Accu-Chek with sliding scale coverage and might order patient Prandin before breakfast and dinner. _Hypertension: Has been doing well on lisinopril 10 mg a day titrate dose higher try to keep systolic blood pressure below 130. _Hyperlipidemia: She is supposed to be on a smaller dose of statin with atorvastatin 10 or 20 mg daily lipid panel be done blood work in the morning. _Hypothyroidism: Continue levothyroxine between 25 and 50 mcg daily. _Chronic lower back pain with compression disc and multi degenerative disc involvement, has been on hydrocodone and Tylenol as needed basis. _Significant weight loss was on Remeron has been doing well. _Mild memory loss: Mostly stroke related along with mild Alzheimer disease still not on any medication currently. _Severe GERD: Has been on Pepcid 20 mg daily. _Expressive aphasia: Secondary to stroke had done speech therapy for a long time. Hospital course: Patient was hospitalized with chest pain and angina with atypical she had negative troponin and CK initially, troponin x 3 were done and all negative, echocardiogram was ordered and patient to be seen by cardiology was cleared by cardiology as this is noncardiac event. Patient will be discharged back to [facility] today further testing including echocardiogram if needed further stress test can be done as an outpatient. Patient be discharged back to [facility] today. Time spent on discharging patient was 32 minutes. Patient Condition at Discharge: Fair Plan - Discharge Summary Discharge Rx Participant: No New Discharge Prescriptions: New Atorvastatin [Lipitor] 20 mg PO DAILY tab Nitroglycerin Sl Tabs [Nitrostat] 0.4 mg SUBLINGUAL Q5M PRN tab PRN Reason: Chest Pain Continue Ferrous Sulfate [Iron (65 MG Elemental)] 325 mg PO DAILY@0800 Mirtazapine [Remeron] 15 mg PO HS HYDROcodone/APAP 5-325MG [[place] 5-325] 1 tab PO Q6H PRN PRN Reason: Pain Na Phos,M-B/Na Phos,Di-Ba [Fleet Adult] 133 ml RECTAL DAILY PRN PRN Reason: Constipation Brinzolamide/Brimonidine Tart [Simbrinza 1%-0.2% Eye Drop] 1 drop BOTH EYES BID@0800,1700 Vit C/E/Zn/Coppr/Lutein/Zeaxan [Preservision Areds 2 Softgel] 1 cap PO BID@0800,1700 Ensure Enlive 120 ml PO BID@0800,1700 Famotidine [Pepcid] 20 mg PO DAILY@0800 sitaGLIPtin [Januvia] 50 mg PO DAILY@0800 lisinopriL [Zestril] 10 mg PO DAILY@0800 Acetaminophen Tab [Tylenol] 650 mg PO Q6HR PRN tab PRN Reason: Mild Pain Or Fever > 100.5 Melatonin 1 mg PO HS PRN PRN Reason: Insomnia Magnesium Hydroxide [Milk of Magnesia Concentrate] 7,200 mg PO DAILY PRN PRN Reason: Constipation bisacodyL [Dulcolax] 10 mg RECTAL DAILY PRN PRN Reason: Constipation Sennosides/Docusate Sodium [Senna-S 8.6-50 mg Tablet] 1 tab PO BID@0800,1700 polyethylene glycoL 3350 [Miralax] 17 gm PO DAILY@0800 Levothyroxine Sodium [Synthroid] 25 mcg PO DAILY@0800 Latanoprost [Latanoprost 0.005%] 1 drop BOTH EYES HS Aspirin 81 mg PO DAILY@0700 Discontinued Glimepiride [Amaryl] 1 mg PO DAILY@0800 Discharge Medication List Ferrous Sulfate [Iron (65 MG Elemental)] 325 mg PO DAILY@0800 05/11/20 [History] Mirtazapine [Remeron] 15 mg PO HS 01/13/23 [History] lisinopriL [Zestril] 10 mg PO DAILY@0800 01/13/23 [History] sitaGLIPtin [Januvia] 50 mg PO DAILY@0800 01/13/23 [History] Acetaminophen Tab [Tylenol] 650 mg PO Q6HR PRN tab 05/10/23 [Rx] Aspirin 81 mg PO DAILY@0700 02/20/24 [History] Brinzolamide/Brimonidine Tart [Simbrinza 1%-0.2% Eye Drop] 1 drop BOTH EYES BID@0800,1700 02/20/24 [History] Ensure Enlive 120 ml PO BID@0800,1700 02/20/24 [History] Famotidine [Pepcid] 20 mg PO DAILY@0800 02/20/24 [History] HYDROcodone/APAP 5-325MG [[place] 5-325] 1 tab PO Q6H PRN 02/20/24 [History] Latanoprost [Latanoprost 0.005%] 1 drop BOTH EYES HS 02/20/24 [History] Levothyroxine Sodium [Synthroid] 25 mcg PO DAILY@0800 02/20/24 [History] Magnesium Hydroxide [Milk of Magnesia Concentrate] 7,200 mg PO DAILY PRN 02/20/24 [History] Melatonin 1 mg PO HS PRN 02/20/24 [History] Na Phos,M-B/Na Phos,Di-Ba [Fleet Adult] 133 ml RECTAL DAILY PRN 02/20/24 [History] Sennosides/Docusate Sodium [Senna-S 8.6-50 mg Tablet] 1 tab PO BID@0800,1700 02/20/24 [History] Vit C/E/Zn/Coppr/Lutein/Zeaxan [Preservision Areds 2 Softgel] 1 cap PO BID@0800, 1700 02/20/24 [History] bisacodyL [Dulcolax] 10 mg RECTAL DAILY PRN 02/20/24 [History] polyethylene glycoL 3350 [Miralax] 17 gm PO DAILY@0800 02/20/24 [History] Atorvastatin [Lipitor] 20 mg PO DAILY tab 02/21/24 [Rx] Nitroglycerin Sl Tabs [Nitrostat] 0.4 mg SUBLINGUAL Q5M PRN tab 02/21/24 [Rx] Follow up Appointment(s)/Referral(s): Richmond Mendiola MD [Primary Care Provider] - 1-2 days Patient Instructions/Handouts: Angina (DC) Discharge Disposition: TRANSFER TO SNF/ECF
[2024-02-21 14:38] VITALS: BP 155/78; PULSE 56; RESP 17; TEMP 98.6
--- NOTE | 2024-02-21 21:09 | CONS ---
CONSULTATION This is an 88-year-old elderly lady with a history of cerebrovascular accident with expressive aphasia and diabetes, came into the hospital, sent over from the care home with complaints of what are described as chest pain. On repeated questioning, she complains of pain in her right elbow and left groin and leg. Her chest pain does not seem to be evident at this time. She has multiple comorbid conditions in the form of spinal stenosis, previous CVA, hypertension, hyperlipidemia, type 2 diabetes. Her pain in the chest is not being voiced by the patient. Troponins are normal. She has some right lateral rib area discomfort, very focal. PAST MEDICAL HISTORY: 1. Diabetes. 2. Hypertension. 3. CVA with expressive aphasia. MEDICATIONS: At home include atorvastatin, aspirin, levothyroxine, and also takes some melatonin and lisinopril and Synthroid. PHYSICAL EXAMINATION: VITAL SIGNS: Blood pressure is 140/70, pulse rate is 56 per minute. HEENT: Unremarkable. Fundus not examined. NECK: Supple. No JVD. No carotid bruit. HEART: S1, S2 heard normally. No significant murmurs. LUNGS: Reveal bilateral decent air entry. ABDOMEN: Soft. LOWER EXTREMITIES: Reveal diminished pulses. CENTRAL NERVOUS SYSTEM: Limited exam was performed. No focal deficits. DIAGNOSTIC DATA: EKG revealed sinus bradycardia and first-degree AV block. No acute changes. IMPRESSION: 1. Atypical chest pain. No pain at the time of my evaluation. 2. Hypertension. 3. History of cerebrovascular accident with expressive aphasia. 4. Probable sick sinus syndrome with asymptomatic bradycardia. 5. Hyperlipidemia. 6. Type 2 diabetes mellitus. RECOMMENDATIONS: No intervention is necessary from a cardiac standpoint. I would add a small dose of Imdur. The heart rate when I examined her was faster at 91. I would recommend that we add metoprolol succinate 12.5 mg, hold if the heart rate is less than 60. Patient can be discharged any time. No further workup at this time is necessary. I discussed my thoughts in detail with the patient. Thank you very much for the consult. MMODL / IJN: [id number] /
[2024-02-22] MEDS ORDERED: ISOSORBIDE MONONITRATE ER 30 MG TAB.ER.24H PO SCH ×2 (09:00)
[2024-02-22] MEDS ORDERED: METOPROLOL SUCCINATE (ER) 25 MG TAB.ER.24H PO SCH (09:00)
--- NOTE | 2024-02-22 11:58 | CA ---
Transthoracic Echo Report Name: Carrie Rodarte Age: 88 Gender: F : 1935 Exam Date: 02/21/2024 11:09 Exam Location: [facility] Ht (in): 60 Wt (lb): 121 Ordering Physician: Richmond Mendiola MD Attending/Referring Phys: Web Content Director ML Procedure CPT: Indications: lvfunction Cardiac Hx: Technical Quality: Technically difficult study Contrast 1: Definity Total Dose (mL): 3 Contrast 2: Total Dose (mL): MEASUREMENTS (Male / Female) Normal Values 2D ECHO LV Diastolic Diameter PLAX 3.3 cm 4.2 - 5.9 / 3.9 - 5.3 cm LV Systolic Diameter PLAX 2.4 cm IVS Diastolic Thickness 0.8 cm 0.6 - 1.0 / 0.6 - 0.9 cm LVPW Diastolic Thickness 1.2 cm 0.6 - 1.0 / 0.6 - 0.9 cm LV Relative Wall Thickness 0.6 LVOT Diameter 2.2 cm Aortic Root Diameter 3.5 cm LA Systolic Diameter LX 3.4 cm 3.0 - 4.0 / 2.7 - 3.8 cm DOPPLER AV Peak Velocity 84.4 cm/s AV Peak Gradient 2.8 mmHg AV Mean Velocity 54.2 cm/s AV Mean Gradient 1.3 mmHg AV Velocity Time Integral 17.5 cm LVOT Peak Velocity 58.6 cm/s LVOT Peak Gradient 1.4 mmHg LVOT Velocity Time Integral 13.0 cm LVOT Stroke Volume 48.4 cm??? LVOT Stroke Volume Index 32.1 ml/m??? AV Area Cont Eq vti 2.8 cm??? AV Area Cont Eq pk 2.6 cm??? MV Area PHT 2.9 cm??? Mitral E Point Velocity 58.9 cm/s Mitral A Point Velocity 94.4 cm/s Mitral E to A Ratio 0.6 MV Deceleration Time 261.0 ms TR Peak Velocity 238.0 cm/s TR Peak Gradient 22.7 mmHg PV Peak Velocity 81.3 cm/s PV Peak Gradient 2.6 mmHg FINDINGS Left Ventricle Mildly increased posterior wall thickness. Mild concentric left ventricular hypertrophy. Normal left ventricular systolic function with no obvious regional wall motion abnormalities. Right Ventricle Normal right ventricular size and function. Right Atrium Normal right atrial size. Left Atrium Normal left atrial size. Mitral Valve Trace to mild mitral regurgitation. Aortic Valve No aortic valve stenosis or regurgitation. Tricuspid Valve Trace to mild tricuspid regurgitation. Pulmonic Valve No pulmonic regurgitation. Pericardium No pericardial effusion. Aorta Normal size aortic root and proximal ascending aorta. CONCLUSIONS Normal LV size with mild concentric LVH preserved contractility estimated ejection fraction of about 50-55%. Mild mitral and tricuspid regurgitation no pericardial effusion and no significant pulmonary hypertension Previewed by: Dr. Keira Charles MD (Electronically Signed) Final Date: 22 February 2024 11:57
== END 2024-02-21 16:25 ==
LOC: EC 11:18 → 6NMEDSUR 13:08
PROVIDERS: ADMIT Internal Medicine Geriatric Medicine; ATTEND Internal Medicine Geriatric Medicine
DX: R07.89 Other chest pain (principal); E11.9 Type 2 diabetes mellitus without complications; E87.5 Hyperkalemia; I69.320 Aphasia following cerebral infarction; I69.311 Memory deficit following cerebral infarction; I44.0 Atrioventricular block, first degree; R00.1 Bradycardia, unspecified; I10 Essential (primary) hypertension; R79.89 Other specified abnormal findings of blood chemistry; E03.9 Hypothyroidism, unspecified; G30.9 Alzheimer's disease, unspecified; F02.80 Dementia in other diseases classified elsewhere, unspecified severity, without behavioral disturbance, psychotic disturbance, mood disturbance, and anxiety; E46 Unspecified protein-calorie malnutrition; K21.9 Gastro-esophageal reflux disease without esophagitis; E78.5 Hyperlipidemia, unspecified; M48.00 Spinal stenosis, site unspecified; M81.0 Age-related osteoporosis without current pathological fracture; G89.29 Other chronic pain; M54.50 Low back pain, unspecified; M25.521 Pain in right elbow; R10.32 Left lower quadrant pain; M79.606 Pain in leg, unspecified; Z79.84 Long term (current) use of oral hypoglycemic drugs; Z79.890 Hormone replacement therapy; Z79.82 Long term (current) use of aspirin; Z79.899 Other long term (current) drug therapy; Z87.440 Personal history of urinary (tract) infections
CPT/HCPCS: 99285; 36415; 93005; 83880; 80061; 80053 ×2; 83735; 84484; 85025; 85027; 85610; 85730; 81001; 87086; 87077; 87186; 83036 ×2; 71046; G0378 ×2; C8929; Q9957; 93306

== ENCOUNTER → 2024-06-28 | Outpatient (CLI) | payer MEDICARE | END | disposition home or self-care (01) | LOC: LABPRL 12:30 | PROVIDERS: ATTEND Internal Medicine Geriatric Medicine | DX: N39.0 Urinary tract infection, site not specified (principal) | CPT/HCPCS: 87086 ==

== ENCOUNTER 2025-03-11 09:14 | Observation (INO) | payer MEDICARE ==
[2025-03-11 10:16] LABS: Basophils # (A) 0.03 10*3/uL (0.00-0.10); Basophils % (A) 0.3 %; Eosinophils # (A) 0.11 10*3/uL (0.04-0.35); Eosinophils % (A) 1.2 %; HCT 25.7 % (37.2-46.3); HGB 7.8 g/dL (12.0-15.0); Lymphocytes # (A) 1.02 10*3/uL (0.90-5.00); Lymphocytes % (A) 11.2 %; MCH 25.7 pg (27.0-32.0); MCHC 30.4 g/dL (32.0-37.0); MCV 84.5 fL (80.0-97.0); Mean Platelet Volume 9.9 fL (9.5-12.2); Monocytes # (A) 0.77 10*3/uL (0.20-1.00); Monocytes % (A) 8.5 %; Neutrophils # (A) 7.11 10*3/uL (1.80-7.70); Platelet Count 481 10*3/uL (140-440); RBC 3.04 10*6/uL (4.10-5.20); RDW 15.7 % (11.5-14.5); WBC 9.11 10*3/uL (4.50-10.00)
--- NOTE | 2025-03-11 10:21 | CT ---
EXAMINATION TYPE: CT brain wo con DATE OF EXAM: 03/11/2025 10:17 AM COMPARISON: None. CLINICAL INDICATION: Female, 89 years old with history of weakness, Weakness, failure to thrive, TECHNIQUE: Examination was done in axial plane without intravenous contrast. Coronal and sagittal r econstructions performed. CT DLP: 1111.4 mGycm, Automated exposure control for dose reduction was used. FINDINGS: There is no evidence of acute intracranial hemorrhage, acute ischemic changes, mass, mass-effect, or extra-axial fluid collection. There is no effacement of cerebral sulci or basal subarachnoid cister ns. There is moderate generalized supratentorial volume loss and mild ventricular prominence probably related to central cerebral atrophy. Moderate patchy white matter hypodensities are present in both cerebral hemispheres, largest areas anterior right frontal lobe and left subinsular region. There may be old bilateral cerebellar hemisphere wedge-shaped peripheral infarcts as well. There is no midlin e shift. Joshi-white matter distinction is preserved. Atherosclerotic calcifications within the bilateral carotid siphons. Paranasal sinuses and mastoid air cells are well pneumatized. Orbits and globes are intact. IMPRESSION: Moderate cerebral atrophy and moderate patchy burden of chronic small vessel ischemic disease. Suspec t old infarcts within the bilateral cerebellar hemispheres well. No acute intracranial abnormality se en. [facility], , 03/11/2025 10:18 AM
--- NOTE | 2025-03-11 10:28 | XR ---
EXAMINATION TYPE: XR chest 2V DATE OF EXAM: 03/11/2025 10:23 AM COMPARISON: None CLINICAL INDICATION: Female, 89 years old with history of Weakness, , TECHNIQUE: AP and lateral views FINDINGS: Low lung volumes with elevated hemidiaphragms obscuring some of the heart margins. Heart may be borde rline to mildly enlarged. Tortuous/ectatic appearing thoracic aorta. Appearance may be partially due to rightward patient rotation. No consolidation or pleural effusion along the visualized portions of the lungs. Bilateral chronic full-thickness rotator cuff tears. IMPRESSION: 1. Limited by hypoventilatory changes and elevated hemidiaphragms. Possible borderline to mild cardio megaly. No definite acute process seen. 2. Bilateral chronic full-thickness rotator cuff tears. [facility], Workstation: [email or web address], 03/11/2025 10:26 AM
[2025-03-11] MEDS: SODIUM CHLORIDE 0.9% 1,000 ML IV ONE (10:31)
[2025-03-11 10:32] LABS: INR 1.1 (<1.2); Partial Thromboplastin Time 23.9 sec (22.0-30.0); Prothrombin Time 11.9 sec (10.0-12.5)
[2025-03-11] MEDS: ONDANSETRON 4 MG/2 ML VIAL IVP STA (10:33)
[2025-03-11 10:38] LABS: ALT 13 U/L (4-34); AST 23 U/L (14-36); African American GFR (CKD) 76 (>60 ml/min/1.73 sqM); Albumin 3.6 g/dL (3.5-5.0); Alkaline Phosphatase 143 U/L (38-126); Anion Gap 12 mmol/L; Blood Urea Nitrogen 51 mg/dL (7-17); Calcium 9.9 mg/dL (8.4-10.2); Carbon Dioxide 25 mmol/L (22-30); Chloride 105 mmol/L (98-107); Glucose 245 mg/dL (74-99); Magnesium 2.4 mg/dL (1.6-2.3); Non-African American GFR(CKD) 66 (>60 ml/min/1.73 sqM); Potassium 4.5 mmol/L (3.5-5.1); Sodium 142 mmol/L (137-145); Total Bilirubin 0.5 mg/dL (0.2-1.3); Total Protein 7.5 g/dL (6.3-8.2)
[2025-03-11 11:17] LABS: Influenza A Not Detected (Not Detectd); Influenza B Not Detected (Not Detectd); RSV Not Detected (Not Detectd)
[2025-03-11 11:23] LABS: Appearance,Urine Cloudy (Clear); Bilirubin,Urine Negative (Negative); Blood,Urine Negative (Negative); Color,Urine Light Yellow; Glucose,Urine (UA) Negative (Negative); Ketones,Urine 1+ (Negative); Leukocyte Esterase,Urine Large (Negative); Nitrite,Urine Negative (Negative); PH, Urine 6.5 (5.0-8.0); Protein,Urine 1+ (Negative); RBC,Urine 7 /hpf (0-5); Squamous Epithelial Cell,Urine 1 /hpf (0-4); Urobilinogen,Urine <2.0 mg/dL (<2.0); WBC,Urine >182 /hpf (0-5)
[2025-03-11] MEDS: SODIUM CHLORIDE 0.9% 1,000 ML IV STA (12:41)
[2025-03-11] MEDS ORDERED: ONDANSETRON 4 MG/2 ML VIAL IVP PRN (12:47)
[2025-03-11] MEDS ORDERED: NALOXONE 0.4 MG/ML 1 ML VIAL IV PRN (12:47)
[2025-03-11] MEDS ORDERED: DEXTROSE 50% SYRINGE 50 ML IVP PRN ×2 (14:11)
--- NOTE | 2025-03-11 14:12 | P.HPIM ---
History of Present Illness H&P Date: 03/11/25 History of present illness; patient is a 89-year-old lady with past medical history significant for CVA who was brought to the ER because of poor oral intake and failure to thrive. Patient is a resident of [facility], apparently patient has not been eating much for the last couple of days. Patient also having nausea and is getting weak. There is no complaint of fever or chills at the facility. Denies any chest pain or shortness of breath at the facility. Initial lab work done in the ER showed WBC 9.1, hemoglobin 7.8, platelet count 481, sodium 142, potassium 4.5, BUN 15, creatinine 0.80, glucose 245 AST 23, ALT 13, UA done showed large amount of leukocyte Estrace, urine WBC 182 Influenza A not detected Influenza B not detected RSV not detected COVID-19 not detected Chest x-ray done in the ER showed cardiomegaly with no acute process CT head done showed moderate cerebral atrophy and moderate patchy burden of chronic small vessel ischemic disease. Suspect old infarcts within the bilater al cerebral hemispheres Patient admitted to internal medicine service REVIEW OF SYSTEMS: Review of system cannot be obtained as patient is refuses to talk PHYSICAL EXAMINATION: GENERAL: The patient is alert, ill looking HEENT: Pupils are round and equally reacting to light. EOMI. No scleral icterus. No conjunctival pallor. Normocephalic, atraumatic. No pharyngeal erythema. No thyromegaly. CARDIOVASCULAR: S1 and S2 present. No murmurs, rubs, or gallops. PULMONARY: Chest is clear to auscultation, no wheezing or crackles. ABDOMEN: Soft, nontender, nondistended, normoactive bowel sounds. No palpable organomegaly. MUSCULOSKELETAL: No joint swelling or deformity. EXTREMITIES: No cyanosis, clubbing, or pedal edema. NEUROLOGICAL: Gross neurological examination did not reveal any focal deficits. SKIN: No rashes. Assessment and plan Debility UTI History of prior CVA Diabetes mellitus history of hyperlipidemia History of hypertension Monitor vital signs Monitor CBC Monitor CMP Continue telemetry monitoring Ordered urine culture Follow-up on blood cultures Start IV Rocephin Resume home meds once verified Continue IV fluids Ordered IV Protonix Consult psychiatry Consult case management Labs and medication were reviewed.. Continue same treatment. Continue with symptomatic treatment. Resume home medication. Monitor labs and vitals. DVT and GI prophylaxis. Further recommendations as per clinical course of the patient Dictation was produced using [employer] dictation software. please excuse any grammatical, word or spelling errors. Past Medical History Past Medical History: CVA/TIA, Diabetes Mellitus, GERD/Reflux, Hypertension, Thyroid Disorder Additional Past Medical History / Comment(s): falls, spinal stenosis, dysphagia, wedge compression fracture fourth limbar vertebra History of Any Multi-Drug Resistant Organisms: None Reported Past Surgical History: Section Past Anesthesia/Blood Transfusion Reactions: No Reported Reaction Additional Past Anesthesia/Blood Transfusion Reaction / Comment(s): . Smoking Status: Unknown if ever smoked - Past Family History Mother Family Medical History: No Reported History Father Family Medical History: No Reported History Medications and Allergies Home Medications Medication Instructions Recorded Confirmed Type Ferrous Sulfate [Iron (65 MG 325 mg PO DAILY@0805/11/20 02/20/24 History Elemental)] Mirtazapine [Remeron] 15 mg PO HS 01/13/23 02/20/24 History lisinopriL [Zestril] 10 mg PO DAILY@0801/13/23 02/20/24 History sitaGLIPtin [Januvia] 50 mg PO DAILY@0801/13/23 02/20/24 History Acetaminophen Tab [Tylenol] 650 mg PO Q6HR PRN tab 05/10/23 02/20/24 Rx Aspirin 81 mg PO DAILY@0702/20/24 02/20/24 History Brinzolamide/Brimonidine Tart 1 drop BOTH EYES BID@0800,1700 02/20/24 02/20/24 History [Simbrinza 1%-0.2% Eye Drop] Ensure Enlive 120 ml PO BID@0800,1700 02/20/24 02/20/24 History Famotidine [Pepcid] 20 mg PO DAILY@0802/20/24 02/20/24 History HYDROcodone/APAP 5-325MG [[place] 1 tab PO Q6H PRN 02/20/24 02/20/24 History 5-325] Latanoprost [Latanoprost 0.005%] 1 drop BOTH EYES HS 02/20/24 02/20/24 History Levothyroxine Sodium [Synthroid] 25 mcg PO DAILY@0802/20/2424 History Magnesium Hydroxide [Milk of 7,200 mg PO DAILY PRN 02/20/24 02/20/24 History Magnesia Concentrate] Melatonin 1 mg PO HS PRN 02/20/24 02/20/24 History Na Phos,M-B/Na Phos,Di-Ba [Fleet 133 ml RECTAL DAILY PRN 02/20/24 02/20/24 His tory Adult] Sennosides/Docusate Sodium 1 tab PO BID@0800,1700 02/20/24 02/20/24 History [Senna-S 8.6-50 mg Tablet] Vit C/E/Zn/Coppr/Lutein/Zeaxan 1 cap PO BID@0800,1700 02/20/24 02/20/24 History [Preservision Areds 2 Softgel] bisacodyL [Dulcolax] 10 mg RECTAL DAILY PRN 02/20/24 02/20/24 History polyethylene glycoL 3350 [Miralax] 17 gm PO DAILY@0800 02/20/24 02/20/24 History Atorvastatin [Lipitor] 20 mg PO DAILY tab 02/21/24 Rx Nitroglycerin Sl Tabs [Nitrostat] 0.4 mg SUBLINGUAL Q5M PRN tab 02/21/24 Rx Acetaminophen [Tylenol] 650 mg PO Q6H PRN 03/11/25 03/11/25 History Aspirin 81 mg PO DAILY@0800 03/11/25 03/11/25 History Atorvastatin [Lipitor] 20 mg PO DAILY@1700 03/11/25 03/11/25 History Brinzolamide/Brimonidine Tart 1 drop BOTH EYES BID@0800,1700 03/11/25 03/11/25 History [Simbrinza 1%-0.2% Eye Drop] Ensure Enlive 120 - 237 ml PO TID@0800,1200,1700 03/11/25 03/11/25 History Famotidine [Pepcid] 20 mg PO DAILY@0800 03/11/25 03/11/25 History Ferrous Sulfate [Iron] 325 mg PO DAILY@0800 03/11/25 03/11/25 History INSULIN ASPART (NovoLOG) [NovoLOG See Protocol SQ ACHS 03/11/25 03/11/25 History (formulary)] Latanoprost [Latanoprost 0.005%] 1 drop BOTH EYES HS 03/11/25 03/11/25 History Levothyroxine Sodium [Synthroid] 25 mcg PO DAILY@0800 03/11/25 03/11/25 History Magnesium Hydroxide [Milk of 7,200 mg PO Q48H PRN 03/11/25 03/11/25 History Magnesia Concentrate] Metoprolol Succinate (ER) [Toprol 25 mg PO DAILY@0800 03/11/25 03/11/25 History Xl] Mirtazapine [Remeron] 30 mg PO HS@2100 03/11/25 03/11/25 History Na Phos,M-B/Na Phos,Di-Ba [Fleet 133 ml RECTAL DAILY PRN 03/11/25 03/11/25 History Adult] Nitroglycerin Sl Tabs [Nitrostat] 0.4 mg SUBLINGUAL Q5M PRN 03/11/25 03/11/25 History Sennosides/Docusate Sodium 1 tab PO BID@0800,1700 03/11/25 03/11/25 History [Senna-S 8.6-50 mg Tablet] Vit C/E/Zn/Coppr/Lutein/Zeaxan 1 cap PO BID@0800,1700 03/11/25 03/11/25 History [Preservision Areds 2 Softgel] bisacodyL [Dulcolax] 10 mg RECTAL DAILY PRN 03/11/25 03/11/25 History lisinopriL [Zestril] 10 mg PO DAILY@0800 03/11/25 03/11/25 History polyethylene glycoL 3350 [Miralax] 17 gm PO DAILY@0800 03/11/25 03/11/25 History sitaGLIPtin [Januvia] 100 mg PO DAILY@0800 03/11/25 03/11/25 History Allergies Allergy/AdvReac Type Severity Reaction Status Date / Time No Known Allergies Allergy Verified 03/11/25 13:28 Physical Exam Vitals: Vital Signs Temp Pulse Resp BP Pulse Ox 03/11/25 12:39 85 16 133/100 95 03/11/25 10:33 91 18 130/68 96 03/11/25 09:16 98.6 F 74 20 125/69 96 Intake and Output 03/10/25 03/11/25 03/11/25 22:59 06:59 14:59 Output Total 20 Balance -20 Output: Urine 20 Straight 20 Other: Weight 45.359 kg Results CBC & Chem 7: 03/11/25 09:58 03/11/25 09:58 Labs: Abnormal Lab Results - Last 24 Hours (Table) 03/11/25 03/11/25 03/11/25 Range/Units 09:58 09:58 11:04 RBC 3.04 L (4.10-5.20) 10*6/uL Hgb 7.8 L (12.0-15.0) g/dL Hct 25.7 L (37.2-46.3) % MCH 25.7 L (27.0-32.0) pg MCHC 30.4 L (32.0-37.0) g/dL Plt Count 481 H (140-440) 10*3/uL Immature Gran # 0.07 H (0.00-0.04) 10*3/uL BUN 51 H (7-17) mg/dL Glucose 245 H (74-99) mg/dL Magnesium 2.4 H (1.6-2.3) mg/dL Alkaline Phosphatase 143 H (38-126) U/L Urine Appearance Cloudy H (Clear) Urine Protein 1+ H (Negative) Urine Ketones 1+ H (Negative) Ur Leukocyte Esterase Large H (Negative) Urine RBC 7 H (0-5) /hpf Urine WBC >182 H (0-5) /hpf Urine WBC Clumps Few H (None) /hpf
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
[2025-03-11 17:49] LABS: Glucose,Whole Blood 176 mg/dL (70-110)
[2025-03-11] MEDS: INSULIN LISPRO (HumaLOG) 100 UNIT/ML 10 mL VL SQ SCH (17:57)
[2025-03-11 21:07] LABS: Glucose,Whole Blood 172 mg/dL (70-110)
[2025-03-12 05:53] LABS: Glucose,Whole Blood 172 mg/dL (70-110)
[2025-03-12 08:31] LABS: HCT 22.6 % (37.2-46.3); MCH 25.2 pg (27.0-32.0); MCHC 27.9 g/dL (32.0-37.0); MCV 90.4 FL (80.0-97.0); Mean Platelet Volume 9.8 FL (9.5-12.2); NRBC Per 100 WBC 0 X 10*3/uL (0.00-0.01); Platelet Count 424 X 10*3/uL (140-440); RDW 15.8 % (11.5-14.5); WBC 8.56 X 10*3/uL (4.50-10.00)
[2025-03-12 08:51] LABS: ALT 11 U/L (8-44); AST 21 U/L (13-35); Albumin 3.2 g/dL (3.8-4.9); Albumin/Globulin Ratio 0.91 Ratio (1.60-3.17); Alkaline Phosphatase 110 U/L (41-126); Blood Urea Nitrogen 33.6 mg/dL (9.0-27.0); Calcium 9.3 mg/dL (8.7-10.3); Carbon Dioxide 19.1 mmol/L (21.6-31.8); Chloride 110 mmol/L (96-109); Globulin 3.5 g/dL (1.6-3.3); Glucose 162 mg/dL (70-110); Potassium 4.8 mmol/L (3.5-5.5); Sodium 142 mmol/L (135-145); Total Bilirubin 0.2 mg/dL (0.3-1.2); Total Protein 6.7 g/dL (6.2-8.2)
--- NOTE | 2025-03-12 09:08 | P.CONS ---
History of Present Illness - Reason for Consult Consult date: 03/11/25 UTI Requesting physician: Yuniel Matos - Chief Complaint Altered mental status weakness x 1 day - History of Present Illness Patient is a 89-year-old -[place] female with a past medical history significant for CVA TIA diabetes mellitus reflux hypertension a group home resident patient has been sent to the hospital for evaluation of weakness decreased appetite and altered mental status from the local group home there is no clear history of any fever or any chills no choking on the food, nausea vomiting or diarrhea on presentation to the hospital the patient was afebrile and no fever have recorded subsequently patient was nontachycardic hypotensive or hypoxic patient did have a white count of 9.11 with a left shift creatinine was 0.80 urine has been positive with large leukocyte esterase more than 182 WBC influenza RSV COVID testing has been negative patient did have a chest x-ray bilateral chronic full-thickness rotator cuff tear cardiomegaly no acute pulmonary process patient has been diagnosed with a UTI started on ceftriaxone infectious disease was consulted for further management of antibiotic therapy on further questioning the daughter mentioned patient has been complaining of some lower abdominal/suprapubic pain mild intensity Review of Systems Positive point and negatives has been mentioned in the HPI, complete review of systems was performed and all other systems are negative Past Medical History Past Medical History: CVA/TIA, Diabetes Mellitus, GERD/Reflux, Hypertension, Thyroid Disorder Additional Past Medical History / Comment(s): falls, spinal stenosis, dysphagia, wedge compression fracture fourth limbar vertebra History of Any Multi-Drug Resistant Organisms: None Reported Past Surgical History: Section Past Anesthesia/Blood Transfusion Reactions: No Reported Reaction Additional Past Anesthesia/Blood Transfusion Reaction / Comm: . Smoking Status: Unknown if ever smoked - Past Family History Mother Family Medical History: No Reported History Father Family Medical History: No Reported History Medications and Allergies Home Medications Medication Instructions Recorded Confirmed Type Ferrous Sulfate [Iron (65 MG 325 mg PO DAILY@79905/11/20 02/20/24 History Elemental)] Mirtazapine [Remeron] 15 mg PO HS 01/13/23 02/20/24 History lisinopriL [Zestril] 10 mg PO DAILY@0800 01/13/23 02/20/24 History sitaGLIPtin [Januvia] 50 mg PO DAILY@79901/13/23 02/20/24 History Acetaminophen Tab [Tylenol] 650 mg PO Q6HR PRN tab 05/10/23 02/20/24 Rx Aspirin 81 mg PO DAILY@0700 02/20/24 02/20/24 History Brinzolamide/Brimonidine Tart 1 drop BOTH EYES BID@0800,1700 02/20/24 02/20/24 History [Simbrinza 1%-0.2% Eye Drop] Ensure Enlive 120 ml PO BID@0800,1700 02/20/24 02/20/24 History Famotidine [Pepcid] 20 mg PO DAILY@0800 02/20/24 02/20/24 History HYDROcodone/APAP 5-325MG [[place] 1 tab PO Q6H PRN 02/20/24 02/20/24 History 5-325] Latanoprost [Latanoprost 0.005%] 1 drop BOTH EYES HS 02/20/24 02/20/24 History Levothyroxine Sodium [Synthroid] 25 mcg PO DAILY@0800 02/20/24 02/20/24 History Magnesium Hydroxide [Milk of 7,200 mg PO DAILY PRN 02/20/24 02/20/24 History Magnesia Concentrate] Melatonin 1 mg PO HS PRN 02/20/24 02/20/24 History Na Phos,M-B/Na Phos,Di-Ba [Fleet 133 ml RECTAL DAILY PRN 02/20/24 02/20/24 History Adult] Sennosides/Docusate Sodium 1 tab PO BID@0800,1700 02/20/24 02/20/24 History [Senna-S 8.6-50 mg Tablet] Vit C/E/Zn/Coppr/Lutein/Zeaxan 1 cap PO BID@0800,1700 02/20/24 02/20/24 History [Preservision Areds 2 Softgel] bisacodyL [Dulcolax] 10 mg RECTAL DAILY PRN 02/20/24 02/20/24 History polyethylene glycoL 3350 [Miralax] 17 gm PO DAILY@0800 02/20/24 02/20/24 History Atorvastatin [Lipitor] 20 mg PO DAILY tab 02/21/24 Rx Nitroglycerin Sl Tabs [Nitrostat] 0.4 mg SUBLINGUAL Q5M PRN tab 02/21/24 Rx Acetaminophen [Tylenol] 650 mg PO Q6H PRN 03/11/25 03/11/25 History Aspirin 81 mg PO DAILY@0800 03/11/25 03/11/25 History Atorvastatin [Lipitor] 20 mg PO DAILY@1700 03/11/25 03/11/25 History Brinzolamide/Brimonidine Tart 1 drop BOTH EYES BID@0800,1700 03/11/25 03/11/25 History [Simbrinza 1%-0.2% Eye Drop] Ensure Enlive 120 - 237 ml PO TID@0800,1200,1700 03/11/25 03/11/25 History Famotidine [Pepcid] 20 mg PO DAILY@0800 03/11/25 03/11/25 History Ferrous Sulfate [Iron] 325 mg PO DAILY@0800 03/11/25 03/11/25 History INSULIN ASPART (NovoLOG) [NovoLOG See Protocol SQ ACHS 03/11/25 03/11/25 History (formulary)] Latanoprost [Latanoprost 0.005%] 1 drop BOTH EYES HS 03/11/25 03/11/25 History Levothyroxine Sodium [Synthroid] 25 mcg PO DAILY@0800 03/11/25 03/11/25 History Magnesium Hydroxide [Milk of 7,200 mg PO Q48H PRN 03/11/25 03/11/25 History Magnesia Concentrate] Metoprolol Succinate (ER) [Toprol 25 mg PO DAILY@0800 03/11/25 03/11/25 History Xl] Mirtazapine [Remeron] 30 mg PO HS@2100 03/11/25 03/11/25 History Na Phos,M-B/Na Phos,Di-Ba [Fleet 133 ml RECTAL DAILY PRN 03/11/25 03/11/25 History Adult] Nitroglycerin Sl Tabs [Nitrostat] 0.4 mg SUBLINGUAL Q5M PRN 03/11/25 03/11/25 History Sennosides/Docusate Sodium 1 tab PO BID@0800,1700 03/11/25 03/11/25 History [Senna-S 8.6-50 mg Tablet] Vit C/E/Zn/Coppr/Lutein/Zeaxan 1 cap PO BID@0800,1700 03/11/25 03/11/25 History [Preservision Areds 2 Softgel] bisacodyL [Dulcolax] 10 mg RECTAL DAILY PRN 03/11/25 03/11/25 History lisinopriL [Zestril] 10 mg PO DAILY@0800 03/11/25 03/11/25 History polyethylene glycoL 3350 [Miralax] 17 gm PO DAILY@0800 03/11/25 03/11/25 History sitaGLIPtin [Januvia] 100 mg PO DAILY@0800 03/11/25 03/11/25 History Allergies Allergy/AdvReac Type Severity Reaction Status Date / Time No Known Allergies Allergy Verified 03/11/25 13:28 Physical Exam Vitals: Vital Signs Temp Pulse Resp BP Pulse Ox 03/11/25 14:05 90 16 113/60 97 03/11/25 12:39 85 16 133/100 95 03/11/25 10:33 91 18 130/68 96 03/11/25 09:16 98.6 F 74 20 125/69 96 Intake and Output 03/10/25 03/11/25 03/11/25 22:59 06:59 14:59 Output Total 20 Balance -20 Output: Urine 20 Straight 20 Other: Weight 45.359 kg GENERAL DESCRIPTION: Elderly female lying in bed, no distress. No tachypnea or accessory muscle of respiration use. HEENT: Shows Pallor , no scleral icterus. Oral mucous membrane is dry. NECK: Trachea central, no thyromegaly. LUNGS: Unlabored breathing. Clear to auscultation anteriorly. HEART: S1, S2, regular rate and rhythm. No loud murmur ABDOMEN: Soft, mild suprapubic discomfort EXTREMITIES: No edema of feet. SKIN: No rash, no masses palpable. NEUROLOGICAL: The patient is awake, mood and affect normal. Results CBC & Chem 7: 03/13/25 06:49 03/13/25 06:49 Labs: Abnormal Lab Results - Last 24 Hours (Table) 03/11/25 03/11/25 03/11/25 Range/Units 09:58 09:58 11:04 RBC 3.04 L (4.10-5.20) 10*6/uL Hgb 7.8 L (12.0-15.0) g/dL Hct 25.7 L (37.2-46.3) % MCH 25.7 L (27.0-32.0) pg MCHC 30.4 L (32.0-37.0) g/dL Plt Count 481 H (140-440) 10*3/uL Immature Gran # 0.07 H (0.00-0.04) 10*3/uL BUN 51 H (7-17) mg/dL Glucose 245 H (74-99) mg/dL Magnesium 2.4 H (1.6-2.3) mg/dL Alkaline Phosphatase 143 H (38-126) U/L Urine Appearance Cloudy H (Clear) Urine Protein 1+ H (Negative) Urine Ketones 1+ H (Negative) Ur Leukocyte Esterase Large H (Negative) Urine RBC 7 H (0-5) /hpf Urine WBC >182 H (0-5) /hpf Urine WBC Clumps Few H (None) /hpf Assessment and Plan (1) Altered mental status Current Visit: Yes Status: Acute Code(s): R41.82 - ALTERED MENTAL STATUS, UNSPECIFIED SNOMED Code(s): 874633862 (2) UTI (urinary tract infection) Current Visit: Yes Status: Acute Code(s): N39.0 - URINARY TRACT INFECTION, SITE NOT SPECIFIED SNOMED Code(s): 84971931 Plan: 1patient has been brought to the hospital with altered mental status decreased appetite suprapubic pain and discomfort positive UA white count with a left shift concerning for symptomatic UTI likely from enteric gram-negative pathogen. 2patient will be treated with Rocephin while waiting for the culture to finalize. Daughter at the bedside question concern answered. We will follow on clinical condition and cultures to further adjust medication if needed Thank you for this consultation we will follow the patient along with you Dictation was produced using [employer] dictation software. please excuse any grammatical, word or spelling errors. Time with Patient: Greater than 30
[2025-03-12 09:09] LABS: Basophils # (A) 0.03 X 10*3/uL (0.00-0.10); Basophils % (A) 0.4 %; Eosinophils # (A) 0.13 X 10*3/uL (0.04-0.35); Eosinophils % (A) 1.5 %; HGB 6.3 g/dL (12.0-15.0); Lymphocytes # (A) 1.06 X 10*3/uL (0.90-5.00); Lymphocytes % (A) 12.4 %; Monocytes # (A) 0.88 X 10*3/uL (0.20-1.00); Monocytes % (A) 10.3 %; Neutrophils # (A) 6.39 X 10*3/uL (1.80-7.70); Neutrophils % (A) 74.6 %
[2025-03-12] MEDS: PANTOPRAZOLE 40 MG/10 ML VIAL IV SCH (11:01)
[2025-03-12] MEDS: cefTRIAXone 2 GM in DEXTROSE 5% IN WATER 50 ML IVPB SCH (11:19)
--- NOTE | 2025-03-12 11:46 | P.CNNES ---
History of Present Illness Consult date: 03/12/25 Requesting physician: Richard Duran Reason for Consult: AMS, possible depression vs. UTI History of Present Illness: Patient is 89-year-old female came to the hospital by ambulance yesterday at 9:14 AM for altered mental status. Patient not able to provide any history. As per EMS flowsheet, when they arrived, found patient in care of the staff. Per staff, patient has been declining for the last several days and has had decreased intake of food and water. Patient has increase in lethargy as well. Patient was awake, unable to verbally communicate, past history of CVA. Patient appeared comfortable in no obvious distress. Patient's vitals at the scene was blood pressure 130/67, pulse rate 91, respiration 20, saturation 100%. Blood sugar 319. Blood test shows normal WBC hemoglobin 7.8, platelets 481. PT PTT normal, electrolytes normal, BUN 51, creatinine 0.80. Hepatic panel is normal, UA shows large amount of leukocyte Estrace. Influenza, RSV and coronavirus PCR negative. Lactate was normal. Repeat hemoglobin is further lower 6.3. Chest x-ray showed limited by hypoventilatory changes and elevated hemidiaphragms. Possible borderline to mild cardiomegaly. No definite acute process. Bilateral chronic full-thickness rotator cuff tears. EKG showed sinus rhythm. CT head showed moderate cerebral atrophy and moderate patchy burden of chronic small vessel ischemic disease. Suspect old infarcts within the bilateral cerebellar hemispheres. No acute intracranial process. I personally reviewed CT head, agree with the findings. No acute findings. The cerebellar encephalomalacia was present at the previous brain scanning as well. Home medications include lisinopril, Januvia, Lipitor 40 mg 20 mg, aspirin 81 mg, levothyroxine, mirtazapine, metoprolol, Pepcid. Patient has been seen by myself on 01/16/2023 for right leg weakness and status post fall due to losing balance. Patient does have poor balance at baseline. Patient also had headaches, blurred vision, history of CVA in the past, B12 deficiency, diabetes. Patient at present admits to having some headache "little bit". Denies any chest pain. Please refer to examination below. Patient states that she has not walked for 2 to 3 months and is in a wheelchair. Review of Systems Difficult to understand because of speech difficulty. Other review of system mentioned in HPI. ROS unobtainable: due to mental status Past Medical History Past Medical History: CVA/TIA, Diabetes Mellitus, GERD/Reflux, Hypertension, Thyroid Disorder Additional Past Medical History / Comment(s): falls, spinal stenosis, dysphagia, wedge compression fracture fourth limbar vertebra History of Any Multi-Drug Resistant Organisms: None Reported Past Surgical History: Section Past Anesthesia/Blood Transfusion Reactions: No Reported Reaction Additional Past Anesthesia/Blood Transfusion Reaction / Comment(s): . Smoking Status: Unknown if ever smoked - Past Family History Mother History Unknown: Yes Family Medical History: No Reported History Father History Unknown: Yes Family Medical History: No Reported History Medications and Allergies Home Medications Medication Instructions Recorded Confirmed Type Ferrous Sulfate [Iron (65 MG 325 mg PO DAILY@0805/11/20 02/20/24 History Elemental)] Mirtazapine [Remeron] 15 mg PO HS 01/13/23 02/20/24 History lisinopriL [Zestril] 10 mg PO DAILY@0801/13/23 02/20/24 History sitaGLIPtin [Januvia] 50 mg PO DAILY@0800 01/13/23 02/20/24 History Acetaminophen Tab [Tylenol] 650 mg PO Q6HR PRN tab 05/10/23 02/20/24 Rx Aspirin 81 mg PO DAILY@0702/20/24 02/20/24 History Brinzolamide/Brimonidine Tart 1 drop BOTH EYES BID@0800,1700 02/20/24 02/20/24 History [Simbrinza 1%-0.2% Eye Drop] Ensure Enlive 120 ml PO BID@0800,1700 02/20/24 02/20/24 History Famotidine [Pepcid] 20 mg PO DAILY@0800 02/20/24 02/20/24 History HYDROcodone/APAP 5-325MG [[place] 1 tab PO Q6H PRN 02/20/24 02/20/24 History 5-325] Latanoprost [Latanoprost 0.005%] 1 drop BOTH EYES HS 02/20/24 02/20/24 History Levothyroxine Sodium [Synthroid] 25 mcg PO DAILY@0800 02/20/24 02/20/24 History Magnesium Hydroxide [Milk of 7,200 mg PO DAILY PRN 02/20/24 02/20/24 History Magnesia Concentrate] Melatonin 1 mg PO HS PRN 02/20/24 02/20/24 History Na Phos,M-B/Na Phos,Di-Ba [Fleet 133 ml RECTAL DAILY PRN 02/20/24 02/20/24 History Adult] Sennosides/Docusate Sodium 1 tab PO BID@0800,1700 02/20/24 02/20/24 History [Senna-S 8.6-50 mg Tablet] Vit C/E/Zn/Coppr/Lutein/Zeaxan 1 cap PO BID@0800,1700 02/20/24 02/20/24 History [Preservision Areds 2 Softgel] bisacodyL [Dulcolax] 10 mg RECTAL DAILY PRN 02/20/24 02/20/24 History polyethylene glycoL 3350 [Miralax] 17 gm PO DAILY@0800 02/20/24 02/20/24 History Atorvastatin [Lipitor] 20 mg PO DAILY tab 02/21/24 Rx Nitroglycerin Sl Tabs [Nitrostat] 0.4 mg SUBLINGUAL Q5M PRN tab 02/21/24 Rx Acetaminophen [Tylenol] 650 mg PO Q6H PRN 03/11/25 03/11/25 History Aspirin 81 mg PO DAILY@0800 03/11/25 03/11/25 History Atorvastatin [Lipitor] 20 mg PO DAILY@1700 03/11/25 03/11/25 History Brinzolamide/Brimonidine Tart 1 drop BOTH EYES BID@0800,1700 03/11/25 03/11/25 History [Simbrinza 1%-0.2% Eye Drop] Ensure Enlive 120 - 237 ml PO TID@0800,1200,1700 03/11/25 03/11/25 History Famotidine [Pepcid] 20 mg PO DAILY@0800 03/11/25 03/11/25 History Ferrous Sulfate [Iron] 325 mg PO DAILY@0800 03/11/25 03/11/25 History INSULIN ASPART (NovoLOG) [NovoLOG See Protocol SQ ACHS 03/11/25 03/11/25 History (formulary)] Latanoprost [Latanoprost 0.005%] 1 drop BOTH EYES HS 03/11/25 03/11/25 History Levothyroxine Sodium [Synthroid] 25 mcg PO DAILY@0800 03/11/25 03/11/25 History Magnesium Hydroxide [Milk of 7,200 mg PO Q48H PRN 03/11/25 03/11/25 History Magnesia Concentrate] Metoprolol Succinate (ER) [Toprol 25 mg PO DAILY@0800 03/11/25 03/11/25 History Xl] Mirtazapine [Remeron] 30 mg PO HS@2100 03/11/25 03/11/25 History Na Phos,M-B/Na Phos,Di-Ba [Fleet 133 ml RECTAL DAILY PRN 03/11/25 03/11/25 H istory Adult] Nitroglycerin Sl Tabs [Nitrostat] 0.4 mg SUBLINGUAL Q5M PRN 03/11/25 03/11/25 H istory Sennosides/Docusate Sodium 1 tab PO BID@0800,1700 03/11/25 03/11/25 History [Senna-S 8.6-50 mg Tablet] Vit C/E/Zn/Coppr/Lutein/Zeaxan 1 cap PO BID@0800,1700 03/11/25 03/11/25 History [Preservision Areds 2 Softgel] bisacodyL [Dulcolax] 10 mg RECTAL DAILY PRN 03/11/25 03/11/25 History lisinopriL [Zestril] 10 mg PO DAILY@0800 03/11/25 03/11/25 History polyethylene glycoL 3350 [Miralax] 17 gm PO DAILY@0800 03/11/25 03/11/25 History sitaGLIPtin [Januvia] 100 mg PO DAILY@0800 03/11/25 03/11/25 History Allergies Allergy/AdvReac Type Severity Reaction Status Date / Time No Known Allergies Allergy Verified 03/11/25 13:28 Physical Examination - Vital Signs Vital Signs: Vital Signs Temp Pulse Pulse Resp BP BP Pulse Ox 03/12/25 07:00 98.9 F 91 16 131/74 99 03/12/25 02:40 98.4 F 89 17 159/82 97 03/11/25 23:50 98.2 F 78 16 153/80 98 03/11/25 21:52 81 16 139/70 95 03/11/25 14:05 90 16 113/60 97 03/11/25 12:39 85 16 133/100 95 Intake and Output 03/11/25 03/12/25 03/12/25 22:59 06:59 14:59 Other: Voiding Method Diaper Diaper External Catheter External Catheter # Voids 0 Weight 45.359 kg Patient is an elderly Afro-Australian female, who is laying in the bed, in no acute distress. Patient appears somewhat thin build/malnutrition. Patient is alert awake. Patient speaks in very low volume, whispering tone, and she rolls her tongue while talking almost like tardive dyskinesia. Very difficult to understand, but she does express her answers. Patient was able to tell me her name and age which I guessed was 89. She knows she is in [place] in the hospital but does not know the name. Patient states it is February and the year is 2023. Patient was able to name all objects presented like eyeglasses, pen, knuckles and was able to repeat. No aphasia or dysarthria. Attention, concentration is intact and fund of knowledge is limited. Detailed cognitive function testing deferred. On cranial nerve examination, pupils are equal, round and reacting to light, visual grewal are full on confrontation, with no neglect on double simultaneous stimulation. Extraocular muscles are intact with no nystagmus. Face is symmetric, tongue protrudes to the midline. Palatal elevation and sensation normal, hearing and shoulder shrug normal, facial sensation normal. 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 Deltoids are 4+, likely from bilateral rotator cuff tears. In the lower limbs, hip flexion is 3+ but ankle dorsiflexion are normal. Deep tendon reflexes are symmetric 1+ in the upper limbs at biceps and brachioradialis, absent in the lower limbs and plantars are downgoing bilaterally. Sensory to touch is equal with no neglect on double simultaneous stimulation. Cerebellar function showed no ataxia for [id number] testing. No ataxia for [id number] testing on either side. Tone and bulk of muscles normal. Gait deferred.. On general examination, there is no carotid bruit or murmur, S1-S2 audible. Chest is clear on consultation. Abdomen is soft nontender. No organomegaly, bowel sounds present. Peripheral pulses are present. No peripheral edema. Results - Laboratory Findings CBC and BMP: 03/12/25 05:01 03/12/25 05:01 Abnormal Lab Findings: Abnormal Labs 03/11/25 03/11/25 03/11/25 09:58 09:58 09:58 RBC 3.04 L Hgb 7.8 L Hct 25.7 L MCH 25.7 L MCHC 30.4 L RDW Plt Count 481 H Immature Gran # 0.07 H Chloride Carbon Dioxide Anion Gap BUN 51 H BUN/Creatinine Ratio Glucose 245 H POC Glucose (mg/dL) Hemoglobin A1c 7.2 H Magnesium 2.4 H Total Bilirubin Alkaline Phosphatase 143 H Albumin Globulin Albumin/Globulin Ratio Urine Appearance Urine Protein Urine Ketones Ur Leukocyte Esterase Urine RBC Urine WBC Urine WBC Clumps Crossmatch 03/11/25 03/11/25 03/11/25 11:04 17:48 21:05 RBC Hgb Hct MCH MCHC RDW Plt Count Immature Gran # Chloride Carbon Dioxide Anion Gap BUN BUN/Creatinine Ratio Glucose POC Glucose (mg/dL) 176 H 172 H Hemoglobin A1c Magnesium Total Bilirubin Alkaline Phosphatase Albumin Globulin Albumin/Globulin Ratio Urine Appearance Cloudy H Urine Protein 1+ H Urine Ketones 1+ H Ur Leukocyte Esterase Large H Urine RBC 7 H Urine WBC >182 H Urine WBC Clumps Few H Crossmatch 03/12/25 03/12/25 03/12/25 05:01 05:01 05:51 RBC 2.50 L Hgb 6.3 A* Hct 22.6 L MCH 25.2 L MCHC 27.9 L RDW 15.8 H Plt Count Immature Gran # 0.07 H Chloride 110 H Carbon Dioxide 19.1 L Anion Gap 12.90 H BUN 33.6 H BUN/Creatinine Ratio 56.00 H Glucose 162 H POC Glucose (mg/dL) 172 H Hemoglobin A1c Magnesium Total Bilirubin 0.2 L Alkaline Phosphatase Albumin 3.2 L Globulin 3.5 H Albumin/Globulin Ratio 0.91 L Urine Appearance Urine Protein Urine Ketones Ur Leukocyte Esterase Urine RBC Urine WBC Urine WBC Clumps Crossmatch 03/12/25 09:06 RBC Hgb Hct MCH MCHC RDW Plt Count Immature Gran # Chloride Carbon Dioxide Anion Gap BUN BUN/Creatinine Ratio Glucose POC Glucose (mg/dL) Hemoglobin A1c Magnesium Total Bilirubin Alkaline Phosphatase Albumin Globulin Albumin/Globulin Ratio Urine Appearance Urine Protein Urine Ketones Ur Leukocyte Esterase Urine RBC Urine WBC Urine WBC Clumps Crossmatch See Detail Assessment and Plan Assessment: * Altered mental status, likely due to metabolic encephalopathy. * Probable underlying cognitive impairment. * Abnormal speech, with whispering/hoarse voice, unclear cause. * Repetitive tongue rolling while talking, rule out tardive dyskinesia. * History of B12 deficiency * Anemia * Diabetes * Hypertension * History of cerebellar CVA * History of headaches Plan: * Check EEG evaluate for encephalopathy * B12, folate, MMA, B6 * Patient had thyroid functions checked on 02/14/2025, in which TSH was <0.015 and free T4 normal 1.36. We will defer to IM. * Hemoglobin A1c 7.2 on 03/11/2025. Recommend optimize control of diabetes to target A1c <7.0. * Patient currently on ceftriaxone for possible UTI. * Continue aspirin 81 mg and Lipitor 20 mg. * Regarding hoarse/whispering voice, consider ENT consultation. * Patient also receiving blood for severe anemia. * Neurology will follow clinically. Thank you for the consult.
[2025-03-12 12:26] LABS: Glucose,Whole Blood 183 mg/dL (70-110)
[2025-03-12] MEDS: ASPIRIN 81 MG PO SCH (13:42)
--- NOTE | 2025-03-12 13:59 | P.CN ---
Psychiatric Consult - . Consult date: 03/12/25 Consult:: 03/12/25 13:51 IDENTIFYING DATA: This patient is a 89-year-old female, retired and living in half-way REASON FOR REFERRAL: Psychiatry was consulted for depression per family HISTORY OF PRESENT ILLNESS: The patient presented to the hospital with weakness. Patient reportedly has been exhibiting decreased appetite for the past several weeks at her nursing facility. CT head revealed moderate cerebral atrophy with old infarcts within bilateral cerebellar hemispheres. Patient was recently prescribed Remeron 30 mg at bedtime however this has been held during this admission. Patient seen and evaluated with her daughter Rashaad and son-in-law present at bedside to which patient agreed to speak with them in the room. Patient is nonverbal due to a prior CVA however is able to follow commands and understand what is told to her. At this time patient denies any suicidal or homicidal ideations, intent or plan. Patient denies any auditory, visual hallucinations and denies any paranoia or delusions. Patient's daughter mentioned for the past year, patient's appetite has been declining, stating patient never had a robust appetite to begin with as she has always been pretty thin however it has worsened. Daughter denies any past psychiatric history and states that patient is very sensitive to medications and prefers to have a washout period and start fresh to see if the mirtazapine is even needed. Patient denied any anhedonia, low energy or mood however did express poor appetite with questionable sleep difficulties. PAST PSYCHIATRIC HISTORY: Patient has no past psych history. Patient is currently on Remeron 30 mg at bedtime. Patient denies any previous psychiatric hospitalizations. Patient denies any psychiatric outpatient follow-up. Patient denies any history of suicide attempts in the past. PAST MEDICAL HISTORY: CVA, diabetes mellitus, GERD, hypertension, thyroid disorder. ALLERGIES: as per EMR. CHEMICAL DEPENDENCY HISTORY: as per HPI. FAMILY PSYCHIATRIC/SUBSTANCE USE HISTORY: Denies SOCIAL HISTORY: Patient is currently living in a half-way and has 4 kids, retired. MENTAL STATUS EXAM: General Appearance: Patient appears to be stated age is alert, and cooperative. Patient appears to have fair hygiene and grooming wearing hospital gown with fair eye contact. Behavior: Patient is calmly lying in bed without any agitated behavior. Speech: Patient's speech is fluent and nonpressured. Mood/Affect: Patient reports their mood is stable, affect is congruent Suicidality/Homicidality: Patient denies having any suicidal or homicidal ideation intent or plan. Perceptions: Patient denies any visual hallucinations and denies any auditory hallucinations Though content/process: There is no evidence of any delusional thought content and thought process is linear. Judgment and insight: Fair IMPRESSIONS: Unspecified mood disorder PLAN: -At this time patient DOES NOT meet criteria for inpatient psychiatric admission. -Would recommend the following medication changes/additions: Continue holding Remeron 30 mg at bedtime per family and patient request. Advised family to keep a close eye on patient to see if there is any worsening in mood symptoms however patient is currently not exhibiting any acute safety concerns -Psychiatry will sign off at this time -Please contact with any questions.
[2025-03-12 17:26] LABS: Glucose,Whole Blood 141 mg/dL (70-110)
[2025-03-12 17:56] VITALS: BMI 17.6
[2025-03-12 21:27] LABS: Glucose,Whole Blood 151 mg/dL (70-110)
[2025-03-12] MEDS: ATORVASTATIN 20 MG TAB PO SCH (21:27)
--- NOTE | 2025-03-12 23:01 | P.PN ---
Subjective Progress Note Date: 03/12/25 History of present illness; patient is a 89-year-old lady with past medical history significant for CVA who was brought to the ER because of poor oral intake and failure to thrive. Patient is a resident of [facility], apparently patient has not been eating much for the last couple of days. Patient also bee ving nausea and is getting weak. There is no complaint of fever or chills at the facility. Denies any chest pain or shortness of breath at the facility. Initial lab work done in the ER showed WBC 9.1, hemoglobin 7.8, platelet count 481, sodium 142, potassium 4.5, BUN 15, creatinine 0.80, glucose 245 AST 23, ALT 13, UA done showed large amount of leukocyte Estrace, urine WBC 182 Influenza A not detected Influenza B not detected RSV not detected COVID-19 not detected Chest x-ray done in the ER showed cardiomegaly with no acute process CT head done showed moderate cerebral atrophy and moderate patchy burden of chronic small vessel ischemic disease. Suspect old infarcts within the bilateral cerebral hemispheres Patient admitted to internal medicine service 03/12/2025 Patient is seen in follow-up this morning with family at the bedside. Patient being evaluated by neurology along with infectious disease and psychiatry. Medications being held including Remeron per psychiatry and family request as they report she has too many side effects and complications on this medication. Patient has no appetite and reports does not feel hungry and is not eating very much. Patient is continued on IV antibiotics in the form of ceftriaxone with infectious disease following with preliminary urine culture showing gram- negative bacilli. Patient is afebrile denies any chest pain or shortness of b reath. Patient denies nausea or vomiting. Hemoglobin low at 6.3 today and 1 unit of PRBCs ordered. Family reports she does have history of anemia and patient reports she takes iron supplements daily normally. Will order TIBC, ferritin, iron studies for further evaluation. Patient resides at [facility] and will be returning there on discharge. REVIEW OF SYSTEMS: Not able to fully assess as patient is nodding yes and no but is somewhat still nonverbal PHYSICAL EXAMINATION: GENERAL: The patient is an 89-year-old female who is awake, alert and oriented x 2, baseline, ill looking, elderly looking, thin built, muscle wasting noted HEENT: Pupils are round and equally reacting to light. EOMI. No scleral icterus. No conjunctival pallor. Normocephalic, atraumatic. No pharyngeal erythema. No t hyromegaly. CARDIOVASCULAR: S1 and S2 muffled PULMONARY: Diminished breath sounds bilaterally otherwise chest is clear to auscultation, no wheezing or crackles. ABDOMEN: Soft, nontender, nondistended, normoactive bowel sounds. No palpable organomegaly. MUSCULOSKELETAL: No joint swelling or deformity. EXTREMITIES: No cyanosis, clubbing, or pedal edema. NEUROLOGICAL: Gross neurological examination did not reveal any focal deficits. Diffusely weak SKIN: No rashes. Assessment: Debility with generalized weakness and progressively becoming more weak over the last few months Acute UTI, present on admission with preliminary culture showing gram-negative bacilli History of prior CVA Diabetes mellitus type II, uncontrolled with hyper and hypoglycemia history of hyperlipidemia History of hypertension care home resident Severe protein calorie malnutrition with a BMI of 17.7 GI prophylaxis DVT prophylaxis Full code Plan: Multiple consultations including neurology, psychiatry, infectious disease following patient is continued on ceftriaxone while awaiting cultures to finalize. Preliminary culture showing gram-negative bacilli Patient has been evaluated by neurology undergoing further workup Psychiatry consulted and has evaluated the patient and appreciate input recommendations Patient is a resident at [facility] and will be returning there on discharge. Case management/social work following working on discharge planning Encourage supplements and/or small frequent meals as patient has no real appetite and is not eating much Dietary consult Will follow-up on repeat labs The impression and plan of care has been dictated by Francine Hill, Nurse Practitioner as directed. Dr. Daisha MD I have performed a history and examination and MDM of this patient, discussed the same with the dictator, and agree with the dictator's assessment and plan as written ,documented as a scribe. Based on total visit time, I have performed more than 50% of the visit. Objective - Vital Signs Vital signs: Vital Signs Temp 98.9 F 03/12/25 07:00 Pulse 91 03/12/25 07:00 Resp 16 03/12/25 07:00 BP 131/74 03/12/25 07:00 Pulse Ox 99 03/12/25 07:00 FiO2 Intake & Output 03/11/25 03/12/25 03/12/25 18:59 06:59 18:59 Output Total 20 Balance -20 Weight 45.359 kg 45.359 kg Output: Urine 20 Straight 20 Other: Voiding Method Diaper Diaper External Catheter External Catheter # Voids 0 - Labs CBC & Chem 7: 03/12/25 05:01 03/12/25 05:01 Labs: Abnormal Lab Results - Last 24 Hours (Table) 03/11/25 03/11/25 03/11/25 Range/Units 09:58 17:48 21:05 RBC (4.10-5.20) X 10*6/uL Hgb (12.0-15.0) g/dL Hct (37.2-46.3) % MCH (27.0-32.0) pg MCHC (32.0-37.0) g/dL RDW (11.5-14.5) % Immature Gran # (0.00-0.04) X 10*3/uL Chloride (96-109) mmol/L Carbon Dioxide (21.6-31.8) mmol/L Anion Gap (4.00-12.00) mmol/L BUN (9.0-27.0) mg/dL BUN/Creatinine Ratio (12.00-20.00) Ratio Glucose (70-110) mg/dL POC Glucose (mg/dL) 176 H 172 H (70-110) mg/dL Hemoglobin A1c 7.2 H (<=6.0) % Total Bilirubin (0.3-1.2) mg/dL Albumin (3.8-4.9) g/dL Globulin (1.6-3.3) g/dL Albumin/Globulin Ratio (1.60-3.17) Ratio Crossmatch 03/12/25 03/12/25 03/12/25 Range/Units 05:01 05:01 05:51 RBC 2.50 L (4.10-5.20) X 10*6/uL Hgb 6.3 A* (12.0-15.0) g/dL Hct 22.6 L (37.2-46.3) % MCH 25.2 L (27.0-32.0) pg MCHC 27.9 L (32.0-37.0) g/dL RDW 15.8 H (11.5-14.5) % Immature Gran # 0.07 H (0.00-0.04) X 10*3/uL Chloride 110 H (96-109) mmol/L Carbon Dioxide 19.1 L (21.6-31.8) mmol/L Anion Gap 12.90 H (4.00-12.00) mmol/L BUN 33.6 H (9.0-27.0) mg/dL BUN/Creatinine Ratio 56.00 H (12.00-20.00) Ratio Glucose 162 H (70-110) mg/dL POC Glucose (mg/dL) 172 H (70-110) mg/dL Hemoglobin A1c (<=6.0) % Total Bilirubin 0.2 L (0.3-1.2) mg/dL Albumin 3.2 L (3.8-4.9) g/dL Globulin 3.5 H (1.6-3.3) g/dL Albumin/Globulin Ratio 0.91 L (1.60-3.17) Ratio Crossmatch 03/12/25 Range/Units 09:06 RBC (4.10-5.20) X 10*6/uL Hgb (12.0-15.0) g/dL Hct (37.2-46.3) % MCH (27.0-32.0) pg MCHC (32.0-37.0) g/dL RDW (11.5-14.5) % Immature Gran # (0.00-0.04) X 10*3/uL Chloride (96-109) mmol/L Carbon Dioxide (21.6-31.8) mmol/L Anion Gap (4.00-12.00) mmol/L BUN (9.0-27.0) mg/dL BUN/Creatinine Ratio (12.00-20.00) Ratio Glucose (70-110) mg/dL POC Glucose (mg/dL) (70-110) mg/dL Hemoglobin A1c (<=6.0) % Total Bilirubin (0.3-1.2) mg/dL Albumin (3.8-4.9) g/dL Globulin (1.6-3.3) g/dL Albumin/Globulin Ratio (1.60-3.17) Ratio Crossmatch See Detail
--- NOTE | 2025-03-13 02:55 | EEG ---
ELECTROENCEPHALOGRAM REPORT PREAMBLE: This is an 89-year-old female with altered mental status. EEG FINDINGS: This is a 21-channel digital EEG recorded with video component, utilizing 10/20 international system with referential and bipolar montages. Background consists of well developed, well regulated moderate voltage activity in 9 hertz alpha. Background is posterior dominant and reactive to eye opening and closing. Intermittent dysrhythmic mixed low amplitude theta and some delta activity was seen in bilateral temporal region. Drowsiness was seen, but deeper stages of sleep were not seen. No focal or generalized epileptiform activity was seen. Photic driving response was not seen. IMPRESSION: This is an abnormal EEG due to intermittent dysrhythmic slowing in bitemporal region, suggestive of focal cortical neuronal dysfunction. No focal or generalized epileptiform activity was seen. MMODL / IJN: [id number] /
[2025-03-13 05:53] LABS: Glucose,Whole Blood 112 mg/dL (70-110)
[2025-03-13 07:10] LABS: Basophils # (A) 0.03 10*3/uL (0.00-0.10); Basophils % (A) 0.3 %; Eosinophils # (A) 0.21 10*3/uL (0.04-0.35); Eosinophils % (A) 2.3 %; HGB 9.1 g/dL (12.0-15.0); Lymphocytes # (A) 1.34 10*3/uL (0.90-5.00); Lymphocytes % (A) 14.5 %; MCH 26.4 pg (27.0-32.0); MCHC 30.3 g/dL (32.0-37.0); Mean Platelet Volume 9.1 fL (9.5-12.2); Monocytes # (A) 0.93 10*3/uL (0.20-1.00); Neutrophils # (A) 6.67 10*3/uL (1.80-7.70); Platelet Count 332 10*3/uL (140-440); RBC 3.45 10*6/uL (4.10-5.20); RDW 15.3 % (11.5-14.5); WBC 9.26 10*3/uL (4.50-10.00)
[2025-03-13 10:43] LABS: % Iron Saturation 6.92 (12.00-45.00); Blood Urea Nitrogen 24.5 mg/dL (9.0-27.0); Calcium 9.6 mg/dL (8.7-10.3); Carbon Dioxide 17.5 mmol/L (21.6-31.8); Chloride 110 mmol/L (96-109); Ferritin 69.4 ng/mL (10.0-291.0); Glucose 115 mg/dL (70-110); Iron 18 UG/DL (50-170); Potassium 4.3 mmol/L (3.5-5.5); Sodium 142 mmol/L (135-145); Total Iron Binding Capacity 260 UG/DL (228-460)
[2025-03-13 11:55] LABS: Glucose,Whole Blood 99 mg/dL (70-110)
--- NOTE | 2025-03-13 13:57 | P.PN ---
Subjective Progress Note Date: 03/12/25 Principal diagnosis: Reason for follow-up is a UTI Patient is a 89-year-old -French female with a past medical history significant for CVA TIA diabetes mellitus reflux hypertension a custodial resident patient has been sent to the hospital for evaluation of weakness decreased appetite and altered mental status patient did have some suprapubic discomfort, positive UA concerning for UTI. On today's evaluation that is 03/12/2025,the patient remains to be afebrile, p atient is on room air not requiring supplemental oxygen, the patient slightly more awake today but not a very good historian no vomiting or diarrhea has been reported. Patient did have white count of 8.56 creatinine 0.6 cultures currently pending Objective - Vital Signs Vital signs: Vital Signs Temp 98.9 F 03/12/25 07:00 Pulse 91 03/12/25 07:00 Resp 16 03/12/25 07:00 BP 131/74 03/12/25 07:00 Pulse Ox 99 03/12/25 07:00 FiO2 Intake & Output 03/11/25 03/12/25 03/12/25 18:59 06:59 18:59 Output Total 20 Balance -20 Weight 45.359 kg 45.359 kg Output: Urine 20 Straight 20 Other: Voiding Method Diaper Diaper External Catheter External Catheter # Voids 0 - Exam GENERAL DESCRIPTION: An elderly female lying in bed in no distress RESPIRATORY SYSTEM: Unlabored breathing , decreased breath sounds at bases HEART: S1 S2 regular rate and rhythm , ABDOMEN: Soft , no tenderness EXTREMITIES: No edema feet - Labs CBC & Chem 7: 03/13/25 06:49 03/13/25 06:49 Labs: Abnormal Lab Results - Last 24 Hours (Table) 03/11/25 03/11/25 03/11/25 Range/Units 09:58 17:48 21:05 RBC (4.10-5.20) X 10*6/uL Hgb (12.0-15.0) g/dL Hct (37.2-46.3) % MCH (27.0-32.0) pg MCHC (32.0-37.0) g/dL RDW (11.5-14.5) % Immature Gran # (0.00-0.04) X 10*3/uL Chloride (96-109) mmol/L Carbon Dioxide (21.6-31.8) mmol/L Anion Gap (4.00-12.00) mmol/L BUN (9.0-27.0) mg/dL BUN/Creatinine Ratio (12.00-20.00) Ratio Glucose (70-110) mg/dL POC Glucose (mg/dL) 176 H 172 H (70-110) mg/dL Hemoglobin A1c 7.2 H (<=6.0) % Total Bilirubin (0.3-1.2) mg/dL Albumin (3.8-4.9) g/dL Globulin (1.6-3.3) g/dL Albumin/Globulin Ratio (1.60-3.17) Ratio Crossmatch 03/12/25 03/12/25 03/12/25 Range/Units 05:01 05:01 05:51 RBC 2.50 L (4.10-5.20) X 10*6/uL Hgb 6.3 A* (12.0-15.0) g/dL Hct 22.6 L (37.2-46.3) % MCH 25.2 L (27.0-32.0) pg MCHC 27.9 L (32.0-37.0) g/dL RDW 15.8 H (11.5-14.5) % Immature Gran # 0.07 H (0.00-0.04) X 10*3/uL Chloride 110 H (96-109) mmol/L Carbon Dioxide 19.1 L (21.6-31.8) mmol/L Anion Gap 12.90 H (4.00-12.00) mmol/L BUN 33.6 H (9.0-27.0) mg/dL BUN/Creatinine Ratio 56.00 H (12.00-20.00) Ratio Glucose 162 H (70-110) mg/dL POC Glucose (mg/dL) 172 H (70-110) mg/dL Hemoglobin A1c (<=6.0) % Total Bilirubin 0.2 L (0.3-1.2) mg/dL Albumin 3.2 L (3.8-4.9) g/dL Globulin 3.5 H (1.6-3.3) g/dL Albumin/Globulin Ratio 0.91 L (1.60-3.17) Ratio Crossmatch 03/12/25 Range/Units 09:06 RBC (4.10-5.20) X 10*6/uL Hgb (12.0-15.0) g/dL Hct (37.2-46.3) % MCH (27.0-32.0) pg MCHC (32.0-37.0) g/dL RDW (11.5-14.5) % Immature Gran # (0.00-0.04) X 10*3/uL Chloride (96-109) mmol/L Carbon Dioxide (21.6-31.8) mmol/L Anion Gap (4.00-12.00) mmol/L BUN (9.0-27.0) mg/dL BUN/Creatinine Ratio (12.00-20.00) Ratio Glucose (70-110) mg/dL POC Glucose (mg/dL) (70-110) mg/dL Hemoglobin A1c (<=6.0) % Total Bilirubin (0.3-1.2) mg/dL Albumin (3.8-4.9) g/dL Globulin (1.6-3.3) g/dL Albumin/Globulin Ratio (1.60-3.17) Ratio Crossmatch See Detail Assessment and Plan (1) Altered mental status Current Visit: Yes Status: Acute Code(s): R41.82 - ALTERED MENTAL STATUS, UNSPECIFIED SNOMED Code(s): 279402901 (2) UTI (urinary tract infection) Current Visit: Yes Status: Acute Code(s): N39.0 - URINARY TRACT INFECTION, SITE NOT SPECIFIED SNOMED Code(s): 45194935 Plan: 1patient has been brought to the hospital with altered mental status decreased appetite suprapubic pain and discomfort positive UA white count with a left shift concerning for symptomatic UTI likely from enteric gram-negative pathogen. 2patient currently being treated with Rocephin while waiting for the culture to finalize Dictation was produced using [employer] software. please excuse any grammatical, word or spelling errors. Time with Patient: Less than 30
--- NOTE | 2025-03-13 13:59 | P.PN ---
Subjective Progress Note Date: 03/13/25 Principal diagnosis: Reason for follow-up is a UTI Patient is a 89-year-old -Mex[place] female with a past medical history significant for CVA TIA diabetes mellitus reflux hypertension a [facility] resident patient has been sent to the hospital for evaluation of weakness decreased appetite and altered mental status patient did have some suprapubic discomfort, positive UA concerning for UTI. On today's evaluation that is 03/13/2025, the patient continues to be afebrile, the patient is on room air and breathing comfortably, the Pt seem to be more awake today did answer some simple question no chest pain no cough no vomiting or diarrhea has been reported. Patient white count is 9.26 creatinine 0.5 urine is growing gram-negative blood culture negative so far Objective - Vital Signs Vital signs: Vital Signs Temp 97.8 F 03/13/25 07:00 Pulse 88 03/13/25 07:00 Resp 17 03/13/25 09:10 BP 163/93 03/13/25 07:00 Pulse Ox 97 03/13/25 07:00 FiO2 Intake & Output 03/12/25 03/13/25 03/13/25 18:59 06:59 18:59 Intake Total 310 250 Output Total 450 Balance 310 -200 Weight 45.359 kg Intake: Oral 250 Blood Product 310 Rc As-1 Unit 310 [id number] Output: Urine 450 Straight 450 Other: Voiding Method Diaper Diaper Diaper External Catheter External Catheter External Catheter # Voids 0 # Bowel Movements 0 - Exam GENERAL DESCRIPTION: An elderly female lying in bed in no distress RESPIRATORY SYSTEM: Unlabored breathing , decreased breath sounds at bases HEART: S1 S2 regular rate and rhythm , ABDOMEN: Soft , no tenderness EXTREMITIES: No edema feet - Labs CBC & Chem 7: 03/13/25 06:49 03/13/25 06:49 Labs: Abnormal Lab Results - Last 24 Hours (Table) 03/12/25 03/12/25 03/12/25 Range/Units 09:06 11:56 12:24 RBC (4.10-5.20) 10*6/uL Hgb (12.0-15.0) g/dL Hct (37.2-46.3) % MCH (27.0-32.0) pg MCHC (32.0-37.0) g/dL RDW (11.5-14.5) % MPV (9.5-12.2) fL Immature Gran # (0.00-0.04) 10*3/uL Chloride (96-109) mmol/L Carbon Dioxide (21.6-31.8) mmol/L Anion Gap (4.00-12.00) mmol/L Creatinine (0.6-1.5) mg/dL BUN/Creatinine Ratio (12.00-20.00) Ratio Glucose (70-110) mg/dL POC Glucose (mg/dL) 183 H (70-110) mg/dL Iron (50-170) UG/DL % Saturation (12.00-45.00) Transferrin (204.0-354.0) mg/dL Vitamin B12 1629.0 H (200.0-944.0) pg/mL Crossmatch See Detail 03/12/25 03/12/25 03/13/25 Range/Units 17:24 21:26 05:51 RBC (4.10-5.20) 10*6/uL Hgb (12.0-15.0) g/dL Hct (37.2-46.3) % MCH (27.0-32.0) pg MCHC (32.0-37.0) g/dL RDW (11.5-14.5) % MPV (9.5-12.2) fL Immature Gran # (0.00-0.04) 10*3/uL Chloride (96-109) mmol/L Carbon Dioxide (21.6-31.8) mmol/L Anion Gap (4.00-12.00) mmol/L Creatinine (0.6-1.5) mg/dL BUN/Creatinine Ratio (12.00-20.00) Ratio Glucose (70-110) mg/dL POC Glucose (mg/dL) 141 H 151 H 112 H (70-110) mg/dL Iron (50-170) UG/DL % Saturation (12.00-45.00) Transferrin (204.0-354.0) mg/dL Vitamin B12 (200.0-944.0) pg/mL Crossmatch 03/13/25 03/13/25 Range/Units 06:49 06:49 RBC 3.45 L (4.10-5.20) 10*6/uL Hgb 9.1 L (12.0-15.0) g/dL Hct 30.0 L (37.2-46.3) % MCH 26.4 L (27.0-32.0) pg MCHC 30.3 L (32.0-37.0) g/dL RDW 15.3 H (11.5-14.5) % MPV 9.1 L (9.5-12.2) fL Immature Gran # 0.08 H (0.00-0.04) 10*3/uL Chloride 110 H (96-109) mmol/L Carbon Dioxide 17.5 L (21.6-31.8) mmol/L Anion Gap 14.50 H (4.00-12.00) mmol/L Creatinine 0.5 L (0.6-1.5) mg/dL BUN/Creatinine Ratio 49.00 H (12.00-20.00) Ratio Glucose 115 H (70-110) mg/dL POC Glucose (mg/dL) (70-110) mg/dL Iron 18 L (50-170) UG/DL % Saturation 6.92 L (12.00-45.00) Transferrin 186.0 L (204.0-354.0) mg/dL Vitamin B12 (200.0-944.0) pg/mL Crossmatch Microbiology - Last 24 Hours (Table) 03/11/25 11:52 Blood Culture - Preliminary Blood 03/11/25 11:04 Urine Culture - Preliminary Urine,Catheterized Gram Neg Bacilli Assessment and Plan (1) Altered mental status Current Visit: Yes Status: Acute Code(s): R41.82 - ALTERED MENTAL STATUS, UNSPECIFIED SNOMED Code(s): 243553914 (2) UTI (urinary tract infection) Current Visit: Yes Status: Acute Code(s): N39.0 - URINARY TRACT INFECTION, SITE NOT SPECIFIED SNOMED Code(s): 48583933 Plan: 1patient has been brought to the hospital with altered mental status decreased appetite suprapubic pain and discomfort positive UA white count with a left shift concerning for symptomatic UTI likely from enteric gram-negative pathogen. 2patient seem to have shown some clinical improvement urine is growing gram- negative we will treat with the Rocephin while waiting for the culture to finalize Dictation was produced using dragon dictation software. please excuse any grammatical, word or spelling errors. Time with Patient: Less than 30
[2025-03-13] MEDS: SODIUM CHLORIDE 0.9% 1,000 ML IV SCH (16:55)
[2025-03-13 17:28] LABS: Glucose,Whole Blood 83 mg/dL (70-110)
[2025-03-13] MEDS ORDERED: DEXTROSE 50% SYRINGE 50 ML IVP PRN ×2 (17:39→17:51)
--- NOTE | 2025-03-13 18:37 | P.PN ---
Subjective Progress Note Date: 03/13/25 History of present illness; patient is a 89-year-old lady with past medical history significant for CVA who was brought to the ER because of poor oral intake and failure to thrive. Patient is a resident of [facility], apparently patient has not been eating much for the last couple of days. Patient also bee ving nausea and is getting weak. There is no complaint of fever or chills at the facility. Denies any chest pain or shortness of breath at the facility. Initial lab work done in the ER showed WBC 9.1, hemoglobin 7.8, platelet count 481, sodium 142, potassium 4.5, BUN 15, creatinine 0.80, glucose 245 AST 23, ALT 13, UA done showed large amount of leukocyte Estrace, urine WBC 182 Influenza A not detected Influenza B not detected RSV not detected COVID-19 not detected Chest x-ray done in the ER showed cardiomegaly with no acute process CT head done showed moderate cerebral atrophy and moderate patchy burden of chronic small vessel ischemic disease. Suspect old infarcts within the bilateral cerebral hemispheres Patient admitted to internal medicine service 03/12/2025 Patient is seen in follow-up this morning with family at the bedside. Patient being evaluated by neurology along with infectious disease and psychiatry. Medications being held including Remeron per psychiatry and family request as they report she has too many side effects and complications on this medication. Patient has no appetite and reports does not feel hungry and is not eating very much. Patient is continued on IV antibiotics in the form of ceftriaxone with infectious disease following with preliminary urine culture showing gram- negative bacilli. Patient is afebrile denies any chest pain or shortness of b reath. Patient denies nausea or vomiting. Hemoglobin low at 6.3 today and 1 unit of PRBCs ordered. Family reports she does have history of anemia and patient reports she takes iron supplements daily normally. Will order TIBC, ferritin, iron studies for further evaluation. Patient resides at [facility] and will be returning there on discharge. 03/13/2025 Patient seen in follow-up today and is lethargic although arousable. Patient is mostly nonverbal and not really talking much per staff. Patient blood sugars in the 70s to 100s and will continue monitoring closely and give half amp as needed as needed for a blood glucose of less than 70. Patient is not eating and has no appetite and is denying any nausea or vomiting. Patient is significantly weak and debilitated and will be returning to [facility] on discharge. Per nursing staff patient had a cough after taking her morning medicine and will consult speech for bedside swallow evaluation. Patient is afebrile with no reports of chest pain or shortness of breath. Patient is continued on antibiotics with infectious disease following for urinary tract infection and preliminary culture remains gram-negative bacilli. Cultures to to result sometime this evening and will discuss further regarding discharge planning antibiotics REVIEW OF SYSTEMS: Not able to fully assess as patient is nodding yes and no but is somewhat still nonverbal, follows commands PHYSICAL EXAMINATION: GENERAL: The patient is an 89-year-old female who is awake, alert and oriented x 2, baseline, ill looking, elderly looking, thin built, significant muscle wasting noted HEENT: Pupils are round and equally reacting to light. EOMI. No scleral icterus. No conjunctival pallor. Normocephalic, atraumatic. No pharyngeal erythema. No thyromegaly. CARDIOVASCULAR: S1 and S2 muffled PULMONARY: Diminished breath sounds bilaterally otherwise chest is clear to a uscultation, no wheezing or crackles. ABDOMEN: Soft, nontender, nondistended, normoactive bowel sounds. No palpable organomegaly. MUSCULOSKELETAL: No joint swelling or deformity. EXTREMITIES: No cyanosis, clubbing, or pedal edema. NEUROLOGICAL: Gross neurological examination did not reveal any focal deficits. Diffusely weak SKIN: No rashes. Assessment: Debility with generalized weakness and progressively becoming more weak over the last few months, mostly wheelchair-bound the last 2 to 3 months Acute UTI, present on admission with preliminary culture showing gram-negative bacilli History of prior CVA History of anemia, chronic, iron deficiency noted Diabetes mellitus type II, uncontrolled with hyper and hypoglycemia history of hyperlipidemia History of hypertension [facility] resident Severe protein calorie malnutrition with a BMI of 17.7 History of dysphagia History of depression Possible dementia GI prophylaxis DVT prophylaxis No code Plan: Multiple consultations including neurology, psychiatry, infectious disease following patient is continued on ceftriaxone while awaiting cultures to finalize. Preliminary culture showing gram-negative bacilli. Notified micro lab and culture results showed populate sometime this evening. Will discuss with infectious disease regarding discharge planning antibiotics Patient has been evaluated by neurology undergoing further workup Psychiatry has evaluated the patient recommending to resume Remeron although patient's family wants to continue to hold for now Patient is a resident at [facility] and will be returning there on discharge. Case management/social work following working on discharge planning Encourage supplements and/or small frequent meals as patient has no real appetite and is not eating much, will consult speech and appreciate swallow evaluation Dietary following Will follow-up on repeat labs. Monitor glucose levels closely as patient is not eating much blood sugars have been trending down. Recommend half an amp every 4 hours as needed if blood sugar is 70 or less Daughter who is power of court administrator at the bedside reports she is no code at [facility] and will continue with this. Possible discharge planning in the next 24 to 48 hours The impression and plan of care has been dictated by Francine Hill, Nurse Practitioner as directed. Dr. Daisha MD I have performed a history and examination and MDM of this patient, discussed the same with the dictator, and agree with the dictator's assessment and plan as written ,documented as a scribe. Based on total visit time, I have performed more than 50% of the visit. Objective - Vital Signs Vital signs: Vital Signs Temp 97.8 F 03/13/25 07:00 Pulse 88 03/13/25 07:00 Resp 17 03/13/25 07:00 BP 163/93 03/13/25 07:00 Pulse Ox 97 03/13/25 07:00 FiO2 Intake & Output 03/12/25 03/13/25 03/13/25 18:59 06:59 18:59 Intake Total 310 250 Output Total 450 Balance 310 -200 Weight 45.359 kg Intake: Oral 250 Blood Product 310 Rc As-1 Unit 310 [id number] Output: Urine 450 Straight 450 Other: Voiding Method Diaper Diaper External Catheter External Catheter # Voids 0 # Bowel Movements 0 - Labs CBC & Chem 7: 03/13/25 06:49 03/13/25 06:49 Labs: Abnormal Lab Results - Last 24 Hours (Table) 03/12/25 03/12/25 03/12/25 Range/Units 09:06 11:56 12:24 RBC (4.10-5.20) 10*6/uL Hgb (12.0-15.0) g/dL Hct (37.2-46.3) % MCH (27.0-32.0) pg MCHC (32.0-37.0) g/dL RDW (11.5-14.5) % MPV (9.5-12.2) fL Immature Gran # (0.00-0.04) 10*3/uL POC Glucose (mg/dL) 183 H (70-110) mg/dL Vitamin B12 1629.0 H (200.0-944.0) pg/mL Crossmatch See Detail 03/12/25 03/12/25 03/13/25 Range/Units 17:24 21:26 05:51 RBC (4.10-5.20) 10*6/uL Hgb (12.0-15.0) g/dL Hct (37.2-46.3) % MCH (27.0-32.0) pg MCHC (32.0-37.0) g/dL RDW (11.5-14.5) % MPV (9.5-12.2) fL Immature Gran # (0.00-0.04) 10*3/uL POC Glucose (mg/dL) 141 H 151 H 112 H (70-110) mg/dL Vitamin B12 (200.0-944.0) pg/mL Crossmatch 03/13/25 Range/Units 06:49 RBC 3.45 L (4.10-5.20) 10*6/uL Hgb 9.1 L (12.0-15.0) g/dL Hct 30.0 L (37.2-46.3) % MCH 26.4 L (27.0-32.0) pg MCHC 30.3 L (32.0-37.0) g/dL RDW 15.3 H (11.5-14.5) % MPV 9.1 L (9.5-12.2) fL Immature Gran # 0.08 H (0.00-0.04) 10*3/uL POC Glucose (mg/dL) (70-110) mg/dL Vitamin B12 (200.0-944.0) pg/mL Crossmatch Microbiology - Last 24 Hours (Table) 03/11/25 11:52 Blood Culture - Preliminary Blood 03/11/25 11:04 Urine Culture - Preliminary Urine,Catheterized Gram Neg Bacilli
[2025-03-13 19:42] LABS: Glucose,Whole Blood 76 mg/dL (70-110)
[2025-03-13] MEDS: SODIUM FERRIC GLUCONAT-SUCROSE 125 MG in SODIUM CHLORIDE 0.9% 100 ML IVPB SCH (20:30)
[2025-03-13] MEDS: ACETAMINOPHEN TAB 325 MG TAB PO PRN (20:38)
[2025-03-13] MEDS: DEXTROSE 5%-0.45% NACL 1,000 ML IV SCH (21:30)
[2025-03-13 23:56] LABS: Glucose,Whole Blood 83 mg/dL (70-110)
[2025-03-14 03:45] LABS: Glucose,Whole Blood 123 mg/dL (70-110)
[2025-03-14 05:44] LABS: Glucose,Whole Blood 135 mg/dL (70-110)
[2025-03-14 07:41] LABS: Glucose,Whole Blood 156 mg/dL (70-110)
[2025-03-14 08:10] VITALS: RESP 16
[2025-03-14 10:29] LABS: Blood Urea Nitrogen 22.6 mg/dL (9.0-27.0); Calcium 8.9 mg/dL (8.7-10.3); Carbon Dioxide 15.2 mmol/L (21.6-31.8); Chloride 111 mmol/L (96-109); Glucose 131 mg/dL (70-110); Potassium 3.8 mmol/L (3.5-5.5); Sodium 141 mmol/L (135-145)
--- NOTE | 2025-03-14 10:32 | P.PN ---
Subjective Progress Note Date: 03/13/25 Patient was seen for a follow-up. Patient's daughter was also present by the bedside. Patient's daughter mentions that patient has never been diagnosed with any dementia. She does have history of stroke in 2018 or 2019, which affected her speech. Have tried speech therapy. She also has history of cerebral aneurysm, that was treated surgically at [facility] in 2001 or 2002. Patient started having recurrent falls, therefore she was transferred to rehab facility, and subsequently to a care home. She has stopped walking since 2022. Patient's daughter states that she actually came to the hospital because she was complaining of stomach pain, not eating for 3 weeks except for Ensure. Objective - Vital Signs Vital signs: Vital Signs Temp 97.8 F 03/13/25 07:00 Pulse 88 03/13/25 07:00 Resp 17 03/13/25 07:00 BP 163/93 03/13/25 07:00 Pulse Ox 97 03/13/25 07:00 FiO2 Intake & Output 03/12/25 03/13/25 03/13/25 18:59 06:59 18:59 Intake Total 310 250 Output Total 450 Balance 310 -200 Weight 45.359 kg Intake: Oral 250 Blood Product 310 Rc As-1 Unit 310 [id number] Output: Urine 450 Straight 450 Other: Voiding Method Diaper Diaper External Catheter External Catheter # Voids 0 # Bowel Movements 0 - Exam Patient is laying in the bed, unchanged. - Labs CBC & Chem 7: 03/13/25 06:49 03/13/25 06:49 Labs: Abnormal Lab Results - Last 24 Hours (Table) 03/12/25 03/12/25 03/12/25 Range/Units 09:06 11:56 12:24 RBC (4.10-5.20) 10*6/uL Hgb (12.0-15.0) g/dL Hct (37.2-46.3) % MCH (27.0-32.0) pg MCHC (32.0-37.0) g/dL RDW (11.5-14.5) % MPV (9.5-12.2) fL Immature Gran # (0.00-0.04) 10*3/uL POC Glucose (mg/dL) 183 H (70-110) mg/dL Vitamin B12 1629.0 H (200.0-944.0) pg/mL Crossmatch See Detail 03/12/25 03/12/25 03/13/25 Range/Units 17:24 21:26 05:51 RBC (4.10-5.20) 10*6/uL Hgb (12.0-15.0) g/dL Hct (37.2-46.3) % MCH (27.0-32.0) pg MCHC (32.0-37.0) g/dL RDW (11.5-14.5) % MPV (9.5-12.2) fL Immature Gran # (0.00-0.04) 10*3/uL POC Glucose (mg/dL) 141 H 151 H 112 H (70-110) mg/dL Vitamin B12 (200.0-944.0) pg/mL Crossmatch 03/13/25 Range/Units 06:49 RBC 3.45 L (4.10-5.20) 10*6/uL Hgb 9.1 L (12.0-15.0) g/dL Hct 30.0 L (37.2-46.3) % MCH 26.4 L (27.0-32.0) pg MCHC 30.3 L (32.0-37.0) g/dL RDW 15.3 H (11.5-14.5) % MPV 9.1 L (9.5-12.2) fL Immature Gran # 0.08 H (0.00-0.04) 10*3/uL POC Glucose (mg/dL) (70-110) mg/dL Vitamin B12 (200.0-944.0) pg/mL Crossmatch Microbiology - Last 24 Hours (Table) 03/11/25 11:52 Blood Culture - Preliminary Blood 03/11/25 11:04 Urine Culture - Preliminary Urine,Catheterized Gram Neg Bacilli Assessment and Plan Assessment: * Altered mental status, likely due to metabolic encephalopathy. * Probable underlying cognitive impairment. * Abnormal speech, with whispering/hoarse voice, unclear cause. * Repetitive tongue rolling while talking, rule out tardive dyskinesia. * Acute UTI with E. coli * History of B12 deficiency * Anemia * Diabetes * Hypertension * History of cerebellar CVA * History of headaches Plan: * EEG was abnormal due to intermittent dysrhythmic slowing in bilateral anterior temporal region, left > right. This is suggestive of focal cortical neuronal dysfunction. No epileptiform activity was seen.. * B12 1629, folate 16.70, MMA 0.14, all are normal. Vitamin B6 still pending * Patient had thyroid functions checked on 02/14/2025, in which TSH was <0.015 and free T4 normal 1.36. We will defer to IM. * Hemoglobin A1c 7.2 on 03/11/2025. Recommend optimize control of diabetes to target A1c <7.0. * Patient currently on ceftriaxone for acute UTI. Urine cultures have grown E. coli and Aerococcus urinae. * Continue aspirin 81 mg and Lipitor 20 mg. * Regarding hoarse/whispering voice, consider ENT consultation as outpatient, as this is chronic finding. * Patient also receiving blood for severe anemia. * I discussed with patient's daughter about possibility of underlying dementia. She states that no one has formally diagnosed yet. At present patient has acute UTI, and encephalopathy, therefore cannot be assessed for cognitive impairment. I would suggest patient follow-up with neurologist outpatient for detailed cognitive function testing, once all medical/metabolic conditions have stabilized. Patient's daughter agreed. We will hold off on any cognitive enhancing medication at this time.
--- NOTE | 2025-03-14 11:01 | P.PN ---
Subjective Progress Note Date: 03/14/25 Principal diagnosis: Reason for follow-up is a UTI Patient is a 89-year-old -[place] female with a past medical history significant for CVA TIA diabetes mellitus reflux hypertension a [facility] resident patient has been sent to the hospital for evaluation of weakness decreased appetite and altered mental status patient did have some suprapubic discomfort, positive UA concerning for UTI. On today's evaluation that is 03/14/2025, Patient is afebrile patient is curre ntly on room air and breathing comfortably in no distress. Nodded head to any of the question asked no vomiting or diarrhea has been reported. Patient did have a creatinine 0.5 urine did grew E. coli and Aeerococcus Objective - Vital Signs Vital signs: Vital Signs Temp 98.2 F 03/14/25 06:55 Pulse 75 03/14/25 06:55 Resp 16 03/14/25 08:52 BP 167/78 03/14/25 06:55 Pulse Ox 100 03/14/25 06:55 FiO2 Intake & Output 03/13/25 03/14/25 03/14/25 18:59 06:59 18:59 Output Total 246 Balance -246 Output: Post Void Residual 246 Other: Voiding Method Diaper Diaper Diaper External Catheter External Catheter External Catheter # Voids 0 # Bowel Movements 0 - Exam GENERAL DESCRIPTION: An elderly female lying in bed in no distress RESPIRATORY SYSTEM: Unlabored breathing , decreased breath sounds at bases HEART: S1 S2 regular rate and rhythm , ABDOMEN: Soft , no tenderness EXTREMITIES: No edema feet - Labs CBC & Chem 7: 03/13/25 06:49 03/14/25 05:33 Labs: Abnormal Lab Results - Last 24 Hours (Table) 03/14/25 03/14/25 03/14/25 Range/Units 03:39 05:33 05:42 Chloride 111 H (96-109) mmol/L Carbon Dioxide 15.2 L (21.6-31.8) mmol/L Anion Gap 14.80 H (4.00-12.00) mmol/L Creatinine 0.5 L (0.6-1.5) mg/dL BUN/Creatinine Ratio 45.20 H (12.00-20.00) Ratio Glucose 131 H (70-110) mg/dL POC Glucose (mg/dL) 123 H 135 H (70-110) mg/dL 03/14/25 Range/Units 07:40 Chloride (96-109) mmol/L Carbon Dioxide (21.6-31.8) mmol/L Anion Gap (4.00-12.00) mmol/L Creatinine (0.6-1.5) mg/dL BUN/Creatinine Ratio (12.00-20.00) Ratio Glucose (70-110) mg/dL POC Glucose (mg/dL) 156 H (70-110) mg/dL Microbiology - Last 24 Hours (Table) 03/11/25 11:04 Urine Culture - Final Urine,Catheterized Escherichia coli Aerococcus urinae 03/11/25 11:52 Blood Culture - Preliminary Blood Assessment and Plan (1) Altered mental status Current Visit: Yes Status: Acute Code(s): R41.82 - ALTERED MENTAL STATUS, UNSPECIFIED SNOMED Code(s): 149536100 (2) UTI (urinary tract infection) Current Visit: Yes Status: Acute Code(s): N39.0 - URINARY TRACT INFECTION, SITE NOT SPECIFIED SNOMED Code(s): 80503183 Plan: 1patient has been brought to the hospital with altered mental status decreased appetite suprapubic pain and discomfort positive UA white count with a left shift concerning for symptomatic UTI likely from enteric gram-negative pathogen. 2patient seem to have shown some clinical improvement urine is growing E. coli sensitive to Rocephin consider finishing the short course of oral Ceftin Dictation was produced using [employer] dictation software. please excuse any grammatical, word or spelling errors. Time with Patient: Less than 30
[2025-03-14 12:17] LABS: Glucose,Whole Blood 163 mg/dL (70-110)
--- NOTE | 2025-03-14 15:29 | P.DS ---
Providers Date of admission: 03/11/25 12:47 Expected date of discharge: 03/14/25 Attending physician: Yuniel Matos MD Consults: 03/11/25 12:00 Consult Physician Routine Consulting Provider: Psychiatry - [facility] Psychiatry Consult Reason/Comments: depression per family, Do you want consulting provider notified?: Yes Consult Physician Routine Consulting Provider: Liliya Tang Consult Reason/Comments: AMS, possible depression vs. UTI Do you want consulting provider notified?: Yes 03/11/25 14:10 Consult Physician Routine Consulting Provider: Soledad Huang Consult Reason/Comments: Recurrent UTI Do you want consulting provider notified?: Yes Primary care physician: [facility] Course: Final diagnosis Debility with generalized weakness and progressively becoming more weak over the last few months, mostly wheelchair-bound the last 2 to 3 months Acute UTI, present on admission with culture showing E. coli History of prior CVA History of anemia, chronic, iron deficiency noted Diabetes mellitus type II, uncontrolled with hyper and hypoglycemia history of hyperlipidemia History of hypertension custodial resident Severe protein calorie malnutrition with a BMI of 17.7 History of dysphagia History of depression Possible dementia GI prophylaxis DVT prophylaxis No code Discharge disposition Patient is being discharged in a stable condition with guarded prognosis to [facility]. Patient will follow-up with Dr. Mendiola in the outpatient setting upon discharge. Patient is to continue with Ceftin 500 mg twice daily for 5 days. Total time taken is greater than 35 minutes. Hospital course This is a 89-year-old female who was recently admitted with debility with generalized weakness and has been deteriorating for the last 1 to 2 weeks per family. Patient has been refusing to eat or speak and has been progressively getting worse. Patient also with altered mentation and confusion was noted to have an acute urinary tract infection and cultures finalized showing E. coli with sensitivities. Patient has been on IV ceftriaxone with infectious disease following and will transition to oral Ceftin 500 mg twice daily for the next 5 days. Patient was also evaluated by speech and patient is noting to be aspirating on most consistencies including pured diet and recommending full liquid diet with aspiration precautions at most. Discussed the philosophy and possible need for PEG tube and patient family reports she would not want this. Patient is no code and if patient continues to deteriorate discussed with family about inquiring about possible comfort care and hospice at [facility]. Patient has been cleared by consultations and will be discharged to [facility]. Please refer to other consultation notes for further HPI. Currently no reports of chest pain, shortness of breath, or palpitations. Patient is afebrile. No reports of nausea or vomiting and patient is tolerating diet. Patient will be going to [facility] today. Overall poor prognosis. Physical exam: Gen: This is a 89-year-old female who is awake, alert and oriented x 1-2, thin build, elderly appearing, ill-appearing HEENT: Head is atraumatic, normocephalic. Pupils equal, round. Sclerae is anicteric. NECK: Supple. No JVD. No lymphadenopathy. No thyromegaly. LUNGS: Clear to auscultation. No wheezes or rhonchi. No intercostal retractions. HEART: Regular rate and rhythm. No murmur. ABDOMEN: Soft. Bowel sounds are present. No masses. No tenderness. EXTREMITIES: No pedal edema. No calf tenderness. Cachexia with muscle wasting noted NEUROLOGICAL: Patient is awake, alert and oriented x 1-2. Cranial nerves 2 through 12 are grossly intact. Diffusely weak Please refer to medication reconciliation sheet for a list of medications. The impression and plan of care has been dictated by Francine Hill, Nurse Practitioner as directed. Dr. Daisha MD I have performed a history and examination and MDM of this patient, discussed the same with the dictator, and agree with the dictator's assessment and plan as written ,documented as a scribe. Based on total visit time, I have performed more than 50% of the visit. Patient Condition at Discharge: Fair Plan - Discharge Summary Discharge Rx Participant: Yes New Discharge Prescriptions: New cefuroxime axetiL [Ceftin] 500 mg PO BID 5 Days #10 tab Continue Ferrous Sulfate [Iron (65 MG Elemental)] 325 mg PO DAILY@0800 Na Phos,M-B/Na Phos,Di-Ba [Fleet Adult] 133 ml RECTAL DAILY PRN PRN Reason: Constipation Brinzolamide/Brimonidine Tart [Simbrinza 1%-0.2% Eye Drop] 1 drop BOTH EYES BID@0800,1700 Ensure Enlive 120 ml PO BID@0800,1700 Famotidine [Pepcid] 20 mg PO DAILY@0800 Magnesium Hydroxide [Milk of Magnesia Concentrate] 7,200 mg PO Q48H PRN PRN Reason: Constipation Acetaminophen [Tylenol] 650 mg PO Q6H PRN PRN Reason: Fever And/ Or Pain Brinzolamide/Brimonidine Tart [Simbrinza 1%-0.2% Eye Drop] 1 drop BOTH EYES BID@0800,1700 polyethylene glycoL 3350 [Miralax] 17 gm PO DAILY@0800 Atorvastatin [Lipitor] 20 mg PO DAILY@1700 sitaGLIPtin [Januvia] 50 mg PO DAILY@0800 Melatonin 1 mg PO HS PRN PRN Reason: Insomnia Magnesium Hydroxide [Milk of Magnesia Concentrate] 7,200 mg PO DAILY PRN PRN Reason: Constipation Latanoprost [Latanoprost 0.005%] 1 drop BOTH EYES HS Nitroglycerin Sl Tabs [Nitrostat] 0.4 mg SUBLINGUAL Q5M PRN tab PRN Reason: Chest Pain Nitroglycerin Sl Tabs [Nitrostat] 0.4 mg SUBLINGUAL Q5M PRN PRN Reason: Chest Pain Na Phos,M-B/Na Phos,Di-Ba [Fleet Adult] 133 ml RECTAL DAILY PRN PRN Reason: Constipation bisacodyL [Dulcolax] 10 mg RECTAL DAILY PRN PRN Reason: Constipation INSULIN ASPART (NovoLOG) [NovoLOG (formulary)] See Protocol SQ ACHS Levothyroxine Sodium [Synthroid] 25 mcg PO DAILY@0800 Ensure Enlive 120 - 237 ml PO TID@0800,1200,1700 Sennosides/Docusate Sodium [Senna-S 8.6-50 mg Tablet] 1 tab PO BID@0800,1700 Vit C/E/Zn/Coppr/Lutein/Zeaxan [Preservision Areds 2 Softgel] 1 cap PO BID@0800,1700 Metoprolol Succinate (ER) [Toprol XL] 25 mg PO DAILY@0800 Latanoprost [Latanoprost 0.005%] 1 drop BOTH EYES HS Ferrous Sulfate [Iron] 325 mg PO DAILY@0800 Famotidine [Pepcid] 20 mg PO DAILY@0800 Aspirin 81 mg PO DAILY@0800 Discontinued Mirtazapine [Remeron] 15 mg PO HS HYDROcodone/APAP 5-325MG [Frankewing 5-325] 1 tab PO Q6H PRN PRN Reason: Pain Vit C/E/Zn/Coppr/Lutein/Zeaxan [Preservision Areds 2 Softgel] 1 cap PO BID@0800,1700 Atorvastatin [Lipitor] 20 mg PO DAILY tab lisinopriL [Zestril] 10 mg PO DAILY@0800 sitaGLIPtin [Januvia] 100 mg PO DAILY@0800 lisinopriL [Zestril] 10 mg PO DAILY@0800 Acetaminophen Tab [Tylenol] 650 mg PO Q6HR PRN tab PRN Reason: Mild Pain Or Fever > 100.5 bisacodyL [Dulcolax] 10 mg RECTAL DAILY PRN PRN Reason: Constipation Sennosides/Docusate Sodium [Senna-S 8.6-50 mg Tablet] 1 tab PO BID@0800,1700 polyethylene glycoL 3350 [Miralax] 17 gm PO DAILY@0800 Levothyroxine Sodium [Synthroid] 25 mcg PO DAILY@0800 Aspirin 81 mg PO DAILY@0700 Mirtazapine [Remeron] 30 mg PO HS@2100 Discharge Medication List Ferrous Sulfate [Iron (65 MG Elemental)] 325 mg PO DAILY@0800 05/11/20 [History] sitaGLIPtin [Januvia] 50 mg PO DAILY@0800 01/13/23 [History] Brinzolamide/Brimonidine Tart [Simbrinza 1%-0.2% Eye Drop] 1 drop BOTH EYES BID@0800,1700 02/20/24 [History] Ensure Enlive 120 ml PO BID@0800,1700 02/20/24 [History] Famotidine [Pepcid] 20 mg PO DAILY@0800 02/20/24 [History] Latanoprost [Latanoprost 0.005%] 1 drop BOTH EYES HS 02/20/24 [History] Magnesium Hydroxide [Milk of Magnesia Concentrate] 7,200 mg PO DAILY PRN 02/20/24 [History] Melatonin 1 mg PO HS PRN 02/20/24 [History] Na Phos,M-B/Na Phos,Di-Ba [Fleet Adult] 133 ml RECTAL DAILY PRN 02/20/24 [History] Nitroglycerin Sl Tabs [Nitrostat] 0.4 mg SUBLINGUAL Q5M PRN tab 02/21/24 [Rx] Acetaminophen [Tylenol] 650 mg PO Q6H PRN 03/11/25 [History] Aspirin 81 mg PO DAILY@0800 03/11/25 [History] Atorvastatin [Lipitor] 20 mg PO DAILY@17003/11/25 [History] Brinzolamide/Brimonidine Tart [Simbrinza 1%-0.2% Eye Drop] 1 drop BOTH EYES BID@0800,1700 03/11/25 [History] Ensure Enlive 120 - 237 ml PO TID@0800,1200,1700 03/11/25 [History] Famotidine [Pepcid] 20 mg PO DAILY@0803/11/25 [History] Ferrous Sulfate [Iron] 325 mg PO DAILY@0803/11/25 [History] INSULIN ASPART (NovoLOG) [NovoLOG (formulary)] See Protocol SQ ACHS 03/11/25 [History] Latanoprost [Latanoprost 0.005%] 1 drop BOTH EYES HS 03/11/25 [History] Levothyroxine Sodium [Synthroid] 25 mcg PO DAILY@0803/11/25 [History] Magnesium Hydroxide [Milk of Magnesia Concentrate] 7,200 mg PO Q48H PRN 03/11/25 [History] Metoprolol Succinate (ER) [Toprol XL] 25 mg PO DAILY@0800 03/11/25 [History] Na Phos,M-B/Na Phos,Di-Ba [Fleet Adult] 133 ml RECTAL DAILY PRN 03/11/25 [History] Nitroglycerin Sl Tabs [Nitrostat] 0.4 mg SUBLINGUAL Q5M PRN 03/11/25 [History] Sennosides/Docusate Sodium [Senna-S 8.6-50 mg Tablet] 1 tab PO BID@0800,1700 03/11/25 [History] Vit C/E/Zn/Coppr/Lutein/Zeaxan [Preservision Areds 2 Softgel] 1 cap PO BID@0800,1700 03/11/25 [History] bisacodyL [Dulcolax] 10 mg RECTAL DAILY PRN 03/11/25 [History] polyethylene glycoL 3350 [Miralax] 17 gm PO DAILY@0800 03/11/25 [History] cefuroxime axetiL [Ceftin] 500 mg PO BID 5 Days #10 tab 03/14/25 [Rx] Follow up Appointment(s)/Referral(s): Richmond Mendiola MD [Primary Care Provider] - 1 Week Activity/Diet/Wound Care/Special Instructions: Patient is returning to [facility] Patient to continue with Ceftin twice daily for 5 days Patient was evaluated by speech recommending only full liquid diet at most and aspiration precautions Continue with Ensure supplements 3 times daily between meals Continue monitoring Accu-Cheks AC and at bedtime and insulin Patient is no code and would recommend possible comfort care measures and/or hospice if patient continues to deteriorate Discussed with family and patient and family do not want a PEG tube
[2025-03-14 16:06] VITALS: BP 144/82; PULSE 87; TEMP 98
[2025-03-14 17:06] LABS: Glucose,Whole Blood 132 mg/dL (70-110)
== END 2025-03-14 19:35 ==
LOC: EC 09:14 → MERGE 09:14 → 1SOBS 12:47 → 6NMEDSUR 18:25
PROVIDERS: ADMIT Internal Medicine; ATTEND Internal Medicine
DX: N39.0 Urinary tract infection, site not specified (principal); B96.20 Unspecified Escherichia coli [E. coli] as the cause of diseases classified elsewhere; R62.7 Adult failure to thrive; D51.9 Vitamin B12 deficiency anemia, unspecified; R49.0 Dysphonia; E11.65 Type 2 diabetes mellitus with hyperglycemia; E11.649 Type 2 diabetes mellitus with hypoglycemia without coma; D50.9 Iron deficiency anemia, unspecified; I10 Essential (primary) hypertension; K21.9 Gastro-esophageal reflux disease without esophagitis; F32.A Depression, unspecified; E78.5 Hyperlipidemia, unspecified; R13.10 Dysphagia, unspecified; E43 Unspecified severe protein-calorie malnutrition; Z68.1 Body mass index [BMI] 19.9 or less, adult; Z11.52 Encounter for screening for COVID-19; Z66 Do not resuscitate; Z86.73 Personal history of transient ischemic attack (TIA), and cerebral infarction without residual deficits; Z79.82 Long term (current) use of aspirin; Z79.84 Long term (current) use of oral hypoglycemic drugs; Z79.890 Hormone replacement therapy; Z79.899 Other long term (current) drug therapy
CPT/HCPCS: 96376 ×2; 36430; 96361 ×3; 96366 ×4; 96367; 96375 ×2; 96365; 99285; 36415; 95816; 93005; 97161; 97166; 92610; 92526; 86900; 86901; 84207; 83921; 80053 ×2; 80048 ×2; 82607; 82728; 82140; 82746; 83540; 83550; 83605; 83735 ×2; 85025 ×3; 85610; 85730; 86850; 86920; 81001; 87040; 87086; 87077; 87186; 83036; 87636; 71046; 70450; G0378 ×4; P9016; J2405; J0696 ×4; J2916 ×2; J2470 ×3